=== PATIENT | female | born 1945 | race American Indian/Alaskan Native ===

== ENCOUNTER 2020-04-29 10:15 | Outpatient (REF) | payer MEDICARE, MEDICAID, SELFPAY ==
--- NOTE | 2020-04-29 10:22 | XR_ITS ---
EXAMINATION: XR FOOT, RIGHT CLINICAL INFORMATION: Pain in right toes COMPARISON: None TECHNIQUE: 3 views of the right foot of the right foot. FINDINGS: Osteopenia. No fracture or dislocation. Alignment is anatomic. Mild joint space narrowing throughout the interphalangeal joints with subchondral sclerosis. No osseous erosion. Vascular calcifications are noted. No gross soft tissue abnormality. There is moderate hypertrophic spurring of the plantar aponeurosis and Achilles insertion to the calcaneus. XR/XR foot RT min 3V IMPRESSION: No acute osseous abnormality. Mild degenerative changes throughout the interphalangeal joints. Heel spurs.
== END 2020-04-29 10:16 | disposition home or self-care (01) ==
LOC: HO.HMGCX 10:15
PROVIDERS: PCP Internal Medicine; Visit Provider Nurse Practitioner Family
DX: M79.674 Pain in right toe(s) (principal)
CPT/HCPCS: 73630

== ENCOUNTER 2020-05-08 08:21 | Outpatient (REF) | payer MEDICARE, MEDICAID, SELFPAY ==
[2020-05-08 09:16] LABS: MANUAL DIFF FLAG NO
[2020-05-08 09:30] LABS: Iron 78 mcg/dL (30-160); Percent Iron Saturation 20 % (15-50); Total Iron Binding Capacity 387 mcg/dL (228-428); Unsaturated Iron Binding 309 ug/dL
[2020-05-08 09:34] LABS: Alanine Aminotransferase 12 U/L (0-31); Albumin Level 4.4 g/dL (3.5-5.0); Alkaline Phosphatase 126 U/L (39-117); Anion Gap 14 (12-20); Aspartate Amino Transferase 18 U/L (5-31); B Type Natriuretic Peptide 551 pg/mL (<100); Basophils Absolute Auto 0.1 X10*3/uL (0.0-0.2); Basophils Percent Auto 0.8 % (0-2); Bilirubin Total 0.6 mg/dL (0.0-1.0); Blood Urea Nitrogen 29 mg/dL (9-16); Calcium 9.6 mg/dL (8.4-10.2); Carbon Dioxide 28 mmol/L (22-29); Chloride 102 mmol/L (96-108); Cholesterol 204 mg/dL; Eosinophils Absolute Auto 0.4 X10*3/uL (0.0-0.4); Eosinophils Percent Auto 4.4 % (0-4); Estimated Glomerular Filt Rate 33; Glucose Random 231 mg/dL (60-115); HDL Cholesterol 69 mg/dL; Hematocrit 41.6 % (37-47); Hemoglobin 13.7 g/dl (12.0-16.0); Imm Gran Abs Auto 0.04 X10*3/uL (0.00-0.03); Imm Gran Pct Auto 0.5 % (0.0-0.4); LDL Cholesterol Calculated 106 mg/dl; Lymphocytes Absolute Auto 1.8 X10*3/uL (1.2-4.9); Lymphocytes Percent Auto 22.4 % (20-40); Mean Corpuscular HGB Conc 32.9 g/dl (31.0-35.0); Mean Corpuscular Hemoglobin 28.5 pg (27.0-33.0); Mean Corpuscular Volume 86.7 fL (80-98); Mean Platelet Volume 10.6 fL (9.4-12.3); Monocytes Absolute Auto 0.6 X10*3/uL (0.1-1.2); Monocytes Percent Auto 7.4 % (2-11); Neutrophils Absolute Auto 5.1 X10*3/uL (2.0-8.3); Neutrophils Percent Auto 64.5 % (45-73); Platelet Count 298 X10*3/uL (160-400); Potassium 4.8 mmol/l (3.3-5.1); Red Cell Distribution Width 13.9 % (11.0-16.0); Sodium 139 mmol/L (135-145); Total Protein 7.6 g/dL (6.5-8.0); Triglycerides 149 mg/dL; White Blood Count 7.9 X10*3/uL (4.8-10.8)
[2020-05-08 09:44] LABS: Glucose Urine UA 100 MG/DL (NEG); Leukocyte Esterase Urine NEG (NEG); Nitrite Urine NEG (NEG); Specific Gravity - Urine 1.015 (1.005-1.025); Urine Blood TRACE (NEG); Urine Ketones NEG (NEG); Urine Protein 2+ MG/DL (NEG-TRACE)
[2020-05-08 09:48] LABS: Appearance Urine CLEAR; Color Urine YELLOW
[2020-05-08 09:50] LABS: Ferritin 120 ng/mL (10-250); Vitamin D 25-OH Total 20.5 ng/mL (>30)
[2020-05-08 09:55] LABS: Thyroid Stimulating Hormone 3.69 uIU/mL (0.32-4.0)
[2020-05-08 10:05] LABS: Folate 14.4 ng/mL (> or = 4.0); Vitamin B12 775 pg/mL (200-900)
[2020-05-08 10:05] LABS: Creatinine Urine 31.34 mg/dL
[2020-05-08 10:20] LABS: Microalbum/Creatinine Ratio Ur 4792.5 ug/mg cr
[2020-05-08 10:44] LABS: RBC Urine 0-2 /HPF (0); Squamous Epithelial Cell Urine 1+ /LPF; WBC Urine 0-2 /HPF (0-4)
[2020-05-10 13:41] LABS: Calcium (PTHI) 9.7 mg/dL (8.6-10.4); PTHI 46 pg/mL (14-64)
== END 2020-05-08 08:22 | disposition home or self-care (01) ==
LOC: HO.LAB 08:21
PROVIDERS: Absent Provider Internal Medicine Nephrology; PCP Internal Medicine; Visit Provider Internal Medicine
DX: E78.00 Pure hypercholesterolemia, unspecified (principal); E11.65 Type 2 diabetes mellitus with hyperglycemia; Z79.4 Long term (current) use of insulin; I50.9 Heart failure, unspecified; I10 Essential (primary) hypertension
CPT/HCPCS: 36415; 80053; 80061; 81001; 82043; 82306; 82607; 82728; 82746; 83540; 83880; 83970; 84100; 84443; 85025

== ENCOUNTER 2020-05-24 14:43 | Outpatient (REF) | payer MEDICARE, MEDICAID, SELFPAY ==
--- NOTE | 2020-05-24 14:49 | MM_ITS ---
EXAMINATION: MM SCREENING DIGITAL BREAST TOMOSYNTHESIS, BILATERAL CLINICAL INFORMATION: Screening. Asymptomatic. The lifetime risk of breast cancer based on the Tyrer-Cuzick Model is under 2%. COMPARISON: Mammography: 11/10/2018, 11/04/2017, 01/11/2017 TECHNIQUE: Digital breast tomosynthesis is performed in both the craniocaudal and mediolateral oblique views along with computer-aided detection (CAD). Synthesized 2D images are generated from the tomosynthesis. FINDINGS: There are scattered areas of fibroglandular density (ACR BI-RADS breast composition Category b). There are no significant masses, abnormal calcifications, or other abnormalities. Parenchymal pattern similar to prior studies. No significant changes. Again, there is intramammary node mid upper outer left breast and probable small lobe posterior upper outer right breast. There are bilateral predominantly vascular calcifications again seen. MM/MM tomosynthesis screening BI IMPRESSION: No significant changes from prior studies. ASSESSMENT: BI-RADS 2: Benign RECOMMENDATION: Routine annual mammography screening. This patient's information was entered into a reminder system with a target due date for their next mammogram.
== END 2020-05-24 14:44 | disposition home or self-care (01) ==
LOC: HO.MAMMO 14:43
PROVIDERS: PCP Internal Medicine; Visit Provider Internal Medicine
DX: Z12.31 Encounter for screening mammogram for malignant neoplasm of breast (principal)
CPT/HCPCS: 77063; 77067

== ENCOUNTER 2020-12-10 10:52 | Observation (INO) | payer MEDICARE, MEDICAID, SELFPAY ==
[2020-12-10] VITALS (15 sets, daily range): BP systolic 136–226; BP diastolic 40–79; PULSE 66–87; RESP 11–20; TEMP 36.4; O2SAT 83–100; BMI 41.3
--- NOTE | ~2020-12-10 | CT_ITS ---
EXAMINATION: CT HEAD WITHOUT CONTRAST CLINICAL INFORMATION: Hypertension COMPARISON: Previous head CT most recent May 2018 TECHNIQUE: Contiguous axial imaging was performed from the skull base to vertex without intravenous administration of contrast. This CT examination was performed using dose optimization techniques as appropriate, variously including the following: *Automated exposure control *Adjustment of mA and/or kV according to patient size (this includes techniques or standardized protocols for targeted exams where dose is matched to indication/reason for exam; i.e. extremities or head) *Use of iterative reconstruction technique DLP: 642 mGy-cm FINDINGS: There is no evidence of an extra-axial collection. There is no evidence of intra-axial or extra-axial hemorrhage. There is age-related prominence of the ventricles and extra-axial CSF spaces. There is nonspecific periventricular white matter disease. There are old right cerebellar and occipital infarcts that appear unchanged. No mass, mass effect or acute infarct is seen. Review at bone windows is normal. No skull fracture is seen. Visualized paranasal sinuses, mastoid air cells and middle ears are clear. CT/CT head/brain wo con IMPRESSION: No acute findings. 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
--- NOTE | ~2020-12-10 | CT_ITS ---
EXAMINATION: CT ABDOMEN AND PELVIS WITHOUT CONTRAST CLINICAL INFORMATION: Abdominal pain. Rule out kidney stone. COMPARISON: Previous CT of the abdomen and pelvis March 2018 TECHNIQUE: Multidetector volumetric imaging was performed from the superior aspect of the liver through the pubic symphysis. Sagittal and coronal reformatted images were obtained on the technologist's workstation. This CT examination was performed using dose optimization techniques as appropriate, variously including the following: *Automated exposure control *Adjustment of mA and/or kV according to patient size (this includes techniques or standardized protocols for targeted exams where dose is matched to indication/reason for exam; i.e. extremities or head) *Use of iterative reconstruction technique DLP: 524 mGy-cm FINDINGS: LUNG BASES: The visualized lung bases are clear. The heart is enlarged. There are median sternotomy wires. LIVER, GALLBLADDER, AND BILIARY TREE: The liver is normal in size, shape, and attenuation. No focal hepatic lesion or biliary ductal dilatation is present. The gallbladder has been removed. PANCREAS: Unremarkable. SPLEEN: Unremarkable. ADRENAL GLANDS: Unremarkable. KIDNEYS AND URETERS: There are several right renal stones. The largest measures 3 mm in the lower pole. There are other renal calcifications probably representing vascular calcifications. No hydronephrosis, ureteral dilatation or ureteral stone is seen. BLADDER: Unremarkable. GASTROINTESTINAL TRACT: The small and large bowel are unremarkable. The appendix is unremarkable. ABDOMINAL WALL: There is a small umbilical hernia containing fat. LYMPH NODES: There are prominent bilateral pelvic retroperitoneal lymph nodes. Largest lymph node is a right iliac bifurcation or side wall node measuring 1 x 2.5 cm axial image 60 series 13. These are stable from radius exam. VASCULAR: There is evidence of severe atherosclerotic disease. No aneurysm is seen. There is a right femoral bypass graft that is partially visualized. PELVIC VISCERA: Unremarkable. OSSEOUS STRUCTURES: There are degenerative changes of the spine. There is curvature of mid lumbar spine to the left. CT/CT abdomen pelvis wo con IMPRESSION: Small nonobstructing right renal stones. Severe atherosclerotic disease. Stable pelvic lymphadenopathy.
--- NOTE | ~2020-12-10 | US_ITS ---
EXAMINATION: US RENAL DOPPLER CLINICAL INFORMATION: Hypertension, evaluate for renal artery stenosis COMPARISON: None TECHNIQUE: Routine renal ultrasound and retroperitoneal Doppler evaluation of kidneys and abdominal aorta was performed. FINDINGS: There is normal size, cortical thickness of both kidneys. The right kidney measures 9.8 x 5.0 x 3.8 cm. The left kidney measures 9.7 x 4.5 x 3.8 cm. There are no echogenic stones or hydronephrosis. Renal Doppler: Right kidney: The renal artery velocity proximal segment measures 97.2 cm/second, mid segment measures 122 cm/second, distal segment measures 89.2 cm. Resistive index average measures 0.84. Renal aortic ratio cannot be obtained as mid aorta velocity was not obtained. Left kidney: Renal artery velocity measures mid segment measures 91.2 cm and distal segment measures 124 cm/second. The proximal segment was not visualized. Average resistive index measures 0.88. Renal aortic ratio cannot be calculated. US/US renal doppler IMPRESSION: Normal renal ultrasound. On renal Doppler exam the resistive index in the right kidney is borderline. Renal aortic ratio cannot be obtained due to patient's body habitus as mid abdominal aorta was not visualized and velocity not obtained. Slightly elevated left kidney resistive index. The renal artery velocity distal segment is elevated. The mid segment is normal and the proximal segment was not seen. The findings are less suspicious for renal artery stenosis.
[2020-12-10 11:06] LABS: Glucose, Whole Blood 326 mg/dL (60-115)
[2020-12-10 11:45] LABS: MANUAL DIFF FLAG NO
[2020-12-10 11:49] LABS: Basophils Percent Auto 0.4 % (0-2); Eosinophils Absolute Auto 0.2 X10*3/uL (0.0-0.4); Eosinophils Percent Auto 2.5 % (0-4); Hematocrit 40.2 % (37-47); Hemoglobin 13.3 g/dl (12.0-16.0); Imm Gran Abs Auto 0.04 X10*3/uL (0.00-0.03); Imm Gran Pct Auto 0.4 % (0.0-0.4); Lymphocytes Percent Auto 21.4 % (20-40); Mean Corpuscular HGB Conc 33.1 g/dl (31.0-35.0); Mean Corpuscular Hemoglobin 28.1 pg (27.0-33.0); Mean Corpuscular Volume 84.8 fL (80-98); Mean Platelet Volume 10.2 fL (9.4-12.3); Monocytes Absolute Auto 0.5 X10*3/uL (0.1-1.2); Neutrophils Absolute Auto 6.5 X10*3/uL (2.0-8.3); Neutrophils Percent Auto 70.3 % (45-73); Platelet Count 271 X10*3/uL (160-400); Red Blood Count 4.74 X10*6/uL (4.20-5.50); Red Cell Distribution Width 14.2 % (11.0-16.0); White Blood Count 9.3 X10*3/uL (4.8-10.8)
[2020-12-10 12:07] LABS: COVID-19 Test Negative (Negative)
[2020-12-10 12:20] LABS: Alanine Aminotransferase 9 U/L (0-31); Alkaline Phosphatase 120 U/L (39-117); Anion Gap 17 (12-20); Aspartate Amino Transferase 18 U/L (5-31); Bilirubin Direct 0.3 mg/dL (0.0-0.5); Bilirubin Total 0.8 mg/dL (0.0-1.0); Blood Urea Nitrogen 25 mg/dL (9-16); Calcium 9.1 mg/dL (8.4-10.2); Carbon Dioxide 25 mmol/L (22-29); Chloride 97 mmol/L (96-108); Creatinine Clr Calc Pharmacy 23.6; Estimated Glomerular Filt Rate 33; Glucose Random 375 mg/dL (60-115); Lipase 35 U/L (8-78); Potassium 4.9 mmol/L (3.3-5.1); Sodium 134 mmol/L (135-145); Total Protein 6.7 g/dL (6.5-8.0)
--- NOTE | 2020-12-10 12:40 | ECG_ITS ---
Test Reason : ABD PAIN Blood Pressure : / mmHG Vent. Rate : 082 BPM Atrial Rate : 082 BPM P-R Int : 144 ms QRS Dur : 106 ms QT Int : 402 ms P-R-T Axes : 060 010 051 degrees QTc Int : 469 ms Normal sinus rhythm Possible Inferior infarct (cited on or before 01-JUN-2016) Abnormal ECG When compared with ECG of 05-OCT-2018 12:07, Nonspecific T wave abnormality, improved in Inferior leads Referred By: Ramin Gill Electronically Signed By:TALITA ANTUNEZ MD
[2020-12-10 12:50] LABS: Acetone, serum QL Negative (Negative)
[2020-12-10] MEDS: Morphine Sulfate 4 MG/ML CARTRIDGE IVPUSH (12:55)
[2020-12-10] MEDS: ondansetron HCL 4 MG/2 ML VIAL IVPUSH (12:55)
[2020-12-10] MEDS: Famotidine/PF 20 MG/2 ML VIAL IVPUSH (12:55)
[2020-12-10] MEDS: Sodium Chloride 0.45 % 1,000 ML 125 ML IVCONT (13:06)
[2020-12-10 13:07] LABS: Glucose Urine UA >=1000 MG/DL (NEG); Leukocyte Esterase Urine NEG (NEG); Nitrite Urine NEG (NEG); Specific Gravity - Urine 1.015 (1.005-1.025); Urine Blood NEG (NEG); Urine Ketones NEG (NEG); Urine Protein 2+ MG/DL (NEG-TRACE)
[2020-12-10 13:08] LABS: Appearance Urine CLEAR; Color Urine YELLOW
--- NOTE | 2020-12-10 13:17 | ED_ITS ---
HPI - General Adult General Chief complaint: Nausea/Vomiting/Diarrhea Stated complaint: Hyperglycemia Time Seen by Provider: 12/10/20 12:13 Source: patient Mode of arrival: ambulatory Limitations: no limitations History of Present Illness HPI narrative: patient presents to ED for made to lower abdominal pain that b juliano after eating whole meal, milk, and orange juice. Patient states before eating this meal she had no symptoms. Patient's fingerstick was found to be 222. patient denies any chest pain, shortness of breath, fever, chills, coughing, dysuria, hematuria, flank pain, back pain. Related Data Home Medications Medication Instructions Recorded Confirmed aspirin 81 mg tablet,delayed 81 mg PO DAILY 04/12/20 12/10/20 release cholecalciferol (vitamin D3) 1,250 1,250 mcg PO TU 04/12/20 12/10/20 mcg (50,000 unit) capsule nifedipine 60 mg tablet,extended 60 mg PO BID 04/12/20 12/10/20 release insulin asp prt-insulin aspart 20 unit SUBCUT DAILY 12/10/20 12/10/20 [Novolog Mix 70-30FlexPen U-100] insulin asp prt-insulin aspart 25 unit SUBCUT QPM 12/10/20 12/10/20 [Novolog Mix 70-30FlexPen U-100] rosuvastatin 1 tab PO DAILY 12/10/20 12/10/20 Previous Rx's Medication Instructions Recorded docusate sodium 100 mg capsule 100 mg PO TID PRN #90 cap 04/04/20 bumetanide 1 mg tablet 1 mg PO BID #180 tab 05/29/20 gabapentin 300 mg capsule 300 mg PO TID #270 cap 07/02/20 compress.stocking,knee,reg,med #2 ea 07/25/20 clonidine HCl 0.3 mg tablet 0.3 mg PO BID 90 Days #180 tab 08/07/20 albuterol sulfate 90 mcg/actuation 2 puff INHALATION Q4-6H PRN #8.5 g 08/15/20 aerosol inhaler lisinopril 40 mg tablet 40 mg PO DAILY #90 tab 08/28/20 Diabetic shoes #1 ea 10/15/20 blood-glucose meter #1 ea 10/15/20 tramadol 50 mg tablet 50 mg PO Q8H 90 Days #270 tab 10/15/20 pen needle, diabetic 31 gauge x #2 box 10/22/20 3/16 Allergies Allergy/AdvReac Type Severity Reaction Status Date / Time latex [LATEX] Allergy Unknown UNKNOWN Verified 07/02/20 09:47 peanut [PEANUT] Allergy Unknown RASH Unverified 04/12/20 16:47 seafood Allergy Unknown Unknown Verified 07/02/20 09:47 Review of Systems Review of Systems: Yes all other systems are reviewed and are negative Constitutional: Constitutional: Reports as per HPI and Reports no additional constitutional complaints Eyes: Eyes: Reports as per HPI and Reports no additional eye complaints ENT: Reports system reviewed and no additional complaints, except as documented and Reports as per HPI Cardiovascular: Cardiovascular: Reports as per HPI and Reports no additional cardiovascular complaints Respiratory: Respiratory: Reports as per HPI and Reports no additional respiratory complaints Gastrointestinal: Gastrointestinal: Reports as per HPI, Reports no additional gastrointestinal complaints and Reports abdominal pain ( Mid to lower abdominal pain) Genitourinary: Genitourinary: Reports no additional female genitourinary complaints and Reports as per HPI Musculoskeletal: Musculoskeletal: Reports no additional musculoskeletal complaints and Reports as per HPI Neurologic: Reports system reviewed and no additional complaints, except as documented and Reports as per HPI Psychiatric: Psychiatric: Reports no additional psychiatric complaints and Reports as per HPI [facility] Past Medical History Medical History (Updated 12/10/20 @ 18:36 by NELLY Kumar) Aortic stenosis Asthma Congestive heart failure Coronary artery disease Dementia Diabetic neuropathy Diabetic retinopathy History of CVA (cerebrovascular accident) Hypercholesterolemia Hypertension Obesity (BMI 30-39.9) Peripheral vascular disease Thyroid nodule Type 2 diabetes mellitus with hyperglycemia Surgical History (Updated 04/11/20 @ 18:27 by Renetta Gonzalez MD) Amputated toe of left foot Carotid stenosis Femoral-popliteal bypass graft occlusion, left Hx of CABG Hx of cholecystectomy No pertinent past surgical history Family History Family History (Updated 07/02/20 @ 09:49 by ALBA Karimi) Father Diabetes Hypertension Mother Hypertension CVD (cardiovascular disease) Cancer Diabetes Maternal Aunt Breast cancer Seizures Sister No problems noted. Son No problems noted. Son No problems noted. Son No problems noted. Daughter No problems noted. Social History Social History (Updated 10/15/20 @ 11:23 by Kizzy Rivera CMA) Alcohol intake: current Alcohol intake frequency: does not drink Patient Tobacco Use Status: Never used Tobacco Use of substances other than those prescribed or required for medical reasons: No Advance Directives: No Advance Directives Information Provided: No Physical Exam Vital Signs: Vital Signs: Last Vital Signs Temp 97.5 F 12/10/20 11:16 Pulse 79 12/10/20 18:23 Resp 13 12/10/20 15:49 BP 213/65 H 12/10/20 18:23 Pulse Ox 100 12/10/20 15:11 Body Mass Index 41.3 Const: General: cooperative, healthy appearing, comfortable, no acute distress, well developed, alert and acute distress Orientation/consciousness: patient oriented x3 HENMT: Head: Yes normal to inspection, Yes No palpable skull fracture present, Yes normocephalic, Yes atraumatic and No abrasion Eyes: General: appearance normal, both eyes and all related structures Neck: Neck: Yes normal visual inspection, Yes full ROM, Yes no lymphadenopathy, Yes no meningeal signs, Yes trachea midline, Yes supple and No tender Chest: Chest palpation & inspection: normal inspection of the chest and normal palpation of entire chest wall Resp: Effort & Inspection: normal respiratory effort and able to speak in comp lete sentences Auscultation: clear to auscultation bilaterally Cardio: Jugular venous distension: no JVD Heart sounds: S1 normal heart sound present and S2 normal heart sound present GI: Inspection: Yes normal to inspection and No abdominal wall ecchymosis Palpation (GI): Tenderness to palpation present (GI) in the LLQ and in the RLQ, no guarding and not rigid : General: No CVA tenderness and Yes no CVA tenderness Back/Spine/Pelvis: Back: no CVA tenderness, No CVA tenderness and No back tenderness Skin: General skin exam: no rashes or lesions noted and elasticity normal Neuro: General: patient oriented x3, gait normal, no meningeal signs and CN's II-XI intact bilaterally Cranial nerves: Yes CN's II-XII intact bilaterally Extrem: General: Yes normal to inspection and Yes full ROM Psych: Appearance: grossly normal, well kempt and not disheveled Course Course Course Narrative: patient will have medical evaluation. Patient is hypertensive most likely due to pain. Will give narcotics for, fluid, Pepcid. Will send patient for abdominal CT scan. Lab sent to see if possible DKA. UA ordered. Reevaluation(s) Reevaluation #1: Patient is severely hypertensive even after given pain medication. Patient given 2 rounds of morphine. Patient given clonidine and labetalol. Was sent for head CT and abdominal CT. patient not in DKA. Time: 11:36 Reevaluation #2: patient abdominal pain improved, but patient still hypertensive. Chemistry shows chronic AVIS. Patient blood pressure went down to 190s from systolic of 200s after being given labetalol and clonidine. Patient admitted to the hospital for hypertensive urgency. Case presented to Dr. Avalos. head CT and abdominal CT normal. UA negative for UTI Time: 18:34 Medical Decision Making MDM Narrative Medical decision making narrative: hypertensive urgency Lab Data Result diagrams: 12/10/20 11:36 12/10/20 11:36 Labs: Lab Results 12/10/20 12/10/20 12/10/20 Range/Units 11:03 11:36 11:36 WBC 9.3 (4.8-10.8) X10*3/uL RBC 4.74 (4.20-5.50) X10*6/uL Hgb 13.3 (12.0-16.0) g/dl Hct 40.2 (37-47) % MCV 84.8 (80-98) fL MCH 28.1 (27.0-33.0) pg MCHC 33.1 (31.0-35.0) g/dl RDW 14.2 (11.0-16.0) % Plt Count 271 (160-400) X10*3/uL MPV 10.2 (9.4-12.3) fL Immature Gran % (Auto) 0.4 (0.0-0.4) % Neut % (Auto) 70.3 (45-73) % Lymph % (Auto) 21.4 (20-40) % [place] % (Auto) 5.0 (2-11) % Eos % (Auto) 2.5 (0-4) % Baso % (Auto) 0.4 (0-2) % Lymph # (Auto) 2.0 (1.2-4.9) X10*3/uL [place] # (Auto) 0.5 (0.1-1.2) X10*3/uL Eos # (Auto) 0.2 (0.0-0.4) X10*3/uL Baso # (Auto) 0.0 (0.0-0.2) X10*3/uL Abs Immat Gran (auto) 0.04 H (0.00-0.03) X10*3/uL Absolute Neuts (auto) 6.5 (2.0-8.3) X10*3/uL Absolute Nucleated RBC 0.000 (0.0-0.012) X10*3/uL Nucleated RBC % (auto) 0.0 (0.0-0.2) /100WBC PT (10.8-13.0) SEC INR (0.9-1.1) APTT (24.1-38.0) SEC Sodium 134 L (135-145) mmol/L Potassium 4.9 (3.3-5.1) mmol/L Chloride 97 (96-108) mmol/L Carbon Dioxide 25 (22-29) mmol/L Anion Gap 17 (12-20) BUN 25 H (9-16) mg/dL Creatinine 1.52 H (0.5-1.4) mg/dL Estim Creat Clear Calc 23.6 Estimated GFR 33 POC Glucose 326 H (60-115) mg/dL Random Glucose 375 H* (60-115) mg/dL Calcium 9.1 (8.4-10.2) mg/dL Total Bilirubin 0.8 (0.0-1.0) mg/dL Direct Bilirubin 0.3 (0.0-0.5) mg/dL AST 18 (5-31) U/L ALT 9 (0-31) U/L Alkaline Phosphatase 120 H (39-117) U/L Troponin I High Sens (<3.5-17.0) ng/L Total Protein 6.7 (6.5-8.0) g/dL Albumin 4.0 (3.5-5.0) g/dL Lipase 35 (8-78) U/L Urine Color Urine Appearance Urine pH (5.0-8.0) Ur Specific [place] (1.005-1.025) Urine Protein (NEG-TRACE) MG/DL Urine Glucose (UA) (NEG) MG/DL Urine Ketones (NEG) MG/DL Urine Blood (NEG) Urine Nitrite (NEG) Ur Leukocyte Esterase (NEG) Urine RBC (0) /HPF Urine WBC (0-4) /HPF Ur Squamous Epith Cells /LPF Urine Bacteria /LPF Acetone, Qual Negative (Negative) COVID-19 ([facility]) (Negative) COVID-19 Clin Com 12/10/20 12/10/20 12/10/20 Range/Units 11:36 11:36 12:58 WBC (4.8-10.8) X10*3/uL RBC (4.20-5.50) X10*6/uL Hgb (12.0-16.0) g/dl Hct (37-47) % MCV (80-98) fL MCH (27.0-33.0) pg MCHC (31.0-35.0) g/dl RDW (11.0-16.0) % Plt Count (160-400) X10*3/uL MPV (9.4-12.3) fL Immature Gran % (Auto) (0.0-0.4) % Neut % (Auto) (45-73) % Lymph % (Auto) (20-40) % [place] % (Auto) (2-11) % Eos % (Auto) (0-4) % Baso % (Auto) (0-2) % Lymph # (Auto) (1.2-4.9) X10*3/uL [place] # (Auto) (0.1-1.2) X10*3/uL Eos # (Auto) (0.0-0.4) X10*3/uL Baso # (Auto) (0.0-0.2) X10*3/uL Abs Immat Gran (auto) (0.00-0.03) X10*3/uL Absolute Neuts (auto) (2.0-8.3) X10*3/uL Absolute Nucleated RBC (0.0-0.012) X10*3/uL Nucleated RBC % (auto) (0.0-0.2) /100WBC PT (10.8-13.0) SEC INR (0.9-1.1) APTT (24.1-38.0) SEC Sodium (135-145) mmol/L Potassium (3.3-5.1) mmol/L Chloride (96-108) mmol/L Carbon Dioxide (22-29) mmol/L Anion Gap (12-20) BUN (9-16) mg/dL Creatinine (0.5-1.4) mg/dL Estim Creat Clear Calc Estimated GFR POC Glucose (60-115) mg/dL Random Glucose (60-115) mg/dL Calcium (8.4-10.2) mg/dL Total Bilirubin (0.0-1.0) mg/dL Direct Bilirubin (0.0-0.5) mg/dL AST (5-31) U/L ALT (0-31) U/L Alkaline Phosphatase (39-117) U/L Troponin I High Sens 15.1 (<3.5-17.0) ng/L Total Protein (6.5-8.0) g/dL Albumin (3.5-5.0) g/dL Lipase (8-78) U/L Urine Color YELLOW Urine Appearance CLEAR Urine pH 6.0 (5.0-8.0) Ur Specific [place] 1.015 (1.005-1.025) Urine Protein 2+ H (NEG-TRACE) MG/DL Urine Glucose (UA) >=1000 H (NEG) MG/DL Urine Ketones NEG (NEG) MG/DL Urine Blood NEG (NEG) Urine Nitrite NEG (NEG) Ur Leukocyte Esterase NEG (NEG) Urine RBC 0 (0) /HPF Urine WBC 0-2 (0-4) /HPF Ur Squamous Epith Cells NONE /LPF Urine Bacteria NONE /LPF Acetone, Qual (Negative) COVID-19 ([facility]) Negative (Negative) COVID-19 Clin Com See Note 12/10/20 12/10/20 12/10/20 Range/Units 13:41 13:48 14:35 WBC (4.8-10.8) X10*3/uL RBC (4.20-5.50) X10*6/uL Hgb (12.0-16.0) g/dl Hct (37-47) % MCV (80-98) fL MCH (27.0-33.0) pg MCHC (31.0-35.0) g/dl RDW (11.0-16.0) % Plt Count (160-400) X10*3/uL MPV (9.4-12.3) fL Immature Gran % (Auto) (0.0-0.4) % Neut % (Auto) (45-73) % Lymph % (Auto) (20-40) % [place] % (Auto) (2-11) % Eos % (Auto) (0-4) % Baso % (Auto) (0-2) % Lymph # (Auto) (1.2-4.9) X10*3/uL [place] # (Auto) (0.1-1.2) X10*3/uL Eos # (Auto) (0.0-0.4) X10*3/uL Baso # (Auto) (0.0-0.2) X10*3/uL Abs Immat Gran (auto) (0.00-0.03) X10*3/uL Absolute Neuts (auto) (2.0-8.3) X10*3/uL Absolute Nucleated RBC (0.0-0.012) X10*3/uL Nucleated RBC % (auto) (0.0-0.2) /100WBC PT 11.5 (10.8-13.0) SEC INR 1.0 (0.9-1.1) APTT 27.6 (24.1-38.0) SEC Sodium (135-145) mmol/L Potassium (3.3-5.1) mmol/L Chloride (96-108) mmol/L Carbon Dioxide (22-29) mmol/L Anion Gap (12-20) BUN (9-16) mg/dL Creatinine (0.5-1.4) mg/dL Estim Creat Clear Calc Estimated GFR POC Glucose 321 H 319 H (60-115) mg/dL Random Glucose (60-115) mg/dL Calcium (8.4-10.2) mg/dL Total Bilirubin (0.0-1.0) mg/dL Direct Bilirubin (0.0-0.5) mg/dL AST (5-31) U/L ALT (0-31) U/L Alkaline Phosphatase (39-117) U/L Troponin I High Sens (<3.5-17.0) ng/L Total Protein (6.5-8.0) g/dL Albumin (3.5-5.0) g/dL Lipase (8-78) U/L Urine Color Urine Appearance Urine pH (5.0-8.0) Ur Specific [place] (1.005-1.025) Urine Protein (NEG-TRACE) MG/DL Urine Glucose (UA) (NEG) MG/DL Urine Ketones (NEG) MG/DL Urine Blood (NEG) Urine Nitrite (NEG) Ur Leukocyte Esterase (NEG) Urine RBC (0) /HPF Urine WBC (0-4) /HPF Ur Squamous Epith Cells /LPF Urine Bacteria /LPF Acetone, Qual (Negative) COVID-19 ([facility]) (Negative) COVID-19 Clin Com 12/10/20 12/10/20 Range/Units 15:23 15:47 WBC (4.8-10.8) X10*3/uL RBC (4.20-5.50) X10*6/uL Hgb (12.0-16.0) g/dl Hct (37-47) % MCV (80-98) fL MCH (27.0-33.0) pg MCHC (31.0-35.0) g/dl RDW (11.0-16.0) % Plt Count (160-400) X10*3/uL MPV (9.4-12.3) fL Immature Gran % (Auto) (0.0-0.4) % Neut % (Auto) (45-73) % Lymph % (Auto) (20-40) % [place] % (Auto) (2-11) % Eos % (Auto) (0-4) % Baso % (Auto) (0-2) % Lymph # (Auto) (1.2-4.9) X10*3/uL [place] # (Auto) (0.1-1.2) X10*3/uL Eos # (Auto) (0.0-0.4) X10*3/uL Baso # (Auto) (0.0-0.2) X10*3/uL Abs Immat Gran (auto) (0.00-0.03) X10*3/uL Absolute Neuts (auto) (2.0-8.3) X10*3/uL Absolute Nucleated RBC (0.0-0.012) X10*3/uL Nucleated RBC % (auto) (0.0-0.2) /100WBC PT (10.8-13.0) SEC INR (0.9-1.1) APTT (24.1-38.0) SEC Sodium (135-145) mmol/L Potassium (3.3-5.1) mmol/L Chloride (96-108) mmol/L Carbon Dioxide (22-29) mmol/L Anion Gap (12-20) BUN (9-16) mg/dL Creatinine (0.5-1.4) mg/dL Estim Creat Clear Calc Estimated GFR POC Glucose 317 H (60-115) mg/dL Random Glucose (60-115) mg/dL Calcium (8.4-10.2) mg/dL Total Bilirubin (0.0-1.0) mg/dL Direct Bilirubin (0.0-0.5) mg/dL AST (5-31) U/L ALT (0-31) U/L Alkaline Phosphatase (39-117) U/L Troponin I High Sens 13.9 (<3.5-17.0) ng/L Total Protein (6.5-8.0) g/dL Albumin (3.5-5.0) g/dL Lipase (8-78) U/L Urine Color Urine Appearance Urine pH (5.0-8.0) Ur Specific [place] (1.005-1.025) Urine Protein (NEG-TRACE) MG/DL Urine Glucose (UA) (NEG) MG/DL Urine Ketones (NEG) MG/DL Urine Blood (NEG) Urine Nitrite (NEG) Ur Leukocyte Esterase (NEG) Urine RBC (0) /HPF Urine WBC (0-4) /HPF Ur Squamous Epith Cells /LPF Urine Bacteria /LPF Acetone, Qual (Negative) COVID-19 ([facility]) (Negative) COVID-19 Clin Com ECG Data Interpretation: normal sinus rhythm. Ventricular rate 82. Peer interval 144. QRS 106. QTC 469. Negative STEMI Discharge Plan Discharge Clinical Impression: Hypertension, Type 2 diabetes mellitus with hyperglycemia Patient Disposition: Admitted As Inpatient
[2020-12-10 13:19] LABS: RBC Urine 0 /HPF (0); WBC Urine 0-2 /HPF (0-4)
[2020-12-10 13:46] LABS: Troponin-I High Sensitivity 15.1 ng/L (<3.5-17.0)
[2020-12-10] MEDS: Insulin Regular, Human 100 UNIT/ML 3 ML VIAL 6 UNIT IVPUSH (13:51)
[2020-12-10 13:52] LABS: Glucose, Whole Blood 321 mg/dL (60-115)
[2020-12-10 13:58] LABS: Prothrombin Time 11.5 SEC (10.8-13.0)
[2020-12-10 14:01] LABS: Partial Thromboplastin Time 27.6 SEC (24.1-38.0)
[2020-12-10] MEDS: cloNIDine HCL 0.2 MG TABLET PO (14:10)
[2020-12-10] MEDS: Morphine Sulfate 2 MG/ML CARTRIDGE IVPUSH (14:11)
[2020-12-10 14:41] LABS: Glucose, Whole Blood 319 mg/dL (60-115)
[2020-12-10] MEDS: Labetalol HCL 100 MG/20 ML VIAL 10 MG IVPUSH (15:16)
[2020-12-10 15:52] LABS: Glucose, Whole Blood 317 mg/dL (60-115)
[2020-12-10 16:00] LABS: Troponin-I High Sensitivity 13.9 ng/L (<3.5-17.0)
--- NOTE | 2020-12-10 17:10 | PHA.MEDREC ---
Pharmacy Consult ? Medication Reconciliation Pharmacy has completed the medication reconciliation.
[2020-12-10 17:48] LABS: Glucose, Whole Blood 285 mg/dL (60-115)
[2020-12-10] MEDS: hydrALAZINE HCl 20 MG/ML VIAL 5 MG IVPUSH (18:23)
[2020-12-10] MEDS: Insulin Lispro 100 UNIT/ML 3 ML VIAL SUBCUT ×2 (18:31→21:00)
--- NOTE | 2020-12-10 19:15 | PC.NURSE ---
ASSUMED CARE OF PT. PT RESTING IN STRETCHER IN NAD, DENIES ANY COMPLAINTS. RESPIRATIONS EASY, N/L. SKIN W/D. PT'S DAUGHTER PHONE # [phone]. WILL CONTINUE TO MONITOR PT.
[2020-12-10] MEDS: Enoxaparin Sodium 30 MG/0.3 ML SYRINGE SUBCUT (20:00)
--- NOTE | 2020-12-10 20:43 | HP_ITS ---
DATE OF SERVICE: 12/10/2020 CHIEF COMPLAINT: Nausea, vomiting, abdominal pain, and diarrhea. HISTORY OF PRESENTING ILLNESS: This is a 75-year-old female patient with multiple medical issues including history of diabetes mellitus, uncontrolled; history of peripheral vascular disease; history of asthma; aortic stenosis; coronary artery disease; dementia; status post CVA; hypercholesterolemia; morbid obesity; who presented to [facility] due to lower abdominal pain associated with nausea, vomiting, and 1 bout of diarrhea according to the patient. She went at a [employer] and had a large breakfast including hash brown, adventist oat with milk, cornmeal, eggs, cherries, followed by a glass of orange juice; soon after that symptoms started. Therefore, she came to the emergency room, where she was noted to have significantly elevated blood pressure with a systolic BP 222/71. Further workup including a CAT scan of the abdomen and pelvis showed no acute abnormality. It showed severe arthrosclerotic disease. 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 The patient was treated in the emergency room with IV morphine, IV Pepcid, clonidine 0.2 mg, labetalol 10 mg. since blood pressure remained elevated 194/60, it was decided to admit the patient for better blood pressure control. The patient was also noted to have elevated blood sugars in the range of 300 with stable electrolytes and stable renal function. At present, the patient admits that her abdominal pain, nausea, vomiting has improved. She denies any headache, dizziness. Denies any neurological deficits and is being admitted for close blood pressure and blood sugar monitoring. PAST MEDICAL HISTORY: Significant for, 1. History of congestive heart failure, history of coronary artery disease, history of diabetes mellitus with neuropathy, retinopathy, and likely chronic kidney disease. 2. History of prior CVA with no residual deficit. 3. History of hypercholesterolemia. 4. History of hypertension. 5. History of morbid obesity. 6. History of peripheral vascular disease. 7. History of thyroid nodule. PAST SURGICAL HISTORY: 1. She is status post amputation of left fourth toe. 2. Status post femoral-popliteal bypass graft on left. 3. Status post CABG. 4. Status post cholecystectomy. FAMILY HISTORY: 1. Father is , had hypertension and diabetes. 2. Mother is , had hypertension, coronary artery disease, and diabetes. 3. One maternal aunt has breast cancer and seizure. SOCIAL HISTORY: Patient lives at home alone. Ambulates with the help of a cane. The patient's son and granddaughter are . She drinks alcohol only on special occasions. She has never smoked. ALLERGIES: SHE IS ALLERGIC TO LATEX, UNKNOWN ALLERGY. PEANUT CAUSES RASH. SEAFOOD ALSO CAUSE UNKNOWN ALLERGIES. CURRENT MEDICATIONS: 1. Cholecalciferol 50,000 units weekly. 2. Insulin 25 units at p.m. and 20 units at a.m. 3. Rosuvastatin 40 mg daily. 4. Albuterol 2 puffs inhaler every 4 to 6 hours as needed. 5. Aspirin 81 daily. 6. Bumex 1 mg b.i.d. 7. Clonidine 0.3 mg b.i.d. 8. Colace 100 mg t.i.d. as needed. 9. Gabapentin 300 mg t.i.d. 10. Lisinopril 40 mg daily. 11. Nifedipine 60 mg twice daily. 12. Tramadol 50 mg every 8 hours. REVIEW OF SYSTEMS: ORDER BOOKER: No headache, no dizziness. CVS: No chest pain, no palpitation. GI: All symptoms of nausea, vomiting, abdominal pain, and diarrhea resolved. : No urinary frequency or urgency. Rest of all other systems are reviewed and negative. PHYSICAL EXAMINATION: GENERAL: The patient is resting comfortably. Patient is awake, alert, in no distress. VITALS: BP 190/60, pulse of 69, respiratory rate of 13. She is afebrile with a finger oximetry of 100% on 1 L of nasal cannula. HEENT: Pupils equal, reactive to light and accommodation. LUNGS: Clear to auscultation bilaterally with no wheeze or rhonchi. CARDIOVASCULAR: Heart rate, regular rate rhythm. ABDOMEN: Obese, soft, nontender. Bowel sounds are audible. EXTREMITIES: She has bilateral pitting edema of both lower extremities. She has bilateral lower extremity anterior lucio discoloration that is unchanged as per the patient's daughter with no open wounds. No drainage noted. NEUROLOGIC: Nonfocal. ASSESSMENT AND PLAN: This is a 75-year-old female patient with multiple medical issues including history of hypercholesterolemia, uncontrolled diabetes mellitus, hypertension, prior cerebrovascular accident, coronary artery disease, status post coronary artery bypass graft, vascular dementia without behavioral disturbances, presented to [facility] due to an acute onset of nausea, vomiting, abdominal pain, and nonbloody diarrhea after eating a large meal. 1. Nausea, vomiting, abdominal pain, and diarrhea. patient's all symptoms have resolved. Workup showed normal CAT scan of the abdomen and pelvis, electrolytes as well as CBC is unremarkable, likely food poisoning. We will place the patient on diet. Follow clinical course closely, will use as-needed antiemetic and Maalox for dyspepsia. 2. Uncontrolled blood pressure. The patient is on 4 antihypertensive medications that will be continued. Question elevated blood pressures related to nausea, vomiting, and pain, will add as-needed hydralazine and adjust baseline medications depending on blood pressure readings over the course of next 24 hours. 3. Diabetes mellitus on insulin with uncontrolled blood sugars. It has been noted that the patient's hemoglobin A1c is 9.8, suggestive of poor blood sugar control. The patient has been recommended to follow a strict diabetic diet. She will be placed on insulin sliding scale and Lantus, at home she takes twice daily 70/30 mixed insulin. 4. History of coronary artery disease. We will continue home medications. Currently, the patient has no chest pain and EKG showed normal sinus rhythm with no acute ischemic changes. 5. Code status, the patient wishes to be a full code. 6. Deep vein thrombosis prophylaxis. The patient has been placed on Lovenox. MD WALLY Monet/DANIELLA / [id number] MTDD
[2020-12-10] MEDS: Insulin Glargine,Hum.rec.anlog 100 UNIT/ML 10 ML VIAL 18 UNIT SUBCUT (21:00)
[2020-12-10] MEDS: Gabapentin 300 MG CAPSULE PO (21:00)
[2020-12-10] MEDS: cloNIDine HCL 0.1 MG TABLET 0.3 MG PO (21:00)
[2020-12-10] MEDS: traMADoL HCL 50 MG TABLET PO (21:00)
--- NOTE | 2020-12-10 21:49 | PC.NURSE ---
bs 231, PAIN MEDS GOT D/C AND CHG TO TRAMADOL PO FOR PAIN. PT RESTING IN STRETCHER AWAITING ADMISSION. PT MEDICATED PER EMAR. FAMILY AT BEDSIDE WITH PT FOR SUPPORT.
[2020-12-10 21:52] LABS: Glucose, Whole Blood 231 mg/dL (60-115)
[2020-12-10] MEDS: NIFEdipine ER 60 MG TAB.ER.24 PO (22:15)
--- NOTE | 2020-12-10 22:39 | PC.NURSE ---
PT DAUGHTER ALECIA CHAVIRA [phone].
[2020-12-11] VITALS (13 sets, daily range): BP systolic 153–185; BP diastolic 52–81; PULSE 60–88; RESP 17–20; TEMP 36.4–37.3; O2SAT 73–97
[2020-12-11] MEDS: 0.9 % Sodium Chloride Flush 3 ML SYRINGE IVFLUSH ×4 (00:30→19:37)
--- NOTE | 2020-12-11 03:30 | PC.NURSE ---
PT SLEEPING IN NAD VSS.
--- NOTE | 2020-12-11 06:37 | PC.NURSE ---
PT AMBULATES TO RESTROOM W/O DIFFICULTY. PT AWAITING FOR ROOM ASSIGNMENT. PT DENIES ANY COMPLAINTS. VS OBTAINED.
--- NOTE | 2020-12-11 06:52 | PC.NURSE ---
[facility] UNABLE TO TAKE REPORT WITH RETURN CALL.
--- NOTE | 2020-12-11 07:04 | PC.NURSE ---
[place] [facility] [place] AWAITING FOR TRANSFER TO FLOOR.
[2020-12-11 07:24] LABS: Glucose, Whole Blood 174 mg/dL (60-115)
[2020-12-11 07:45] LABS: Glucose, Whole Blood 181 mg/dL (60-115)
[2020-12-11] MEDS: Insulin Lispro 100 UNIT/ML 3 ML VIAL SUBCUT ×3 (08:15→20:53)
[2020-12-11] MEDS: NIFEdipine ER 60 MG TAB.ER.24 PO ×2 (08:17→19:36)
[2020-12-11] MEDS: Aspirin Enteric Coated 81 MG TABLET.DR PO (08:17)
[2020-12-11] MEDS: traMADoL HCL 50 MG TABLET PO ×2 (08:18→19:34)
[2020-12-11] MEDS: Gabapentin 300 MG CAPSULE PO ×3 (08:18→19:35)
[2020-12-11] MEDS: lisinopriL 40 MG TABLET PO (08:18)
[2020-12-11] MEDS: Bumetanide 1 MG TABLET PO ×2 (08:18→16:54)
[2020-12-11] MEDS: cloNIDine HCL 0.1 MG TABLET 0.3 MG PO ×2 (08:19→19:37)
[2020-12-11 11:17] LABS: Glucose, Whole Blood 207 mg/dL (60-115)
--- NOTE | 2020-12-11 13:58 | MHC.CM.PN ---
CM ATTEMPTED TO SEE PT WITH SENIOR ACCOUNTANT CPA. PT SLEEPING ON APPROACH. BOTH CM AND JAVA ANALYST ATTEMPTED TO WAKE PT FOR INTERVIEW HOWEVER SHE REMAINED ASLEEP. CM WILL REVISIT
--- NOTE | 2020-12-11 14:52 | P.PNIM_ITS ---
Subjective Subjective Date of Service: 12/11/20 Interval History: History obtained via quantitative researcher, son who is PC is at bedside, patient resting comfortably offers no acute complaints of shortness of breath, cough,no nausea, vomiting,no abdominal pain, and diarrhea has resolved. General no headache, no dizziness, no fever chills. CVS no chest pain, no palpitation. Respiratory no cough, no sob. Gastrointestinal no nausea, no vomiting, no abdominal pain Physical Exam Vital Signs: Vital Signs: Last Vital Signs Temp 98.3 F 12/11/20 11:08 Pulse 62 12/11/20 11:08 Resp 18 12/11/20 11:08 BP 166/78 H 12/11/20 11:08 Pulse Ox 93 12/11/20 11:08 Body Mass Index 41.3 General resting comfortably in no acute distress. Neck is supple no JVD. CVS regular rate rhythm, Respiratory lungs clear to auscultation, no respiratory distress, no wheeze, no rhonchi. Gastrointestinal abdomen soft, obese, nontender, bowel sounds audible, no guarding , no rigidity. Extremities no clubbing, cyanosis or edema. Neuro nonfocal ,speech clear. Skin no rash Objective Data Current Medications Generic Name Dose Route Start Last Admin Trade Name Freq PRN Reason Stop Dose Admin Acetaminophen 650 mg 12/10/20 17:22 Acetaminophen 325 Mg Tablet PO Q6H PRN Pain, Mild (Pain Scale 1-3) Albuterol Sulfate 2 puff 12/10/20 17:22 Albuterol Sulfate 90 Mcg 8 Gm Inhaler INHALE Q4H PRN bronchospasm Aspirin 81 mg 12/11/20 09:00 12/11/20 08:17 Aspirin Enteric Coated 81 Mg Tablet.Dr PO 81 mg DAILY [facility] Administration Bumetanide 1 mg 12/11/20 08:00 12/11/20 08:18 Bumetanide 1 Mg Tablet PO 1 mg BIDWM MAU Administration Protocol Carvedilol 6.25 mg 12/11/20 21:00 Carvedilol 6.25 Mg Tablet PO BID MAU Protocol Clonidine HCl 0.3 mg 12/10/20 21:00 12/11/20 08:19 Clonidine Hcl 0.1 Mg Tablet PO 0.3 mg BID [facility]U Administration Protocol Docusate Sodium 100 mg 12/10/20 17:22 Docusate Sodium 100 Mg Capsule PO TID PRN constipation Enoxaparin Sodium 30 mg 12/10/20 20:00 12/10/20 20:00 Enoxaparin Sodium 30 Mg/0.3 Ml Syringe SUBCUT 30 mg Q24H MAU Administration Gabapentin 300 mg 12/10/20 21:00 12/11/20 08:18 Gabapentin 300 Mg Capsule PO 300 mg TID [facility]U Administration Hydralazine HCl 5 mg 12/10/20 17:46 12/10/20 18:23 Hydralazine Hcl 20 Mg/Ml Vial IVPUSH 5 mg Q6H PRN Administration systolic blood pressure >160 Protocol Insulin Glargine 18 unit 12/10/20 21:00 12/10/20 21:00 Insulin Glargine,Hum.Rec.Anlog 100 Unit/Ml 10 Ml Vial SUBCUT 18 unit BEDTIME [facility]U Administration Insulin Human Lispro 0 unit 12/10/20 21:00 12/11/20 11:31 Insulin Lispro 100 Unit/Ml 3 Ml Vial SUBCUT 6 unit QIDACHS [facility] Administration Protocol Lisinopril 40 mg 12/11/20 09:00 12/11/20 08:18 Lisinopril 40 Mg Tablet PO 40 mg DAILY [facility] Administration Protocol Nifedipine 60 mg 12/10/20 21:00 12/11/20 08:17 Nifedipine Er 60 Mg Tab.Er.24 PO 60 mg BID [facility]U Administration Ondansetron HCl 4 mg 12/10/20 17:22 Ondansetron Hcl 4 Mg/2 Ml Vial IVPUSH Q8H PRN Nausea and Vomiting Pharmacy Consult 1 each 12/10/20 16:30 Consult Rx Perform Med Rec MISCELLANE ONCE PRN Consult order Sodium Chloride 3 ml 12/11/20 00:00 12/11/20 08:16 0.9 % Sodium Chloride Flush 3 Ml Syringe IVFLUSH 3 ml QSHIFT [facility] Administration Tramadol HCl 50 mg 12/10/20 21:00 12/11/20 08:18 Tramadol Hcl 50 Mg Tablet PO 50 mg TID MAU Administration Labs CBC & Chem 7: 12/10/20 11:36 12/10/20 11:36 Labs: Laboratory Results - last 24 hr 12/10/20 12/10/20 12/10/20 11:03 11:36 13:48 POC Glucose 326 H 321 H Troponin I High Sens Acetone, Qual Negative 12/10/20 12/10/20 12/10/20 14:35 15:23 15:47 POC Glucose 319 H 317 H Troponin I High Sens 13.9 Acetone, Qual 12/10/20 12/10/20 12/11/20 17:44 21:47 07:12 POC Glucose 285 H 231 H 174 H Troponin I High Sens Acetone, Qual 12/11/20 12/11/20 07:42 11:14 POC Glucose 181 H 207 H Troponin I High Sens Acetone, Qual Quality Stroke Does the patient have a stroke diagnosis?: No VTE Prior VTE?: No VTE Risk Level:: Medical - moderate - high VTE Device Contraindication: Treatment Not Indicated VTE Drug Contraindication: N/A - Med Ordered Assessment and Plan (1) Hypertension, uncontrolled: Status: Acute (2) Nausea vomiting and diarrhea: Status: Acute (3) Hypercholesterolemia: Status: Acute (4) Diabetic neuropathy: Status: Acute (5) Dementia: Status: Acute (6) Asthma: Status: Acute (7) Peripheral vascular disease: Status: Acute (8) Obesity (BMI 30-39.9): Status: Acute (9) Coronary artery disease: Status: Acute (10) Type 2 diabetes mellitus with hyperglycemia: Status: Acute (11) Chronic kidney disease, stage 3: Status: Acute Assessment and Plan: 75-year-old female patient with multiple medical issues including history of hypercholesterolemia, uncontrolled diabetes mellitus, hypertension,prior cerebrovascular accident, coronary artery disease, status post coronary artery bypass graft, vascular dementia without behavioral disturbances,presented to [place] [facility] due to an acute onset of nausea, vomiting, abdominal pain, and nonbloody diarrhea after eating a large meal. 1. Nausea, vomiting, abdominal pain, and diarrhea. no recurrent symptoms since admission, likely sxs due to food poisoning after eating outside food, continue current diet, CT abdomen and pelvis showed no acute abnormality . follow clinical course and supportive care. 2. Uncontrolled blood pressure. blood pressure remains elevated despite four blood pressure medications, including clonidine 0.3 mg b.i.d., Bumex 1 mg b.i.d., lisinopril 40 mg daily, and Procardia XL 60 mg b.i.d. will add Coreg 6.25 mg b.i.d. and will consult nephrology to rule out underlying causes of secondary hypertension. CT head unremarkable, patient follows with Nephrology as outpt. 3. Diabetes mellitus on insulin with uncontrolled blood sugars. blood sugar better controlled this morning hemoglobin A1c is 9.8, suggestive of poor blood sugar control, recommended to follow a strict diabetic diet. patient follows with endocrinology as outpatient recommend to have follow-up with Endo in 1 week 4. acute hypoxic respiratory failure patient not on home oxygen but as per son she has required oxygen during her prior hospitalization but always pass home O2 eval. likely hypoxia due to underlying coronary artery disease, morbid obesity question sleep apnea/ obesity hypoventilation syndrome, will obtain home O2 eval prior to discharge and recommend outpatient follow-up with pulmonology for sleep study. 4. History of coronary artery disease/ chronic kidney disease stage 3. contin ue home medications, no chest pain and no ischemia on EKG . 5. Code status, full code. 6. Deep vein thrombosis prophylaxis. continue Lovenox.
[2020-12-11 16:11] LABS: Glucose, Whole Blood 106 mg/dL (60-115)
[2020-12-11] MEDS: Enoxaparin Sodium 30 MG/0.3 ML SYRINGE SUBCUT (19:35)
[2020-12-11] MEDS: carvediloL 6.25 MG TABLET PO (19:37)
[2020-12-11 20:37] LABS: Glucose, Whole Blood 255 mg/dL (60-115)
[2020-12-11] MEDS: Insulin Glargine,Hum.rec.anlog 100 UNIT/ML 10 ML VIAL 18 UNIT SUBCUT (20:52)
[2020-12-12 03:10] VITALS: BP 140/60; PULSE 58; RESP 18; TEMP 36.4; O2SAT 94
[2020-12-12 07:13] VITALS: BP 149/58; PULSE 59; RESP 18; TEMP 36.7; O2SAT 95
[2020-12-12 07:15] LABS: Glucose, Whole Blood 75 mg/dL (60-115)
--- NOTE | 2020-12-12 07:20 | P.CONNP_ITS ---
History of Present Illness Reason for Consult Consult date: 12/12/20 Chief Complaint Chief complaint: Uncontrolled blood pressure Review of Systems Review of Systems Yes all other systems are reviewed and are negative Constitutional: Reports as per HPI and Reports no additional constitutional complaints Eyes: Reports as per HPI and Reports no additional eye complaints Reports system reviewed and no additional complaints, except as documented and Reports as per HPI Cardiovascular: Reports as per HPI and Reports no additional cardiovascular complaints Respiratory: Reports as per HPI and Reports no additional respiratory complaints Gastrointestinal: Reports as per HPI, Reports no additional gastrointestinal complaints and Reports abdominal pain ( Mid to lower abdominal pain) Musculoskeletal: Reports no additional musculoskeletal complaints and Reports as per HPI Reports system reviewed and no additional complaints, except as documented and Reports as per HPI Psychiatric: Reports no additional psychiatric complaints and Reports as per HPI [facility] Past Medical History Medical History (Updated 12/11/20 @ 14:56 by Farrah Avalos MD) Aortic stenosis Asthma Congestive heart failure Coronary artery disease Dementia Diabetic neuropathy Diabetic retinopathy History of CVA (cerebrovascular accident) Hypercholesterolemia Hypertension Obesity (BMI 30-39.9) Peripheral vascular disease Thyroid nodule Type 2 diabetes mellitus with hyperglycemia Family History Family History (Updated 07/02/20 @ 09:49 by ALBA Karimi) Father Diabetes Hypertension Mother Hypertension CVD (cardiovascular disease) Cancer Diabetes Maternal Aunt Breast cancer Seizures Sister No problems noted. Son No problems noted. Son No problems noted. Son No problems noted. Daughter No problems noted. Surgical History Surgical History Amputated toe of left foot Carotid stenosis Femoral-popliteal bypass graft occlusion, left Hx of CABG Hx of cholecystectomy No pertinent past surgical history Social History Social History (Updated 10/15/20 @ 11:23 by Kizzy Rivera CMA) Household Members: None Housing: Apartment Do you presently have visiting nurse or other home services: Yes (son is MINERALOGY PROFESSOR) Alcohol intake: current Alcohol intake frequency: does not drink Patient Tobacco Use Status: Never used Tobacco Use of substances other than those prescribed or required for medical reasons: No Currently Displaying Signs/Symptoms of Drug Intoxication Withdrawal: No Have you been hit, kicked, punched, or otherwise hurt by someone within the past year? If so, by whom?: No Do you feel safe in your current relationship?: No Current Relationship Is there a partner from a previous relationship who is making you feel unsafe now?: No Are you made to feel afraid or neglected: No Advance Directives: No Advance Directives Information Provided: No Do you have thoughts of harming others: None Do you have a plan to hurt others: No Plan Recently lost weight without trying: No Nutrition Risks: No Nutritional Risk Patient : No : No Poor oral hygiene: No Meds Allergies Allergy/AdvReac Type Severity Reaction Status Date / Time latex [LATEX] Allergy Unknown UNKNOWN Verified 07/02/20 09:47 peanut [PEANUT] Allergy Unknown RASH Unverified 04/12/20 16:47 seafood Allergy Unknown Unknown Verified 07/02/20 09:47 Active Medications: Current Medications Generic Name Dose Route Start Last Admin Trade Name Freq PRN Reason Stop Dose Admin Acetaminophen 650 mg 12/10/20 17:22 Acetaminophen 325 Mg Tablet PO Q6H PRN Pain, Mild (Pain Scale 1-3) Albuterol Sulfate 2 puff 12/10/20 17:22 Albuterol Sulfate 90 Mcg 8 Gm Inhaler INHALE Q4H PRN bronchospasm Aspirin 81 mg 12/11/20 09:00 12/11/20 08:17 Aspirin Enteric Coated 81 Mg Tablet.Dr PO 81 mg DAILY [facility]U Administration Bumetanide 1 mg 12/11/20 08:00 12/11/20 16:54 Bumetanide 1 Mg Tablet PO 1 mg BIDWM MAU Administration Protocol Carvedilol 6.25 mg 12/11/20 21:00 12/11/20 19:37 Carvedilol 6.25 Mg Tablet PO 6.25 mg BID MAU Administration Protocol Clonidine HCl 0.3 mg 12/10/20 21:00 12/11/20 19:37 Clonidine Hcl 0.1 Mg Tablet PO 0.3 mg BID MAU Administration Protocol Docusate Sodium 100 mg 12/10/20 17:22 Docusate Sodium 100 Mg Capsule PO TID PRN constipation Enoxaparin Sodium 30 mg 12/10/20 20:00 12/11/20 19:35 Enoxaparin Sodium 30 Mg/0.3 Ml Syringe SUBCUT 30 mg Q24H MAU Administration Gabapentin 300 mg 12/10/20 21:00 12/11/20 19:35 Gabapentin 300 Mg Capsule PO 300 mg TID MAU Administration Hydralazine HCl 5 mg 12/10/20 17:46 12/10/20 18:23 Hydralazine Hcl 20 Mg/Ml Vial IVPUSH 5 mg Q6H PRN Administration systolic blood pressure >160 Protocol Insulin Glargine 18 unit 12/10/20 21:00 12/11/20 20:52 Insulin Glargine,Hum.Rec.Anlog 100 Unit/Ml 10 Ml Vial SUBCUT 18 unit BEDTIME [facility]U Administration Insulin Human Lispro 0 unit 12/10/20 21:00 12/11/20 20:53 Insulin Lispro 100 Unit/Ml 3 Ml Vial SUBCUT 8 unit QIDACHS [facility] Administration Protocol Lisinopril 40 mg 12/11/20 09:00 12/11/20 08:18 Lisinopril 40 Mg Tablet PO 40 mg DAILY [facility] Administration Protocol Nifedipine 60 mg 12/10/20 21:00 12/11/20 19:36 Nifedipine Er 60 Mg Tab.Er.24 PO 60 mg BID [facility]U Administration Ondansetron HCl 4 mg 12/10/20 17:22 Ondansetron Hcl 4 Mg/2 Ml Vial IVPUSH Q8H PRN Nausea and Vomiting Pharmacy Consult 1 each 12/10/20 16:30 Consult Rx Perform Med Rec MISCELLANE ONCE PRN Consult order Sodium Chloride 3 ml 12/11/20 00:00 12/11/20 19:37 0.9 % Sodium Chloride Flush 3 Ml Syringe IVFLUSH 3 ml QSHIFT [facility] Administration Tramadol HCl 50 mg 12/10/20 21:00 12/11/20 19:34 Tramadol Hcl 50 Mg Tablet PO 50 mg TID [facility] Administration Home Medications Medication Instructions Recorded Confirmed Last Taken Type aspirin 81 mg tablet,delayed 81 mg PO DAILY 04/12/20 12/10/20 Unknown History release cholecalciferol (vitamin D3) 1,250 1,250 mcg PO TU 04/12/20 12/10/20 Unknown History mcg (50,000 unit) capsule nifedipine 60 mg tablet,extended 60 mg PO BID 04/12/20 12/10/20 Unknown History release insulin asp prt-insulin aspart 20 unit SUBCUT DAILY 12/10/20 12/10/20 Unknown History [Novolog Mix 70-30FlexPen U-100] insulin asp prt-insulin aspart 25 unit SUBCUT QPM 12/10/20 12/10/20 Unknown History [Novolog Mix 70-30FlexPen U-100] rosuvastatin 1 tab PO DAILY 12/10/20 12/10/20 Unknown History Physical Exam Vital Signs: Last Vital Signs Temp 98.0 F 12/12/20 07:13 Pulse 59 12/12/20 07:13 Resp 18 12/12/20 07:13 BP 149/58 H 12/12/20 07:13 Pulse Ox 95 12/12/20 07:13 Body Mass Index 41.3 Const General: cooperative, healthy appearing, comfortable, no acute distress, well developed, alert and acute distress Orientation/consciousness: patient oriented x3 [facility] Head: Yes normal to inspection, Yes No palpable skull fracture present, Yes no rmocephalic, Yes atraumatic and No abrasion Eyes General: appearance normal, both eyes and all related structures Neck Neck: Yes normal visual inspection, Yes full ROM, Yes no lymphadenopathy, Yes no meningeal signs, Yes trachea midline, Yes supple and No tender Chest Chest palpation & inspection: normal inspection of the chest and normal palpation of entire chest wall Resp Effort & Inspection: normal respiratory effort and able to speak in complete sentences Auscultation: clear to auscultation bilaterally Cardio Jugular venous distension: no JVD Heart sounds: S1 normal heart sound present and S2 normal heart sound present GI Inspection: Yes normal to inspection and No abdominal wall ecchymosis Palpation (GI): Tenderness to palpation present (GI) in the LLQ and in the RLQ, no guarding and not rigid General: No CVA tenderness and Yes no CVA tenderness Back/Spine/Pelvis Back: no CVA tenderness, No CVA tenderness and No back tenderness Skin General skin exam: no rashes or lesions noted and elasticity normal Neuro General: patient oriented x3, gait normal, no meningeal signs and CN's II-XI intact bilaterally Cranial nerves: Yes CN's II-XII intact bilaterally Extrem General: Yes normal to inspection and Yes full ROM Psych Appearance: grossly normal, well kempt and not disheveled Results Lab Results Result Diagrams: 12/10/20 11:36 12/10/20 11:36 Lab results: Chemistry 12/10/20 11:36 Sodium 134 L Potassium 4.9 Carbon Dioxide 25 BUN 25 H Creatinine 1.52 H Calcium 9.1 Hematology 12/10/20 11:36 WBC 9.3 Hgb 13.3 Plt Count 271 Urinalysis 12/10/20 12:58 Urine Color YELLOW Urine Appearance CLEAR Urine pH 6.0 Ur Specific [place] 1.015 Urine Protein 2+ H Urine Glucose (UA) >=1000 H Urine Ketones NEG Urine Blood NEG Urine Nitrite NEG Ur Leukocyte Esterase NEG Urine RBC 0 Urine WBC 0-2 Ur Squamous Epith Cells NONE Assessment and Plan (1) Hypertension, uncontrolled: Status: Acute (2) Nausea vomiting and diarrhea: Status: Acute (3) Hypercholesterolemia: Status: Acute (4) Diabetic neuropathy: Status: Acute (5) Dementia: Qualifiers: Dementia type: vascular dementia Dementia behavioral disturbance: without behavioral disturbance Qualified Code(s): F01.50 - Vascular dementia without behavioral disturbance Status: Acute (6) Asthma: Status: Acute (7) Peripheral vascular disease: Status: Acute (8) Obesity (BMI 30-39.9): Status: Acute (9) Coronary artery disease: Qualifiers: Coronary Disease-Associated Artery/Lesion type: teller artery [place] vs. transplanted heart: teller heart Associated angina: without angina Qualified Code(s): I25.10 - Atherosclerotic heart disease of teller coronary artery without angina pectoris Status: Acute (10) Type 2 diabetes mellitus with hyperglycemia: Status: Acute (11) Chronic kidney disease, stage 3: Status: Acute 75-year-old female patient with multiple medical issues including history of hypercholesterolemia, uncontrolled diabetes mellitus, hypertension,prior cerebrovascular accident, coronary artery disease, status post coronary artery bypass graft, vascular dementia without behavioral disturbances,presented to [place] [facility] due to an acute onset of nausea, vomiting, abdominal pain, and nonbloody diarrhea after eating a large meal. 1. Nausea, vomiting, abdominal pain, and diarrhea. no recurrent symptoms since admission, likely sxs due to food poisoning after eating outside food, continue current diet, CT abdomen and pelvis showed no acute abnormality . follow clinical course and supportive care. 2. Uncontrolled blood pressure. blood pressure remains elevated despite four blood pressure medications, including clonidine 0.3 mg b.i.d., Bumex 1 mg b.i.d., lisinopril 40 mg daily, and Procardia XL 60 mg b.i.d. Coreg 6.25 mg b.i.d. 3. 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
[2020-12-12 08:31] VITALS: PULSE 62
[2020-12-12 08:32] VITALS: PULSE 62
[2020-12-12] MEDS: cloNIDine HCL 0.1 MG TABLET 0.3 MG PO (08:32)
[2020-12-12] MEDS: NIFEdipine ER 60 MG TAB.ER.24 PO (08:32)
[2020-12-12] MEDS: traMADoL HCL 50 MG TABLET PO ×2 (08:32→15:47)
[2020-12-12] MEDS: Gabapentin 300 MG CAPSULE PO ×2 (08:33→15:47)
[2020-12-12] MEDS: Bumetanide 1 MG TABLET PO ×2 (08:33→16:26)
[2020-12-12] MEDS: lisinopriL 40 MG TABLET PO (08:33)
[2020-12-12] MEDS: Aspirin Enteric Coated 81 MG TABLET.DR PO (08:33)
[2020-12-12] MEDS: 0.9 % Sodium Chloride Flush 3 ML SYRINGE IVFLUSH ×2 (08:33→16:26)
[2020-12-12] MEDS: carvediloL 6.25 MG TABLET PO (08:33)
[2020-12-12 11:01] VITALS: BP 176/69; PULSE 64; RESP 20; TEMP 36.5; O2SAT 92
[2020-12-12 11:18] LABS: Glucose, Whole Blood 141 mg/dL (60-115)
--- NOTE | 2020-12-12 14:51 | MHC.CM.PN ---
CM MET WITH PT AND HER SON/HCP JILLIAN WHO WAS AT BEDSIDE. SOCIAL MEDIA DEVELOPER SERVICES WERE OFFERED AND DECLINED. JILLIAN REPORTS THE PT LIVES ALONE BUT HE GOES TO HER HOME EVERY MORNING TO ASSIST IN HER CARE AND HIS DAUGHTER GOES EVERY EVENING. PT ALSO ATTENDS [employer] 1-3 DAYS A WEEK DEPENDING ON HOW SHE IS FEELING. PT REPORTEDLY USES A CANE PRIMARILY BUT ALSO HAS A WALKER AND A ROLLATOR, SHE ALSO HAS A SEAT RISER ON HER TOILET. PT CONFIRMS HER PCP IS FRANCISCO JAVIER STACY AND SHE HAS A HCP ON FILE NAMING JILLIAN HER AGENT. CURRENT DISCHARGE PLAN IS HOME TOMORROW WITH RESUMPTION OF RIB BUILDER SERVICES. JILLIAN WILL TRANSPORT
[2020-12-12 15:04] VITALS: BP 145/67; PULSE 61; RESP 18; TEMP 36.4; O2SAT 94
[2020-12-12 15:56] LABS: Glucose, Whole Blood 196 mg/dL (60-115)
--- NOTE | 2020-12-12 16:25 | P.DS_ITS ---
DS: Providers Provider Date of Service: 12/12/20 Date of admission: 12/10/20 17:22 Primary care physician: Renetta Gonzalez MD Consults: 12/11/20 11:12 Consult to Nephrology Routine Consulting Provider: Jamarcus Bucio Reason for consultation: hypertension Has provider been notified: No DS: Diagnosis Discharge Diagnosis (1) Hypertension, uncontrolled: Status: Acute (2) Nausea vomiting and diarrhea: Status: Acute (3) Hypercholesterolemia: Status: Acute (4) Diabetic neuropathy: Status: Acute (5) Dementia: Status: Acute (6) Asthma: Status: Acute (7) Peripheral vascular disease: Status: Acute (8) Obesity (BMI 30-39.9): Status: Acute (9) Coronary artery disease: Status: Acute (10) Type 2 diabetes mellitus with hyperglycemia: Status: Acute (11) Chronic kidney disease, stage 3: Status: Acute DS: Medications Discharge Medications Home Medications: Home Medications Medication Instructions Recorded Confirmed aspirin 81 mg tablet,delayed 81 mg PO DAILY 04/12/20 12/10/20 release cholecalciferol (vitamin D3) 1,250 1,250 mcg PO TU 04/12/20 12/10/20 mcg (50,000 unit) capsule nifedipine 60 mg tablet,extended 60 mg PO BID 04/12/20 12/10/20 release insulin asp prt-insulin aspart 20 unit SUBCUT DAILY 12/10/20 12/10/20 [Novolog Mix 70-30FlexPen U-100] insulin asp prt-insulin aspart 25 unit SUBCUT QPM 12/10/20 12/10/20 [Novolog Mix 70-30FlexPen U-100] rosuvastatin 1 tab PO DAILY 12/10/20 12/10/20 Previous Rx's Medication Instructions Recorded docusate sodium 100 mg capsule 100 mg PO TID PRN #90 cap 04/04/20 bumetanide 1 mg tablet 1 mg PO BID #180 tab 05/29/20 gabapentin 300 mg capsule 300 mg PO TID #270 cap 07/02/20 compress.stocking,knee,reg,med #2 ea 07/25/20 clonidine HCl 0.3 mg tablet 0.3 mg PO BID 90 Days #180 tab 08/07/20 albuterol sulfate 90 mcg/actuation 2 puff INHALATION Q4-6H PRN #8.5 g 08/15/20 aerosol inhaler lisinopril 40 mg tablet 40 mg PO DAILY #90 tab 08/28/20 Diabetic shoes #1 ea 10/15/20 blood-glucose meter #1 ea 10/15/20 tramadol 50 mg tablet 50 mg PO Q8H 90 Days #270 tab 10/15/20 pen needle, diabetic 31 gauge x #2 box 10/22/2008/27 carvedilol 6.25 mg PO BID #60 tab 12/12/20 DS: Summary Hospital Course Hospital Course: History of presenting illness CHIEF COMPLAINT: Nausea, vomiting, abdominal pain, and diarrhea. HISTORY OF PRESENTING ILLNESS: This is a 75-year-old female patient with multiple medical issues including history of diabetes mellitus, uncontrolled; history of peripheral vascular disease; history of asthma; aortic stenosis; coronary artery disease; dementia; status post CVA; hypercholesterolemia; morbid obesity; who presented to [facility] due to lower abdominal pain associated with nausea, vomiting, and 1 bout of diarrhea according to the patient. She went at a [employer] and had a large breakfast including hash brown, restorationist oat with milk, cornmeal, eggs, cherries, followed by a glass of orange juice; soon after that symptoms started. Therefore, she came to the emergency room, where she was noted to have significantly elevated blood pressure with a systolic BP 222/71. Further workup including a CAT scan of the abdomen and pelvis showed no acute abnormality. It showed severe arthrosclerotic disease. 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 The patient was treated in the emergency room with IV morphine, IV Pepcid, clonidine 0.2 mg, labetalol 10 mg. since blood pressure remained elevated 194/60, it was decided to admit the patient for better blood pressure control. The patient was also noted to have elevated blood sugars in the range of 300 with stable electrolytes and stable renal function. At present, the patient admits that her abdominal pain, nausea, vomiting has improved. She denies any headache, dizziness. Denies any neurological deficits and is being admitted for close blood pressure and blood sugar monitoring. hospital course Nausea vomiting abdominal pain and diarrhea. 75-year-old female patient with multiple medical issues including history of hypercholesterolemia, uncontrolled diabetes mellitus, hypertension,prior cerebrovascular accident, coronary artery disease, status post coronary artery bypass graft, vascular dementia without behavioral disturbances,presented to [facility] due to acute onset of nausea, vomiting,abdominal pain, and nonbloody diarrhea after eating a large meal, all symptoms resolved with supportive care, likely related to food poisoning, CT abdomen and pelvis showed no acute abnormality, patient is currently tolerating regular diet. Uncontrolled blood pressure. Patient noted to have elevated blood pressure despite four blood pressure medications, including clonidine 0.3 mg b.i.d., Bumex 1 mg b.i.d., lisinopril 40 mg daily, and Procardia XL 60 mg b.i.d. therefore Renal consult was obtained renal Doppler study obtained that showed no stenosis,Coreg 6.25 mg b.i.d. added blood pressure is better controlled, recommend to have outpatient follow-up with Nephrology for blood pressure monitoring and medication adjustment spoke with patient's son at bedside and informed him about medication changes Diabetes mellitus on insulin with uncontrolled blood sugars. blood sugars noted to be elevated hemoglobin A1c is 9.8, suggestive of poor blood sugar control, recommended to follow a strict diabetic diet, continue home medication. Acute hypoxic respiratory failure patient not on home oxygen but as per son she has required oxygen during her prior hospitalization but always pass home O2 eval. likely hypoxia due to underlying coronary artery disease, morbid obesity question sleep apnea/ obesity hypoventilation syndrome, oxygenation improved recommend outpatient follow-up with PCP and pulmonology for sleep study History of coronary artery disease/ chronic kidney disease stage 3. continue home medications, no chest pain and no ischemia on EKG . Time Spent with Patient Time attestation: Total time spent providing and/or coordinating discharge services: Discharge coordination time: Greater than 30 minutes Quality: Stroke Does the patient have a stroke diagnosis?: No Physical Exam Vital Signs: Vital Signs: Last Vital Signs Temp 97.6 F 12/12/20 15:04 Pulse 61 12/12/20 15:04 Resp 18 12/12/20 15:04 BP 145/67 H 12/12/20 15:04 Pulse Ox 94 12/12/20 15:04 Body Mass Index 41.3 General resting comfortably in no acute distress. Neck supple no JVD. CVS regular rate rhythm, Respiratory lungs clear to auscultation, no respiratory distress, no wheeze, no rhonchi. Gastrointestinal abdomen soft, obese, nontender, bowel sounds audible, no guarding , no rigidity. Extremities bilateral anterior lucio discoloration due to venous stasis and prior infections, left leg bigger than right,, chronic due to venous stripping Neuro nonfocal ,speech clear. Skin no rash DS: Data Data Completed and Pending Labs on day of discharge: Laboratory Results - last 24 hr 12/11/20 12/12/20 12/12/20 20:34 07:09 11:05 POC Glucose 255 H 75 141 H 12/12/20 15:47 POC Glucose 196 H Discharge Plan Discharge Patient Disposition: Home, Self-Care Discharge Diagnosis: hypertension uncontrolled nausea vomiting abdominal pain resolved diabetes mellitus morbid obesity Referrals: Po,Renetta Dupree MD [Primary Care Provider] - 1 Week Discharge Medications: New carvedilol 6.25 mg Tablet 6.25 mg PO BID Qty: 60 RF: 0 Continued docusate sodium [DOK] 100 mg capsule 100 mg PO TID PRN (Reason: constipation) Qty: 90 RF: 12 bumetanide 1 mg tablet 1 mg PO BID Qty: 180 RF: 2 gabapentin 300 mg capsule 300 mg PO TID Qty: 270 RF: 2 (DME) compress.stocking,knee,reg,med Misc See Rx Instructions .ROUTE .MEDSUPPLY Qty: 2 RF: 2 clonidine HCl 0.3 mg tablet 0.3 mg PO BID 90 Days Qty: 180 RF: 2 albuterol sulfate [Ventolin HFA] 90 mcg/actuation HFA aerosol inhaler 2 puff inhalation Q4-6H PRN (Reason: bronchospasm) Qty: 8.5 RF: 0 lisinopril 40 mg tablet 40 mg PO DAILY Qty: 90 RF: 3 (DME) pen needle, diabetic [BD Ultra-Fine Mini Pen Needle] 31 gauge x 3/16 needle See Rx Instructions .ROUTE .MEDSUPPLY Qty: 2 RF: 3 rosuvastatin 40 mg tablet 1 tab PO DAILY RF: 0 insulin asp prt-insulin aspart [Novolog Mix 70-30FlexPen U-100] 100 unit/mL (70-30) insulin pen 25 unit subcut QPM RF: 0 insulin asp prt-insulin aspart [Novolog Mix 70-30FlexPen U-100] 100 unit/mL (70-30) insulin pen 20 unit subcut DAILY RF: 0 cholecalciferol (vitamin D3) 1,250 mcg (50,000 unit) capsule 1,250 mcg PO TU RF: 0 aspirin [Adult Aspirin Regimen] 81 mg tablet,delayed release (DR/EC) 81 mg PO DAILY RF: 0 nifedipine 60 mg tablet extended release 60 mg PO BID RF: 0 (DME) blood-glucose meter [OneTouch Ultra2 Meter] Kit See Rx Instructions .ROUTE .MEDSUPPLY Qty: 1 RF: 0 tramadol 50 mg tablet 50 mg PO Q8H 90 Days Qty: 270 RF: 1 (DME) Diabetic shoes See Rx Instructions .Route .MEDSUPPLY Qty: 1 RF: 0 Discharge Orders: Discharge Order (Routine); Ordered 12/12/20 Ordered By: Farrah Avalos Diet: advance to usual diet and diabetic diet Activity on Discharge: As tolerated Stand Alone Forms: Patient Portal Discharge page Care Plan Goals: uncontrolled hypertension follow-up with primary care physician and Nephrology for better blood pressure control your been started on Coreg 6.25 mg b.i.d. monitor heart rate and blood pressure continue all other blood pressure medication, about nausea vomiting abdominal pain resolved was likely food poisoning Health Concerns: diabetes mellitus, hypertension, coronary artery disease, morbid obesity recommend weight reduction strict low-cholesterol and diabetic diet Plan of Treatment: outpatient follow-up with primary care physician in 1 week outpatient follow-up with Nephrology in 2-3 weeks. Assessment: as above
[2020-12-12] MEDS: Insulin Lispro 100 UNIT/ML 3 ML VIAL SUBCUT (16:26)
== END 2020-12-12 18:28 | disposition home or self-care (01) ==
LOC: HO.ED 11:05 → HO.EDOVER 17:34 → HO.IMC 12-11 06:15
PROVIDERS: Physician Assistant; Admitting Provider Hospitalist; Emergency Provider Emergency Medicine; PCP Internal Medicine; Visit Provider Hospitalist
DX: I11.0 Hypertensive heart disease with heart failure (principal); R11.2 Nausea with vomiting, unspecified; R19.7 Diarrhea, unspecified; E78.00 Pure hypercholesterolemia, unspecified; E11.40 Type 2 diabetes mellitus with diabetic neuropathy, unspecified; E11.319 Type 2 diabetes mellitus with unspecified diabetic retinopathy without macular edema; F03.90 Unspecified dementia, unspecified severity, without behavioral disturbance, psychotic disturbance, mood disturbance, and anxiety; J45.909 Unspecified asthma, uncomplicated; I73.9 Peripheral vascular disease, unspecified; E66.9 Obesity, unspecified; I50.9 Heart failure, unspecified; E11.65 Type 2 diabetes mellitus with hyperglycemia; N18.30 Chronic kidney disease, stage 3 unspecified; I35.0 Nonrheumatic aortic (valve) stenosis; I25.10 Atherosclerotic heart disease of native coronary artery without angina pectoris; R10.9 Unspecified abdominal pain; Z68.41 Body mass index [BMI] 40.0-44.9, adult; Z20.822 Contact with and (suspected) exposure to COVID-19; Z86.73 Personal history of transient ischemic attack (TIA), and cerebral infarction without residual deficits; Z89.422 Acquired absence of other left toe(s); Z95.1 Presence of aortocoronary bypass graft; Z91.040 Latex allergy status; Z91.010 Allergy to peanuts; Z91.013 Allergy to seafood; Z79.4 Long term (current) use of insulin; Z79.899 Other long term (current) drug therapy
CPT/HCPCS: 36415; 51701; 51798; 70450; 74176; 80048; 80076; 81001; 82009; 82947; 83690; 84484; 85025; 85610; 85730; 87635; 93005; 93975; 96360; 96361; 96372; 96374; 96375; 96376; 99219; 99285; J1650; J2270; J2405

== ENCOUNTER 2021-01-15 07:45 | Outpatient (REF) | payer MEDICARE, MEDICAID, SELFPAY ==
[2021-01-15 08:54] LABS: MANUAL DIFF FLAG NO
[2021-01-15 09:05] LABS: Basophils Percent Auto 0.4 % (0-2); Eosinophils Absolute Auto 0.3 X10*3/uL (0.0-0.4); Eosinophils Percent Auto 3.6 % (0-4); Hematocrit 42.2 % (37-47); Hemoglobin 13.6 g/dl (12.0-16.0); Imm Gran Abs Auto 0.04 X10*3/uL (0.00-0.03); Imm Gran Pct Auto 0.4 % (0.0-0.4); Lymphocytes Absolute Auto 1.7 X10*3/uL (1.2-4.9); Lymphocytes Percent Auto 19.1 % (20-40); Mean Corpuscular HGB Conc 32.2 g/dl (31.0-35.0); Mean Corpuscular Hemoglobin 27.6 pg (27.0-33.0); Mean Corpuscular Volume 85.6 fL (80-98); Mean Platelet Volume 10.8 fL (9.4-12.3); Monocytes Absolute Auto 0.6 X10*3/uL (0.1-1.2); Neutrophils Absolute Auto 6.3 X10*3/uL (2.0-8.3); Neutrophils Percent Auto 69.5 % (45-73); Platelet Count 306 X10*3/uL (160-400); Red Blood Count 4.93 X10*6/uL (4.20-5.50); Red Cell Distribution Width 14.8 % (11.0-16.0); White Blood Count 9.1 X10*3/uL (4.8-10.8)
[2021-01-15 09:11] LABS: Estimated Average Glucose 214 mg/dL; Hemoglobin A1c % 9.1 %
[2021-01-15 09:31] LABS: Alanine Aminotransferase 10 U/L (0-31); Albumin Level 4.4 g/dL (3.5-5.0); Alkaline Phosphatase 131 U/L (39-117); Anion Gap 16 (12-20); Aspartate Amino Transferase 18 U/L (5-31); Bilirubin Total 0.6 mg/dL (0.0-1.0); Blood Urea Nitrogen 24 mg/dL (9-16); Calcium 9.8 mg/dL (8.4-10.2); Carbon Dioxide 29 mmol/L (22-29); Chloride 102 mmol/L (96-108); Cholesterol 179 mg/dL; Estimated Glomerular Filt Rate 39; Glucose Random 241 mg/dL (60-115); HDL Cholesterol 55 mg/dL; LDL Cholesterol Calculated 93 mg/dl; Potassium 4.6 mmol/L (3.3-5.1); Sodium 142 mmol/L (135-145); Total Protein 7.5 g/dL (6.5-8.0); Triglycerides 155 mg/dL
[2021-01-15 09:35] LABS: B Type Natriuretic Peptide 594 pg/mL (<100)
== END 2021-01-15 07:46 | disposition home or self-care (01) ==
LOC: HO.LAB 07:45
PROVIDERS: Nurse Practitioner Family; PCP Internal Medicine; Visit Provider Internal Medicine
DX: Z01.818 Encounter for other preprocedural examination (principal); I50.9 Heart failure, unspecified; E11.65 Type 2 diabetes mellitus with hyperglycemia; E78.00 Pure hypercholesterolemia, unspecified; Z79.4 Long term (current) use of insulin
CPT/HCPCS: 36415; 80053; 80061; 83036; 83880; 85025

== ENCOUNTER 2021-04-29 07:49 | Outpatient (REF) | payer MEDICARE, MEDICAID, SELFPAY ==
[2021-04-29 08:10] LABS: MANUAL DIFF FLAG NO
[2021-04-29 08:41] LABS: Basophils Percent Auto 0.4 % (0-2); Eosinophils Absolute Auto 0.3 X10*3/uL (0.0-0.4); Eosinophils Percent Auto 3.2 % (0-4); Hematocrit 40.7 % (37.0-47.0); Hemoglobin 13.8 g/dl (12.0-16.0); Imm Gran Abs Auto 0.05 X10*3/uL (0.00-0.03); Imm Gran Pct Auto 0.5 % (0.0-0.4); Immature Retic Fraction 12.1 % (3.0-15.9); Lymphocytes Absolute Auto 1.8 X10*3/uL (1.2-4.9); Lymphocytes Percent Auto 17.4 % (20-40); Mean Corpuscular HGB Conc 33.9 g/dl (31.0-35.0); Mean Corpuscular Hemoglobin 28.5 pg (27.0-33.0); Mean Corpuscular Volume 83.9 fL (80.0-98.0); Mean Platelet Volume 10.5 fL (9.4-12.3); Monocytes Absolute Auto 0.6 X10*3/uL (0.1-1.2); Monocytes Percent Auto 5.7 % (2-11); Neutrophils Absolute Auto 7.4 x10*3/uL (2.0-8.3); Neutrophils Percent Auto 72.8 % (45-73); Platelet Count 274 X10*3/uL (160-400); Red Blood Count 4.85 X10*6/uL (4.20-5.50); Red Cell Distribution Width 14.1 % (11.0-16.0); Retic HGB Equivalent 31.4 pg (30.0-35.0); Reticulocyte Percent 2.2 % (0.5-1.8); Reticulocytes Absolute 0.107 X10*6/uL (0.026-0.095); White Blood Count 10.2 X10*3/uL (4.8-10.8)
[2021-04-29 09:03] LABS: Alanine Aminotransferase 12 U/L (0-31); Albumin Level 4.3 g/dL (3.5-5.0); Alkaline Phosphatase 129 U/L (39-117); Anion Gap 15 (12-20); Aspartate Amino Transferase 18 U/L (5-31); B Type Natriuretic Peptide 661 pg/mL (<100); Bilirubin Total 0.8 mg/dL (0.0-1.0); Blood Urea Nitrogen 21 mg/dL (9-16); Calcium 9.9 mg/dL (8.4-10.2); Carbon Dioxide 28 mmol/L (22-29); Chloride 100 mmol/L (96-108); Cholesterol 189 mg/dL; Estimated Glomerular Filt Rate 39; Glucose Random 285 mg/dL (60-115); HDL Cholesterol 58 mg/dL; Iron 83 mcg/dL (30-160); LDL Cholesterol Calculated 100 mg/dl; Percent Iron Saturation 22 % (15-50); Potassium 4.2 mmol/L (3.3-5.1); Sodium 139 mmol/L (135-145); Total Iron Binding Capacity 382 mcg/dL (228-428); Total Protein 7.3 g/dL (6.5-8.0); Triglycerides 158 mg/dL; Unsaturated Iron Binding 299 ug/dL
[2021-04-29 09:04] LABS: Appearance Urine CLEAR; Color Urine YELLOW; Glucose Urine UA 250 MG/DL (NEG); Leukocyte Esterase Urine 1+ (NEG); Nitrite Urine NEG (NEG); PH 6.5 (5.0-8.0); Urine Blood TRACE (NEG); Urine Ketones NEG (NEG); Urine Protein 2+ MG/DL (NEG-TRACE)
[2021-04-29 09:14] LABS: Uric Acid 6.8 mg/dL (2.4-5.7)
[2021-04-29 09:23] LABS: Ferritin 134 ng/mL (10-250); Free T4 (Free Thyroxine) 1.02 ng/dL (0.71-1.85); Thyroid Stimulating Hormone 2.94 uIU/mL (0.32-4.0)
[2021-04-29 09:26] LABS: Bacteria Urine 1+ /LPF; RBC Urine 0 /HPF (0); Renal Epithelial Cells Urine TRACE /LPF; Squamous Epithelial Cell Urine 1+ /LPF
[2021-04-29 09:30] LABS: Creatinine Urine 23.07 mg/dL
[2021-04-29 09:41] LABS: Folate 18.9 ng/mL (> or = 4.0); Vitamin B12 715 pg/mL (200-900)
== END 2021-04-29 07:50 | disposition home or self-care (01) ==
LOC: HO.LAB 07:49
PROVIDERS: PCP Internal Medicine; Visit Provider Internal Medicine
DX: I25.10 Atherosclerotic heart disease of native coronary artery without angina pectoris (principal); E11.65 Type 2 diabetes mellitus with hyperglycemia; E78.00 Pure hypercholesterolemia, unspecified
CPT/HCPCS: 36415; 80053; 80061; 81001; 82043; 82306; 82607; 82728; 82746; 83540; 83880; 84439; 84443; 84550; 85025; 85045

== ENCOUNTER 2021-08-06 08:50 | Outpatient (REF) | payer MEDICARE, MEDICAID, SELFPAY ==
--- NOTE | ~2021-08-06 | MM_ITS ---
EXAMINATION: BONE DENSITOMETRY CLINICAL INDICATION: Asymptomatic menopausal state. COMPARISON: Previous BD dated 07/21/2013 and baseline BD dated 02/11/2007. TECHNIQUE: Using a [employer] DXA System (software version: 13.1) manufactured by [employer], dual-energy x-ray absorptiometry was performed of the lumbar spine and left hip. The images are of good technical quality. Summary results are attached. FINDINGS: AP SPINE L1-L4: Current: BMD 1.313 g/cm2, Z-score 2.7, T-score 1.1, normal, 7.2% increase from previous, 15.7% increase from baseline (<5% change is not significant). Prior: BMD 1.225 g/cm2. Baseline: BMD 1.135 g/cm2. LEFT FEMUR, NECK: Current: BMD 0.810 g/cm2, Z-score 0.2, T-score -1.6, osteopenia. Prior: BMD 0.858 g/cm2. Baseline: BMD 0.857 g/cm2. LEFT FEMUR, TOTAL: Current: BMD 0.902 g/cm2, Z-score 0.9, T-score -0.8, normal, 8.6% decrease from previous, 12.1% decrease from baseline (<5% change is not significant). Prior: BMD 0.987 g/cm2. Baseline: BMD 1.026 g/cm2. IDENTIFIED RISK FACTORS: Dementia, recurrent falls, height loss, renal. Early menopause, secondary osteoporosis, anticonvulsant. HISTORY OF FRACTURE: None listed. MEDICATIONS: Calcium supplements or multivitamin, vitamin D. MM/XR DEXA axial skeleton IMPRESSION: 1. DIAGNOSIS: Osteopenia based on the lowest T-score value of -1.6 in the femoral neck applying World Health Organization criteria. 2. 10-YEAR FRACTURE RISK PREDICTION, FRAX: Major osteoporotic fracture (clinical spine, forearm, hip or shoulder) 7.1%. Hip fracture 1.6%. 3. Treatment Recommendations: NOF guidelines recommend consideration for treatment in postmenopausal women and men age 50 and older presenting with the following: -A hip or vertebral (clinical or morphometric) fracture. -T-score less than or equal to -2.5 at the femoral neck or spine after appropriate evaluation to exclude secondary causes. -Low bone mass at the hip or spine and a 10-year fracture probability by FRAX of greater than or equal to 3% for hip fracture or greater than or equal to 20% for major osteoporotic fracture based on the [place] adapted WHO algorithm. 4. Other Recommendations: All treatment decisions require clinical judgment and consideration of individual patient factors, including patient preferences, comorbidities, previous drug use, risk factors not captured in the FRAX model (e.g. frailty, falls, vitamin D deficiency, increased bone turnover, interval significant decline in bone density) and possible under or overestimation of fracture risk by FRAX. Additional medical evaluation for secondary cause of low bone mineral density may be appropriate. FUTURE SCAN RECOMMENDATION: People with diagnosed cases of osteoporosis or at high risk for fracture should have regular bone mineral density tests. For patients eligible for Medicare, routine testing is allowed once every 2 years. The testing frequency can be increased to one year for patients who have rapidly progressing disease, those who are receiving or discontinuing medical therapy to restore bone mass, or have additional risk factors.
--- NOTE | ~2021-08-06 | MM_ITS ---
EXAMINATION: MM SCREENING DIGITAL BREAST TOMOSYNTHESIS, BILATERAL CLINICAL INFORMATION: Screening. Asymptomatic. The lifetime risk of breast cancer based on the Tyrer-Cuzick Model is 1%. COMPARISON: Mammography: 05/24/2020, 11/10/2018, 11/04/2017 TECHNIQUE: Digital breast tomosynthesis is performed in both the craniocaudal and mediolateral oblique views along with computer-aided detection (CAD). Synthesized 2D images are generated from the tomosynthesis. Additional right MLO view is provided. FINDINGS: There are scattered areas of fibroglandular density (ACR BI-RADS breast composition Category b). There are no significant masses, abnormal calcifications, or other abnormalities. Parenchymal pattern is similar to prior studies. Again, there is fine fibronodular parenchymal pattern with scattered bilateral vascular and round and a few ductal secretory calcifications. There is a stable circumscribed nodule mid upper outer left breast. The axilla and skin contours are unremarkable. There are no significant changes. MM/MM tomosynthesis screening BI IMPRESSION: No mammographic evidence of malignancy. ASSESSMENT: BI-RADS 2: Benign RECOMMENDATION: Routine annual mammography screening. This patient's information was entered into a reminder system with a target due date for their next mammogram.
== END 2021-08-06 08:51 | disposition home or self-care (01) ==
LOC: HO.MAMMO 08:50
PROVIDERS: Visit Provider Nurse Practitioner Family
DX: Z12.31 Encounter for screening mammogram for malignant neoplasm of breast (principal); Z13.820 Encounter for screening for osteoporosis; Z78.0 Asymptomatic menopausal state; M85.80 Other specified disorders of bone density and structure, unspecified site; Z79.899 Other long term (current) drug therapy
CPT/HCPCS: 77063; 77067; 77080

== ENCOUNTER 2021-09-16 08:49 | Outpatient (REF) | payer MEDICARE, MEDICAID, SELFPAY ==
[2021-09-16 10:39] LABS: Blood Urea Nitrogen 17 mg/dL (9-16); Estimated Glomerular Filt Rate 35
== END 2021-09-16 08:50 | disposition home or self-care (01) ==
LOC: HO.LAB 08:49
PROVIDERS: PCP Internal Medicine; Visit Provider Nurse Practitioner Adult Health
DX: I65.23 Occlusion and stenosis of bilateral carotid arteries (principal)
CPT/HCPCS: 36415; 82565; 84520

== ENCOUNTER 2022-02-03 08:01 | Outpatient (REF) | payer MEDICARE, MEDICAID, SELFPAY ==
--- NOTE | ~2022-02-03 | XR_ITS ---
EXAMINATION: XR CHEST CLINICAL INFORMATION: Hypoxia. Short of breath. COMPARISON: 05/26/2019 TECHNIQUE: 2 views of the chest were obtained. FINDINGS: Median sternotomy wires appear intact. The lungs are well expanded. Bronchial wall thickening. There is no focal consolidation, edema, or effusion. No pneumothorax. The cardiomediastinal silhouette is within normal limits. No acute osseous abnormality. XR/XR chest 2V IMPRESSION: No dense consolidation. Bronchial wall thickening can be seen with a small airways process such as asthma or atypical/viral infection. Alternatively this could be associated with fluid overload.
[2022-02-03 08:46] LABS: MANUAL DIFF FLAG NO
[2022-02-03 09:11] LABS: Basophils Absolute Auto 0.1 X10*3/uL (0.0-0.2); Basophils Percent Auto 0.8 % (0-2); Eosinophils Absolute Auto 0.4 X10*3/uL (0.0-0.4); Eosinophils Percent Auto 3.4 % (0-4); Hematocrit 33.6 % (37.0-47.0); Hemoglobin 11.1 g/dl (12.0-16.0); Imm Gran Abs Auto 0.04 X10*3/uL (0.00-0.03); Imm Gran Pct Auto 0.3 % (0.0-0.4); Lymphocytes Absolute Auto 1.1 X10*3/uL (1.2-4.9); Mean Corpuscular Volume 84.6 fL (80.0-98.0); Monocytes Absolute Auto 0.8 X10*3/uL (0.1-1.2); Monocytes Percent Auto 6.6 % (2-11); Neutrophils Absolute Auto 9.4 x10*3/uL (2.0-8.3); Neutrophils Percent Auto 79.9 % (45-73); Platelet Count 330 X10*3/uL (160-400); Red Blood Count 3.97 X10*6/uL (4.20-5.50); Red Cell Distribution Width 14.1 % (11.0-16.0); White Blood Count 11.7 X10*3/uL (4.8-10.8)
[2022-02-03 09:16] LABS: Estimated Average Glucose 186 mg/dL; Hemoglobin A1c % 8.1 %
[2022-02-03 09:50] LABS: Alanine Aminotransferase 21 U/L (0-31); Albumin Level 3.7 g/dL (3.5-5.0); Alkaline Phosphatase 138 U/L (39-117); Anion Gap 16 (12-20); Aspartate Amino Transferase 23 U/L (5-31); Bilirubin Total 0.9 mg/dL (0.0-1.0); Blood Urea Nitrogen 18 mg/dL (9-16); Calcium 9.1 mg/dL (8.4-10.2); Carbon Dioxide 31 mmol/L (22-29); Chloride 98 mmol/L (96-108); Cholesterol 152 mg/dL; Estimated Glomerular Filt Rate 52; Glucose Random 181 mg/dL (60-115); HDL Cholesterol 48 mg/dL; LDL Cholesterol Calculated 88 mg/dl; Sodium 141 mmol/L (135-145); Total Protein 6.7 g/dL (6.5-8.0); Triglycerides 84 mg/dL
[2022-02-03 10:02] LABS: Free T4 (Free Thyroxine) 1.11 ng/dL (0.71-1.85); Thyroid Stimulating Hormone 3.99 uIU/mL (0.32-4.0); Vitamin D 25-OH Total 21.7 ng/mL (>30)
[2022-02-03 10:18] LABS: Folate 14.7 ng/mL (> or = 4.0); Vitamin B12 870 pg/mL (200-900)
[2022-02-03 11:48] LABS: Creatinine Urine 36.45 mg/dL
== END 2022-02-03 08:02 | disposition home or self-care (01) ==
LOC: HO.LAB 08:01
PROVIDERS: PCP Internal Medicine; Visit Provider Internal Medicine
DX: E11.65 Type 2 diabetes mellitus with hyperglycemia (principal); E78.00 Pure hypercholesterolemia, unspecified
CPT/HCPCS: 36415; 71046; 80053; 80061; 82043; 82306; 82607; 82746; 83036; 84439; 84443; 85025

== ENCOUNTER 2022-12-22 14:45 | Outpatient (AMB) | payer MEDICARE, MEDICAID, SELFPAY ==
--- NOTE | 2022-12-22 14:46 | MHC.PC.OV ---
Vital Signs 12/22/22 14:47 Height 4 ft 11 in Weight 137 lb 2 oz BMI 27.7 BP 110/80 Blood Pressure Location Lt brachial Position Sitting Pulse Source Pulse Oximeter Pulse Oximetry (%) 96 Oxygen Delivery Method Nasal Cannula Oxygen Flow Rate 2 Intake Visit Reasons: 3mth f/u Tumbling And Rolling Supervisor Required: No Accompanied by: Son Allergies latex [LATEX] Allergy (Unknown, Verified 12/22/22 14:47) UNKNOWN peanut [PEANUT] Allergy (Unknown, Verified 12/22/22 14:47) RASH seafood Allergy (Unknown, Verified 12/22/22 14:47) Unknown Medication List - Last Reconciled 12/22/22 by Renetta Gonzalez MD albuterol sulfate 90 mcg/actuation (Ventolin HFA) 2 puffs inhalation Q4-6H PRN albuterol sulfate 2.5 mg (3 mL) inhalation QID PRN 90 days aspirin (Adult Aspirin Regimen) 81 mg PO DAILY blood sugar diagnostic (FreeStyle Lite Strips) As directed check the BS QID blood-glucose meter (Sandata Ultra2 Meter kit) As directed bumetanide 1 mg PO BID carvedilol 6.25 mg See Protocol PO BID cholecalciferol (vitamin D3) 1,250 mcg PO TU clonidine HCl 0.3 mg PO BID 90 days compress.stocking,knee,reg,med As directed 20-30 mm HG [DEPENDS LARGE As directed] [Diabetic shoes As directed] docusate sodium 100 mg PO TID PRN 90 days gabapentin 300 mg PO TID insulin asp prt-insulin aspart 100 unit/mL (70-30) (Novolog Mix 70-30FlexPen U-100) 35 units (0.35 mL) subcut BID 90 days lancets (FreeStyle Lancets) As directed check BS TID lisinopril 40 mg PO DAILY nifedipine ER 60 mg PO BID 90 days [oxygen 2L NC As directed] pen needle, diabetic (BD Ultra-Fine Mini Pen Needle) USE TO INJECT TWICE DAILY [Portable Oxygen Concentrator As directed] rosuvastatin 40 mg PO DAILY 90 days tramadol 50 mg PO Q8H 90 days Tobacco use date assessed: 12/22/22 Fall risk assessment: 2 + Falls in past year Last assessed Fall Risk: 12/22/22 Dental Screening Dental Screen Date: 12/22/22 HPI 3mth f/u HPI Details 77-year-old overweight female with uncontrolled diabetes mellitus chronic kidney disease hypertension congestive heart failure coronary artery disease and urge incontinence last seen July 2022 having had a patellar fracture. Patient is here for follow-up. 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 Lang for Endocrinology. With the right knee nondisplaced patellar pole fracture treatment of nonsurgical 4 weeks of knee immobilizer. problematic about endo moving to [place]. [facility] Medical History Aortic stenosis Asthma Chronic kidney disease, stage 3 Congestive heart failure Coronary artery disease Dementia Diabetic neuropathy Diabetic retinopathy History of CVA (cerebrovascular accident) Hypercholesterolemia Hypertension Obesity (BMI 30-39.9) Peripheral vascular disease Post-menopausal Thyroid nodule Type 2 diabetes mellitus with hyperglycemia Surgical History Amputated toe of left foot Carotid stenosis Femoral-popliteal bypass graft occlusion, left History of cataract surgery History of colonoscopy History of endarterectomy Hx of CABG Hx of cholecystectomy Family History Father Diabetes Hypertension Mother Hypertension CVD (cardiovascular disease) Cancer Diabetes Maternal Aunt Breast cancer Seizures Sister No problems noted. Son No problems noted. Son No problems noted. Son No problems noted. Daughter No problems noted. Social History Household Members: None Housing: Apartment Do you presently have visiting nurse or other home services: Yes (son is [facility]) Alcohol intake: current Alcohol intake frequency: does not drink Patient Tobacco Use Status: Never used Tobacco e-Cigarette/Vaping Use: Never Used Second Hand Smoke Exposure: No Current occupational status: unemployed and retired Cognitive needs: No Hearing needs: No Vision needs: Yes Questionnaire PHQ-9 Over the last 2 weeks, how often have you been bothered by any of the following problems? 1. Little interest or pleasure in doing things: not at all 2. Feeling down, depressed, or hopeless: not at all 3. Trouble falling or staying asleep, or sleeping too much: not at all 4. Feeling tired or having little energy: not at all 5. Poor appetite or overeating: not at all 6. Feeling bad about yourself - or that you are a failure or have let yourself or your family down: not at all 7. Trouble concentrating on things, such as reading the newspaper or watching television: not at all 8. Moving or speaking so slowly that other people could have noticed. Or the opposite - being so fidgety or restless that you have been moving around a lot more than usual: not at all 9. Thoughts that you would be better off or of hurting yourself in some way: not at all Total score: 0 Depression Screening Interpretation: Negative Source: Developed by Drs. Ramos Dove, Vesta Yeh, Maksim Frenandez and colleagues, with an educational breann from [facility] [employer] [facility]. Thrive Questionnaire Date Thrive assessed: 12/22/22 I am a: Parent/Caregiver What is your living situation today?: I have a steady place to live Within the past 12 months, did the food you bought not last and you didn't have the money to get more?: Never true Within the past 12 months, did you worry whether your food would run out before you got money to buy more?: Never true Do you have trouble paying for medicines?: No Do you have trouble getting transportation to medical appointments?: No Do you have trouble paying your heating and electricity bill?: No Do you have trouble taking care of your child, family member or friend?: No Do you have trouble with day-to-day activities such as bathing, preparing meals, shopping, managing finances, etc.?: No Are you currently unemployed and looking for a job?: No Are you interested in more education?: No Please select the resources that you would like help with: None Currently or been in a relationship where the following occur: no concerns reported AUDIT C Alcohol Use Questionnaire (AUDIT-C) 1. How often do you have a drink containing alcohol?: Monthly or less 2. How many drinks containing alcohol do you have on a typical day when you are drinking?: 1 or 2 3. How often do you have six or more drinks on one occasion?: Never Total Score: 1 Score Reviewed/Action Taken: No SUZAN-7 AMB Questionnaire SUZAN-7 Date SUZAN - 7 assessed: 12/22/22 Feeling nervous, anxious, or on edge: 1 = Several days Not being able to stop or control worryin = Several days Worrying too much about different things: 1 = Several days Trouble relaxin = Several days Being so restless that it is hard to sit still: 1 = Several days Becoming easily annoyed or irritable: 1 = Several days Feeling afraid as if something awful might happen: 1 = Several days Total SUZAN-7 score (0-4 normal; 5-9 mild; 10-14 moderate; 15-21 severe): 7 Source: Developed by Drs. Ramos Dove, Vesta Yeh, Maksim Fernandez and colleagues, with an educational breann from [facility]. Physical exam (Primary Care) Vital Signs: Last Vital Signs BP 110/80 12/22/22 14:47 Pulse Ox 96 12/22/22 14:47 Oxygen Delivery Method Nasal Cannula 12/22/22 14:47 Oxygen Flow Rate 2 12/22/22 14:47 BMI result Body Mass Index 27.7 Tobacco/Smoking Status: Tobacco use Status Tobacco use date assessed 12/22/22 12/22/22 14:53 Patient Tobacco Use Status Never used Tobacco 12/22/22 14:53 e-Cigarette/Vaping Use Never Used 12/22/22 14:53 PHQ-9: PHQ-9 Score PHQ-9: Total score 0 12/22/22 14:53 Depression Screening Interpretation: Negative Thrive Assessment: Date of Thrive Assessment Date Thrive assessed 12/22/22 12/22/22 14:53 Currently or been in a relationship where the following occur: no concerns reported Const General: alert; No acute distress Eyes Conjunctivae: conjunctivae normal Resp Auscultation: clear to auscultation bilaterally Cardio Rate: regular rate Rhythm: regular rhythm GI Inspection: Yes normal to inspection Extrem General: Yes normal to inspection and No edema Assessment and Plan Assessment & Plan (1) Type 2 diabetes mellitus with hyperglycemia: Code(s): E11.65 - Type 2 diabetes mellitus with hyperglycemia Plan: Decrease the amount of carbohydrate intake, pasta, bread, rice and potatoes are all sugar and that is aside from all the sweet stuff, remember that fruits are good but they are Sweet also. Hemoglobin A1c goal of less than 7.0 . patient follows up with endocrinology (2) Chronic kidney disease, stage 3: Code(s): N18.30 - Chronic kidney disease, stage 3 unspecified Plan: Patient has seen Nephrology continue present management controlling the blood pressure and diabetes (3) History of CVA (cerebrovascular accident): Comment: Right-sided weakness Code(s): Z86.73 - Personal history of transient ischemic attack (TIA), and cerebral infarction without residual deficits Plan: Control the cholesterol, weight, blood pressure, diabetes (4) Coronary artery disease: Code(s): I25.10 - Atherosclerotic heart disease of douglas coronary artery without angina pectoris Plan: Control the cholesterol, weight, blood pressure, diabetes (5) Hypercholesterolemia: Code(s): E78.00 - Pure hypercholesterolemia, unspecified Plan: Avoid fried foods, chicken skin, eggs, butter margarine, pastries and meat. Be it pork or beef they have a lot of cholesterol last blood work was done in 2021 will need a repeat LDL goal of less than 70 and triglyceride of less than 150 (6) Asthma: Code(s): J45.909 - Unspecified asthma, uncomplicated Plan: Continue with inhaler as needed. ? hypoxia - will refer for pulmonary - Dx of the oxygen (7) Patellar fracture: Comment: Right June 2022 fall Code(s): S82.009A - Unspecified fracture of unspecified patella, initial encounter for closed fracture Plan: Patient has seen Ortho, nonsurgical physical Thera therapy Orders: Orders Vitamin B12 and Folate Today E11.65 - Type 2 diabetes mellitus with hyperglycemia Comprehensive Met. Panel Today E11.65 - Type 2 diabetes mellitus with hyperglycemia Hemoglobin A1c Today E11.65 - Type 2 diabetes mellitus with hyperglycemia Lipid Panel Today E11.65 - Type 2 diabetes mellitus with hyperglycemia, E78.00 - Pure hypercholesterolemia, unspecified Free T4 (Free Thyroxine) Today E11.65 - Type 2 diabetes mellitus with hyperglycemia Thyroid Stimulating Hormone Today E11.65 - Type 2 diabetes mellitus with hyperglycemia Vitamin D 25-OH Total Today E11.65 - Type 2 diabetes mellitus with hyperglycemia Creatinine Urine Today E11.65 - Type 2 diabetes mellitus with hyperglycemia Microalbumin, Random (w Creat) Today E11.65 - Type 2 diabetes mellitus with hyperglycemia Complete Blood Count Auto Diff Today E11.65 - Type 2 diabetes mellitus with hyperglycemia Referrals Pulmonology Referral J45.909 - Unspecified asthma, uncomplicated Medications: Refilled albuterol sulfate 90 mcg/actuation (Ventolin HFA) 2 puffs inhalation Q4-6H PRN 8.5 grams 0RF bronchospasm J45.909 - Unspecified asthma, uncomplicated blood sugar diagnostic (FreeStyle Lite Strips) As directed check the BS QID 400 ea 3RF E11.65 - Type 2 diabetes mellitus with hyperglycemia Coding Level of Care Code Est Pt Level 4 (14052) Diagnoses Type 2 diabetes mellitus with hyperglycemia E11.65 Chronic kidney disease, stage 3 N18.30 History of CVA (cerebrovascular accident) Z86.73 Coronary artery disease I25.10 Hypercholesterolemia E78.00 Asthma J45.909 Patellar fracture S82.009A Additional Codes PHQ-9 - 94665 - PHQ-9 Billing: Y ([id number])
[2022-12-22 14:47] VITALS: BP 110/80; O2SAT 96; BMI 27.7
== END 2022-12-22 15:31 | disposition home or self-care (01) ==
PROVIDERS: Visit Provider Internal Medicine
DX: E11.65 Type 2 diabetes mellitus with hyperglycemia (principal); N18.30 Chronic kidney disease, stage 3 unspecified; Z86.73 Personal history of transient ischemic attack (TIA), and cerebral infarction without residual deficits; J45.909 Unspecified asthma, uncomplicated; I25.10 Atherosclerotic heart disease of native coronary artery without angina pectoris; E78.00 Pure hypercholesterolemia, unspecified; S82.009A Unspecified fracture of unspecified patella, initial encounter for closed fracture
CPT/HCPCS: 99214

== ENCOUNTER 2023-01-12 09:14 | Outpatient (AMB) | payer MEDICARE, MEDICAID, SELFPAY ==
--- NOTE | 2023-01-12 09:17 | MHC.OFFVIS ---
Intake Vital Signs 01/12/23 09:18 Height 4 ft 11 in Weight 144 lb 6.444 oz BMI 29.2 BP 114/60 Blood Pressure Location Lt brachial Position Sitting Pulse 88 Pulse Source Pulse Oximeter Pulse Oximetry (%) 91 L Oxygen Delivery Method Nasal Cannula Oxygen Flow Rate 2 Intake Visit Reasons: Asthma/Hypoxia Chemical Laboratory Technician Required: No Chemical Process Equipment Operator: Chemical Process Equipment Operator offered & declined Accompanied by: Son Allergies latex [LATEX] Allergy (Unknown, Verified 01/12/23 09:26) UNKNOWN peanut [PEANUT] Allergy (Unknown, Verified 01/12/23 09:26) RASH seafood Allergy (Unknown, Verified 01/12/23 09:26) Unknown Medication List - Last Reconciled 01/12/23 by Silva Mcginnis LPN albuterol sulfate 2.5 mg (3 mL) inhalation QID PRN 90 days albuterol sulfate 90 mcg/actuation (Ventolin HFA) 2 puffs inhalation Q4-6H PRN aspirin (Adult Aspirin Regimen) 81 mg PO DAILY blood sugar diagnostic (FreeStyle Lite Strips) As directed check the BS QID blood-glucose meter (Vubiquity Ultra2 Meter kit) As directed bumetanide 1 mg PO BID carvedilol 6.25 mg See Protocol PO BID cholecalciferol (vitamin D3) 1,250 mcg PO TU clonidine HCl 0.3 mg PO BID 90 days compress.stocking,knee,reg,med As directed 20-30 mm HG [DEPENDS LARGE As directed] [Diabetic shoes As directed] docusate sodium 100 mg PO TID PRN 90 days gabapentin 300 mg PO TID insulin asp prt-insulin aspart 100 unit/mL (70-30) (Novolog Mix 70-30FlexPen U-100) 35 units (0.35 mL) subcut BID 90 days lancets (FreeStyle Lancets) As directed check BS TID lisinopril 40 mg PO DAILY nifedipine ER 60 mg PO BID 90 days [oxygen 2L NC As directed] pen needle, diabetic (BD Ultra-Fine Mini Pen Needle) USE TO INJECT TWICE DAILY [Portable Oxygen Concentrator As directed] rosuvastatin 40 mg PO DAILY 90 days tramadol 50 mg PO Q8H 90 days HPI Asthma/Hypoxia HPI Details Felicity is a pleasant 77 year old female, never smoker, with underlying history of asthma, congestive heart failure, CAD s/p CABG x 3. She was referred by her PCP for pulmonary evaluation. She is accompanied by her son, her ATTENDING ANESTHESIOLOGIST and requesting him to translate. She reports having supplemental oxygen prescribed upon discharge from [facility] after CABG. She has been using 2L continuously at home and when she leaves she uses the [employer] at 5L. [employer] is her [employer] company. Her son reports monitoring her oxygen saturation and maintains 95% on 2L but without decreases to the mid 80s. She is currently using albuterol MDI/neb PRN. She denies any occupational exposures. She denies any family history of lung conditions. She denies any environmental allergies. She reports an intermittent productive cough with whitish sputum and dyspnea on exertion. Denies any wheezing or chest tightness. She also reports orthopnea and persistent bilateral lower extremity edema. HPI Comments History of Present Illness Details [facility] Medical History Aortic stenosis Asthma Chronic kidney disease, stage 3 Congestive heart failure Coronary artery disease Dementia Diabetic neuropathy Diabetic retinopathy History of CVA (cerebrovascular accident) Hypercholesterolemia Hypertension Obesity (BMI 30-39.9) Peripheral vascular disease Post-menopausal Thyroid nodule Type 2 diabetes mellitus with hyperglycemia Surgical History Amputated toe of left foot Carotid stenosis Femoral-popliteal bypass graft occlusion, left History of cataract surgery History of colonoscopy History of endarterectomy Hx of CABG Hx of cholecystectomy Family History Father Diabetes Hypertension Mother Hypertension CVD (cardiovascular disease) Cancer Diabetes Maternal Aunt Breast cancer Seizures Sister No problems noted. Son No problems noted. Son No problems noted. Son No problems noted. Daughter No problems noted. Social History Household Members: None Housing: Apartment Do you presently have visiting nurse or other home services: Yes (son is ATTENDING ANESTHESIOLOGIST) Alcohol intake: current Alcohol intake frequency: does not drink Patient Tobacco Use Status: Never used Tobacco e-Cigarette/Vaping Use: Never Used Second Hand Smoke Exposure: No Current occupational status: unemployed and retired Cognitive needs: No Hearing needs: No Vision needs: Yes Review of Systems Const Denies chills, Denies excessive sweating, Denies fever(s), Denies headache(s) and Denies night sweats Eyes Denies dry eyes, Denies irritation and Denies itchy eyes ENT Reports Normal hearing present, Denies headache(s), Denies nasal congestion, Denies nasal discharge, Denies post nasal drip and Denies sore throat Card Denies chest pain, Denies chest pain at rest, Denies chest pain with activity, Denies claudication, Reports leg edema, Reports dyspnea on exertion, Reports orthopnea and Denies paroxysmal nocturnal dyspnea Resp Denies chest congestion, Reports cough, Denies hemoptysis, Denies excessive phlegm production, Denies pain on inspiration, Denies pain with cough, Reports dyspnea on exertion, Denies stridor and Denies wheezing Musc Denies myalgias Neuro Reports Normal hearing present and Denies headache(s) Endo Denies excessive sweating Carlos/Lymph Denies lymphadenopathy Aller/Immun Denies itchy eyes, Denies seasonal rhinorrhea and Denies wheezing Physical Exam Vital Signs: Last Vital Signs Pulse 88 01/12/23 09:18 BP 114/60 01/12/23 09:18 Pulse Ox 91 L 01/12/23 09:18 Oxygen Delivery Method Nasal Cannula 01/12/23 09:18 Oxygen Flow Rate 2 01/12/23 09:18 BMI result Body Mass Index 29.2 Const General: cooperative, healthy appearing, comfortable, no acute distress, well developed and alert Nutritional Appearance: obese Orientation/consciousness: patient oriented x3 Limitations: no limitations HEENT Head: Yes normal to inspection, Yes normocephalic and Yes atraumatic Ears: hearing grossly normal bilaterally and external ears normal Eyes General: appearance normal, both eyes and all related structures Eyelids: Yes eyelids normal Sclerae: sclerae normal EOM: EOMs intact bilaterally Neck Neck: Yes normal visual inspection and Yes no lymphadenopathy Lymphatic: no lymphadenopathy noted Chest Chest palpation & inspection: normal inspection of the chest Resp Effort & Inspection: normal respiratory effort, able to speak in complete sentences, no audible wheezes, no cough, no stridor, not tachypneic, no tripod positioning and no use of accessory muscles Auscultation: crackles bilateral (fine crackles) at the base, no wheezes and diminished lung sounds Cardio Jugular venous distension: no JVD Rate: regular rate Rhythm: regular rhythm Skin Other: warm, dry General skin exam: no rashes or lesions noted Neuro General: patient oriented x3 Cranial nerves: Yes Normal hearing present Cognition (Neuro): normal cognition Gait exam (Neuro): Normal gait present Extrem Other: 3+ pitting edema BLE Psych Appearance: grossly normal and well kempt Speech and movement: Normal speech and movement present and Clear speech present Affect: normal affect Attitude: cooperative Thought process: Normal thought process present Thought content: Normal thought content present Insight: Good insight present (Psych) Judgement: Good judgement present (Psych) Office Procedures 6 Minute Walk Time:: 09:45 SPO2 % at rest: 96 Pulse at rest: 65 SPO2 % during excercise: 86 Pulse during excercise: 87 SPO2 % after excercise: 93 Pulse after excercise: 87 Distance in yards walked: 100 Nabil Score: 8 Performance Observations:: Patient walked on level ground without O2 with the use of a cane. O2 sat started at 96%. After walking approx 25 yards O2 sat dropped to 86%. O2 applied at 2L via nasal cannula and we stopped to rest for approx 1 minute with O2 sat recovered to 92%. Patient completed the walk slowly maintaining O2 sat of 92%. She reports her legs tire with walking. [address]004 - 6 Minute Walk Assessment & Plan Assessment & Plan (1) Asthma: Code(s): J45.909 - Unspecified asthma, uncomplicated (2) Cough: Code(s): R05.9 - Cough, unspecified (3) Congestive heart failure: Code(s): I50.9 - Heart failure, unspecified Qualifiers: Heart failure type: unspecified Heart failure chronicity: chronic Qualified Code(s): I50.9 - Heart failure, unspecified (4) On supplemental oxygen therapy: Code(s): Z99.81 - Dependence on supplemental oxygen Plan Felicity presents for pulmonary evaluation and her symptoms are likely multifactorial with contributions of pulmonary, cardiac and deconditioning etiologies. Discussed sending for spirometry/PFT but patient has poor inspiratory effort and would unlikely to technically perform. Encouraged deep breathing exercises and instructed how to use incentive spirometer. Nebulized therapy would be best at this time, will trial duoneb. 6MWT was performed, requiring 2L of oxygen, as her oxygen saturation decreased to 86% on room air, max heart rate 87. She did have faint inspiratory crackles at bilateral bases with 3+ pitting edema bilateral lower extremities. Will send for CXR. Advised patient to call patch finisher as she may require more diuretic, she is currently on Bumex 1 mg BID. Encouraged to weigh self daily. Will send for overnight oximetry on 2L. All questions were answered and patient is in agreement of plan. Will follow up in 4 weeks or sooner if needed. Orders: Orders XR chest 2V 01/12/23 R05.9 - Cough, unspecified AMB 6 minute walk 01/12/23 R09.02 - Hypoxemia, J45.909 - Unspecified asthma, uncomplicated Coding Level of Care Code New Pt Level 4 (51039) Diagnoses Asthma J45.909 Cough R05.9 Congestive heart failure I50.9 Heart failure type: unspecified Heart failure chronicity: chronic On supplemental oxygen therapy Z99.81 CPT Codes Coding ([id number])
[2023-01-12 09:18] VITALS: BP 114/60; PULSE 88; O2SAT 91; BMI 29.2
[2023-01-12 11:48] VITALS: PULSE 65; O2SAT 96
== END 2023-01-12 10:15 | disposition home or self-care (01) ==
PROVIDERS: PCP Internal Medicine; Referring Provider Internal Medicine; Visit Provider Nurse Practitioner Family
DX: J45.909 Unspecified asthma, uncomplicated (principal); R05.9 Cough, unspecified; I50.9 Heart failure, unspecified; Z99.81 Dependence on supplemental oxygen
CPT/HCPCS: 94618; 99204

== ENCOUNTER → 2023-01-12 09:14 | Outpatient (BNVA) | payer MEDICARE, MEDICAID, SELFPAY | PROVIDERS: PCP Internal Medicine; Visit Provider Nurse Practitioner Family | DX: J45.909 Unspecified asthma, uncomplicated (principal); R05.9 Cough, unspecified; I50.9 Heart failure, unspecified; Z99.81 Dependence on supplemental oxygen | CPT/HCPCS: 94618; 99202 ==

== ENCOUNTER 2023-01-28 10:34 | Outpatient (AMB) | payer MEDICARE, MEDICAID, SELFPAY ==
[2023-01-28 10:35] VITALS: BP 140/58; PULSE 69; O2SAT 96; BMI 27.7
--- NOTE | 2023-01-28 10:35 | A.OFFVIS_ITS ---
Intake Vital Signs 01/28/23 10:35 Height 4 ft 11 in Weight 137 lb BMI 27.7 BP 140/58 H Blood Pressure Location Lt brachial Position Sitting Pulse 69 Pulse Source Pulse Oximeter Temp Source Skin Pulse Oximetry (%) 96 Oxygen Delivery Method Nasal Cannula Intake Visit Reasons: ITZ G0439 Intake Note: Patient is here for an Annual Wellness Visit. Bilingual Research Interviewer Required: Yes Bilingual Research Interviewer Language: [place] Citizen Allergies latex [LATEX] Allergy (Unknown, Verified 01/28/23 11:09) UNKNOWN peanut [PEANUT] Allergy (Unknown, Verified 01/28/23 11:09) RASH seafood Allergy (Unknown, Verified 01/28/23 11:09) Unknown Medication List - Last Reconciled 01/28/23 by JENNIFER White albuterol sulfate 2.5 mg (3 mL) inhalation QID PRN 90 days albuterol sulfate 90 mcg/actuation (Ventolin HFA) 2 puffs inhalation Q4-6H PRN aspirin (Adult Aspirin Regimen) 81 mg PO DAILY blood sugar diagnostic (FreeStyle Lite Strips) As directed check the BS QID blood-glucose meter ([employer] Ultra2 Meter kit) As directed bumetanide 1 mg PO BID carvedilol 6.25 mg See Protocol PO BID cholecalciferol (vitamin D3) 1,250 mcg PO TU clonidine HCl 0.3 mg PO BID 90 days compress.stocking,knee,reg,med As directed 20-30 mm HG [DEPENDS LARGE As directed] [Diabetic shoes As directed] docusate sodium 100 mg PO TID PRN 90 days gabapentin 300 mg PO TID insulin asp prt-insulin aspart 100 unit/mL (70-30) (Novolog Mix 70-30FlexPen U- 100) 35 units (0.35 mL) subcut BID 90 days ipratropium-albuterol 0.5 mg-3 mg(2.5 mg base)/3 mL 3 mL inhalation BID PRN lancets (FreeStyle Lancets) As directed check BS TID lisinopril 40 mg PO DAILY nifedipine ER 60 mg PO BID 90 days [oxygen 2L NC As directed] pen needle, diabetic (BD Ultra-Fine Mini Pen Needle) USE TO INJECT TWICE DAILY [Portable Oxygen Concentrator As directed] rosuvastatin 40 mg PO DAILY 90 days tramadol 50 mg PO Q8H 90 days Fall Risk Assessment Fall risk assessment: 2 + Falls in past year Date Fall Risk Assessed: 12/22/22 HPI SWV G0439 HPI Details Patient is a 77-year-old female presents today for subsequent wellness visit. Patient of Dr. Gonzalez. Today we discussed patient's need for colon cancer screening and mammogram. Bone density screen 07/2021 which showed osteopenia. Up-to-date with immunizations. [place] of care was reviewed with the patient and she was provided with a scr eening schedule. Healthcare proxy and MOLST forms on file. Patient is a [place] Citizen-speaking and Jayda was helping with interpretation. [facility] Medical History Aortic stenosis Asthma Chronic kidney disease, stage 3 Congestive heart failure Coronary artery disease Dementia Diabetic neuropathy Diabetic retinopathy History of CVA (cerebrovascular accident) Hypercholesterolemia Hypertension Obesity (BMI 30-39.9) Peripheral vascular disease Post-menopausal Thyroid nodule Type 2 diabetes mellitus with hyperglycemia Surgical History Amputated toe of left foot Carotid stenosis Femoral-popliteal bypass graft occlusion, left History of cataract surgery History of colonoscopy History of endarterectomy Hx of CABG Hx of cholecystectomy Family History Father Diabetes Hypertension Mother Hypertension CVD (cardiovascular disease) Cancer Diabetes Maternal Aunt Breast cancer Seizures Sister No problems noted. Son No problems noted. Son No problems noted. Son No problems noted. Daughter No problems noted. Social History Household Members: None Housing: Apartment Do you presently have visiting nurse or other home services: Yes (son is CLIENT EXPERIENCE SPECIALIST) Alcohol intake: current Alcohol intake frequency: does not drink Patient Tobacco Use Status: Never used Tobacco e-Cigarette/Vaping Use: Never Used Second Hand Smoke Exposure: No Current occupational status: unemployed and retired Cognitive needs: No Hearing needs: No Vision needs: Yes Questionnaire Medicare Wellness Checkup [age] What gender do you identify with?: female During the past 4 weeks, how much have you been bothered by emotional problems such as feeling anxious, depressed, irritable, sad or downhearted, and blue?: not at all During the past 4 weeks, has your physical & emotional health limited your social activities with family, friends, neighbors, or groups?: not at all During the past 4 weeks, how much bodily pain have you generally had?: moderate pain During the past 4 weeks, was someone available to help you if you needed & wanted help?: yes, quite a bit During the past 4 weeks, what was the hardest physical activity you could do for at least 2 minutes?: heavy Can you get to places out of walking distance without help? (For eg., can you travel alone on buses, taxis or drive your car?): No Can you go shopping for groceries or clothes without someone's help?: No Can you prepare your own meals?: No Can you do your housework without help?: No Because of any health problems, do you need the help of another person with your personal care needs such as eating, bathing, dressing or getting around the house?: Yes Can you handle your own money without help?: Yes During the past 4 weeks, how would you rate your health in general?: fair During the past 4 weeks how have things been going for you?: pretty well Are you having difficulties driving your car?: not applicable, I don't use a car Do you always fasten your seat belt when you are in a car?: yes, usually During past 4 weeks, have you been bothered by the following: never: Sexual problems? and Problems using the telephone?, seldom: Falling or dizzy when standing up (low blood sugar ), Trouble eating well? and Teeth or denture problems? and sometimes: Tiredness or fatigue? Have you fallen 2 or more times in the past year?: Yes Are you afraid of falling?: Yes Are you a smoker?: no During the past 4 weeks, how many drinks of wine, beer, or other alcoholic beverages did you have?: no alcohol at all Do you exercise for about 20 minutes 3 or more times a week?: yes, some of the time Have you been given information to help with the following?: yes: Hazards in your house that might hurt you? and yes: Keeping track of your medications? How often do you have trouble taking medicines the way you have been told to take them?: I always take medicine as prescribed How confident are you that you can control & manage most of your health problems?: somewhat confident What is your race?: or origin or descent Mini Mental State Exam (MMSE) Orientation What is the (year) (season) (date) (day) (month)?: year, season, date, day and month Score Score: 5 Activity of Daily Living Bathing - sponge bath, tub bath or shower: receives help in bathing more than one body part (or not bathed) Dressing - getting clothes from closets & drawers, including inner/outer garments & fasteners.: receives help getting clothes or getting dressed, or stays undressed Toileting - going to the 'toilet room' for urine/bowel elimination & cleaning self/arranging clothes: receives help going to toilet room, cleaning self or arranging clothes Transfer: moves in & out of bed or chair with help Continence: controls urination/bowel movements completely by self Feeding: feeds self without help Total Score: 2 Information obtained from: patient Using telephone: independent Traveling: dependent Shopping: dependent Preparing meals: dependent Housework: dependent Taking medicine: needs assistance Managing money: dependent PHQ-9 Over the last 2 weeks, how often have you been bothered by any of the following problems? 1. Little interest or pleasure in doing things: not at all 2. Feeling down, depressed, or hopeless: not at all 3. Trouble falling or staying asleep, or sleeping too much: not at all 4. Feeling tired or having little energy: not at all 5. Poor appetite or overeating: not at all 6. Feeling bad about yourself - or that you are a failure or have let yourself or your family down: not at all 7. Trouble concentrating on things, such as reading the newspaper or watching television: not at all 8. Moving or speaking so slowly that other people could have noticed. Or the opposite - being so fidgety or restless that you have been moving around a lot more than usual: not at all 9. Thoughts that you would be better off or of hurting yourself in some way: not at all Total score: 0 Depression Screening Interpretation: Negative [id number] - PHQ-9 Billing: Yes Source: Developed by Drs. Ramos Dove, Vesta Yeh, Maksim Fernandez and colleagues, with an educational breann from [employer]. SUZAN-7 AMB Questionnaire SUZAN-7 Date SUZAN - 7 assessed: 12/22/22 Feeling nervous, anxious, or on edge: 0 = Not at all Not being able to stop or control worryin = Not at all Worrying too much about different things: 0 = Not at all Trouble relaxin = Not at all Being so restless that it is hard to sit still: 0 = Not at all Becoming easily annoyed or irritable: 0 = Not at all Feeling afraid as if something awful might happen: 0 = Not at all Total SUZAN-7 score (0-4 normal; 5-9 mild; 10-14 moderate; 15-21 severe): 0 Source: Developed by Drs. Ramos Dove, Vesta Yeh, Maksim Fernandez and colleagues, with an educational breann from [employer]. SUZAN-7 Assessment Billing SUZAN-7 Assessment Tool: SUZAN-7 Assessment 40007 Thrive Questionnaire Date Thrive assessed: 12/22/22 Physical Exam Vital Signs: Last Vital Signs Pulse 69 01/28/23 10:35 BP 140/58 H 01/28/23 10:35 Pulse Ox 96 01/28/23 10:35 Oxygen Delivery Method Nasal Cannula 01/28/23 10:35 BMI result Body Mass Index 27.7 Const General: cooperative and no acute distress Orientation/consciousness: patient oriented x3 HEENT Other: Whisper test: fail Neuro Other: Balance: Normal - patient ambulates with a cane Get up and walk: unable to Romberg: negative Tandem gait: unable to General: patient oriented x3 Results AMB Hemoglobin A1c AMB Hemoglobin A1c 7.1 % Last Edit by ALBA Triplett on 01/28/23 11:01 Results Reviewed Results Reviewed: Laboratory Last Values Hgb A1c (Clinic) 7.1 % (4.0-6.0) H 01/28/23 10:38 Assessment & Plan Assessment & Plan (1) Left carotid stenosis: Comment: August 2021 70-99% January 2022 left carotid endarterectomy Code(s): I65.22 - Occlusion and stenosis of left carotid artery Plan: Patient underwent left carotid endarterectomy 01/2022 Continue to follow-up with vascular provider Dr. York (2) Asthma: Code(s): J45.909 - Unspecified asthma, uncomplicated Plan: Stable Continue current treatment Continue to follow-up with [place] [facility] (3) Osteopenia: Comment: 2021 Code(s): M85.80 - Other specified disorders of bone density and structure, unspecified site Plan: Continue to monitor (4) Hypercholesterolemia: Code(s): E78.00 - Pure hypercholesterolemia, unspecified Plan: Continue current treatment Low-cholesterol diet (5) Coronary artery disease: Code(s): I25.10 - Atherosclerotic heart disease of [place] coronary artery without angina pectoris Plan: Continue current treatment Continue to follow-up with cardiology Dr. Mckoy (6) Chronic kidney disease, stage 3: Code(s): N18.30 - Chronic kidney disease, stage 3 unspecified Plan: Continue to follow-up with nephrology Dr. Thompson (7) Type 2 diabetes mellitus with hyperglycemia: Code(s): E11.65 - Type 2 diabetes mellitus with hyperglycemia Plan: A1c 7.1 today Continue to follow-up with endocrinology Dr. Guzmán Low-carbohydrate diet Continue current treatment (8) Hypertension, uncontrolled: Code(s): I10 - Essential (primary) hypertension Plan: Continue current treatment Low-sodium diet (9) Congestive heart failure: Code(s): I50.9 - Heart failure, unspecified Qualifiers: Heart failure type: unspecified Heart failure chronicity: chronic Qualified Code(s): I50.9 - Heart failure, unspecified Plan: Continue current treatment Low-sodium diet Continue to follow-up with cardiology Dr. Mckoy (10) Screening for colon cancer: Code(s): Z12.11 - Encounter for screening for malignant neoplasm of colon Plan: Colonoscopy 09/2016 (follow-up colonoscopy in 3 years due to history of multiple, large and advanced histology polyps) by Dr. Londono at [facility], referral placed for repeat colonoscopy. (11) Screening for breast cancer: Code(s): Z12.39 - Encounter for other screening for malignant neoplasm of breast (12) On supplemental oxygen therapy: Code(s): Z99.81 - Dependence on supplemental oxygen Plan: Continue to follow-up with pulmonology (13) Adult general medical exam: Code(s): Z00.00 - Encounter for general adult medical examination without abnormal findings Orders: Orders MM tomosynthesis screening BI Today Z12.31 - Encounter for screening mammogram for malignant neoplasm of breast, Z12.39 - Encounter for other screening for malignant neoplasm of breast AMB Hemoglobin A1c Today E11.65 - Type 2 diabetes mellitus with hyperglycemia Referrals Gastroenterology Referral Z12.11 - Encounter for screening for malignant neoplasm of colon Quality Reporting (2019) Fall Risk Screening ([facility]) Last assessed Fall Risk: 12/22/22 Fall risk assessment: 2 + Falls in past year Depression/Bipolar (159/160/161/177) PHQ-9: Total score: 0 Coding Level of Care Code Medicare Subsequent (G0439) Diagnoses Left carotid stenosis I65.22 Asthma J45.909 Osteopenia M85.80 Hypercholesterolemia E78.00 Coronary artery disease I25.10 Chronic kidney disease, stage 3 N18.30 Type 2 diabetes mellitus with hyperglycemia E11.65 Hypertension, uncontrolled I10 Congestive heart failure I50.9 Heart failure type: unspecified Heart failure chronicity: chronic Screening for colon cancer Z12.11 Screening for breast cancer Z12.39 On supplemental oxygen therapy Z99.81 Adult general medical exam Z00.00 CPT Codes Advance Care Planning - Advance Care Planning discussion: On file, no changes ([id number]) Advance Care Planning - Time spent: 1-15 minutes, on File ([id number]) Additional Codes SUZAN-7 Assessment Billing - SUZAN-7 Assessment Tool: SUZAN-7 Assessment 26284 ([id number]) Advance Care Planning Advance Care Planning discussion: On file, no changes Date of discussion: 01/28/23 Who was present: pt and forestry support specialist Forms completed: None Time spent: 1-15 minutes, on File Actual minutes spent: 1 Did not discuss due to Cultural/Spiritual beliefs: No
== END 2023-01-28 11:36 | disposition home or self-care (01) ==
PROVIDERS: Visit Provider Nurse Practitioner Family
DX: Z00.00 Encounter for general adult medical examination without abnormal findings (principal); J45.909 Unspecified asthma, uncomplicated; N18.30 Chronic kidney disease, stage 3 unspecified; I13.0 Hypertensive heart and chronic kidney disease with heart failure and stage 1 through stage 4 chronic kidney disease, or unspecified chronic kidney disease; I50.9 Heart failure, unspecified; I65.22 Occlusion and stenosis of left carotid artery; M85.80 Other specified disorders of bone density and structure, unspecified site; E78.00 Pure hypercholesterolemia, unspecified; I25.10 Atherosclerotic heart disease of native coronary artery without angina pectoris; E11.65 Type 2 diabetes mellitus with hyperglycemia; Z99.81 Dependence on supplemental oxygen
CPT/HCPCS: 1123F; 83036; G0439

== ENCOUNTER 2023-02-16 07:50 | Outpatient (REF) | payer MEDICARE, MEDICAID, SELFPAY ==
--- NOTE | ~2023-02-16 | MM_ITS ---
EXAMINATION: MM SCREENING DIGITAL BREAST TOMOSYNTHESIS, BILATERAL CLINICAL INFORMATION: Screening. Asymptomatic. COMPARISON: Mammography: 08/06/2021, 05/24/2020, 11/10/2018, 11/04/2017 TECHNIQUE: Digital breast tomosynthesis is performed in both the craniocaudal and mediolateral oblique views along with computer-aided detection (CAD). Synthesized 2D images are generated from the tomosynthesis. FINDINGS: There are scattered areas of fibroglandular density (ACR BI-RADS breast composition Category b). There are benign vascular and punctate parenchymal calcifications bilaterally.There is a stable circumscribed nodule mid upper outer left breast. There are no suspicious masses, suspicious grouped calcifications, or areas of architectural distortion. The parenchymal pattern is stable from prior exams. MM/MM tomosynthesis screening BI IMPRESSION: No mammographic evidence of malignancy. ASSESSMENT: BI-RADS BI-RADS 2 - Benign Findings RECOMMENDATION: Routine annual mammography screening. 1 year F/U This examination should not preclude the clinical evaluation of a suspicious palpable abnormality. This patient's information was entered into a reminder system with a target due date for their next mammogram.
[2023-02-16 08:14] LABS: MANUAL DIFF FLAG NO
[2023-02-16 08:43] LABS: Basophils Absolute Auto 0.1 X10*3/uL (0.0-0.2); Basophils Percent Auto 0.6 % (0-2); Eosinophils Absolute Auto 0.3 X10*3/uL (0.0-0.4); Eosinophils Percent Auto 3.2 % (0-4); Hematocrit 36.6 % (37.0-47.0); Imm Gran Abs Auto 0.04 X10*3/uL (0.00-0.03); Imm Gran Pct Auto 0.4 % (0.0-0.4); Lymphocytes Absolute Auto 1.4 X10*3/uL (1.2-4.9); Lymphocytes Percent Auto 15.5 % (20-40); Mean Corpuscular HGB Conc 32.8 g/dl (31.0-35.0); Mean Corpuscular Hemoglobin 27.7 pg (27.0-33.0); Mean Corpuscular Volume 84.5 fL (80.0-98.0); Mean Platelet Volume 10.7 fL (9.4-12.3); Monocytes Absolute Auto 0.6 X10*3/uL (0.1-1.2); Monocytes Percent Auto 7.1 % (2-11); Neutrophils Absolute Auto 6.6 x10*3/uL (2.0-8.3); Neutrophils Percent Auto 73.2 % (45-73); Platelet Count 221 X10*3/uL (160-400); Red Blood Count 4.33 X10*6/uL (4.20-5.50); Red Cell Distribution Width 14.7 % (11.0-16.0)
[2023-02-16 08:52] LABS: Estimated Average Glucose 157 mg/dL; Hemoglobin A1c % 7.1 % (<6.0)
[2023-02-16 09:33] LABS: Alanine Aminotransferase 12 U/L (0-31); Anion Gap 15 (12-20); Aspartate Amino Transferase 23 U/L (5-31); Blood Urea Nitrogen 20 mg/dL (9-16); Carbon Dioxide 29 mmol/L (22-29); Chloride 101 mmol/L (96-108); Estimated Glomerular Filt Rate 32; Glucose Random 222 mg/dL (60-115); Potassium 3.6 mmol/L (3.3-5.1); Sodium 141 mmol/L (135-145)
[2023-02-16 09:39] LABS: Alanine Aminotransferase 12 U/L (0-31); Albumin Level 4.2 g/dL (3.5-5.0); Alkaline Phosphatase 135 U/L (39-117); Anion Gap 15 (12-20); Aspartate Amino Transferase 23 U/L (5-31); Bilirubin Total 0.8 mg/dL (0.0-1.0); Blood Urea Nitrogen 21 mg/dL (9-16); Calcium 9.8 mg/dL (8.4-10.2); Carbon Dioxide 30 mmol/L (22-29); Chloride 101 mmol/L (96-108); Cholesterol 149 mg/dL (<200); Estimated Glomerular Filt Rate 34; Glucose Random 221 mg/dL (60-115); HDL Cholesterol 55 mg/dL (>40); LDL Cholesterol Calculated 78 mg/dL (<100); Potassium 3.6 mmol/L (3.3-5.1); Sodium 142 mmol/L (135-145); Total Protein 7.8 g/dL (6.5-8.0); Triglycerides 84 mg/dL (<150)
[2023-02-16 09:59] LABS: Free T4 (Free Thyroxine) 1.01 ng/dL (0.71-1.85); Thyroid Stimulating Hormone 3.69 uIU/mL (0.32-4.0)
[2023-02-16 10:14] LABS: Folate 11.1 ng/mL (> or = 4.0); Vitamin B12 888 pg/mL (200-900)
[2023-02-16 11:32] LABS: Creatinine Urine 43.84 mg/dL
== END 2023-02-16 07:51 | disposition home or self-care (01) ==
LOC: HO.MAMMO 07:50
PROVIDERS: Physician Assistant; Absent Provider Internal Medicine; PCP Internal Medicine; Visit Provider Nurse Practitioner Family
DX: Z12.31 Encounter for screening mammogram for malignant neoplasm of breast (principal); E11.65 Type 2 diabetes mellitus with hyperglycemia; E11.51 Type 2 diabetes mellitus with diabetic peripheral angiopathy without gangrene; E78.00 Pure hypercholesterolemia, unspecified; Z79.4 Long term (current) use of insulin
CPT/HCPCS: 36415; 77063; 77067; 80048; 80053; 80061; 82043; 82306; 82570; 82607; 82746; 83036; 84439; 84443; 84450; 84460; 85025

== ENCOUNTER → 2023-02-16 09:30 | Outpatient (BNV) | payer MEDICARE, MEDICAID, SELFPAY | PROVIDERS: Absent Provider Internal Medicine; PCP Internal Medicine; Visit Provider Radiology Diagnostic Radiology | DX: Z12.31 Encounter for screening mammogram for malignant neoplasm of breast (principal) | CPT/HCPCS: 77063; 77067 ==

== ENCOUNTER 2023-03-15 | Outpatient (REF) | payer MEDICARE, MEDICAID, SELFPAY | END 2023-03-15 00:01 | disposition home or self-care (01) | LOC: CF | PROVIDERS: Visit Provider Nurse Practitioner Family | DX: J45.909 Unspecified asthma, uncomplicated (principal); R06.00 Dyspnea, unspecified; I50.9 Heart failure, unspecified; Z99.81 Dependence on supplemental oxygen; Z79.899 Other long term (current) drug therapy | CPT/HCPCS: 99212 ==

== ENCOUNTER 2023-03-15 09:33 | Outpatient (AMB) | payer MEDICARE, MEDICAID, SELFPAY ==
[2023-03-15 09:43] VITALS: BP 136/78; PULSE 59; O2SAT 94; BMI 28.1
--- NOTE | 2023-03-15 09:43 | MHC.OFFVIS ---
Intake Vital Signs 03/15/23 09:43 Height 4 ft 11 in Weight 139 lb BMI 28.1 BP 136/78 Blood Pressure Location Rt brachial Position Sitting Pulse 59 Pulse Source Pulse Oximeter Pulse Oximetry (%) 94 Intake Visit Reasons: Asthma Manager Science Required: No Commercial Management Accountant: Commercial Management Accountant offered & declined Accompanied by: Son Allergies latex [LATEX] Allergy (Unknown, Verified 03/15/23 09:48) UNKNOWN peanut [PEANUT] Allergy (Unknown, Verified 03/15/23 09:48) RASH seafood Allergy (Unknown, Verified 03/15/23 09:48) Unknown Medication List - Last Reconciled 03/15/23 by Silva Mcginnis LPN albuterol sulfate 90 mcg/actuation (Ventolin HFA) 2 puffs inhalation Q4-6H PRN albuterol sulfate 2.5 mg (3 mL) inhalation QID PRN 90 days aspirin (Adult Aspirin Regimen) 81 mg PO DAILY blood sugar diagnostic (FreeStyle Lite Strips) As directed check the BS QID blood-glucose meter (Optyn Ultra2 Meter kit) As directed bumetanide 1 mg PO BID carvedilol 6.25 mg See Protocol PO BID cholecalciferol (vitamin D3) 1,250 mcg PO TU clonidine HCl 0.3 mg PO BID 90 days compress.stocking,knee,reg,med As directed 20-30 mm HG [DEPENDS LARGE As directed] [Diabetic shoes As directed] docusate sodium 100 mg PO TID PRN 90 days gabapentin 300 mg PO TID insulin asp prt-insulin aspart 100 unit/mL (70-30) (Novolog Mix 70-30FlexPen U-100) 35 units (0.35 mL) subcut BID 90 days ipratropium-albuterol 0.5 mg-3 mg(2.5 mg base)/3 mL 3 mL inhalation BID PRN lancets (FreeStyle Lancets) As directed check BS TID lisinopril 40 mg PO DAILY nifedipine ER 60 mg PO BID 90 days [oxygen 2L NC As directed] pen needle, diabetic (BD Ultra-Fine Mini Pen Needle) USE TO INJECT TWICE DAILY [Portable Oxygen Concentrator As directed] rosuvastatin 40 mg PO DAILY 90 days tramadol 50 mg PO Q8H 90 days HPI Asthma HPI Details Felicity is a pleasant 77 year old female, never smoker, with underlying history of asthma, congestive heart failure, CAD s/p CABG x 3. She is accompanied by her son, Lavelle, and requesting him to translate. She has been using 2L continuously at home and at [facility]. When she leaves her house, she uses the [employer] at 5L. [employer] is her [email or web address]. Her son reports from a respiratory standpoint, Felicity has had significant improvements in dyspnea. She continues to have bilateral lower extremity edema and recently was evaluated by cardiology with no changes to medications. Her son does however note that she has apneic events and often wakes up gasping for air. She reports having a sleep study many years ago. Will obtain last office visit note. Today she presents to review CXR and over respiratory status. [facility] Medical History Aortic stenosis Asthma Chronic kidney disease, stage 3 Congestive heart failure Coronary artery disease Dementia Diabetic neuropathy Diabetic retinopathy History of CVA (cerebrovascular accident) Hypercholesterolemia Hypertension Obesity (BMI 30-39.9) Peripheral vascular disease Post-menopausal Thyroid nodule Type 2 diabetes mellitus with hyperglycemia Surgical History Amputated toe of left foot Carotid stenosis Femoral-popliteal bypass graft occlusion, left History of cataract surgery History of colonoscopy History of endarterectomy Hx of CABG Hx of cholecystectomy Family History Father Diabetes Hypertension Mother Hypertension CVD (cardiovascular disease) Cancer Diabetes Maternal Aunt Breast cancer Seizures Sister No problems noted. Son No problems noted. Son No problems noted. Son No problems noted. Daughter No problems noted. Social History Household Members: None Housing: Apartment Do you presently have visiting nurse or other home services: Yes (son is RETREAD OPERATOR) Alcohol intake: current Alcohol intake frequency: does not drink Patient Tobacco Use Status: Never used Tobacco e-Cigarette/Vaping Use: Never Used Second Hand Smoke Exposure: No Current occupational status: unemployed and retired Cognitive needs: No Hearing needs: No Vision needs: Yes Review of Systems Const Denies chills, Denies excessive sweating, Denies fever(s), Denies headache(s) and Denies night sweats Eyes Denies dry eyes, Denies irritation and Denies itchy eyes ENT Reports Normal hearing present, Denies headache(s), Denies nasal congestion, Denies nasal discharge, Denies post nasal drip and Denies sore throat Card Denies chest pain, Denies chest pain at rest, Denies chest pain with activity, Denies claudication, Reports leg edema, Reports dyspnea on exertion, Reports orthopnea and Denies paroxysmal nocturnal dyspnea Resp Denies chest congestion, Denies hemoptysis, Denies excessive phlegm production, Denies pain on inspiration, Denies pain with cough, Reports dyspnea on exertion, Denies stridor and Denies wheezing Musc Denies myalgias Neuro Reports Normal hearing present and Denies headache(s) Endo Denies excessive sweating Carlos/Lymph Denies lymphadenopathy Aller/Immun Denies itchy eyes, Denies seasonal rhinorrhea and Denies wheezing Physical Exam Vital Signs: Last Vital Signs Pulse 59 03/15/23 09:43 BP 136/78 03/15/23 09:43 Pulse Ox 94 03/15/23 09:43 BMI result Body Mass Index 28.1 Const General: cooperative, healthy appearing, comfortable, no acute distress, well developed and alert Nutritional Appearance: obese Orientation/consciousness: patient oriented x3 Limitations: no limitations HEENT Head: Yes normal to inspection, Yes normocephalic and Yes atraumatic Ears: hearing grossly normal bilaterally and external ears normal Eyes General: appearance normal, both eyes and all related structures Eyelids: Yes eyelids normal Sclerae: sclerae normal EOM: EOMs intact bilaterally Neck Neck: Yes normal visual inspection and Yes no lymphadenopathy Lymphatic: no lymphadenopathy noted Chest Chest palpation & inspection: normal inspection of the chest Resp Effort & Inspection: normal respiratory effort, able to speak in complete sentences, no audible wheezes, no cough, no stridor, not tachypneic, no tripod positioning and no use of accessory muscles Auscultation: crackles bilateral (fine crackles) at the base, no wheezes and diminished lung sounds Cardio Jugular venous distension: no JVD Rate: regular rate Rhythm: regular rhythm Skin Other: warm, dry General skin exam: no rashes or lesions noted Neuro General: patient oriented x3 Cranial nerves: Yes Normal hearing present Cognition (Neuro): normal cognition Gait exam (Neuro): Normal gait present Extrem Other: 1+ pitting edema BLE Psych Appearance: grossly normal and well kempt Speech and movement: Normal speech and movement present and Clear speech present Affect: normal affect Attitude: cooperative Thought process: Normal thought process present Thought content: Normal thought content present Insight: Good insight present (Psych) Judgement: Good judgement present (Psych) Results Reviewed Results Reviewed: [address] [address] XRay Report Signed Patient: Felicity Goodrich MR#: [id number] : 1945 Acct:[id number] Age/Sex: 76 / F ADM Date: 02/03/22 Loc: HO.LAB Attending Dr: Renetta Gonzalez MD Ordering Physician: Renetta Gonzalez MD Date of Service: 02/03/22 Procedure(s): XR chest 2V Accession Number(s): [id number] cc: Renetta Gonzalez MD~ EXAMINATION: XR CHEST CLINICAL INFORMATION: Hypoxia. Short of breath. COMPARISON: 05/26/2019 TECHNIQUE: 2 views of the chest were obtained. FINDINGS: Median sternotomy wires appear intact. The lungs are well expanded. Bronchial wall thickening. There is no focal consolidation, edema, or effusion. No pneumothorax. The cardiomediastinal silhouette is within normal limits. No acute osseous abnormality. XR/XR chest 2V IMPRESSION: No dense consolidation. Bronchial wall thickening can be seen with a small airways process such as asthma or atypical/viral infection. Alternatively this could be associated with fluid overload. Dictated By: Kyle Banuelos MD Signed By: <Electronically signed by Kyle Banuelos MD in OV> 02/04/22 1431 Assessment & Plan Assessment & Plan (1) Asthma: Code(s): J45.909 - Unspecified asthma, uncomplicated (2) Cough: Code(s): R05.9 - Cough, unspecified (3) Congestive heart failure: Code(s): I50.9 - Heart failure, unspecified Qualifiers: Heart failure chronicity: chronic Heart failure type: unspecified Qualified Code(s): I50.9 - Heart failure, unspecified (4) On supplemental oxygen therapy: Code(s): Z99.81 - Dependence on supplemental oxygen (5) Paroxysmal nocturnal dyspnea: Code(s): R06.00 - Dyspnea, unspecified Plan Since the last visit, Felicity and son report decrease in dyspnea and denies cough, chest tightness or wheezing. Her bilateral lower extremity edema is improved. Advised to continue current regimen and use oxygen continuously. Reviewed CXR which revealed bronchial wall thickening suggestive of asthma, atypical/viral infection or could be associated with fluid overload. She recently saw cardiology and no adjustments were made to medications. Will have her sign release to review report. Given reported symptoms consistent with obstructive sleep apnea, paroxsymal nocturnal dyspnea with witnessed apneas, will send for home sleep study on 2L of oxygen. If negative, will send for overnight oximetry. All questions were answered and patient is in agreement of plan. Will follow up in 3 months to review results or sooner if needed. Orders: Orders RT home sleep study Today R06.00 - Dyspnea, unspecified Coding Level of Care Code Est Pt Level 4 (19794) Diagnoses Asthma J45.909 Cough R05.9 Chronic congestive heart failure, unspecified heart failure type I50.9 Heart failure chronicity: chronic Heart failure type: unspecified On supplemental oxygen therapy Z99.81 Paroxysmal nocturnal dyspnea R06.00
== END 2023-03-15 10:13 | disposition home or self-care (01) ==
LOC: HO.HPSW 09:33
PROVIDERS: PCP Internal Medicine; Visit Provider Nurse Practitioner Family
DX: J45.909 Unspecified asthma, uncomplicated (principal); R05.9 Cough, unspecified; I50.9 Heart failure, unspecified; Z99.81 Dependence on supplemental oxygen; R06.00 Dyspnea, unspecified
CPT/HCPCS: 99212; 99214

== ENCOUNTER 2023-03-26 11:18 | Outpatient (AMB) | payer MEDICARE, MEDICAID, SELFPAY ==
[2023-03-26 11:20] VITALS: BP 122/62; PULSE 65; O2SAT 94; BMI 28.1
--- NOTE | 2023-03-26 11:20 | MHC.PC.OV ---
Vital Signs 03/26/23 11:20 Height 4 ft 11 in Weight 139 lb BMI 28.1 BP 122/62 Blood Pressure Location Lt brachial Position Sitting Pulse 65 Pulse Source Pulse Oximeter Pulse Oximetry (%) 94 Oxygen Delivery Method Nasal Cannula Intake Visit Reasons: hypoxia, DM Allergies latex [LATEX] Allergy (Unknown, Verified 03/26/23 11:21) UNKNOWN peanut [PEANUT] Allergy (Unknown, Verified 03/26/23 11:21) RASH seafood Allergy (Unknown, Verified 03/26/23 11:21) Unknown Tobacco use date assessed: 12/22/22 Fall risk assessment: No Falls in past year Last assessed Fall Risk: 03/26/23 Dental Screening Dental Screen Date: 03/26/23 Did you have a dental visit in the last 12 months?: Yes Did you have a dental problem in the last 6 months where you did not have access to dental care?: No Was dental information given to patient?: Patient has dentist HPI hypoxia, DM HPI Details 78-year-old overweight female diabetes with chronic kidney disease coronary artery disease hypercholesterolemia asthma history of CVA coming in for follow-up. Last seen in December 2022.. Patient follows up with Pulmonary oxygen dependent chest x-ray revealing asthma picture patient was advised sleep study on 2 L nasal cannula patient has seen the nurse practitioner for well visit. Otherwise cardiology notes appreciated receive note from vascular surgeon January 2023 stable peripheral vascular disease stable, carotid stenosis [facility] Medical History (Updated 03/26/23 @ 12:21 by Renetta Gonzalez MD) Screening for breast cancer Post-menopausal Chronic kidney disease, stage 3 Diabetic retinopathy Aortic stenosis History of CVA (cerebrovascular accident) Thyroid nodule Congestive heart failure Hypercholesterolemia Diabetic neuropathy Hypertension Dementia Asthma Peripheral vascular disease Obesity (BMI 30-39.9) Coronary artery disease Type 2 diabetes mellitus with hyperglycemia Surgical History History of endarterectomy History of colonoscopy History of cataract surgery Hx of cholecystectomy Amputated toe of left foot Hx of CABG Femoral-popliteal bypass graft occlusion, left Carotid stenosis Family History Father Diabetes Hypertension Mother Hypertension CVD (cardiovascular disease) Cancer Diabetes Maternal Aunt Breast cancer Seizures Sister No problems noted. Son No problems noted. Son No problems noted. Son No problems noted. Daughter No problems noted. Social History Household Members: None Housing: Apartment Do you presently have visiting nurse or other home services: Yes (son is ELECTRO MECHANICAL SOLAR TECHNICIAN) Alcohol intake: current Alcohol intake frequency: does not drink Patient Tobacco Use Status: Never used Tobacco e-Cigarette/Vaping Use: Never Used Second Hand Smoke Exposure: No Current occupational status: unemployed and retired Cognitive needs: No Hearing needs: No Vision needs: Yes Questionnaire PHQ-9 Over the last 2 weeks, how often have you been bothered by any of the following problems? 1. Little interest or pleasure in doing things: not at all 2. Feeling down, depressed, or hopeless: not at all 3. Trouble falling or staying asleep, or sleeping too much: not at all 4. Feeling tired or having little energy: not at all 5. Poor appetite or overeating: not at all 6. Feeling bad about yourself - or that you are a failure or have let yourself or your family down: not at all 7. Trouble concentrating on things, such as reading the newspaper or watching television: not at all 8. Moving or speaking so slowly that other people could have noticed. Or the opposite - being so fidgety or restless that you have been moving around a lot more than usual: not at all 9. Thoughts that you would be better off or of hurting yourself in some way: not at all Total score: 0 Depression Screening Interpretation: Negative Depression Screening Done: Yes 36931 - PHQ-9 Billing: Yes Source: Developed by Drs. Ramos Dove, Vesta Yeh, Maksim Fernandez and colleagues, with an educational breann from [employer] Thrive Questionnaire Date Thrive assessed: 12/22/22 AUDIT C Alcohol Use Questionnaire (AUDIT-C) 1. How often do you have a drink containing alcohol?: Monthly or less 2. How many drinks containing alcohol do you have on a typical day when you are drinking?: 1 or 2 3. How often do you have six or more drinks on one occasion?: Never Total Score: 1 Score Reviewed/Action Taken: No SUZAN-7 AMB Questionnaire SUZAN-7 Date SUZAN - 7 assessed: 12/22/22 Source: Developed by Drs. Ramos Dove, Vesta Yeh, Maksim Fernandez and colleagues, with an educational breann from [employer] Physical exam (Primary Care) Vital Signs: Last Vital Signs Pulse 65 03/26/23 11:20 BP 122/62 03/26/23 11:20 Pulse Ox 94 03/26/23 11:20 Oxygen Delivery Method Nasal Cannula 03/26/23 11:20 BMI result Body Mass Index 28.1 Tobacco/Smoking Status: Tobacco use Status Tobacco use date assessed 12/22/22 03/26/23 11:22 Patient Tobacco Use Status Never used Tobacco 03/26/23 11:22 e-Cigarette/Vaping Use Never Used 03/26/23 11:22 PHQ-9: PHQ-9 Score PHQ-9: Total score 0 03/26/23 12:17 Depression Screening Interpretation: Negative Thrive Assessment: Date of Thrive Assessment Date Thrive assessed 12/22/22 03/26/23 11:22 Const General: alert; No acute distress Eyes Conjunctivae: conjunctivae normal Resp Auscultation: clear to auscultation bilaterally Cardio Rate: regular rate Rhythm: regular rhythm GI Inspection: Yes normal to inspection Office Procedures Flu Questionnaire Does the patient have a severe egg allergy?: No Does the patient have severe life threatening allergies?: No Does the patient have a fever or illness today?: No Has the patient ever had Guillain-Mutual Syndrome?: No Has the patient ever had any past reaction to a flu shot?: No Immunizations flu vacc [id number] 6mos up(PF) 60 mcg(15 mcgx4)/0.5 mL IM syringe Performing Provider: Renetta Gonzalez MD [facility] Administered by: Kizzy Rivera CMA on 03/26/23 12:16 Dose Route Admin Location Dispensed Lot Number Expiration Date NDC [employer] 0.5 mL IM Left Deltoid 0.5 mL [id number] 12/12/23 45870-913-12 [employer] VIS Given Date VIS Provided VIS Publication Date 03/26/23 Single Vaccine 21 Eligibility Eligibility Date Funding Source Not [facility] Eligible 03/26/23 Private Assessment and Plan Assessment & Plan (1) Screening for colon cancer: Code(s): Z12.11 - Encounter for screening for malignant neoplasm of colon Plan: Reminded patient (2) Left carotid stenosis: Comment: August 2021 70-99% January 2022 left carotid endarterectomy Code(s): I65.22 - Occlusion and stenosis of left carotid artery Plan: Patient followed up by the vascular surgeon stable (3) Asthma: Code(s): J45.909 - Unspecified asthma, uncomplicated Plan: Patient continues to follow-up with Pulmonary continue with inhaler and planned sleep study (4) Hypercholesterolemia: Code(s): E78.00 - Pure hypercholesterolemia, unspecified Plan: Avoid fried foods, chicken skin, eggs, butter margarine, pastries and meat. Be it pork or beef they have a lot of cholesterol LDL goal of less than 70 and triglyceride of less than 150 patient on rosuvastatin 40 mg once a day (5) Coronary artery disease: Code(s): I25.10 - Atherosclerotic heart disease of [place] coronary artery without angina pectoris Plan: Control the cholesterol, weight, blood pressure, diabetes (6) History of CVA (cerebrovascular accident): Comment: Right-sided weakness Code(s): Z86.73 - Personal history of transient ischemic attack (TIA), and cerebral infarction without residual deficits Plan: Control the cholesterol, weight, blood pressure, diabetes (7) Peripheral vascular disease: Code(s): I73.9 - Peripheral vascular disease, unspecified Plan: When sitting down elevate the legs, exercise, and support stockings (8) Chronic kidney disease, stage 3: Code(s): N18.30 - Chronic kidney disease, stage 3 unspecified Plan: Keep well hydrated avoid NSAIDs (9) Type 2 diabetes mellitus with hyperglycemia: Code(s): E11.65 - Type 2 diabetes mellitus with hyperglycemia Plan: Decrease the amount of carbohydrate intake, pasta, bread, rice and potatoes are all sugar and that is aside from all the sweet stuff, remember that fruits are good but they are Sweet also. Hemoglobin A1c goal of less than 7.0 (10) Hypertension, uncontrolled: Code(s): I10 - Essential (primary) hypertension Plan: Continue with blood pressure medication. Decrease salt intake and exercise continue with nifedipine 60 mg once a day, lisinopril 40 mg once a day and carvedilol 6.25 mg twice a day Orders: Orders Influenza [id number] Immunization Today Z23 - Encounter for immunization Medications: New ezetimibe (Zetia) 10 mg PO DAILY 90 tabs 3RF E78.00 - Pure hypercholesterolemia, unspecified Refilled [Diabetic shoes] As directed 1 ea 0RF E11.65 - Type 2 diabetes mellitus with hyperglycemia, Z79.4 - skilled nursing (current) use of insulin compress.stocking,knee,reg,med As directed 20-30 mm HG 2 ea 2RF I73.9 - Peripheral vascular disease, unspecified blood sugar diagnostic (FreeStyle Lite Strips) As directed check the BS QID 400 ea 3RF E11.65 - Type 2 diabetes mellitus with hyperglycemia Coding Level of Care Code Est Pt Level 4 (24321) Diagnoses Screening for colon cancer Z12.11 Left carotid stenosis I65.22 Asthma J45.909 Hypercholesterolemia E78.00 Coronary artery disease I25.10 History of CVA (cerebrovascular accident) Z86.73 Peripheral vascular disease I73.9 Chronic kidney disease, stage 3 N18.30 Type 2 diabetes mellitus with hyperglycemia, with long-term current use of insulin E11.65 Hypertension, uncontrolled I10
== END 2023-03-26 12:33 | disposition home or self-care (01) ==
PROVIDERS: PCP Internal Medicine; Visit Provider Internal Medicine
DX: I65.22 Occlusion and stenosis of left carotid artery (principal); I73.9 Peripheral vascular disease, unspecified; N18.30 Chronic kidney disease, stage 3 unspecified; E11.65 Type 2 diabetes mellitus with hyperglycemia; Z23 Encounter for immunization; J45.909 Unspecified asthma, uncomplicated; E78.00 Pure hypercholesterolemia, unspecified; I25.10 Atherosclerotic heart disease of native coronary artery without angina pectoris; Z86.73 Personal history of transient ischemic attack (TIA), and cerebral infarction without residual deficits; I10 Essential (primary) hypertension
CPT/HCPCS: 90471; 90686; 99214

== ENCOUNTER 2023-04-28 10:02 | Outpatient (AMB) | payer MEDICARE, MEDICAID, SELFPAY ==
--- NOTE | 2023-04-28 10:03 | MHC.PC.OV ---
Vital Signs 04/28/23 10:03 Height 4 ft 11 in Blood Pressure Location Lt brachial Position Sitting Pulse Source Pulse Oximeter Oxygen Delivery Method Room Air Intake Visit Reasons: cough, congestion, lots of phlegm Allergies latex [LATEX] Allergy (Unknown, Verified 04/28/23 10:04) UNKNOWN peanut [PEANUT] Allergy (Unknown, Verified 04/28/23 10:04) RASH seafood Allergy (Unknown, Verified 04/28/23 10:04) Unknown Medication List - Last Reconciled 04/28/23 by Renetta Gonzalez MD albuterol sulfate 90 mcg/actuation (Ventolin HFA) 2 puffs inhalation Q4-6H PRN albuterol sulfate 2.5 mg (3 mL) inhalation QID PRN 90 days amoxicillin 875 mg PO BID aspirin (Adult Aspirin Regimen) 81 mg PO DAILY blood sugar diagnostic (FreeStyle Lite Strips) As directed check the BS QID blood-glucose meter (Boostable Ultra2 Meter kit) As directed bumetanide 1 mg PO BID carvedilol 6.25 mg See Protocol PO BID cholecalciferol (vitamin D3) 1,250 mcg PO TU clonidine HCl 0.3 mg PO BID 90 days compress.stocking,knee,reg,med As directed 20-30 mm HG [DEPENDS LARGE As directed] [Diabetic shoes As directed] docusate sodium 100 mg PO TID PRN 90 days ezetimibe (Zetia) 10 mg PO DAILY gabapentin 300 mg PO TID insulin asp prt-insulin aspart 100 unit/mL (70-30) (Novolog Mix 70-30FlexPen U-100) 35 units (0.35 mL) subcut BID 90 days ipratropium-albuterol 0.5 mg-3 mg(2.5 mg base)/3 mL 3 mL inhalation BID PRN lancets (FreeStyle Lancets) As directed check BS TID lisinopril 40 mg PO DAILY nifedipine ER 60 mg PO BID 90 days [oxygen 2L NC As directed] pen needle, diabetic (BD Ultra-Fine Mini Pen Needle) USE TO INJECT TWICE DAILY [Portable Oxygen Concentrator As directed] rosuvastatin 40 mg PO DAILY 90 days tramadol 50 mg PO Q8H 90 days Tobacco use date assessed: 12/22/22 Fall risk assessment: No Falls in past year Last assessed Fall Risk: 04/28/23 Dental Screening Dental Screen Date: 04/28/23 Did you have a dental visit in the last 12 months?: No Did you have a dental problem in the last 6 months where you did not have access to dental care?: No Was dental information given to patient?: No HPI cough, congestion, lots of phlegm HPI Details 78-year-old with multiple medical problems asthma hypercholesterolemia coronary artery disease history of CVA peripheral vascular disease diabetes mellitus chronic kidney disease hypertension last seen in March 2023. Patient is here for through Telehealth for an acute problem. cough , no sore throat, had fever, 3 days , sob, , no diarrhea, states productive cough with yellowish sputum [facility] Medical History (Updated 04/28/23 @ 10:29 by Renetta Gonzalez MD) Screening for breast cancer Post-menopausal Chronic kidney disease, stage 3 Diabetic retinopathy Aortic stenosis History of CVA (cerebrovascular accident) Thyroid nodule Congestive heart failure Hypercholesterolemia Diabetic neuropathy Hypertension Dementia Asthma Peripheral vascular disease Obesity (BMI 30-39.9) Coronary artery disease Type 2 diabetes mellitus with hyperglycemia Surgical History History of endarterectomy History of colonoscopy History of cataract surgery Hx of cholecystectomy Amputated toe of left foot Hx of CABG Femoral-popliteal bypass graft occlusion, left Carotid stenosis Family History Father Diabetes Hypertension Mother Hypertension CVD (cardiovascular disease) Cancer Diabetes Maternal Aunt Breast cancer Seizures Sister No problems noted. Son No problems noted. Son No problems noted. Son No problems noted. Daughter No problems noted. Social History Household Members: None Housing: Apartment Do you presently have visiting nurse or other home services: Yes (son is EXPORT COORDINATOR) Alcohol intake: current Alcohol intake frequency: does not drink Patient Tobacco Use Status: Never used Tobacco e-Cigarette/Vaping Use: Never Used Second Hand Smoke Exposure: No Current occupational status: unemployed and retired Cognitive needs: No Hearing needs: No Vision needs: Yes Questionnaire PHQ-9 Over the last 2 weeks, how often have you been bothered by any of the following problems? 1. Little interest or pleasure in doing things: not at all 2. Feeling down, depressed, or hopeless: not at all 3. Trouble falling or staying asleep, or sleeping too much: not at all 4. Feeling tired or having little energy: not at all 5. Poor appetite or overeating: not at all 6. Feeling bad about yourself - or that you are a failure or have let yourself or your family down: not at all 7. Trouble concentrating on things, such as reading the newspaper or watching television: not at all 8. Moving or speaking so slowly that other people could have noticed. Or the opposite - being so fidgety or restless that you have been moving around a lot more than usual: not at all 9. Thoughts that you would be better off or of hurting yourself in some way: not at all Total score: 0 Depression Screening Interpretation: Negative Depression Screening Done: Yes 78957 - PHQ-9 Billing: Yes Source: Developed by Drs. Ramos Dove, Vesta Yeh, Maksim Fernandez and colleagues, with an educational breann from [employer]. Thrive Questionnaire Date Thrive assessed: 12/22/22 AUDIT C Alcohol Use Questionnaire (AUDIT-C) 1. How often do you have a drink containing alcohol?: Monthly or less 2. How many drinks containing alcohol do you have on a typical day when you are drinking?: 1 or 2 3. How often do you have six or more drinks on one occasion?: Never Total Score: 1 Score Reviewed/Action Taken: No SUZAN-7 AMB Questionnaire SUZAN-7 Date SUZAN - 7 assessed: 12/22/22 Source: Developed by Drs. Ramos Dove, Vesta Yeh, Maksim Fernandez and colleagues, with an educational breann from [employer]. Physical exam (Primary Care) Vital Signs: Oxygen Delivery Method Room Air 04/28/23 10:03 Tobacco/Smoking Status: Tobacco use Status Tobacco use date assessed 12/22/22 04/28/23 10:05 Patient Tobacco Use Status Never used Tobacco 04/28/23 10:05 e-Cigarette/Vaping Use Never Used 04/28/23 10:05 PHQ-9: PHQ-9 Score PHQ-9: Total score 0 04/28/23 10:05 Depression Screening Interpretation: Negative Thrive Assessment: Date of Thrive Assessment Date Thrive assessed 07/11/23 11/15/23 10:05 Telehealth Telehealth Location of provider rendering services: practice address Location of patient: address on file Patient Identification confirmed using: Name, : Yes Telehealth method: video (Android) Patient verbally consented to treatment: Yes Patient verbally consented to billing insurance company: Yes Patient informed of any privacy concerns related to visit: Yes Minutes spent on Phone/Video with Pt.: 15 Assessment and Plan Assessment & Plan (1) Acute bronchitis: Code(s): J20.9 - Acute bronchitis, unspecified Plan: Antibiotics sent in advised to increase oral fluids.r.n. Medications: New amoxicillin 875 mg PO BID 14 tabs 0RF J20.9 - Acute bronchitis, unspecified Coding Level of Care Code Tele Est Pt Level 3 (17439) Diagnoses Acute bronchitis J20.9
== END 2023-04-28 11:08 | disposition home or self-care (01) ==
LOC: HO.HMGH 10:02
PROVIDERS: PCP Internal Medicine; Visit Provider Internal Medicine
DX: J20.9 Acute bronchitis, unspecified (principal)
CPT/HCPCS: 99213

== ENCOUNTER → 2023-06-17 07:49 | Outpatient (REF) | payer MEDICARE, MEDICAID, SELFPAY | LOC: HO.SL 07:49 | PROVIDERS: PCP Internal Medicine; Visit Provider Nurse Practitioner Family | DX: G47.33 Obstructive sleep apnea (adult) (pediatric) (principal); R06.00 Dyspnea, unspecified; R06.83 Snoring; R40.0 Somnolence | CPT/HCPCS: 95806 ==

== ENCOUNTER → 2023-06-17 08:06 | Outpatient (BNV) | payer MEDICARE, MEDICAID, SELFPAY | PROVIDERS: PCP Internal Medicine; Visit Provider Internal Medicine | DX: R06.83 Snoring (principal) | CPT/HCPCS: 95806 ==

== ENCOUNTER 2023-07-07 10:10 | Outpatient (AMB) | payer MEDICARE, MEDICAID, SELFPAY ==
[2023-07-07 10:30] VITALS: BP 122/68; PULSE 70; BMI 27.9
--- NOTE | 2023-07-07 10:30 | A.OFFPC_ITS ---
Vital Signs 07/07/23 10:30 Height 4 ft 11 in Weight 138 lb BMI 27.9 BP 122/68 Blood Pressure Location Lt brachial Position Sitting Pulse 70 Pulse Source Pulse Oximeter Oxygen Delivery Method Nasal Cannula Intake Visit Reasons: DM , PVD Allergies latex [LATEX] Allergy (Unknown, Verified 07/07/23 10:30) UNKNOWN peanut [PEANUT] Allergy (Unknown, Verified 07/07/23 10:30) RASH seafood Allergy (Unknown, Verified 07/07/23 10:30) Unknown Tobacco use date assessed: 07/07/23 Fall risk assessment: No Falls in past year Last assessed Fall Risk: 07/07/23 Dental Screening Dental Screen Date: 07/07/23 Did you have a dental visit in the last 12 months?: Yes Did you have a dental problem in the last 6 months where you did not have access to dental care?: No Was dental information given to patient?: Patient has dentist HPI DM , PVD HPI Details 78-year-old overweight female with multi ple medical problems she has hypertension diabetes mellitus chronic kidney disease congestive heart failure history of CVA coronary artery disease and asthma. Patient comes in for follow- up. Last seen in April 2023 for bronchitis.. Review of the notes had sleep study in June 2023 showing negative for sleep apnea mild nocturnal hypoxemia. Patient also has seen the vascular surgeon in March with right leg revascularization history of multiple toe amputations had redness of the left foot L heel pain deny fall but patient has dementia- otherwise patient has been doing fine no nausea no vomiting no fevers no coughs no colds no bowel bladder symptoms. Patient needs refills on the tramadol. [facility] Medical History (Updated 07/07/23 @ 11:02 by Renetta Gonzalez MD) Post-menopausal Hypertension, uncontrolled Toe pain, right Cellulitis, leg Screening for breast cancer Chronic kidney disease, stage 3 Diabetic retinopathy Aortic stenosis History of CVA (cerebrovascular accident) Thyroid nodule Congestive heart failure Hypercholesterolemia Diabetic neuropathy Hypertension Dementia Asthma Peripheral vascular disease Coronary artery disease Type 2 diabetes mellitus with hyperglycemia Surgical History History of endarterectomy History of colonoscopy History of cataract surgery Hx of cholecystectomy Amputated toe of left foot Hx of CABG Femoral-popliteal bypass graft occlusion, left Carotid stenosis Family History Father Diabetes Hypertension Mother Hypertension CVD (cardiovascular disease) Cancer Diabetes Maternal Aunt Breast cancer Seizures Sister No problems noted. Son No problems noted. Son No problems noted. Son No problems noted. Daughter No problems noted. Social History Household Members: None Housing: Apartment Do you presently have visiting nurse or other home services: Yes (son is DYE ROOM HELPER) Alcohol intake: current Alcohol intake frequency: does not drink Patient Tobacco Use Status: Never used Tobacco e-Cigarette/Vaping Use: Never Used Second Hand Smoke Exposure: No Current occupational status: unemployed and retired Cognitive needs: No Hearing needs: No Vision needs: Yes Questionnaire PHQ-9 Over the last 2 weeks, how often have you been bothered by any of the following problems? 1. Little interest or pleasure in doing things: not at all 2. Feeling down, depressed, or hopeless: not at all 3. Trouble falling or staying asleep, or sleeping too much: not at all 4. Feeling tired or having little energy: not at all 5. Poor appetite or overeating: not at all 6. Feeling bad about yourself - or that you are a failure or have let yourself or your family down: not at all 7. Trouble concentrating on things, such as reading the newspaper or watching television: not at all 8. Moving or speaking so slowly that other people could have noticed. Or the opposite - being so fidgety or restless that you have been moving around a lot more than usual: not at all 9. Thoughts that you would be better off or of hurting yourself in some way: not at all Total score: 0 Depression Screening Interpretation: Negative Depression Screening Done: Yes [id number] - PHQ-9 Billing: Yes Source: Developed by Drs. Ramos Dove, Vesta Yeh, Maksim Fernandez and colleagues, with an educational breann from [employer]. Thrive Questionnaire Date Thrive assessed: 07/07/23 I am a: Patient What is your living situation today?: I have a steady place to live Within the past 12 months, did the food you bought not last and you didn't have the money to get more?: Never true Within the past 12 months, did you worry whether your food would run out before you got money to buy more?: Never true Do you have trouble paying for medicines?: No Do you have trouble getting transportation to medical appointments?: No Do you have trouble paying your heating and electricity bill?: No Do you have trouble taking care of your child, family member or friend?: No Do you have trouble with day-to-day activities such as bathing, preparing meals, shopping, managing finances, etc.?: No Are you currently unemployed and looking for a job?: No Are you interested in more education?: No Currently or been in a relationship where the following occur: no concerns reported THRIVE Score: 0 AUDIT C Alcohol Use Questionnaire (AUDIT-C) 1. How often do you have a drink containing alcohol?: Monthly or less 2. How many drinks containing alcohol do you have on a typical day when you are drinking?: 1 or 2 3. How often do you have six or more drinks on one occasion?: Never Total Score: 1 Score Reviewed/Action Taken: No SUZAN-7 AMB Questionnaire SUZAN-7 Date SUZAN - 7 assessed: 07/07/23 Feeling nervous, anxious, or on edge: 0 = Not at all Not being able to stop or control worryin = Not at all Worrying too much about different things: 0 = Not at all Trouble relaxin = Not at all Being so restless that it is hard to sit still: 0 = Not at all Becoming easily annoyed or irritable: 0 = Not at all Feeling afraid as if something awful might happen: 0 = Not at all Total SUZAN-7 score (0-4 normal; 5-9 mild; 10-14 moderate; 15-21 severe): 0 Source: Developed by Drs. Ramos Dove, Vesta Yeh, Maksim Fernandez and colleagues, with an educational breann from [employer]. Physical exam (Primary Care) Vital Signs: Last Vital Signs Pulse 70 07/07/23 10:30 BP 122/68 07/07/23 10:30 Oxygen Delivery Method Nasal Cannula 07/07/23 10:30 BMI result Body Mass Index 27.9 Tobacco/Smoking Status: Tobacco use Status Tobacco use date assessed 07/07/23 07/07/23 10:38 Patient Tobacco Use Status Never used Tobacco 07/07/23 10:38 e-Cigarette/Vaping Use Never Used 07/07/23 10:38 PHQ-9: PHQ-9 Score PHQ-9: Total score 0 07/07/23 10:38 Depression Screening Interpretation: Negative Thrive Assessment: Date of Thrive Assessment Date Thrive assessed 07/07/23 07/07/23 10:38 Currently or been in a relationship where the following occur: no concerns reported Const General: alert; No acute distress Eyes Conjunctivae: conjunctivae normal Resp Auscultation: clear to auscultation bilaterally Cardio Rate: regular rate Rhythm: regular rhythm GI Inspection: Yes normal to inspection Extrem Other: l heel pain, no big toe and 5th toe tender but no redness or swelling. General: Yes normal to inspection and No edema Results AMB Hemoglobin A1c AMB Hemoglobin A1c 7.3 % Last Edit by Kizzy Rivera CMA on 07/07/23 10 :50 Results Reviewed Results Reviewed: Laboratory Last Values Hgb A1c (Clinic) 7.3 % (4.0-6.0) H 07/07/23 10:50 Assessment and Plan Assessment & Plan (1) Nocturnal hypoxemia: Code(s): G47.34 - Idiopathic sleep related nonobstructive alveolar hypoventilation Plan: Patient on oxygen supplementation (2) On supplemental oxygen therapy: Code(s): Z99.81 - Dependence on supplemental oxygen (3) Asthma: Code(s): J45.909 - Unspecified asthma, uncomplicated Plan: Continue with the inhaler as needed (4) Hypercholesterolemia: Code(s): E78.00 - Pure hypercholesterolemia, unspecified Plan: Avoid fried foods, chicken skin, eggs, butter margarine, pastries and meat. Be it pork or beef they have a lot of cholesterol LDL goal of less than 70 and triglyceride of less than 150 patient is taking Zetia and rosuvastatin. (5) Coronary artery disease: Code(s): I25.10 - Atherosclerotic heart disease of [place] coronary artery without angina pectoris Plan: Control the cholesterol, weight, blood pressure, diabetes continue with aspirin (6) History of CVA (cerebrovascular accident): Comment: Right-sided weakness Code(s): Z86.73 - Personal history of transient ischemic attack (TIA), and cerebral infarction without residual deficits Plan: Aspirin treatment (7) Chronic kidney disease, stage 3: Code(s): N18.30 - Chronic kidney disease, stage 3 unspecified Plan: Keep well hydrated avoid NSAIDs (8) Type 2 diabetes mellitus with hyperglycemia: Code(s): E11.65 - Type 2 diabetes mellitus with hyperglycemia Plan: Decrease the amount of carbohydrate intake, pasta, bread, rice and potatoes are all sugar and that is aside from all the sweet stuff, remember that fruits are good but they are Sweet also. Hemoglobin A1c goal of less than 7.0 patient on NovoLog mix (9) Pain of left heel: Code(s): M79.672 - Pain in left foot Plan: xray requested and advised use the voltaren gel for pain Orders: Orders AMB Hemoglobin A1c Today Z13.9 - Encounter for screening, unspecified B Type Natriuretic Peptide Today E11.65 - Type 2 diabetes mellitus with hyperglycemia Comprehensive Met. Panel Today E11.65 - Type 2 diabetes mellitus with hyperglycemia Complete Blood Count Auto Diff Today E11.65 - Type 2 diabetes mellitus with hyperglycemia XR DEXA axial skeleton 1 Month M85.80 - Other specified disorders of bone density and structure, unspecified site XR foot LT 2V Today M79.672 - Pain in left foot Coding Level of Care Code Est Pt Level 4 (57831) Diagnoses Nocturnal hypoxemia G47.34 On supplemental oxygen therapy Z99.81 Asthma J45.909 Hypercholesterolemia E78.00 Coronary artery disease I25.10 History of CVA (cerebrovascular accident) Z86.73 Chronic kidney disease, stage 3 N18.30 Type 2 diabetes mellitus with hyperglycemia, with long-term current use of insulin E11.65 Pain of left heel M79.672
== END 2023-07-07 11:12 | disposition home or self-care (01) ==
PROVIDERS: PCP Internal Medicine; Visit Provider Internal Medicine
DX: G47.34 Idiopathic sleep related nonobstructive alveolar hypoventilation (principal); Z99.81 Dependence on supplemental oxygen; J45.909 Unspecified asthma, uncomplicated; E11.65 Type 2 diabetes mellitus with hyperglycemia; I25.10 Atherosclerotic heart disease of native coronary artery without angina pectoris; Z86.73 Personal history of transient ischemic attack (TIA), and cerebral infarction without residual deficits; M79.672 Pain in left foot
CPT/HCPCS: 83036; 99214

== ENCOUNTER 2023-08-03 08:49 | Outpatient (REF) | payer MEDICARE, MEDICAID, SELFPAY ==
--- NOTE | ~2023-08-03 | XR_ITS ---
EXAMINATION: XR FOOT, LEFT CLINICAL INFORMATION: Pain in left foot COMPARISON: Left foot 04/23/2019 TECHNIQUE: AP, lateral, and oblique views of the left foot. FINDINGS: Diffuse nonspecific soft tissue swelling of the visualized lower leg, ankle and foot. Atherosclerotic calcification of the dorsalis pedis artery. No soft tissue emphysema or radiopaque foreign body. There are enthesophytes at the posterior and plantar surfaces of the calcaneus. Prior resection of the first and fifth toes through the distal metatarsals is again noted. The residual first and fifth metatarsals without evidence of erosions or aggressive periostitis. The bones of the second, third and fourth toes are intact. XR/XR foot LT 2V IMPRESSION: 1. No acute osseous injury of the left foot. 2. No radiographic evidence of osteomyelitis. 3. Nonspecific soft tissue swelling of the visualized lower leg, ankle and foot.
[2023-08-03 09:20] LABS: MANUAL DIFF FLAG NO
[2023-08-03 09:33] LABS: Basophils Absolute Auto 0.1 X10*3/uL (0.0-0.2); Basophils Percent Auto 0.6 % (0-2); Eosinophils Absolute Auto 0.3 X10*3/uL (0.0-0.4); Eosinophils Percent Auto 2.5 % (0-4); Hematocrit 41.4 % (37.0-47.0); Hemoglobin 13.7 g/dl (12.0-16.0); Imm Gran Abs Auto 0.03 X10*3/uL (0.00-0.03); Imm Gran Pct Auto 0.3 % (0.0-0.4); Lymphocytes Absolute Auto 1.4 X10*3/uL (1.2-4.9); Lymphocytes Percent Auto 13.6 % (20-40); Mean Corpuscular HGB Conc 33.1 g/dl (31.0-35.0); Mean Corpuscular Hemoglobin 28.2 pg (27.0-33.0); Mean Corpuscular Volume 85.2 fL (80.0-98.0); Mean Platelet Volume 10.6 fL (9.4-12.3); Monocytes Absolute Auto 0.7 X10*3/uL (0.1-1.2); Monocytes Percent Auto 7.4 % (2-11); Neutrophils Absolute Auto 7.5 x10*3/uL (2.0-8.3); Neutrophils Percent Auto 75.6 % (45-73); Platelet Count 216 X10*3/uL (160-400); Red Blood Count 4.86 X10*6/uL (4.20-5.50); Red Cell Distribution Width 13.4 % (11.0-16.0); White Blood Count 9.9 X10*3/uL (4.8-10.8)
[2023-08-03 09:39] LABS: Estimated Average Glucose 169 mg/dL; Hemoglobin A1c % 7.5 % (<6.0)
[2023-08-03 09:57] LABS: B Type Natriuretic Peptide 1141 pg/mL (<100)
[2023-08-03 10:00] LABS: Alanine Aminotransferase 16 U/L (0-31); Albumin Level 4.2 g/dL (3.5-5.0); Alkaline Phosphatase 132 U/L (39-117); Anion Gap 13 (12-20); Aspartate Amino Transferase 24 U/L (5-31); Bilirubin Total 0.6 mg/dL (0.0-1.0); Blood Urea Nitrogen 17 mg/dL (9-16); Carbon Dioxide 31 mmol/L (22-29); Chloride 101 mmol/L (96-108); Estimated Glomerular Filt Rate 31; Glucose Random 238 mg/dL (60-115); Sodium 141 mmol/L (135-145); Total Protein 7.9 g/dL (6.5-8.0)
== END 2023-08-03 08:50 | disposition home or self-care (01) ==
LOC: HO.LAB 08:49
PROVIDERS: Visit Provider Internal Medicine
DX: E11.65 Type 2 diabetes mellitus with hyperglycemia (principal); M79.672 Pain in left foot
CPT/HCPCS: 36415; 73620; 80053; 83036; 83880; 85025

== ENCOUNTER 2023-08-12 09:35 | Outpatient (REF) | payer MEDICARE, MEDICAID, SELFPAY ==
--- NOTE | ~2023-08-12 | MM_ITS ---
EXAMINATION: BONE DENSITOMETRY CLINICAL INDICATION: Other specified disorders of bone density and structure, unspecified site. COMPARISON: Previous BD dated 08/06/2021 and baseline BD dated 02/11/2007. TECHNIQUE: Using a [employer] DXA System (software version: 13.1) manufactured by [employer], dual-energy x-ray absorptiometry was performed of the lumbar spine and left hip. The images are of good technical quality. Summary results are attached. FINDINGS: LEFT FEMUR, NECK: Current: BMD 0.746 g/cm2, Z-score 0.0, T-score -2.1, osteopenia. Prior: BMD 0.810 g/cm2. Baseline: BMD 0.857 g/cm2. LEFT FEMUR, TOTAL: Current: BMD 0.763 g/cm2, Z-score 0.0, T-score -1.9, osteopenia, 15.4% decrease from previous, 25.6% decrease from baseline (<5% change is not significant). Prior: BMD 0.902 g/cm2. Baseline: BMD 1.026 g/cm2. AP SPINE L1-L4: Current: BMD 1.206 g/cm2, Z-score 1.9, T-score 0.2, normal, 8.1% decrease from previous, 6.3% increase from baseline (<5% change is not significant). Prior: BMD 1.313 g/cm2. Baseline: BMD 1.135 g/cm2. IDENTIFIED RISK FACTORS: Early menopause, secondary osteoporosis, anticonvulsant, dementia, height loss, osteoporosis, kidney disease. HISTORY OF FRACTURE: None listed. MEDICATIONS: Vitamin D. MM/XR DEXA axial skeleton IMPRESSION: 1. DIAGNOSIS: Osteopenia based on the lowest T-score value of -2.1 in the femoral neck applying World Health Organization criteria. 2. 10-YEAR FRACTURE RISK PREDICTION, FRAX: Major osteoporotic fracture (clinical spine, forearm, hip or shoulder) 9.4%. Hip fracture 2.7%. 3. Treatment Recommendations: NOF guidelines recommend consideration for treatment in postmenopausal women and men age 50 and older presenting with the following: -A hip or vertebral (clinical or morphometric) fracture. -T-score less than or equal to -2.5 at the femoral neck or spine after appropriate evaluation to exclude secondary causes. -Low bone mass at the hip or spine and a 10-year fracture probability by FRAX of greater than or equal to 3% for hip fracture or greater than or equal to 20% for major osteoporotic fracture based on the [place] adapted WHO algorithm. 4. Other Recommendations: All treatment decisions require clinical judgment and consideration of individual patient factors, including patient preferences, comorbidities, previous drug use, risk factors not captured in the FRAX model (e.g. frailty, falls, vitamin D deficiency, increased bone turnover, interval significant decline in bone density) and possible under or overestimation of fracture risk by FRAX. Additional medical evaluation for secondary cause of low bone mineral density may be appropriate. FUTURE SCAN RECOMMENDATION: People with diagnosed cases of osteoporosis or at high risk for fracture should have regular bone mineral density tests. For patients eligible for Medicare, routine testing is allowed once every 2 years. The testing frequency can be increased to one year for patients who have rapidly progressing disease, those who are receiving or discontinuing medical therapy to restore bone mass, or have additional risk factors.
== END 2023-08-12 09:36 | disposition home or self-care (01) ==
LOC: HO.MAMMO 09:35
PROVIDERS: PCP Internal Medicine; Visit Provider Internal Medicine
DX: Z13.820 Encounter for screening for osteoporosis (principal); M85.80 Other specified disorders of bone density and structure, unspecified site; Z78.0 Asymptomatic menopausal state
CPT/HCPCS: 77080

== ENCOUNTER 2023-09-24 14:49 | Inpatient (IN) | payer MEDICARE, MEDICAID, SELFPAY ==
[2023-09-24] VITALS (11 sets, daily range): BP systolic 144–211; BP diastolic 67–111; PULSE 67–89; RESP 12–18; TEMP 36.6–37; O2SAT 94–98; BMI 23.5
--- NOTE | ~2023-09-24 | XR_ITS ---
EXAMINATION: XR CHEST CLINICAL INFORMATION: Elevated troponins, syncope. COMPARISON: Chest radiograph 02/03/2022. TECHNIQUE: Frontal view of the chest was obtained. FINDINGS: Unchanged significant enlargement of the cardiomediastinal silhouette. Midline sternotomy wires are redemonstrated. Central vascular engorgement and mild interstitial thickening. No consolidation, pleural effusion or pneumothorax. No acute osseous findings. Visualized upper abdomen is within normal limits. XR/XR chest 1V IMPRESSION: 1. Findings suggesting pulmonary edema versus small airways disease. 2. Unchanged significant cardiomediastinal enlargement.
--- NOTE | 2023-09-24 15:27 | ECG_ITS ---
Test Reason : SYNCOPE Blood Pressure : / mmHG Vent. Rate : 065 BPM Atrial Rate : 065 BPM P-R Int : 158 ms QRS Dur : 088 ms QT Int : 440 ms P-R-T Axes : 061 000 -38 degrees QTc Int : 457 ms Normal sinus rhythm Inferior infarct (cited on or before 01-JUN-2016) Abnormal ECG When compared with ECG of 10-DEC-2020 13:04, ST now depressed in Anterior leads T wave inversion now evident in Inferior leads T wave inversion now evident in Anterior leads Referred By: David Dietrich Electronically Signed By:Zaki Hummel
--- NOTE | 2023-09-24 15:28 | ED_ITS ---
HPI - Dizziness General Chief Complaint: Syncope Stated Complaint: HEADACHE Time Seen by Provider: 09/24/23 15:13 Source: patient and family (daughter) Mode of arrival: EMS Limitations: no limitations History of Present Illness HPI Narrative: History seeking Lithuanian with the help of patient's daughter at bedside patient is comfortable with me speak in Lithuanian with her, reports that she understands what I am saying to her. 78 years old with history of CAD, CHF, prior CVA, obesity, stage 3 kidney disease, diabetes, left carotid stenosis, obesity, asthma, chronic hypoxia on 2 L nasal cannula, presents to the emergency room for a presyncopal episode. Patient has reported that she was taking a shower when all of a sudden felt lightheaded, nauseous, vomited once and felt she was about to pass out. Patient did not completely lost consciousness. She reports no chest pain, reports some abdominal discomfort which has since then resolved. Patient reports that she feels now back to her baseline. Daughter added that this is the 2nd episode occurring over the past 72 hours, the 1st 1 was when the patient had a bowel movement. At the time they did not seek medical help. Per EMS when they arrived patient was poorly responsive but improved quickly after being placed on non-rebreather, on arrival patient is saturating well on 2 L nasal cannula, they also report heart rate in the 40s. Related Data Home Medications ?Medication ?Instructions ?Recorded ?Confirmed aspirin 81 mg tablet,delayed 81 mg PO DAILY 04/12/20 04/28/23 release (Adult Aspirin Regimen) cholecalciferol (vitamin D3) 1,250 1,250 mcg PO TU 04/12/20 04/28/23 mcg (50,000 unit) capsule Previous Rx's ?Medication ?Instructions ?Recorded blood-glucose meter (BrainlyTouch #1 ea 10/15/20 Ultra2 Meter kit) carvedilol 6.25 mg tablet 6.25 mg PO BID #60 tabs 12/12/20 insulin aspar prot-insulin aspart 35 unit (0.35 mL) subcut BID 90 04/28/21 100 unit/mL (70-30) subcutaneous days #21 syringe pen (Novolog Mix 70-30FlexPen U-100) lancets 28 gauge (FreeStyle #300 ea 05/22/21 Lancets) Portable Oxygen Concentrator #1 ea 04/02/22 gabapentin 300 mg capsule 300 mg PO TID #270 caps 06/30/22 oxygen 2L NC #1 ea 07/06/22 DEPENDS LARGE #90 ea 07/15/22 albuterol sulfate 2.5 mg/3 mL 2.5 mg (3 mL) inhalation QID PRN 07/29/22 (0.083 %) solution for nebulization shortness of breath or wheezing 90 days #180 mL pen needle, diabetic 31 gauge x #200 ea 10/13/2208/27 (BD Ultra-Fine Mini Pen Needle) docusate sodium 100 mg capsule 100 mg PO TID PRN for constipation 01/05/23 90 days #270 caps ipratropium 0.5 mg-albuterol 3 mg 3 ml inhalation BID PRN wheezing 01/21/23 (2.5 mg base)/3 mL nebulization #180 mL soln albuterol sulfate 90 mcg/actuation 2 puff inhalation Q4-6H PRN 01/28/23 aerosol inhaler (Ventolin HFA) bronchospasm #8.5 grams blood sugar diagnostic (FreeStyle #400 ea 03/26/23 Lite Strips) compress.stocking,knee,reg,med #2 ea 03/26/23 ezetimibe 10 mg tablet (Zetia) 10 mg PO DAILY #90 tabs 03/26/23 tramadol 50 mg tablet 50 mg PO Q8H 90 days #270 tabs 07/09/23 bumetanide 1 mg tablet 1 mg PO BID #180 tabs 08/19/23 clonidine HCl 0.3 mg tablet 0.3 mg PO BID 90 days #180 tabs 08/19/23 lisinopril 40 mg tablet 40 mg PO DAILY #90 tabs 08/19/23 rosuvastatin 40 mg tablet 40 mg PO DAILY 90 days #90 tabs 08/19/23 Diabetic shoes #1 ea 09/02/23 nifedipine 60 mg tablet,extended 60 mg PO BID 90 days #180 tabs 09/24/23 release Allergies Allergy/AdvReac Type Severity Reaction Status Date / Time latex [LATEX] Allergy Unknown UNKNOWN Verified 09/24/23 15:25 peanut [PEANUT] Allergy Unknown RASH Verified 09/24/23 15:25 seafood Allergy Unknown Unknown Verified 09/24/23 15:25 Review of Systems 2 Review of Systems: Yes all other systems are reviewed and are negative PMF Past Medical History Medical History (Updated 09/24/23 @ 19:21 by David Dietrich MD) Post-menopausal Hypertension, uncontrolled Toe pain, right Cellulitis, leg Screening for breast cancer Chronic kidney disease, stage 3 Diabetic retinopathy Aortic stenosis History of CVA (cerebrovascular accident) Thyroid nodule Congestive heart failure Hypercholesterolemia Diabetic neuropathy Hypertension Dementia Asthma Peripheral vascular disease Coronary artery disease Type 2 diabetes mellitus with hyperglycemia Surgical History History of endarterectomy History of colonoscopy History of cataract surgery Hx of cholecystectomy Amputated toe of left foot Hx of CABG Femoral-popliteal bypass graft occlusion, left Carotid stenosis Family History Family History Father Diabetes Hypertension Mother Hypertension CVD (cardiovascular disease) Cancer Diabetes Maternal Aunt Breast cancer Seizures Sister No problems noted. Son No problems noted. Son No problems noted. Son No problems noted. Daughter No problems noted. Social History Social History Household Members: None Housing: Apartment Do you presently have visiting nurse or other home services: Yes (son is [employer]) Alcohol intake: current Alcohol intake frequency: does not drink Patient Tobacco Use Status: Never used Tobacco Smoked in Last 30 Days: No e-Cigarette/Vaping Use: Never Used Second Hand Smoke Exposure: No Use of substances other than those prescribed or required for medical reasons: No Advance Directives: No Advance Directives Information Provided: Yes Current occupational status: unemployed and retired Cognitive needs: No Hearing needs: No Vision needs: Yes Physical Exam 2 Vital Signs: Vital Signs: Last Vital Signs Temp 98.0 F 09/24/23 17:33 Pulse 70 09/24/23 18:49 Resp 14 09/24/23 17:33 BP 187/73 H 09/24/23 18:49 Pulse Ox 97 09/24/23 17:33 O2 Del Method Nasal Cannula 09/24/23 17:33 O2 Flow Rate 2 09/24/23 17:33 Oxygen Flow Rate 2 09/24/23 17:05 BMI result Body Mass Index 23.5 General: Alert, Not in Distress Skin: No rash, warm HEENT: Atraumatic, No Exudate or Pharyngeal Erythema Resp: Normal Breath sounds bilaterally Cardio: Regular rate and Rhythm, Normal S1, S2 ABD: Abd soft, non tender, no guarding or rebound. Normal Bowel sounds. : No cva tenderness Neuro: Alert, oriented x4, PERRL Strenght 5/5 on all extremities Sensation is preserved in both lower and upper extremities Index to nose: normal Cranial Nerves II-XII grossly intact No dysarthria, or aphasia No neglet. Visual fowler are normal bilaterally Psych: Cooperative, NO SI Course Reevaluation(s) Reevaluation #1: Patient continues to be asymptomatic however her troponin is elevated at 54.6. No chest pain EKG was repeated I personally interpreted and is unchanged from 1st one. For this reason will give patient 324 mg of aspirin at this time I feel patient will need admission for serial troponin and EKG monitoring. Will hold on heparin until 2nd troponin. Time: 17:08 Reevaluation #2: Patient's blood pressure is now severely elevated with systolic above 200 in consideration of the fact the patient has also an elevated troponin we can consider this hypertensive emergency with signs of end organ damage therefore will start the patient on nitroglycerin drip for blood pressure control. Time: 17:40 Reevaluation #3: Second troponin is above 200 which is an increment of more than 3 fold, prior to 1st measurement. Will start the patient on heparin drip, blood pressure is improving on nitroglycerin drip systolic is now Time: 19:04 Consultations Consultation #1: Discussed case with hospitalist, in consideration of the fact the patient is pain-free will stop on nitroglycerin drip and will start the patient on nitro paste. Patient will be admitted at this time is hemodynamically stable. Family was updated at bedside. Time: 19:19 Medications Administered Generic Name Dose Route Start Last Admin Trade Name Freq PRN Reason Stop Dose Admin Nitroglycerin/Dextrose 100 mg in 250 mls @ 0 mls/hr 09/24/23 17:45 09/24/23 18:49 Nitroglycerin/D5w IVCONT 50 mcg/min .Q0M MAU 7.5 mls/hr Titration Protocol Per Protocol Discontinued Medications Generic Name Dose Route Start Last Admin Trade Name Freq PRN Reason Stop Dose Admin Aspirin 324 mg 09/24/23 17:01 09/24/23 17:37 Aspirin 81 Mg Tab.Chew PO 09/24/23 17:02 324 mg ONCE ONE Administration Medical Decision Making Medical Decision Making MDM Narrative: Patient presented with what it looks like a presyncopal episode, symptoms started while the patient was showering and this may have been a trigger for vasodilation, therefore I think it is possible this was a situational presyncope. Considering patient's age cardiogenic source of symptoms can not be completely ruled out however there are less likely at this time. Per EMS report initially there was some consideration about the CVA however patient in neurological exam is completely normal and the way she described to me the episode appears to be more a presyncopal episode rather than a TIA, patient denied weakness, and slurred speech. She seems to be reliable historian. Plan EKG, CBC, BMP, continuing laboratory monitor in the emergency room orthostatic Hypotension Will hold on IV fluids given the history of CHF and the fact that blood pressure now is actually elevated and patient does not seems extremely dehydrated on physical exam Lab Data 09/24/23 16:16 09/24/23 16:16 Labs: Lab Results 09/24/23 09/24/23 09/24/23 Range/Units 16:16 16:25 18:36 WBC 7.6 (4.8-10.8) X10*3/uL RBC 4.29 (4.20-5.50) X10*6/uL Hgb 12.3 (12.0-16.0) g/dl Hct 35.9 L (37.0-47.0) % MCV 83.7 (80.0-98.0) fL MCH 28.7 (27.0-33.0) pg MCHC 34.3 (31.0-35.0) g/dl RDW 13.9 (11.0-16.0) % Plt Count 181 (160-400) X10*3/uL MPV 11.7 (9.4-12.3) fL Immature Gran % (Auto) 0.3 (0.0-0.4) % Neut % (Auto) 71.4 (45-73) % Lymph % (Auto) 18.0 L (20-40) % [place] % (Auto) 7.0 (2-11) % Eos % (Auto) 2.6 (0-4) % Baso % (Auto) 0.7 (0-2) % Lymph # (Auto) 1.4 (1.2-4.9) X10*3/uL [place] # (Auto) 0.5 (0.1-1.2) X10*3/uL Eos # (Auto) 0.2 (0.0-0.4) X10*3/uL Baso # (Auto) 0.1 (0.0-0.2) X10*3/uL Abs Immat Gran (auto) 0.02 (0.00-0.03) X10*3/uL Absolute Neuts (auto) 5.4 (2.0-8.3) x10*3/uL Absolute Nucleated RBC 0.000 (0.0-0.012) X10*3/uL Nucleated RBC % (auto) 0.0 (0.0-0.2) /100WBC Sodium 136 (135-145) mmol/L Potassium 4.7 (3.3-5.1) mmol/L Chloride 101 (96-108) mmol/L Carbon Dioxide 26 (22-29) mmol/L Anion Gap 14 (12-20) BUN 21 H (9-16) mg/dL Creatinine 1.79 H (0.5-1.4) mg/dL Estim Creat Clear Calc 21.1 Estimated GFR 27 Random Glucose 270 H (60-115) mg/dL Calcium 9.1 D (8.4-10.2) mg/dL Troponin I High Sens 54.6 H* 237.1 H* D (<3.5-17.0) ng/L Independent Interpretation I performed an independent interpretation of an: EKG (EKG shows sinus rhythm with some minimal ST depression and T inversion in the anterior leads new from prior) Critical Care Time Critical Care Time Critical Care Time: Yes Total Critical Care Time: 35 Attestation: The patient was critical ill with high probability of imminent of life- threatening deterioration, due to hypertensive emergency and ACS I spent 35 minutes of discontinuous time evaluating the patient, delivering critical care at bedside, discussing and evaluating parents and does not with applications consultant, critical care time does not include time spent performing separately billable procedure or teaching. Discharge Plan Discharge Clinical Impression: Acute non-ST elevation myocardial infarction (NSTEMI), Hypertensive emergency, Pre-syncope Patient Disposition: Admitted As Inpatient Prescriptions: No Action (DME) lancets [FreeStyle Lancets] 28 gauge misc See Rx Instructions .ROUTE .MEDSUPPLY Qty: 300 3RF Rx Instructions: As directed check BS TID gabapentin 300 mg capsule 300 mg PO TID Qty: 270 3RF (DME) oxygen 2L NC See Rx Instructions .Route .MEDSUPPLY Qty: 1 0RF Rx Instructions: As directed albuterol sulfate 2.5 mg /3 mL (0.083 %) solution for nebulization 2.5 mg inhalation QID PRN (Reason: shortness of breath or wheezing) 90 Days Qty: 180 0RF (DME) pen needle, diabetic [BD Ultra-Fine Mini Pen Needle] 31 gauge x 3/16 needle See Rx Instructions .ROUTE .COMPLEX Qty: 200 0RF Dose Instruction: USE TO INJECT TWICE DAILY Rx Instructions: USE TO INJECT TWICE DAILY docusate sodium 100 mg capsule 100 mg PO TID PRN (Reason: for constipation) 90 Days Qty: 270 3RF albuterol sulfate [Ventolin HFA] 90 mcg/actuation HFA aerosol inhaler 2 puff inhalation Q4-6H PRN (Reason: bronchospasm) Qty: 8.5 3RF tramadol 50 mg tablet 50 mg PO Q8H 90 Days Qty: 270 1RF lisinopril 40 mg tablet 40 mg PO DAILY Qty: 90 3RF rosuvastatin 40 mg tablet 40 mg PO DAILY 90 Days Qty: 90 3RF clonidine HCl 0.3 mg tablet 0.3 mg PO BID 90 Days Qty: 180 3RF bumetanide 1 mg tablet 1 mg PO BID Qty: 180 3RF (DME) Diabetic shoes See Rx Instructions .Route .MEDSUPPLY Qty: 1 0RF Rx Instructions: As directed nifedipine 60 mg tablet extended release 60 mg PO BID 90 Days Qty: 180 3RF carvedilol 6.25 mg Tablet 6.25 mg PO BID Qty: 60 0RF Protocol: Hold for SBP/HR < HOLD for SBP < : 90 HOLD for HR < : 60 cholecalciferol (vitamin D3) 1,250 mcg (50,000 unit) capsule 1,250 mcg PO TU aspirin [Adult Aspirin Regimen] 81 mg tablet,delayed release (DR/EC) 81 mg PO DAILY (DME) blood-glucose meter [jobandtalent Ultra2 Meter] Kit See Rx Instructions .ROUTE .MEDSUPPLY Qty: 1 0RF Rx Instructions: As directed insulin asp prt-insulin aspart [Novolog Mix 70-30FlexPen U-100] 100 unit/mL (70-30) insulin pen 35 unit subcut BID 90 Days Qty: 21 3RF Rx Instructions: os as directed by Crisis Clinician (CLAUDIA) Portable Oxygen Concentrator See Rx Instructions .Route .MEDSUPPLY Qty: 1 0RF Rx Instructions: As directed (DME) DEPENDS LARGE See Rx Instructions .Route .MEDSUPPLY Qty: 90 11RF Rx Instructions: As directed ezetimibe [Zetia] 10 mg tablet 10 mg PO DAILY Qty: 90 3RF (DME) compress.stocking,knee,reg,med Misc See Rx Instructions .ROUTE .MEDSUPPLY Qty: 2 2RF Rx Instructions: As directed 20-30 mm HG (DME) FreeStyle Lite Strips Strip See Rx Instructions .ROUTE .MEDSUPPLY Qty: 400 3RF Rx Instructions: As directed check the BS QID ipratropium-albuterol 0.5 mg-3 mg(2.5 mg base)/3 mL solution for nebulization 3 ml inhalation BID PRN (Reason: wheezing) Qty: 180 2RF Print Language: Lithuanian
[2023-09-24 16:21] LABS: MANUAL DIFF FLAG NO
[2023-09-24 16:23] LABS: Basophils Absolute Auto 0.1 X10*3/uL (0.0-0.2); Basophils Percent Auto 0.7 % (0-2); Eosinophils Absolute Auto 0.2 X10*3/uL (0.0-0.4); Eosinophils Percent Auto 2.6 % (0-4); Hematocrit 35.9 % (37.0-47.0); Hemoglobin 12.3 g/dl (12.0-16.0); Imm Gran Abs Auto 0.02 X10*3/uL (0.00-0.03); Imm Gran Pct Auto 0.3 % (0.0-0.4); Lymphocytes Absolute Auto 1.4 X10*3/uL (1.2-4.9); Mean Corpuscular HGB Conc 34.3 g/dl (31.0-35.0); Mean Corpuscular Hemoglobin 28.7 pg (27.0-33.0); Mean Corpuscular Volume 83.7 fL (80.0-98.0); Mean Platelet Volume 11.7 fL (9.4-12.3); Monocytes Absolute Auto 0.5 X10*3/uL (0.1-1.2); Neutrophils Absolute Auto 5.4 x10*3/uL (2.0-8.3); Neutrophils Percent Auto 71.4 % (45-73); Platelet Count 181 X10*3/uL (160-400); Red Blood Count 4.29 X10*6/uL (4.20-5.50); Red Cell Distribution Width 13.9 % (11.0-16.0); White Blood Count 7.6 X10*3/uL (4.8-10.8)
--- NOTE | 2023-09-24 16:34 | ECG_ITS ---
Test Reason : SYNCOPE/DYNAMIC CHANGES Blood Pressure : / mmHG Vent. Rate : 068 BPM Atrial Rate : 068 BPM P-R Int : 160 ms QRS Dur : 106 ms QT Int : 434 ms P-R-T Axes : 080 -04 -75 degrees QTc Int : 461 ms Normal sinus rhythm Minimal voltage criteria for LVH, may be normal variant ( [place] product ) Inferior infarct (cited on or before 01-JUN-2016) Abnormal ECG When compared with ECG of 24-SEP-2023 16:05, No significant change was found Referred By: David Dietrich Electronically Signed By:Zaki Hummel
[2023-09-24 16:39] LABS: Anion Gap 14 (12-20); Blood Urea Nitrogen 21 mg/dL (9-16); Calcium 9.1 mg/dL (8.4-10.2); Carbon Dioxide 26 mmol/L (22-29); Chloride 101 mmol/L (96-108); Creatinine Clr Calc Pharmacy 21.1; Estimated Glomerular Filt Rate 27; Glucose Random 270 mg/dL (60-115); Potassium 4.7 mmol/L (3.3-5.1); Sodium 136 mmol/L (135-145)
[2023-09-24 16:53] LABS: Troponin-I High Sensitivity 54.6 ng/L (<3.5-17.0)
[2023-09-24] MEDS: Aspirin 81 MG TAB.CHEW 324 MG PO (17:37)
[2023-09-24] MEDS: Nitroglycerin/D5W 100 MG/250 ML INFUS..BTL IVCONT (17:57)
--- NOTE | 2023-09-24 17:57 | PC.NURSE ---
BP 203/84. Both arms checked. notified and nitro drip ordered at 20 mcg/min. pt has no complaints. Repeat trop also ordered for 1829.
--- NOTE | 2023-09-24 18:29 | PC.NURSE ---
protocol for nitro is to increase by 20mc/min. Per MD David, titrate to 50mcg/min from 20.
--- NOTE | 2023-09-24 18:51 | PC.NURSE ---
per MD, keep drip at 50mcg/min. BP 187/73
[2023-09-24 19:01] LABS: Troponin-I High Sensitivity 237.1 ng/L (<3.5-17.0)
--- NOTE | 2023-09-24 19:34 | P.HPHOSP_ITS ---
History of Present Illness Date of Service: 09/24/23 <NELLY Hernandez - Last Filed: 09/24/23 22:44> Attending physician on admission: Sonu Cabrera <NELLY Hernandez - Last Filed: 09/24/23 22:44> Chief Complaint: Syncope <NELLY Hernandez - Last Filed: 09/24/23 22:44> Pt is a 78-year-old female with a PMH significant for?HTN, HLD, CAD s/p triple CABG, hx of carotid stenosis s/p left carotid endarterectomy on 01/16/2022, PAD s/p revascularization on the right, insulin-dependent type 2 diabetes with neuropathy, hx of CVA, CKD 3, CHF, unspecified asthma chronically on 2 L home O2, and hx of diabetic foot ulcers s/p left toe amputations who presents to the ED for evaluation of presyncopal episode earlier today. Pt's family is a bedside who help supplement HPI. Granddaughter was with patient earlier today helping her shower when patient began complaining of lightheadedness and a sharp pain in the back of her head as she got out of the shower. Patient felt like she was about to pass out and went to sit down and granddaughter noted she seemed confused, her tongue turned ?purple, spit up some clear liquid, and began making ?crazy faces?. Patient seemingly then became unresponsive for a short period of time. Granddaughter called EMS who report patient was poorly responsive when they arrived with heart rate in the 40s, but quickly improved when placed on a non-rebreather. Patient was then brought to the ED for further evaluation. Family also notes similar incident 2 days prior when patient's was helping her shower and she likewise complained of lightheadness and pain in the back of her head. During that episode patient had taken off her oxygen while showering, and she improved back to baseline when sat her down and put her nasal cannula back on. Patient denies any chest pain/pressure or palpitations. No shortness of breath. Denies fever, chills, nausea, vomiting. Reports felt some abdominal pain/discomfort when sat down after taking shower. In the ED pt was hypertensive up to 211/87 and satting at 97% on chronic 2 L home O2, vitals otherwise WNL. Labs were significant for creatinine 1.78 (up from 1.59 on 08/03/2023), random glucose 270, and initial troponin 54.6 with repeat 237.1. CXR showed findings suggestive of pulmonary edema versus small airway disease. EKG demonstrated normal sinus rhythm with T-wave inversions in leads III, AVF, V1, and V3. Pt was treated with aspirin, initially placed on a nitro drip, and also placed on a heparin drip. Pt will be admitted to the hospital for treatment and further evaluation of NSTEMI. <NELLY Hernandez - Last Filed: 09/24/23 22:44> Review of Systems 2 Review of Systems: Headache, dizziness N/V x1 Abdominal discomfort No chest pain/pressure or palpitations Denies fever, chills No SOB <NELLY Hernandez - Last Filed: 09/24/23 22:44> [facility] Medical History: Medical History Post-menopausal Hypertension, uncontrolled Toe pain, right Cellulitis, leg Screening for breast cancer Chronic kidney disease, stage 3 Diabetic retinopathy Aortic stenosis History of CVA (cerebrovascular accident) Thyroid nodule Congestive heart failure Hypercholesterolemia Diabetic neuropathy Hypertension Dementia Asthma Peripheral vascular disease Coronary artery disease Type 2 diabetes mellitus with hyperglycemia <NELLY Hernandez - Last Filed: 09/24/23 22:44> Family History: Family History Father Diabetes Hypertension Mother Hypertension CVD (cardiovascular disease) Cancer Diabetes Maternal Aunt Breast cancer Seizures Sister No problems noted. Son No problems noted. Son No problems noted. Son No problems noted. Daughter No problems noted. <NELLY Hernandez - Last Filed: 09/24/23 22:44> Surgical History: Surgical History History of endarterectomy History of colonoscopy History of cataract surgery Hx of cholecystectomy Amputated toe of left foot Hx of CABG Femoral-popliteal bypass graft occlusion, left Carotid stenosis <NELLY Hernandez - Last Filed: 09/24/23 22:44> Social History: Social History Household Members: None Housing: Apartment Do you presently have visiting nurse or other home services: Yes (son is [employer]CH[employer]) Alcohol intake: current Alcohol intake frequency: does not drink Patient Tobacco Use Status: Never used Tobacco Smoked in Last 30 Days: No e-Cigarette/Vaping Use: Never Used Second Hand Smoke Exposure: No Use of substances other than those prescribed or required for medical reasons: No Advance Directives: No Advance Directives Information Provided: Yes Current occupational status: unemployed and retired Cognitive needs: No Hearing needs: No Vision needs: Yes <NELLY Hernandez - Last Filed: 09/24/23 22:44> Meds Allergies/Adverse reactions: Allergies Allergy/AdvReac Type Severity Reaction Status Date / Time peanut [PEANUT] Allergy Unknown RASH Verified 09/24/23 22:42 seafood Allergy Unknown Unknown Verified 09/24/23 22:42 <NELLY Hernandez - Last Filed: 09/24/23 22:44> Active Medications: Current Medications Acetaminophen (Acetaminophen 325 Mg Tablet) 650 mg PO Q6H PRN PRN Reason: Pain, Mild (Pain Scale 1-3) Heparin Sodium (Porcine) (Heparin Sodium,Porcine 5,000 Unit/Ml Vial) 2,500 unit 40 unit/kg (2500 unit) IVPUSH PROTOCOL BOLUS PRN; Protocol PRN Reason: 40 unit/kg - Heparin Protocol Heparin Sodium (Porcine) (Heparin Sodium,Porcine 5,000 Unit/Ml Vial) 5,000 unit 80 unit/kg (5000 unit) IVPUSH PROTOCOL BOLUS PRN; Protocol PRN Reason: 80 unit/kg - Heparin Protocol Heparin Sodium/Sodium Chloride (Heparin Sodium,Porcine/1/2ns) 25,000 unit in 250 mls @ 0 mls/hr IVCONT .Q0M MAU; Protocol Melatonin (Melatonin 3 Mg Tablet) 6 mg PO BEDTIME PRN PRN Reason: Insomnia Ondansetron HCl (Ondansetron Hcl 4 Mg/2 Ml Vial) 4 mg IVPUSH Q8H PRN PRN Reason: Nausea and Vomiting Sodium Chloride (0.9 % Sodium Chloride Flush 3 Ml Syringe) 3 ml IVFLUSH QSHIFT [facility] <NELLY Hernandez - Last Filed: 09/24/23 22:44> Home medications: Home Medications ?Medication ?Instructions ?Recorded ?Confirmed ?Last Taken ?Type cholecalciferol (vitamin D3) 1,250 1,250 mcg PO TU 04/12/20 09/24/23 09/21/23 History mcg (50,000 unit) capsule docusate sodium 100 mg capsule 100 mg PO BID for constipation 09/24/23 09/24/23 09/24/23 History gabapentin 300 mg capsule 300 mg PO BID 09/24/23 09/24/23 09/24/23 History insulin aspar prot-insulin aspart 5 unit subcut DAILY@0730 09/24/23 09/24/23 09/24/23 History 100 unit/mL (70-30) subcutaneous pen (Novolog Mix 70-30FlexPen U-100) insulin aspar prot-insulin aspart 10 unit subcut DAILY@1630 09/24/23 09/24/23 09/23/23 History 100 unit/mL (70-30) subcutaneous pen (Novolog Mix 70-30FlexPen U-100) tramadol 50 mg tablet 50 mg PO Q8H PRN Pain 09/24/23 09/24/23 09/24/23 History <NELLY Hernandez - Last Filed: 09/24/23 22:44> Physical Exam 2 Vital Signs and Narrative: Vital Signs: Last Vital Signs Temp 98.0 F 09/24/23 17:33 Pulse 71 09/24/23 19:07 Resp 14 09/24/23 17:33 BP 195/78 H 09/24/23 19:07 Pulse Ox 97 09/24/23 17:33 O2 Del Method Nasal Cannula 09/24/23 17:33 O2 Flow Rate 2 09/24/23 17:33 Oxygen Flow Rate 2 09/24/23 17:05 BMI result Body Mass Index 23.5 <NELLY Hernandez - Last Filed: 09/24/23 22:44> Constitutional: Alert, in no acute distress. Mental Status: Oriented to person, place and time. Eyes: Pupils are equal, round, and reactive to light. Ear, Nose, and Throat: Oropharynx clear, mucous membranes moist. Ears and nose without deformities. Trachea midline. Respiratory: Clear to auscultation bilaterally. No wheezing, rales, or rhonchi. Cardiovascular: S1, S2 regular. No murmurs, rubs, or gallops. Gastrointestinal: Abdomen soft, non-tender, non-distended. Normal bowel sounds. Neurologic: Cranial nerves II-XII are grossly intact bilaterally. No focal neurological deficits. Moves all extremities spontaneously. Skin: Warm, dry. Extremities: No edema. Psychiatric: Normal mood and affect. <NELLY Hernandez - Last Filed: 09/24/23 22:44> Results Labs CBC and Chem 7: 09/24/23 19:35 09/24/23 16:16 <NELLY Hernandez - Last Filed: 09/24/23 22:44> Labs: Laboratory Results - last 24 hr 09/24/23 09/24/23 09/24/23 16:16 16:25 18:36 MCV 83.7 MCH 28.7 MCHC 34.3 RDW 13.9 Plt Count 181 MPV 11.7 Immature Gran % (Auto) 0.3 Neut % (Auto) 71.4 Lymph % (Auto) 18.0 L Cedar % (Auto) 7.0 Eos % (Auto) 2.6 Baso % (Auto) 0.7 Lymph # (Auto) 1.4 Cedar # (Auto) 0.5 Eos # (Auto) 0.2 Baso # (Auto) 0.1 Abs Immat Gran (auto) 0.02 Absolute Neuts (auto) 5.4 Absolute Nucleated RBC 0.000 Nucleated RBC % (auto) 0.0 Anion Gap 14 Estim Creat Clear Calc 21.1 Estimated GFR 27 Random Glucose 270 H Calcium 9.1 D Troponin I High Sens 54.6 H* 237.1 H* D <NELLY Hernandez - Last Filed: 09/24/23 22:44> Imaging Radiologist's Impressions: Impressions Chest X-Ray 09/24/23 17:36 IMPRESSION: 1. Findings suggesting pulmonary edema versus small airways disease. 2. Unchanged significant cardiomediastinal enlargement. <NELLY Hernandez - Last Filed: 09/24/23 22:44> Assessment and Plan (1) Pre-syncope: Status: Acute <NELLY Hernandez - Last Filed: 09/24/23 22:44> (2) Acute non-ST elevation myocardial infarction (NSTEMI): Status: Acute <NELLY Hernandez - Last Filed: 09/24/23 22:44> Pt is a 78-year-old female with a PMH significant for?HTN, HLD, CAD s/p triple CABG, hx of carotid stenosis s/p left carotid endarterectomy on 01/16/2022, PAD s/p revascularization on the right, insulin-dependent type 2 diabetes with neuropathy, hx of CVA, CKD 3, CHF, unspecified asthma chronically on 2 L home O2, and hx of diabetic foot ulcers s/p left toe amputations who presents to the ED for evaluation of presyncopal episode earlier today. NSTEMI Initial troponin 54.6 with repeat 237.1 EKGs showing T-wave inversions in inferior and anterior leads, but no significant ST elevations or depressions Patient placed on heparin drip, continue Cardiology consult Echocardiogram Monitor on telemetry Presyncopal episodes Likely in the setting of above Will check orthostatics in the morning Treat as above Hypertensive urgency BP has been as high as 211/87 in the ED Was initially placed on a nitroglycerin drip and then given transdermal patch Will continue carvedilol, clonidine, and lisinopril Hold nifedipine; has not resumed taking since lisinopril increased to 40 mg daily Monitor BP, resume nifedipine if warranted Insulin-dependent type SSI, diabetic diet CAD/HLD/PAD Continue statin, ezetimibe Will start on aspirin CHF unspecified Not in acute exacerbation Continue bumetanide Severe persistent asthma Not in acute exacerbation Continue home inhalers Continue home 2 L NC Full Code Attending:?Dr. Carbera DVT Prophylaxis: On heparin drip Pt will require a hospitalization of at least two nights for treatment of?NSTEMI and hypertensive urgency. Patient require hospitalization for administration of IV heparin drip, close monitoring of labs, BP, and cardiac function, and specialist consultation with Cardiology. <NELLY Hernandez - Last Filed: 09/24/23 22:44> Pt is a 78-year-old female with a PMH significant for?HTN, HLD, CAD s/p triple CABG, hx of carotid stenosis s/p left carotid endarterectomy on 01/16/2022, PAD s/p revascularization on the right, insulin-dependent type 2 diabetes with neuropathy, hx of CVA, CKD 3, CHF, unspecified asthma chronically on 2 L home O2, and hx of diabetic foot ulcers s/p left toe amputations who presents to the ED for evaluation of presyncopal episode earlier today. NSTEMI Initial troponin 54.6 with repeat 237.1 EKGs showing T-wave inversions in inferior and anterior leads, but no significant ST elevations or depressions Patient placed on heparin drip, continue Cardiology consult Echocardiogram Monitor on telemetry Presyncopal episodes Likely in the setting of above Will check orthostatics in the morning Treat as above Hypertensive emergency BP has been as high as 211/87 in the ED Was initially placed on a nitroglycerin drip and then given transdermal patch Will continue carvedilol, clonidine, and lisinopril Hold nifedipine; has not resumed taking since lisinopril increased to 40 mg daily Monitor BP, resume nifedipine if warranted Insulin-dependent type SSI, diabetic diet CAD/HLD/PAD Continue statin, ezetimibe Will start on aspirin CHF unspecified Not in acute exacerbation Continue bumetanide Severe persistent asthma Not in acute exacerbation Continue home inhalers Continue home 2 L NC Full Code Attending:?Dr. Cabrera DVT Prophylaxis: On heparin drip Pt will require a hospitalization of at least two nights for treatment of?NSTEMI and hypertensive urgency. Patient require hospitalization for administration of IV heparin drip, close monitoring of labs, BP, and cardiac function, and specialist consultation with Cardiology. <Sonu Cabrera MD - Last Filed: 09/24/23 22:45> Quality Stroke Does the patient have a stroke diagnosis?: No <NELLY Hernandez - Last Filed: 09/24/23 22:44> VTE Prior VTE?: No <NELLY Hernandez - Last Filed: 09/24/23 22:44> VTE Risk Level:: Medical - moderate - high <NELLY Hernandez - Last Filed: 09/24/23 22:44> VTE Device Contraindication: Treatment Not Indicated <NELLY Hernandez - Last Filed: 09/24/23 22:44> VTE Drug Contraindication: N/A - Med Ordered <NELLY Hernandez - Last Filed: 09/24/23 22:44>
[2023-09-24 19:40] LABS: Hematocrit 37.3 % (37.0-47.0); Hemoglobin 12.8 g/dl (12.0-16.0); Mean Corpuscular HGB Conc 34.3 g/dl (31.0-35.0); Mean Corpuscular Hemoglobin 28.5 pg (27.0-33.0); Mean Corpuscular Volume 83.1 fL (80.0-98.0); Mean Platelet Volume 10.6 fL (9.4-12.3); Platelet Count 187 X10*3/uL (160-400); Red Blood Count 4.49 X10*6/uL (4.20-5.50); Red Cell Distribution Width 13.7 % (11.0-16.0); White Blood Count 9.4 X10*3/uL (4.8-10.8)
[2023-09-24] MEDS: Nitroglycerin 2 % Oint 1 GM Packet 1 INCH TRANSDERMA (19:48)
[2023-09-24] MEDS: Heparin Sodium,Porcine 5,000 UNIT/ML VIAL 3700 UNIT IVPUSH (19:50)
[2023-09-24 19:54] LABS: Prothrombin Time 12.3 SEC (11.1-13.3)
[2023-09-24] MEDS: Heparin Sodium,Porcine/1/2NS 25,000 UNIT/250 ML IV.SOLN 7.46 UNIT IVCONT (19:54)
[2023-09-24 19:56] LABS: PTT Heparin Drip 33.5 SEC (53-77.9)
[2023-09-24] MEDS: carvediloL 6.25 MG TABLET PO (20:00)
--- NOTE | 2023-09-24 20:22 | PC.NURSE ---
Assumed care of the pt at 1900. Per , pt was given nitro paste and taken off of the nitro drip. Pt placed on a heparin drip per AUG. Next lab draw due at 0154 on 09/24. Pt is resting comfortably in bed at this time, no complaints.
--- NOTE | 2023-09-24 21:15 | PHA.MEDREC ---
Pharmacy Consult ? Medication Reconciliation Pharmacy has completed the medication reconciliation. Patient's family reported medications. Family report gabapentin even though no recent fill for the medication. Patient has not had nifedipine since her lisinopril dose was increase to 40 mg which has been about weeks. Insurance was denying it. The family said they were told to look out for hypotension when she takes both lisinopril and nifedipine and if her BP become too low to stop the nifedipin. NELLY Plaza aware. Susanna Layne, EloisaD
[2023-09-24] MEDS: Bumetanide 1 MG TABLET PO (22:45)
[2023-09-24] MEDS: Docusate Sodium 100 MG CAPSULE PO (22:45)
[2023-09-24] MEDS: Gabapentin 300 MG CAPSULE PO (22:45)
[2023-09-24] MEDS: cloNIDine HCL 0.1 MG TABLET 0.3 MG PO (22:45)
[2023-09-25] VITALS (9 sets, daily range): BP systolic 134–198; BP diastolic 48–65; PULSE 53–61; RESP 13–16; TEMP 36.4–36.8; O2SAT 100; BMI 23.5
[2023-09-25 02:27] LABS: PTT Heparin Drip 169.8 SEC (53-77.9)
--- NOTE | 2023-09-25 02:32 | PC.NURSE ---
Pt PTT came back elevated. Per protocol, heparin drip paused and PTT ordered for 03:30. Labs will be drawn hourly until PTT <93. MD saavedra
--- NOTE | 2023-09-25 03:58 | PC.NURSE ---
PTT came back at 93. Per protocol, drip restarted at 8u/kg/hr. No bleeding or bruising present. Pt has no complaints at this time.
[2023-09-25 05:04] LABS: Hematocrit 35.9 % (37.0-47.0); Hemoglobin 12.2 g/dl (12.0-16.0); Mean Corpuscular Hemoglobin 28.7 pg (27.0-33.0); Mean Corpuscular Volume 84.5 fL (80.0-98.0); Mean Platelet Volume 11.2 fL (9.4-12.3); Platelet Count 161 X10*3/uL (160-400); Red Blood Count 4.25 X10*6/uL (4.20-5.50); Red Cell Distribution Width 13.7 % (11.0-16.0); White Blood Count 7.4 X10*3/uL (4.8-10.8)
[2023-09-25 05:07] LABS: INTERNATIONAL NORM RATIO 1.1 (0.9-1.1); Prothrombin Time 13.4 SEC (11.1-13.3)
[2023-09-25 05:16] LABS: Anion Gap 14 (12-20); Blood Urea Nitrogen 22 mg/dL (9-16); Calcium 9.7 mg/dL (8.4-10.2); Carbon Dioxide 25 mmol/L (22-29); Chloride 104 mmol/L (96-108); Creatinine Clr Calc Pharmacy 26.5; Estimated Glomerular Filt Rate 36; Glucose Random 239 mg/dL (60-115); Potassium 3.9 mmol/L (3.3-5.1); Sodium 139 mmol/L (135-145)
[2023-09-25 07:46] LABS: Cholesterol 117 mg/dL (<200); HDL Cholesterol 44 mg/dL (>40); LDL Cholesterol Calculated 55 mg/dL (<100); Triglycerides 94 mg/dL (<150)
[2023-09-25 07:51] LABS: Glucose, Whole Blood 278 mg/dL (60-115)
[2023-09-25] MEDS: Aspirin 81 MG TAB.CHEW PO (08:13)
[2023-09-25] MEDS: Atorvastatin Calcium 80 MG TABLET PO (08:13)
[2023-09-25] MEDS: Docusate Sodium 100 MG CAPSULE PO ×2 (08:13→21:20)
[2023-09-25] MEDS: Gabapentin 300 MG CAPSULE PO ×2 (08:13→21:19)
[2023-09-25] MEDS: cloNIDine HCL 0.1 MG TABLET 0.3 MG PO ×2 (08:13→21:20)
[2023-09-25] MEDS: lisinopriL 40 MG TABLET PO (08:13)
[2023-09-25] MEDS: Ezetimibe 10 MG TABLET PO (08:13)
[2023-09-25] MEDS: carvediloL 6.25 MG TABLET PO ×2 (08:13→21:20)
[2023-09-25] MEDS: Bumetanide 1 MG TABLET PO ×2 (08:13→21:20)
[2023-09-25] MEDS: Insulin Lispro 100 UNIT/ML 3 ML VIAL SUBCUT ×4 (08:14→21:21)
[2023-09-25 10:13] LABS: PTT Heparin Drip 65.4 SEC (53-77.9)
--- NOTE | 2023-09-25 11:24 | PC.NURSE ---
cardiology at bedside for consult
--- NOTE | 2023-09-25 12:16 | P.PNIM_ITS ---
Subjective Subjective Date of Service: 09/25/23 Interval History: History obtain by patient's daughter at bedside Patient denies chest pain, no shortness of breath, no headache, no lightheadedness, no dizziness, no acute events overnight. Review of Systems All other system reviewed and negative. Physical Exam 2 Vital Signs: Vital Signs: Last Vital Signs Temp 97.8 F 09/25/23 08:04 Pulse 57 09/25/23 09:50 Resp 14 09/25/23 09:50 BP 172/57 H 09/25/23 09:50 Pulse Ox 100 09/25/23 09:50 O2 Del Method Nasal Cannula 09/25/23 09:50 O2 Flow Rate 2 09/25/23 09:50 Oxygen Flow Rate 2 09/24/23 17:05 BMI result Body Mass Index 23.5 Const: Other: General awake alert, resting comfortably in no acute distress. Neck supple, no JVD. CVS regular rate rhythm, Respiratory lungs clear to auscultation, no respiratory distress, no wheeze, no rhonchi. Gastrointestinal abdomen soft, obese, non tender, bowel sounds audible, no guarding , no rigidity. Extremities bilateral anterior lucio discoloration , no edema Neuro non focal ,speech clear. Objective Data Active Medications Acetaminophen (Acetaminophen 325 Mg Tablet) 650 mg PO Q6H PRN PRN Reason: Pain, Mild (Pain Scale 1-3) Albuterol Sulfate (Albuterol Sulfate 90 Mcg 8 Gm Inhaler) 2 puff INHALE Q4H PRN PRN Reason: bronchospasm Albuterol/Ipratropium (Albuterol/Iprat 2.5/0.5mg 3 Ml Ampul.Neb) 3 ml INHALE BID PRN PRN Reason: wheezing Aspirin (Aspirin 81 Mg Tab.Chew) 81 mg PO DAILY [facility] Last Admin: 09/25/23 08:13 Dose: 81 mg Documented By: GINA Atorvastatin Calcium (Atorvastatin Calcium 80 Mg Tablet) 80 mg PO DAILY [facility] Last Admin: 09/25/23 08:13 Dose: 80 mg Documented By: GINA Bumetanide (Bumetanide 1 Mg Tablet) 1 mg PO BID [facility]; Protocol Last Admin: 09/25/23 08:13 Dose: 1 mg Documented By: GINA Carvedilol (Carvedilol 6.25 Mg Tablet) 6.25 mg PO BID [facility]; Protocol Last Admin: 09/25/23 08:13 Dose: 6.25 mg Documented By: GINA Clonidine HCl (Clonidine Hcl 0.1 Mg Tablet) 0.3 mg PO BID [facility]; Protocol Last Admin: 09/25/23 08:13 Dose: 0.3 mg Documented By: GINA Docusate Sodium (Docusate Sodium 100 Mg Capsule) 100 mg PO BID [facility] Last Admin: 09/25/23 08:13 Dose: 100 mg Documented By: GINA Ezetimibe (Ezetimibe 10 Mg Tablet) 10 mg PO DAILY [facility] Last Admin: 09/25/23 08:13 Dose: 10 mg Documented By: GINA Gabapentin (Gabapentin 300 Mg Capsule) 300 mg PO BID [facility] Last Admin: 09/25/23 08:13 Dose: 300 mg Documented By: GINA Glucose (Glucose Gel 15 Gm Gel..Gram.) 15 gm PO Q15M PRN; Protocol PRN Reason: per Hypoglycemia Standing Ord. Heparin Sodium (Porcine) (Heparin Sodium,Porcine 5,000 Unit/Ml Vial) 2,500 unit 40 unit/kg (2500 unit) IVPUSH PROTOCOL BOLUS PRN; Protocol PRN Reason: 40 unit/kg - Heparin Protocol Heparin Sodium (Porcine) (Heparin Sodium,Porcine 5,000 Unit/Ml Vial) 5,000 unit 80 unit/kg (5000 unit) IVPUSH PROTOCOL BOLUS PRN; Protocol PRN Reason: 80 unit/kg - Heparin Protocol Heparin Sodium/Sodium Chloride (Heparin Sodium,Porcine/1/2ns) 25,000 unit in 250 mls @ 0 mls/hr IVCONT .Q0M [facility]; Protocol Last Titration: 09/25/23 10:17 Dose: 8 units/kg/hr, 4.98 mls/hr Documented By: GINA Co-signed By: CLAUDIA Dextrose (D10) 250 mls @ 750 mls/hr IV Q15M PRN; Protocol PRN Reason: per Hypoglycemia Standing Ord. Insulin Human Lispro (Insulin Lispro 100 Unit/Ml 3 Ml Vial) 0 unit SUBCUT QIDACHS [facility]; Protocol Last Admin: 09/25/23 08:14 Dose: 6 unit Documented By: GINA Lisinopril (Lisinopril 40 Mg Tablet) 40 mg PO DAILY [facility]; Protocol Last Admin: 09/25/23 08:13 Dose: 40 mg Documented By: GINA Melatonin (Melatonin 3 Mg Tablet) 6 mg PO BEDTIME PRN PRN Reason: Insomnia Non-Formulary Medication (Cholecalciferol (Vitamin D3)) 1,250 mcg PO [facility] [place] Ondansetron HCl (Ondansetron Hcl 4 Mg/2 Ml Vial) 4 mg IVPUSH Q8H PRN PRN Reason: Nausea and Vomiting Sodium Chloride (0.9 % Sodium Chloride Flush 3 Ml Syringe) 3 ml IVFLUSH QSHIFT [facility] Last Admin: 09/25/23 08:14 Dose: Not Given Documented By: GINA Non-Admin Reason: IV Running Tramadol HCl (Tramadol Hcl 50 Mg Tablet) 50 mg PO Q8H PRN PRN Reason: Pain, Moderate(Pain Scale 4-6) Labs 09/25/23 04:58 09/25/23 04:58 Labs: Laboratory Results - last 24 hr 09/24/23 09/24/23 09/24/23 16:16 16:25 18:36 MCV 83.7 MCH 28.7 MCHC 34.3 RDW 13.9 Plt Count 181 MPV 11.7 Immature Gran % (Auto) 0.3 Neut % (Auto) 71.4 Lymph % (Auto) 18.0 L [place] % (Auto) 7.0 Eos % (Auto) 2.6 Baso % (Auto) 0.7 Lymph # (Auto) 1.4 [place] # (Auto) 0.5 Eos # (Auto) 0.2 Baso # (Auto) 0.1 Abs Immat Gran (auto) 0.02 Absolute Neuts (auto) 5.4 Absolute Nucleated RBC 0.000 Nucleated RBC % (auto) 0.0 PT INR aPTT Heparin Protocol Anion Gap 14 Estim Creat Clear Calc 21.1 Estimated GFR 27 POC Glucose Random Glucose 270 H Calcium 9.1 D Troponin I High Sens 54.6 H* 237.1 H* D Triglycerides Cholesterol LDL Cholesterol, Calc HDL Cholesterol 09/24/23 09/25/23 09/25/23 19:35 01:51 03:28 MCV 83.1 MCH 28.5 MCHC 34.3 RDW 13.7 Plt Count 187 MPV 10.6 Immature Gran % (Auto) Neut % (Auto) Lymph % (Auto) [place] % (Auto) Eos % (Auto) Baso % (Auto) Lymph # (Auto) [place] # (Auto) Eos # (Auto) Baso # (Auto) Abs Immat Gran (auto) Absolute Neuts (auto) Absolute Nucleated RBC 0.000 Nucleated RBC % (auto) 0.0 PT 12.3 13.4 H INR 1.0 1.1 aPTT Heparin Protocol 33.5 L 169.8 H* D 93.0 H D Anion Gap Estim Creat Clear Calc Estimated GFR POC Glucose Random Glucose Calcium Troponin I High Sens Triglycerides Cholesterol LDL Cholesterol, Calc HDL Cholesterol 09/25/23 09/25/23 09/25/23 04:58 07:47 10:00 MCV 84.5 MCH 28.7 MCHC 34.0 RDW 13.7 Plt Count 161 MPV 11.2 Immature Gran % (Auto) Neut % (Auto) Lymph % (Auto) [place] % (Auto) Eos % (Auto) Baso % (Auto) Lymph # (Auto) [place] # (Auto) Eos # (Auto) Baso # (Auto) Abs Immat Gran (auto) Absolute Neuts (auto) Absolute Nucleated RBC 0.000 Nucleated RBC % (auto) 0.0 PT INR aPTT Heparin Protocol 65.4 D Anion Gap 14 Estim Creat Clear Calc 26.5 Estimated GFR 36 POC Glucose 278 H Random Glucose 239 H Calcium 9.7 D Troponin I High Sens 220.0 H* Triglycerides 94 Cholesterol 117 LDL Cholesterol, Calc 55 HDL Cholesterol 44 Assessment and Plan (1) Hypertensive emergency: Status: Acute (2) Acute non-ST elevation myocardial infarction (NSTEMI): Status: Acute (3) Pre-syncope: Status: Acute Plan 78-year-old female with a PMH significant for?HTN, HLD, CAD s/p triple CABG, hx of carotid stenosis s/p left carotid endarterectomy on 01/16/2022, PAD s/p revascularization on the right, insulin-dependent type 2 diabetes with neuropathy, hx of CVA, CKD 3, CHF, unspecified asthma chronically on 2 L home O2, and hx of diabetic foot ulcers s/p left toe amputations who presents to the ED for evaluation of presyncopal episode earlier today. NSTEMI Likely secondary to uncontrolled blood pressure Initial troponin 54.6 with repeat 237.1 and trended down to 220 EKGs showing T-wave inversions in inferior and anterior leads, but no significant ST elevations or depressions Continue IV heparin, beta-blockers, Lipitor 80 and started on aspirin. Follow Echocardiogram and Cardiology consult Monitor on telemetry Presyncopal episodes Likely in the setting of uncontrolled blood pressure with headache and dizziness. Hypertensive emergency BP has been as high as 211/87 in the ED Was initially placed on a nitroglycerin drip and then given transdermal patch x 1 History of chronically elevated blood pressures, continue carvedilol, clonidine, and lisinopril, patient was on nifedipine but not taking at home, will resume nifedipine and will discuss further treatment plan with Cardiology. Insulin-dependent type Elevated blood sugars greater than 200, continue diabetic diet, home insulin mix [address] on Lantus 10 units at bedtime, continue insulin sliding scale CAD/HLD/PAD Continue statin, ezetimibe, beta-blockers CHF unspecified Not in acute exacerbation, Continue bumetanide and follow echo Severe persistent asthma Not in acute exacerbation,Continue home inhalers, Continue home 2 L NC Full Code DVT Prophylaxis: On heparin drip Pt will require continued inpatient hospitalization for treatment of?NSTEMI and hypertensive urgency. Patient require hospitalization for administration of IV heparin drip, close monitoring of labs, BP, and cardiac function, and specialist consultation with Cardiology. Quality Stroke Does the patient have a stroke diagnosis?: No VTE Prior VTE?: No VTE Risk Level:: Medical - moderate - high VTE Device Contraindication: Treatment Not Indicated VTE Drug Contraindication: N/A - Med Ordered
--- NOTE | 2023-09-25 12:45 | PM.CNCAR ---
History of Present Illness History of Present Illness Date of Service: 09/25/23 Requesting physician: Farrah Avalos Chief complaint: Elevated BP, ?NSTEMI Narrative: 78-year-old female who has background history of hypertension, COPD on home oxygen, hyperlipidemia, coronary artery bypass surgery, previous stroke, and carotid disease. She also has diabetes and chronic kidney disease. She is presenting with left-sided headache and elevated blood pressures. She also had chest pain at home which she described as a severe tightness in the chest. Family was in the room and there are some questions about oxygen compliance because patient gets hypoxic without oxygen and has not used it on occasions. In the ER her blood pressure was significantly elevated and she had inferior T-wave inversions which were new compared to 2020. Her high sensitivity troponin I levels were 54.6, to 237.1 and 220. She was started on heparin drip. She is denying any symptoms currently. Appears quite frail. He has been following Dr. Mckoy at [facility]. [facility] Past Medical History Medical History Post-menopausal Hypertension, uncontrolled Toe pain, right Cellulitis, leg Screening for breast cancer Chronic kidney disease, stage 3 Diabetic retinopathy Aortic stenosis History of CVA (cerebrovascular accident) Thyroid nodule Congestive heart failure Hypercholesterolemia Diabetic neuropathy Hypertension Dementia Asthma Peripheral vascular disease Coronary artery disease Type 2 diabetes mellitus with hyperglycemia Family History Family History Father Diabetes Hypertension Mother Hypertension CVD (cardiovascular disease) Cancer Diabetes Maternal Aunt Breast cancer Seizures Sister No problems noted. Son No problems noted. Son No problems noted. Son No problems noted. Daughter No problems noted. Surgical History Surgical History History of endarterectomy History of colonoscopy History of cataract surgery Hx of cholecystectomy Amputated toe of left foot Hx of CABG Femoral-popliteal bypass graft occlusion, left Carotid stenosis Social History Social History Household Members: None Housing: Apartment Do you presently have visiting nurse or other home services: Yes (son is [employer]) Alcohol intake: current Alcohol intake frequency: does not drink Patient Tobacco Use Status: Never used Tobacco Smoked in Last 30 Days: No e-Cigarette/Vaping Use: Never Used Second Hand Smoke Exposure: No Use of substances other than those prescribed or required for medical reasons: No Advance Directives: No Advance Directives Information Provided: Yes Current occupational status: unemployed and retired Cognitive needs: No Hearing needs: No Vision needs: Yes Meds Allergies Allergy/AdvReac Type Severity Reaction Status Date / Time peanut [PEANUT] Allergy Unknown RASH Verified 09/24/23 22:42 seafood Allergy Unknown Unknown Verified 09/24/23 22:42 Active Medications: Current Medications Acetaminophen (Acetaminophen 325 Mg Tablet) 650 mg PO Q6H PRN PRN Reason: Pain, Mild (Pain Scale 1-3) Albuterol Sulfate (Albuterol Sulfate 90 Mcg 8 Gm Inhaler) 2 puff INHALE Q4H PRN PRN Reason: bronchospasm Albuterol/Ipratropium (Albuterol/Iprat 2.5/0.5mg 3 Ml Ampul.Neb) 3 ml INHALE BID PRN PRN Reason: wheezing Aspirin (Aspirin 81 Mg Tab.Chew) 81 mg PO DAILY [facility] Last Admin: 09/25/23 08:13 Dose: 81 mg Atorvastatin Calcium (Atorvastatin Calcium 80 Mg Tablet) 80 mg PO DAILY [facility] Last Admin: 09/25/23 08:13 Dose: 80 mg Bumetanide (Bumetanide 1 Mg Tablet) 1 mg PO BID [facility]; Protocol Last Admin: 09/25/23 08:13 Dose: 1 mg Carvedilol (Carvedilol 6.25 Mg Tablet) 6.25 mg PO BID [facility]; Protocol Last Admin: 09/25/23 08:13 Dose: 6.25 mg Clonidine HCl (Clonidine Hcl 0.1 Mg Tablet) 0.3 mg PO BID [facility]; Protocol Last Admin: 09/25/23 08:13 Dose: 0.3 mg Docusate Sodium (Docusate Sodium 100 Mg Capsule) 100 mg PO BID [facility] Last Admin: 09/25/23 08:13 Dose: 100 mg Ezetimibe (Ezetimibe 10 Mg Tablet) 10 mg PO DAILY [facility] Last Admin: 09/25/23 08:13 Dose: 10 mg Gabapentin (Gabapentin 300 Mg Capsule) 300 mg PO BID [facility] Last Admin: 09/25/23 08:13 Dose: 300 mg Glucose (Glucose Gel 15 Gm Gel..Gram.) 15 gm PO Q15M PRN; Protocol PRN Reason: per Hypoglycemia Standing Ord. Heparin Sodium (Porcine) (Heparin Sodium,Porcine 5,000 Unit/Ml Vial) 2,500 unit 40 unit/kg (2500 unit) IVPUSH PROTOCOL BOLUS PRN; Protocol PRN Reason: 40 unit/kg - Heparin Protocol Heparin Sodium (Porcine) (Heparin Sodium,Porcine 5,000 Unit/Ml Vial) 5,000 unit 80 unit/kg (5000 unit) IVPUSH PROTOCOL BOLUS PRN; Protocol PRN Reason: 80 unit/kg - Heparin Protocol Heparin Sodium/Sodium Chloride (Heparin Sodium,Porcine/1/2ns) 25,000 unit in 250 mls @ 0 mls/hr IVCONT .Q0M [facility]; Protocol Last Titration: 09/25/23 10:17 Dose: 8 units/kg/hr, 4.98 mls/hr Dextrose (D10) 250 mls @ 750 mls/hr IV Q15M PRN; Protocol PRN Reason: per Hypoglycemia Standing Ord. Insulin Glargine (Insulin Glargine,Hum.Rec.Anlog 100 Unit/Ml 10 Ml Vial) 10 unit SUBCUT BEDTIME [facility] Insulin Human Lispro (Insulin Lispro 100 Unit/Ml 3 Ml Vial) 0 unit SUBCUT QIDACHS [facility]; Protocol Last Admin: 09/25/23 08:14 Dose: 6 unit Lisinopril (Lisinopril 40 Mg Tablet) 40 mg PO DAILY [facility]; Protocol Last Admin: 09/25/23 08:13 Dose: 40 mg Melatonin (Melatonin 3 Mg Tablet) 6 mg PO BEDTIME PRN PRN Reason: Insomnia Nifedipine (Nifedipine Er 30 Mg Tab.Er.24) 60 mg PO DAILY [facility]; Protocol Non-Formulary Medication (Cholecalciferol (Vitamin D3)) 1,250 mcg PO [facility] [place] Ondansetron HCl (Ondansetron Hcl 4 Mg/2 Ml Vial) 4 mg IVPUSH Q8H PRN PRN Reason: Nausea and Vomiting Sodium Chloride (0.9 % Sodium Chloride Flush 3 Ml Syringe) [facility] Last Admin: 09/25/23 08:14 Dose: Not Given Tramadol HCl (Tramadol Hcl 50 Mg Tablet) 50 mg PO Q8H PRN PRN Reason: Pain, Moderate(Pain Scale 4-6) Home Medications ?Medication ?Instructions ?Recorded ?Confirmed ?Last Taken ?Type cholecalciferol (vitamin D3) 1,250 1,250 mcg PO TU 04/12/20 09/24/23 09/21/23 History mcg (50,000 unit) capsule docusate sodium 100 mg capsule 100 mg PO BID for constipation 09/24/23 09/24/23 09/24/23 History gabapentin 300 mg capsule 300 mg PO BID 09/24/23 09/24/23 09/24/23 History insulin aspar prot-insulin aspart 5 unit subcut DAILY@0730 09/24/23 09/24/23 09/24/23 History 100 unit/mL (70-30) subcutaneous pen (Novolog Mix 70-30FlexPen U-100) insulin aspar prot-insulin aspart 10 unit subcut DAILY@1630 09/24/23 09/24/23 09/23/23 History 100 unit/mL (70-30) subcutaneous pen (Novolog Mix 70-30FlexPen U-100) tramadol 50 mg tablet 50 mg PO Q8H PRN Pain 09/24/23 09/24/23 09/24/23 History Physical Exam Vital Signs: Vital Signs: Last Vital Signs Temp 97.8 F 09/25/23 08:04 Pulse 57 09/25/23 09:50 Resp 14 09/25/23 09:50 BP 172/57 H 09/25/23 09:50 Pulse Ox 100 09/25/23 09:50 O2 Del Method Nasal Cannula 09/25/23 09:50 O2 Flow Rate 2 09/25/23 09:50 Oxygen Flow Rate 2 09/24/23 17:05 BMI result Body Mass Index 23.5 GENERAL APPEARANCE: Thin/frail lady. In no acute distress. On supplemental oxygen. NECK: no carotid bruit, no jugular venous distention. SKIN: no suspicious lesions, warm and dry. HEART: no murmurs, regular rate and rhythm. LUNGS: Crackles left base. ABDOMEN: soft, nontender. EXTREMITIES: no edema. PERIPHERAL PULSES: equal. NEUROLOGIC: No gross deficits, AAO X 3 Objective Labs and Meds 09/25/23 04:58 09/25/23 04:58 Lab results: Laboratory Results - last 24 hr 09/24/23 09/24/23 09/24/23 16:16 16:25 18:36 WBC 7.6 RBC 4.29 Hgb 12.3 Hct 35.9 L MCV 83.7 MCH 28.7 MCHC 34.3 RDW 13.9 Plt Count 181 MPV 11.7 Immature Gran % (Auto) 0.3 Neut % (Auto) 71.4 Lymph % (Auto) 18.0 L [place] % (Auto) 7.0 Eos % (Auto) 2.6 Baso % (Auto) 0.7 Lymph # (Auto) 1.4 [place] # (Auto) 0.5 Eos # (Auto) 0.2 Baso # (Auto) 0.1 Abs Immat Gran (auto) 0.02 Absolute Neuts (auto) 5.4 Absolute Nucleated RBC 0.000 Nucleated RBC % (auto) 0.0 PT INR aPTT Heparin Protocol Sodium 136 Potassium 4.7 Chloride 101 Carbon Dioxide 26 Anion Gap 14 BUN 21 H Creatinine 1.79 H Estim Creat Clear Calc 21.1 Estimated GFR 27 POC Glucose Random Glucose 270 H Calcium 9.1 D Troponin I High Sens 54.6 H* 237.1 H* D Triglycerides Cholesterol LDL Cholesterol, Calc HDL Cholesterol 09/24/23 09/25/23 09/25/23 19:35 01:51 03:28 WBC 9.4 RBC 4.49 Hgb 12.8 Hct 37.3 MCV 83.1 MCH 28.5 MCHC 34.3 RDW 13.7 Plt Count 187 MPV 10.6 Immature Gran % (Auto) Neut % (Auto) Lymph % (Auto) [place] % (Auto) Eos % (Auto) Baso % (Auto) Lymph # (Auto) [place] # (Auto) Eos # (Auto) Baso # (Auto) Abs Immat Gran (auto) Absolute Neuts (auto) Absolute Nucleated RBC 0.000 Nucleated RBC % (auto) 0.0 PT 12.3 13.4 H INR 1.0 1.1 aPTT Heparin Protocol 33.5 L 169.8 H* D 93.0 H D Sodium Potassium Chloride Carbon Dioxide Anion Gap BUN Creatinine Estim Creat Clear Calc Estimated GFR POC Glucose Random Glucose Calcium Troponin I High Sens Triglycerides Cholesterol LDL Cholesterol, Calc HDL Cholesterol 09/25/23 09/25/23 09/25/23 04:58 07:47 10:00 WBC 7.4 RBC 4.25 Hgb 12.2 Hct 35.9 L MCV 84.5 MCH 28.7 MCHC 34.0 RDW 13.7 Plt Count 161 MPV 11.2 Immature Gran % (Auto) Neut % (Auto) Lymph % (Auto) [place] % (Auto) Eos % (Auto) Baso % (Auto) Lymph # (Auto) [place] # (Auto) Eos # (Auto) Baso # (Auto) Abs Immat Gran (auto) Absolute Neuts (auto) Absolute Nucleated RBC 0.000 Nucleated RBC % (auto) 0.0 PT INR aPTT Heparin Protocol 65.4 D Sodium 139 Potassium 3.9 Chloride 104 Carbon Dioxide 25 Anion Gap 14 BUN 22 H Creatinine 1.42 H Estim Creat Clear Calc 26.5 Estimated GFR 36 POC Glucose 278 H Random Glucose 239 H Calcium 9.7 D Troponin I High Sens 220.0 H* Triglycerides 94 Cholesterol 117 LDL Cholesterol, Calc 55 HDL Cholesterol 44 Imaging Radiologist's impression: Impressions Chest X-Ray 09/24/23 17:36 IMPRESSION: 1. Findings suggesting pulmonary edema versus small airways disease. 2. Unchanged significant cardiomediastinal enlargement. Assessment and Plan (1) Hypertensive emergency: Status: Acute (2) Acute non-ST elevation myocardial infarction (NSTEMI): Status: Acute Plan 78-year-old female who has background history of coronary artery bypass surgery, peripheral vascular disease and hypertension who is presenting with significantly elevated blood pressures and chest discomfort. She also had T-wave inversions inferiorly which are new compared to her last EKG in our system from 2020. High sensitive troponin levels are mildly elevated. She is pain-free. I had a detailed discussion with the patient and her family about management options. It is likely that this presentation is due to elevated blood pressures but given the fact that she has known coronary artery bypass surgery and ECG changes a 2 ACS can not be ruled out 2. Continue heparin drip for 48 hours. Resume her home dose of nifedipine which she was missing for few days. She is on clonidine high dose and withdrawal can be an issue and this should not be interrupted. Ideally should be changed to a clonidine patch. After discussion with the patient we have decided to medically treat her for now. Obviously if she has recurrent chest discomfort despite blood pressure control then she may need invasive assessment and transferred to [facility]. Continue aspirin and rosuvastatin. She should comply with oxygen because hypoxia can also trigger dizziness and confusion like she had at home and can also lead to chest pains. Thank you for allowing me to participate in the care of your patient. Please feel free to contact me if you have any questions. Procedures Date of Service Date of Service: 09/25/23
[2023-09-25 13:05] LABS: Glucose, Whole Blood 208 mg/dL (60-115)
--- NOTE | 2023-09-25 13:37 | PC.NURSE ---
called pharmacy for medication not available in pyxis
[2023-09-25] MEDS: NIFEdipine ER 60 MG TAB.ER.24 PO (14:17)
--- NOTE | 2023-09-25 15:07 | MHC.CM.PN ---
IMM 09/24. Met with pt with assistance from outside sales executive. Pt lives at home alone and has family support/[employer] services 40hrs/week. Pt has a cane, walker, wheelchair, and uses home O2 from [employer]. Family will transport her home at D/C. Pt and family would be agreeable to having VNA at D/C if indicated (used [facility] in the past). HCP on file and verified. PCP: Dr. Jackson Po
[2023-09-25 16:21] LABS: Glucose, Whole Blood 200 mg/dL (60-115)
[2023-09-25 16:34] LABS: PTT Heparin Drip 61.8 SEC (53-77.9)
[2023-09-25] MEDS: 0.9 % Sodium Chloride Flush 3 ML SYRINGE IVFLUSH ×2 (16:50→21:20)
[2023-09-25] MEDS: Heparin Sodium,Porcine/1/2NS 25,000 UNIT/250 ML IV.SOLN 4.98 UNIT IVCONT (18:03)
[2023-09-25 20:18] LABS: Glucose, Whole Blood 211 mg/dL (60-115)
[2023-09-25] MEDS: Insulin Glargine,Hum.rec.anlog 100 UNIT/ML 10 ML VIAL 10 UNIT SUBCUT (21:22)
[2023-09-26] VITALS (11 sets, daily range): BP systolic 100–227; BP diastolic 42–93; PULSE 54–99; RESP 14–20; TEMP 36.1–36.9; O2SAT 98–100
[2023-09-26 07:20] LABS: PTT Heparin Drip 64.2 SEC (53-77.9)
[2023-09-26 07:34] LABS: Glucose, Whole Blood 214 mg/dL (60-115)
[2023-09-26] MEDS: 0.9 % Sodium Chloride Flush 3 ML SYRINGE IVFLUSH ×2 (08:42→21:55)
[2023-09-26] MEDS: Insulin Lispro 100 UNIT/ML 3 ML VIAL SUBCUT ×4 (08:43→21:55)
[2023-09-26] MEDS: carvediloL 6.25 MG TABLET PO ×2 (08:44→21:52)
[2023-09-26] MEDS: Ezetimibe 10 MG TABLET PO (08:44)
[2023-09-26] MEDS: cloNIDine HCL 0.1 MG TABLET 0.3 MG PO (08:44)
[2023-09-26] MEDS: Bumetanide 1 MG TABLET PO (08:44)
[2023-09-26] MEDS: NIFEdipine ER 60 MG TAB.ER.24 PO ×2 (08:44→16:51)
[2023-09-26] MEDS: Docusate Sodium 100 MG CAPSULE PO ×2 (08:45→21:51)
[2023-09-26] MEDS: Aspirin 81 MG TAB.CHEW PO (08:45)
[2023-09-26] MEDS: lisinopriL 40 MG TABLET PO (08:45)
[2023-09-26] MEDS: Atorvastatin Calcium 80 MG TABLET PO (08:45)
[2023-09-26] MEDS: Gabapentin 300 MG CAPSULE PO ×2 (08:45→21:51)
--- NOTE | 2023-09-26 10:31 | PM.PNCARD ---
Subjective Subjective Date of Service: 09/26/23 Interval history: Seen and examined at bedside. BP was quite high in AM and then dropped to 100s. asymptomatic. Physical Exam Vital Signs: Last Vital Signs Temp 97.0 F 09/26/23 07:16 Pulse 99 09/26/23 09:00 Resp 20 09/26/23 07:16 BP 100/42 L 09/26/23 10:27 Pulse Ox 100 09/26/23 07:16 O2 Del Method Nasal Cannula 09/26/23 07:16 O2 Flow Rate 3 09/26/23 07:16 Oxygen Flow Rate 2 09/24/23 17:05 BMI result Body Mass Index 23.5 GENERAL APPEARANCE: Thin/frail lady. In no acute distress. On supplemental oxygen. NECK: no carotid bruit, no jugular venous distention. SKIN: no suspicious lesions, warm and dry. HEART: no murmurs, regular rate and rhythm. LUNGS: Clear to ausculatation anteriorly. ABDOMEN: soft, nontender. EXTREMITIES: no edema. PERIPHERAL PULSES: equal. NEUROLOGIC: No gross deficits, AAO X 3 Objective Labs and Meds 09/25/23 04:58 09/25/23 04:58 Lab results: Laboratory Results - last 24 hr 09/25/23 09/25/23 09/25/23 13:01 16:00 16:15 Hold Purple Top aPTT Heparin Protocol 61.8 POC Glucose 208 H 200 H 09/25/23 09/26/23 09/26/23 20:13 06:34 07:28 Hold Purple Top SEE NOTE aPTT Heparin Protocol 64.2 POC Glucose 211 H 214 H Progress Note: A&P Assessment and plan (1) Acute non-ST elevation myocardial infarction (NSTEMI): Status: Acute (2) Pain of left heel: Status: Acute Plan 78 female with previous CABG and HTN presenting with CP, elevated BP and T wave changes. On hep gtt. Continue 48 hours. BP has been tough to control and dropped quite low today. Such swings in BP are dangerous. I am cutting back on clonidine to 0.2 mg. I was planning to add hydralazine given BP of 190s in morning but I have discontinued that. Cut Bumex to once a day. Echo tomorrow. We will follow along. Time Spent With Patient Time: Total time managing care of this patient today ____ minutes. Progress Note: Quality Stroke Does the patient have a stroke diagnosis?: No Procedures Date of Service Date of Service: 09/26/23
[2023-09-26 11:37] LABS: Glucose, Whole Blood 395 mg/dL (60-115)
--- NOTE | 2023-09-26 11:45 | HO.PM.IMPN ---
Subjective Subjective Date of Service: 09/26/23 Interval History: history obtained via tax director, daughter at bedside. Patient offers no complaints of chest pain, no shortness of breath, had uneventful night, tolerating diet denies lightheadedness, no dizziness, no recurrent episodes of near-syncope. Review of Systems All other system reviewed and negative. Physical Exam Vital Signs: Vital Signs: Last Vital Signs Temp 97.7 F 09/26/23 11:15 Pulse 62 09/26/23 11:15 Resp 20 09/26/23 11:15 BP 131/59 L 09/26/23 11:15 Pulse Ox 100 09/26/23 11:15 O2 Del Method Nasal Cannula 09/26/23 11:15 O2 Flow Rate 3 09/26/23 11:15 Oxygen Flow Rate 2 09/24/23 17:05 BMI result Body Mass Index 23.5 Const: Other: General awake alert, resting comfortably in no acute distress. Neck supple, no JVD. CVS regular rate rhythm, Respiratory lungs clear to auscultation, no respiratory distress, no wheeze, no rhonchi. Gastrointestinal abdomen soft, obese, non tender, bowel sounds audible, no guarding , no rigidity. Extremities no edema Neuro non focal ,speech clear. Psych appropriate affect Objective Data Active Medications Acetaminophen (Acetaminophen 325 Mg Tablet) 650 mg PO Q6H PRN PRN Reason: Pain, Mild (Pain Scale 1-3) Albuterol Sulfate (Albuterol Sulfate 90 Mcg 8 Gm Inhaler) 2 puff INHALE Q4H PRN PRN Reason: bronchospasm Albuterol/Ipratropium (Albuterol/Iprat 2.5/0.5mg 3 Ml Ampul.Neb) 3 ml INHALE BID PRN PRN Reason: wheezing Aspirin (Aspirin 81 Mg Tab.Chew) 81 mg PO DAILY [facility] Last Admin: 09/26/23 08:45 Dose: 81 mg Documented By: SYMONE Atorvastatin Calcium (Atorvastatin Calcium 80 Mg Tablet) 80 mg PO DAILY [facility] Last Admin: 09/26/23 08:45 Dose: 80 mg Documented By: SYMONE Bumetanide (Bumetanide 1 Mg Tablet) 1 mg PO DAILY [facility]; Protocol Carvedilol (Carvedilol 6.25 Mg Tablet) 6.25 mg PO BID [facility]; Protocol Last Admin: 09/26/23 08:44 Dose: 6.25 mg Documented By: SYMONE Clonidine HCl (Clonidine Hcl 0.2 Mg Tablet) 0.2 mg PO BID [facility]; Protocol Docusate Sodium (Docusate Sodium 100 Mg Capsule) 100 mg PO BID [facility] Last Admin: 09/26/23 08:45 Dose: 100 mg Documented By: SYMONE Ezetimibe (Ezetimibe 10 Mg Tablet) 10 mg PO DAILY [facility] Last Admin: 09/26/23 08:44 Dose: 10 mg Documented By: SYMONE Gabapentin (Gabapentin 300 Mg Capsule) 300 mg PO BID [facility] Last Admin: 09/26/23 08:45 Dose: 300 mg Documented By: SYMONE Glucose (Glucose Gel 15 Gm Gel..Gram.) 15 gm PO Q15M PRN; Protocol PRN Reason: per Hypoglycemia Standing Ord. Heparin Sodium (Porcine) (Heparin Sodium,Porcine 5,000 Unit/Ml Vial) 2,500 unit 40 unit/kg (2500 unit) IVPUSH PROTOCOL BOLUS PRN; Protocol PRN Reason: 40 unit/kg - Heparin Protocol Heparin Sodium (Porcine) (Heparin Sodium,Porcine 5,000 Unit/Ml Vial) 5,000 unit 80 unit/kg (5000 unit) IVPUSH PROTOCOL BOLUS PRN; Protocol PRN Reason: 80 unit/kg - Heparin Protocol Heparin Sodium/Sodium Chloride (Heparin Sodium,Porcine/1/2ns) 25,000 unit in 250 mls @ 0 mls/hr IVCONT .Q0M [facility]; Protocol Last Titration: 09/26/23 08:45 Dose: 8 units/kg/hr, 4.98 mls/hr Documented By: SYMONE Co-signed By: FAUZIA Dextrose (D10) 250 mls @ 750 mls/hr IV Q15M PRN; Protocol PRN Reason: per Hypoglycemia Standing Ord. Insulin Glargine (Insulin Glargine,Hum.Rec.Anlog 100 Unit/Ml 10 Ml Vial) 10 unit SUBCUT BEDTIME [facility] Last Admin: 09/25/23 21:22 Dose: 10 unit Documented By: CAMERON Insulin Human Lispro (Insulin Lispro 100 Unit/Ml 3 Ml Vial) 0 unit SUBCUT QIDACHS [facility]; Protocol Last Admin: 09/26/23 08:43 Dose: 6 unit Documented By: SYMONE Lisinopril (Lisinopril 40 Mg Tablet) 40 mg PO DAILY [facility]; Protocol Last Admin: 09/26/23 08:45 Dose: 40 mg Documented By: SYMONE Melatonin (Melatonin 3 Mg Tablet) 6 mg PO BEDTIME PRN PRN Reason: Insomnia Nifedipine (Nifedipine Er 60 Mg Tab.Er.24) 60 mg PO BIDWM [facility]; Protocol Last Admin: 09/26/23 08:44 Dose: 60 mg Documented By: SYMONE Non-Formulary Medication (Cholecalciferol (Vitamin D3)) 1,250 mcg PO [facility] [place] Ondansetron HCl (Ondansetron Hcl 4 Mg/2 Ml Vial) 4 mg IVPUSH Q8H PRN PRN Reason: Nausea and Vomiting Sodium Chloride (0.9 % Sodium Chloride Flush 3 Ml Syringe) 3 ml IVFLUSH QSHIFT [facility] Last Admin: 09/26/23 08:42 Dose: 3 ml Documented By: SYMONE Tramadol HCl (Tramadol Hcl 50 Mg Tablet) 50 mg PO Q8H PRN PRN Reason: Pain, Moderate(Pain Scale 4-6) Labs 09/25/23 04:58 09/25/23 04:58 Labs: Laboratory Results - last 24 hr 09/25/23 09/25/23 09/25/23 13:01 16:00 16:15 Hold Purple Top aPTT Heparin Protocol 61.8 POC Glucose 208 H 200 H 09/25/23 09/26/23 09/26/23 20:13 06:34 07:28 Hold Purple Top SEE NOTE aPTT Heparin Protocol 64.2 POC Glucose 211 H 214 H 09/26/23 11:23 Hold Purple Top aPTT Heparin Protocol POC Glucose 395 H* Assessment and Plan (1) Hypertensive emergency: Status: Acute (2) Acute non-ST elevation myocardial infarction (NSTEMI): Status: Acute (3) Pre-syncope: Status: Acute Plan 78-year-old female with a PMH significant for?HTN, HLD, CAD s/p triple CABG, hx of carotid stenosis s/p left carotid endarterectomy on 01/16/2022, PAD s/p revascularization on the right, insulin-dependent type 2 diabetes with neuropathy, hx of CVA, CKD 3, CHF, unspecified asthma chronically on 2 L home O2, and hx of diabetic foot ulcers s/p left toe amputations who presents to the ED for evaluation of presyncopal episode earlier today. NSTEMI No recurrent chest pain, no shortness of breath. Likely secondary to uncontrolled blood pressure Initial troponin 54.6 with repeat 237.1 and trended down to 220 EKGs showing T-wave inversions in inferior and anterior leads, but no significant ST elevations or depressions Continue IV heparin x 48hrs , continue beta-blockers, Lipitor 80 and started on aspirin. Follow Echocardiogram , case discussed with Cardiology they agree with above treatment Monitor on telemetry Presyncopal episodes Likely in the setting of uncontrolled blood pressure with headache and dizziness. Hypertensive emergency Systolic BP dropped to 100 this morning History of chronically elevated blood pressures, continue carvedilol, lisinopril,nifedipine 60 mg b.i.d. and dose of clonidine reduced to 0.2 mg b.i.d. from a dose of 0.3 mg b.i.d., Bumex dose reduced to 1 mg daily from 1 mg b.i.d. As per cardiology recommendation follow BP closely Insulin-dependent type Elevated blood sugars greater than 200, continue diabetic diet, home insulin mix 70 30, 10 units daily on hold since non formulary, placed on Lantus 10 units at bedtime, continue insulin sliding scale dosages adjusted CAD/HLD/PAD Continue statin, ezetimibe, beta-blockers CHF unspecified Not in acute exacerbation, Continue bumetanide low-dose and follow echo Severe persistent asthma Not in acute exacerbation,Continue home inhalers, Continue home 2 L NC Full Code DVT Prophylaxis: On heparin drip Pt will require continued inpatient hospitalization for treatment of?NSTEMI and hypertensive urgency. Patient require hospitalization for administration of IV heparin drip, close monitoring of labs, BP, and cardiac function, and specialist consultation with Cardiology. Quality Stroke Does the patient have a stroke diagnosis?: No VTE Prior VTE?: No VTE Risk Level:: Medical - moderate - high VTE Device Contraindication: Treatment Not Indicated VTE Drug Contraindication: N/A - Med Ordered
[2023-09-26 16:25] LABS: Glucose, Whole Blood 186 mg/dL (60-115)
[2023-09-26] MEDS: Heparin Sodium,Porcine/1/2NS 25,000 UNIT/250 ML IV.SOLN 4.98 UNIT IVCONT (18:05)
[2023-09-26 20:41] LABS: Glucose, Whole Blood 238 mg/dL (60-115)
[2023-09-26] MEDS: cloNIDine HCL 0.2 MG TABLET PO (21:51)
[2023-09-26] MEDS: Insulin Glargine,Hum.rec.anlog 100 UNIT/ML 10 ML VIAL 10 UNIT SUBCUT (21:54)
[2023-09-26] MEDS: Melatonin 3 MG TABLET 6 MG PO (22:17)
[2023-09-27 03:39] VITALS: BP 152/66; PULSE 59; RESP 16; TEMP 36.1; O2SAT 99
--- NOTE | 2023-09-27 04:15 | PC.NURSE ---
0414 5 beat VT noted, pt alert, denies c/o CP. aware
--- NOTE | 2023-09-27 06:40 | PC.NURSE ---
heparin gtt discontinued 09/25 at 1920 as ordered
--- NOTE | 2023-09-27 07:00 | CA_ITS ---
Transthoracic Echocardiogram Patient (Last, First, Middle): Felicity Goodrich, Gender: Female Date of : 1945 Age: 78 Procedure Date: 09/27/2023 Procedure Type: Transthoracic [place] [facility] [place]: 160.02 cm Weight: 59.88 kg BSA: 1.62 m2 Heart Rate: 62 bpm BP: 173 / 76 mmHg Director Of Nurses Registry: SREEKANTH Referring MD: Sonu Cabrera MD Symptoms: NSTEMI Study Quality: Fair w/Contrast ECG Rhythm: Sinus Conclusions: - The left ventricular systolic function is normal. The calculated ejection fraction is 62% by biplane method. - There is moderately increased left ventricular wall thickness. - There is severe septal asymmetric hypertrophy. - The basal inferior and basal inferolateral segments are akinetic. - There is mild to moderate tricuspid valve regurgitation. - Severe pulmonary hypertension is present. Findings Procedure Information Contrast agent, definity, is being given per protocol without apparent complications. Left Ventricle Normal left ventricular cavity size. There is moderately increased left ventricular wall thickness. The left ventricular systolic function is normal. The calculated ejection fraction is 62% by biplane method. There is evidence of regional wall motion abnormalities. Evidence suggests grade II (moderate) diastolic dysfunction. There is severe septal asymmetric hypertrophy. Wall Motion Rest Echo Findings The basal inferior and basal inferolateral segments are akinetic. Right Ventricle Normal right ventricular cavity size. There is moderately decreased right ventricular systolic function. Atria The left atrium is mildly dilated. The right atrium is normal in size. Aortic Valve There is a normal trileaflet aortic valve. There is no aortic valve stenosis. There is no aortic valve regurgitation. Mitral Valve There is mild anterior mitral leaflet thickening. There is mild mitral annular calcification. There is trace mitral valve regurgitation. There is no mitral valve stenosis. Pulmonic Valve The pulmonic valve is likely normal. Tricuspid Valve Normal tricuspid valve structure. There is mild to moderate tricuspid valve regurgitation. Severe pulmonary hypertension is present. Great Vessels The asc aorta is normal in size. Venous The inferior vena cava is normal in size and collapses greater than 50% with inspiration. Pericardium/Pleural There is no evidence of pericardial effusion. Prior Study Comparison Changes noted compared to prior study dated: 11/25/2017. RVSP higher; wall motion similar. Measurements 2D Linear Measurements IVSd: 1.57 0.6-0.9/0.6-1.0 cm LVIDd: 3.76 3.9-5.3/4.2-5.9 cm LVIDd Index: 2.32 2.4-3.2/2.2-3.1 cm/m2 LVIDs: 2.81 2.0-3.6 cm LVPWd: 1.19 0.7-1.1 cm LA Diam: 3.40 2.7-3.8/3.0-4.0 cm LAIDs Index: 2.10 1.5-2.3 cm/m2 LV Mass: 232.97 67-162/88-224 g LV Mass Index: 143.81 43-95/49-115 g/m2 LVOT Diam: 1.80 3.0+(-)1.3 cm 2D Systolic Function EF 4C: 66.30 >55% EF 2C: 54.30 >55% EF BiP: 61.80 >55% Mitral Valve MV Pk E: 1.02 MV PK A: 0.63 MV Decel Time: 201.00 E/A: 1.60 E'Lateral: 4.40 E'Medial: 2.75 E/E' Med: 37.10 E/E' Lat: 23.20 PHT: 59.00 MVA PHT: 3.73 Decel Shannon: 5.06 Aortic Valve AoV Pk Dinesh: 1.24 AoV Mn Dinesh: 0.86 AoV VTI: 0.29 AoV Pk Grad: 6.00 Aov Mn Grad: 3.00 SHARON Cont.VTI: 1.80 LVOT LVOT Pk Dinesh: 0.82 LVOT Mn Dinesh: 0.55 LVOT VTI: 0.21 LVOT Pk Grad: 3.00 LVOT Mn Grad: 1.00 LVOT Diam: 1.80 LVOT Area: 2.54 Diastolic Function MV Pk E: 1.02 MV Pk A: 0.63 E/A: 1.60 E'Medial: 2.75 E/E' Med: 37.10 E' Laterial: 4.40 E/E' Lat: 23.20 Right Ventricle TAPSE (mm): 13.80 TVS' Dinesh: 6.08 Tricuspid Valve TR Pk Dinesh: 4.11 TR Pk Grad: 68.00 RA Press: 3.00 RVSP: 71.00 Great Vessels Aorta Sinus of Valsalva: 2.90 2.0-3.5 cm Ao Asc: 2.80 2.1-3.4 cm Pulmonary Valve PV Pk Dinesh: 0.84 Peak PV Grad: 3.00 Updated in Other Vendor System with Status of Final Jaxson Shell MD electronically signed on 09/27/2023 12:26:43 PM with status of Final
[2023-09-27 07:24] VITALS: BP 173/76; PULSE 61; RESP 16; TEMP 37.1; O2SAT 98
[2023-09-27 07:43] LABS: Glucose, Whole Blood 182 mg/dL (60-115)
[2023-09-27] MEDS: Ezetimibe 10 MG TABLET PO (08:26)
[2023-09-27] MEDS: Insulin Lispro 100 UNIT/ML 3 ML VIAL SUBCUT ×4 (08:26→20:27)
[2023-09-27] MEDS: NIFEdipine ER 60 MG TAB.ER.24 PO ×2 (08:27→16:17)
[2023-09-27] MEDS: Bumetanide 1 MG TABLET PO (08:27)
[2023-09-27] MEDS: Docusate Sodium 100 MG CAPSULE PO ×2 (08:27→20:28)
[2023-09-27] MEDS: cloNIDine HCL 0.2 MG TABLET PO ×2 (08:27→20:28)
[2023-09-27] MEDS: carvediloL 6.25 MG TABLET PO ×2 (08:28→20:28)
[2023-09-27] MEDS: lisinopriL 40 MG TABLET PO (08:28)
[2023-09-27] MEDS: Gabapentin 300 MG CAPSULE PO ×2 (08:28→20:28)
[2023-09-27] MEDS: Aspirin 81 MG TAB.CHEW PO (08:28)
[2023-09-27] MEDS: Atorvastatin Calcium 80 MG TABLET PO (08:28)
[2023-09-27] MEDS: 0.9 % Sodium Chloride Flush 3 ML SYRINGE IVFLUSH ×3 (08:33→20:30)
--- NOTE | 2023-09-27 10:55 | PM.PNCARD ---
Subjective Subjective Date of Service: 09/27/23 Interval history: Patient seen using library technician. She states she is doing okay. No chest pain or other cardiac symptoms. Review of Systems Review of Systems Yes all other systems are reviewed and are negative Constitutional: Reports as per HPI and Reports no additional constitutional complaints Eyes: Reports as per HPI and Denies no additional eye complaints Denies system reviewed and no additional complaints, except as documented and Reports as per HPI Cardiovascular: Reports as per HPI, Reports no additional cardiovascular complaints, Denies acrocyanosis, Denies cool extremities, Denies chest pain, Denies leg edema, Denies lightheadedness, Denies palpitations and Denies dyspnea Respiratory: Reports as per HPI, Denies no additional respiratory complaints and Denies dyspnea Gastrointestinal: Reports as per HPI and Denies no additional gastrointestinal complaints Genitourinary: Reports as per HPI Musculoskeletal: Reports no additional musculoskeletal complaints and Reports as per HPI Skin/Breast: Reports system reviewed and no additional complaints, except as docu Reports system reviewed and no additional complaints, except as documented and Reports as per HPI Psychiatric: Reports no additional psychiatric complaints and Reports as per HPI Endocrine: Reports no additional endocrine complaints, Reports as per HPI and Denies palpitations Hematologic/Lymphatic: Reports no additional hematologic/lymphatic complaints and Reports as per HPI Allergic/Immunologic: Reports no additional allergic/immunologic complaints and Reports as per HPI Physical Exam Vital Signs: Last Vital Signs Temp 98.8 F 09/27/23 07:24 Pulse 61 09/27/23 07:24 Resp 16 09/27/23 07:24 BP 173/76 H 09/27/23 07:24 Pulse Ox 98 09/27/23 07:24 O2 Del Method Nasal Cannula 09/27/23 07:24 O2 Flow Rate 3 09/27/23 07:24 Oxygen Flow Rate 2 09/24/23 17:05 BMI result Body Mass Index 23.5 Const General: comfortable and no acute distress Orientation/consciousness: patient oriented x3 HEENT Other: Unremarkable Head: Yes normal to inspection Neck Neck: Yes normal visual inspection Chest Chest palpation & inspection: normal inspection of the chest Resp Auscultation: clear to auscultation bilaterally Cardio Palpation: normal PMI Heart sounds: S1 normal heart sound present, S2 normal heart sound present, no gallops, no murmurs and no rubs GI Palpation (GI): Soft to palpation Back/Spine/Pelvis Other: unremarkable Skin General skin exam: no rashes or lesions noted Neuro General: patient oriented x3 Extrem General: Yes normal to inspection Psych Mental Status: mental status grossly normal Objective Labs and Meds 09/25/23 04:58 09/25/23 04:58 Lab results: Laboratory Results - last 24 hr 09/26/23 09/26/23 09/26/23 11:23 16:09 20:28 Hold Purple Top aPTT Heparin Protocol POC Glucose 395 H* 186 H 238 H 09/27/23 09/27/23 06:06 07:15 Hold Purple Top SEE NOTE aPTT Heparin Protocol 33.0 L D POC Glucose 182 H Progress Note: A&P Assessment and plan (1) Acute non-ST elevation myocardial infarction (NSTEMI): Status: Acute Assessment and Plan: Per initial consultation, history of bypass surgery, presenting with significantly high blood pressures. Suspected to be secondary event from blood pressure. Less likely a primary event. As previously decided, continue medical management for now. IV heparin for 48 hours. In case of any recurrent chest discomfort, then consider cardiac catheterization. Continue aspirin and statins. Will review the echocardiogram once completed. (2) Hypertensive emergency: Status: Acute Assessment and Plan: Blood pressure is still on the higher side. Patient is on a combination of carvedilol, clonidine, lisinopril, nifedipine. Most recent blood pressure is 173/76 mm Hg. Add isosorbide mononitrate. Time Spent With Patient Time: Total time managing care of this patient today ____ minutes. Progress Note: Quality Stroke Does the patient have a stroke diagnosis?: No Procedures Date of Service Date of Service: 09/27/23
--- NOTE | 2023-09-27 11:08 | P.PNIM_ITS ---
Subjective Subjective Date of Service: 09/27/23 Interval History: History obtained by son, patient is Algerian-speaking only. Patient denies chest pain, no shortness a breath, denies lightheadedness, no dizziness, no fevers, no chills, no acute issues overnight. Review of Systems All other system reviewed and negative. Physical Exam 2 Vital Signs: Vital Signs: Last Vital Signs Temp 98.8 F 09/27/23 07:24 Pulse 61 09/27/23 07:24 Resp 16 09/27/23 07:24 BP 173/76 H 09/27/23 07:24 Pulse Ox 98 09/27/23 07:24 O2 Del Method Nasal Cannula 09/27/23 07:24 O2 Flow Rate 3 09/27/23 07:24 Oxygen Flow Rate 2 09/24/23 17:05 BMI result Body Mass Index 23.5 Const: Other: General awake alert, resting comfortably in no acute distress. Neck supple, no JVD. CVS regular rate rhythm, Respiratory lungs clear to auscultation, no respiratory distress, no wheeze, no rhonchi. Gastrointestinal abdomen soft, obese, non tender, bowel sounds audible, no guarding , no rigidity. Extremities no edema Neuro non focal ,speech clear. Psych appropriate affect Objective Data Active Medications Acetaminophen (Acetaminophen 325 Mg Tablet) 650 mg PO Q6H PRN PRN Reason: Pain, Mild (Pain Scale 1-3) Albuterol Sulfate (Albuterol Sulfate 90 Mcg 8 Gm Inhaler) 2 puff INHALE Q4H PRN PRN Reason: bronchospasm Albuterol/Ipratropium (Albuterol/Iprat 2.5/0.5mg 3 Ml Ampul.Neb) 3 ml INHALE BID PRN PRN Reason: wheezing Aspirin (Aspirin 81 Mg Tab.Chew) 81 mg PO DAILY [facility] Last Admin: 09/27/23 08:28 Dose: 81 mg Documented By: KARAN Atorvastatin Calcium (Atorvastatin Calcium 80 Mg Tablet) 80 mg PO DAILY [facility] Last Admin: 09/27/23 08:28 Dose: 80 mg Documented By: KARAN Bumetanide (Bumetanide 1 Mg Tablet) 1 mg PO DAILY [facility]; Protocol Last Admin: 09/27/23 08:27 Dose: 1 mg Documented By: KARAN Carvedilol (Carvedilol 6.25 Mg Tablet) 6.25 mg PO BID [facility]; Protocol Last Admin: 09/27/23 08:28 Dose: 6.25 mg Documented By: KARAN Clonidine HCl (Clonidine Hcl 0.2 Mg Tablet) 0.2 mg PO BID [facility]; Protocol Last Admin: 09/27/23 08:27 Dose: 0.2 mg Documented By: KARAN Docusate Sodium (Docusate Sodium 100 Mg Capsule) 100 mg PO BID [facility] Last Admin: 09/27/23 08:27 Dose: 100 mg Documented By: KARAN Ezetimibe (Ezetimibe 10 Mg Tablet) 10 mg PO DAILY [facility] Last Admin: 09/27/23 08:26 Dose: 10 mg Documented By: KARAN Enoxaparin Sodium (Enoxaparin Sodium 30 Mg/0.3 Ml Syringe) 30 mg SUBCUT Q24H [facility] Gabapentin (Gabapentin 300 Mg Capsule) 300 mg PO BID [facility] Last Admin: 09/27/23 08:28 Dose: 300 mg Documented By: KARAN Glucose (Glucose Gel 15 Gm Gel..Gram.) 15 gm PO Q15M PRN; Protocol PRN Reason: per Hypoglycemia Standing Ord. Dextrose (D10) 250 mls @ 750 mls/hr IV Q15M PRN; Protocol PRN Reason: per Hypoglycemia Standing Ord. Insulin Glargine (Insulin Glargine,Hum.Rec.Anlog 100 Unit/Ml 10 Ml Vial) 10 unit SUBCUT BEDTIME [facility] Last Admin: 09/26/23 21:54 Dose: 10 unit Documented By: JUNE Insulin Human Lispro (Insulin Lispro 100 Unit/Ml 3 Ml Vial) 0 unit SUBCUT QIDACHS [facility]; Protocol Last Admin: 09/27/23 08:26 Dose: 2 unit Documented By: KARAN Lisinopril (Lisinopril 40 Mg Tablet) 40 mg PO DAILY [facility]; Protocol Last Admin: 09/27/23 08:28 Dose: 40 mg Documented By: KARAN Melatonin (Melatonin 3 Mg Tablet) 6 mg PO BEDTIME PRN PRN Reason: Insomnia Last Admin: 09/26/23 22:17 Dose: 6 mg Documented By: JUNE Nifedipine (Nifedipine Er 60 Mg Tab.Er.24) 60 mg PO BIDWM [facility]; Protocol Last Admin: 09/27/23 08:27 Dose: 60 mg Documented By: KARAN Non-Formulary Medication (Cholecalciferol (Vitamin D3)) 1,250 mcg PO [facility] [place] Ondansetron HCl (Ondansetron Hcl 4 Mg/2 Ml Vial) 4 mg IVPUSH Q8H PRN PRN Reason: Nausea and Vomiting Sodium Chloride (0.9 % Sodium Chloride Flush 3 Ml Syringe) [facility] Last Admin: 09/27/23 08:33 Dose: 3 ml Documented By: KARAN Tramadol HCl (Tramadol Hcl 50 Mg Tablet) 50 mg PO Q8H PRN PRN Reason: Pain, Moderate(Pain Scale 4-6) Labs 09/25/23 04:58 09/25/23 04:58 Labs: Laboratory Results - last 24 hr 09/26/23 09/26/23 09/26/23 11:23 16:09 20:28 Hold Purple Top aPTT Heparin Protocol POC Glucose 395 H* 186 H 238 H 09/27/23 09/27/23 06:06 07:15 Hold Purple Top SEE NOTE aPTT Heparin Protocol 33.0 L D POC Glucose 182 H Assessment and Plan (1) Hypertensive emergency: Status: Acute (2) Acute non-ST elevation myocardial infarction (NSTEMI): Status: Acute (3) Pre-syncope: Status: Acute Plan 78-year-old female with a PMH significant for?HTN, HLD, CAD s/p triple CABG, hx of carotid stenosis s/p left carotid endarterectomy on 01/16/2022, PAD s/p revascularization on the right, insulin-dependent type 2 diabetes with neuropathy, hx of CVA, CKD 3, CHF, unspecified asthma chronically on 2 L home O2, and hx of diabetic foot ulcers s/p left toe amputations who presents to the ED for evaluation of presyncopal episode earlier today. NSTEMI No recurrent chest pain, no shortness of breath. Likely Type 2, secondary to uncontrolled blood pressure Initial troponin 54.6 with repeat 237.1 and trended down to 220 EKGs showing T-wave inversions in inferior and anterior leads, but no significant ST elevations or depressions s/p IV heparin x 48hrs , continue beta-blockers, Lipitor 80 and started on aspirin. Follow Echocardiogram , case discussed with Cardiology they agree with above treatment Monitor on telemetry Presyncopal episodes Likely in the setting of uncontrolled blood pressure with headache and dizziness. Hypertensive emergency Persistent elevated blood pressure continue carvedilol, lisinopril,nifedipine 60 mg b.i.d. and clonidine 0.2 mg b.i.d. dose reduced from 0.3 mg b.i.d., continue Bumex dose reduced to 1 mg daily from 1 mg b.i.d. Cardiology recommend to add Imdur 60 mg daily follow BP closely Insulin-dependent type Elevated blood sugars greater than 200, continue diabetic diet, home insulin mix 70 30, 10 units daily on hold since non formulary, placed on Lantus 10 units at bedtime, continue insulin sliding scale dosages adjusted CAD/HLD/PAD Continue statin, ezetimibe, beta-blockers CHF unspecified Not in acute exacerbation, Continue bumetanide low-dose and follow echo Severe persistent asthma Not in acute exacerbation,Continue home inhalers, Continue home 2 L NC Full Code DVT Prophylaxis: On heparin drip Pt will require continued inpatient hospitalization for treatment of?NSTEMI and hypertensive urgency. Patient require hospitalization for administration of IV heparin drip, close monitoring of labs, BP, and cardiac function, and specialist consultation with Cardiology. Quality Stroke Does the patient have a stroke diagnosis?: No VTE Prior VTE?: No VTE Risk Level:: Medical - moderate - high VTE Device Contraindication: Treatment Not Indicated VTE Drug Contraindication: N/A - Med Ordered
[2023-09-27 11:09] VITALS: BP 171/74; PULSE 64; RESP 16; TEMP 36.8; O2SAT 96
[2023-09-27 11:36] LABS: Glucose, Whole Blood 299 mg/dL (60-115)
[2023-09-27] MEDS: Enoxaparin Sodium 30 MG/0.3 ML SYRINGE SUBCUT (12:02)
[2023-09-27] MEDS: Isosorbide Mononitrate 60 MG TAB.ER.24H PO (12:02)
[2023-09-27 15:45] VITALS: BP 122/62; PULSE 60; RESP 20; TEMP 36.3; O2SAT 100
[2023-09-27 15:57] LABS: Glucose, Whole Blood 253 mg/dL (60-115)
[2023-09-27 19:42] VITALS: BP 126/58; PULSE 66; RESP 18; TEMP 36.5; O2SAT 100
[2023-09-27 20:17] LABS: Glucose, Whole Blood 197 mg/dL (60-115)
[2023-09-27] MEDS: Insulin Glargine,Hum.rec.anlog 100 UNIT/ML 10 ML VIAL 10 UNIT SUBCUT (20:27)
[2023-09-27 23:06] VITALS: BP 132/60; PULSE 59; RESP 18; TEMP 36.2; O2SAT 99
[2023-09-28 03:18] VITALS: BP 138/65; PULSE 56; RESP 18; TEMP 36.2; O2SAT 98
[2023-09-28 07:29] VITALS: BP 160/68; PULSE 63; RESP 20; TEMP 36.2; O2SAT 100
[2023-09-28 08:06] LABS: Glucose, Whole Blood 212 mg/dL (60-115)
[2023-09-28] MEDS: Insulin Lispro 100 UNIT/ML 3 ML VIAL SUBCUT ×2 (08:20→12:03)
[2023-09-28] MEDS: Enoxaparin Sodium 30 MG/0.3 ML SYRINGE SUBCUT (08:20)
[2023-09-28] MEDS: carvediloL 6.25 MG TABLET PO (08:22)
[2023-09-28] MEDS: Isosorbide Mononitrate 60 MG TAB.ER.24H PO (08:22)
[2023-09-28] MEDS: Bumetanide 1 MG TABLET PO (08:22)
[2023-09-28] MEDS: Atorvastatin Calcium 80 MG TABLET PO (08:22)
[2023-09-28] MEDS: NIFEdipine ER 60 MG TAB.ER.24 PO (08:22)
[2023-09-28] MEDS: cloNIDine HCL 0.2 MG TABLET PO (08:22)
[2023-09-28] MEDS: Docusate Sodium 100 MG CAPSULE PO (08:22)
[2023-09-28] MEDS: lisinopriL 40 MG TABLET PO (08:22)
[2023-09-28] MEDS: Gabapentin 300 MG CAPSULE PO (08:22)
[2023-09-28] MEDS: Ezetimibe 10 MG TABLET PO (08:23)
[2023-09-28] MEDS: Aspirin 81 MG TAB.CHEW PO (08:23)
[2023-09-28] MEDS: 0.9 % Sodium Chloride Flush 3 ML SYRINGE IVFLUSH (08:27)
[2023-09-28 08:29] LABS: Anion Gap 13 (12-20); Blood Urea Nitrogen 30 mg/dL (9-16); Calcium 9.1 mg/dL (8.4-10.2); Carbon Dioxide 29 mmol/L (22-29); Chloride 99 mmol/L (96-108); Estimated Glomerular Filt Rate 30; Glucose Random 224 mg/dL (60-115); Potassium 4.1 mmol/L (3.3-5.1); Sodium 137 mmol/L (135-145)
[2023-09-28 08:42] LABS: B Type Natriuretic Peptide 404 pg/mL (<100)
--- NOTE | 2023-09-28 10:43 | P.PNCA_ITS ---
Subjective Subjective Date of Service: 09/28/23 Interval history: She states she is feeling fine. No specific complaints. Daughter is also the bedside. Review of Systems Review of Systems Yes all other systems are reviewed and are negative Constitutional: Reports as per HPI and Reports no additional constitutional complaints Eyes: Reports as per HPI and Denies no additional eye complaints Denies system reviewed and no additional complaints, except as documented and Reports as per HPI Cardiovascular: Reports as per HPI, Reports no additional cardiovascular complaints, Denies acrocyanosis, Denies cool extremities, Denies chest pain, Denies leg edema, Denies lightheadedness, Denies palpitations and Denies dyspnea Respiratory: Reports as per HPI, Denies no additional respiratory complaints and Denies dyspnea Gastrointestinal: Reports as per HPI and Denies no additional gastrointestinal complaints Genitourinary: Reports as per HPI Musculoskeletal: Reports no additional musculoskeletal complaints and Reports as per HPI Skin/Breast: Reports system reviewed and no additional complaints, except as docu Reports system reviewed and no additional complaints, except as documented and Reports as per HPI Psychiatric: Reports no additional psychiatric complaints and Reports as per HPI Endocrine: Reports no additional endocrine complaints, Reports as per HPI and Denies palpitations Hematologic/Lymphatic: Reports no additional hematologic/lymphatic complaints and Reports as per HPI Allergic/Immunologic: Reports no additional allergic/immunologic complaints and Reports as per HPI Physical Exam Vital Signs: Last Vital Signs Temp 97.1 F 09/28/23 07:29 Pulse 63 09/28/23 07:29 Resp 20 09/28/23 07:29 BP 160/68 H 09/28/23 07:29 Pulse Ox 100 09/28/23 07:29 O2 Del Method Nasal Cannula 09/28/23 07:29 O2 Flow Rate 2 09/28/23 07:29 Oxygen Flow Rate 2 09/24/23 17:05 BMI result Body Mass Index 23.5 Const General: comfortable and no acute distress Orientation/consciousness: patient oriented x3 HEENT Other: Unremarkable Head: Yes normal to inspection Neck Neck: Yes normal visual inspection Chest Chest palpation & inspection: normal inspection of the chest Resp Auscultation: clear to auscultation bilaterally Cardio Palpation: normal PMI Heart sounds: S1 normal heart sound present, S2 normal heart sound present, no gallops, no murmurs and no rubs GI Palpation (GI): Soft to palpation Back/Spine/Pelvis Other: unremarkable Skin General skin exam: no rashes or lesions noted Neuro General: patient oriented x3 Extrem General: Yes normal to inspection Psych Mental Status: mental status grossly normal Objective Labs and Meds 09/25/23 04:58 09/28/23 07:51 Lab results: Laboratory Results - last 24 hr 09/27/23 09/27/23 09/27/23 11:14 15:30 20:12 Sodium Potassium Chloride Carbon Dioxide Anion Gap BUN Creatinine Estim Creat Clear Calc Estimated GFR POC Glucose 299 H 253 H 197 H Random Glucose Calcium B-Natriuretic Peptide 09/28/23 09/28/23 07:39 07:51 Sodium 137 Potassium 4.1 Chloride 99 Carbon Dioxide 29 Anion Gap 13 BUN 30 H Creatinine 1.64 H Estim Creat Clear Calc 23.0 Estimated GFR 30 POC Glucose 212 H Random Glucose 224 H Calcium 9.1 D B-Natriuretic Peptide 404 H Progress Note: A&P Assessment and plan (1) Acute non-ST elevation myocardial infarction (NSTEMI): Status: Acute Assessment and Plan: Per initial consultation, history of bypass surgery, presenting with significantly high blood pressures. Suspected to be secondary event from blood pressure. Less likely a primary event. Per initial consultation, planned medical management and that seems very reasonable. Received IV heparin for 48 hours. Aspirin/statins. Patient does not have any angina at this time. In the echocardiogram, LVEF 60%. Moderate LVH with severe septal hypertrophy. Basal inferior/inferolateral wall seems akinetic but prior study was also similar. Severe pulmonary hypertension. (2) Hypertensive emergency: Status: Acute Assessment and Plan: Blood pressure overall seems improved but not ideal as yet. Meds include a combination of carvedilol, clonidine, lisinopril, nifedipine and most recently we added isosorbide mononitrate as today. Further up titration as an outpatient. Plan Discussed with daughter at the bedside. To follow up with [facility]. Time Spent With Patient Time: Total time managing care of this patient today 45 minutes. This includes time spent in review of chart, laboratory data, imaging studies, review of telemetry, counseling patient, family, discussion with hospitalist, RN, documentation, coordination of care. Progress Note: Quality Stroke Does the patient have a stroke diagnosis?: No Procedures Date of Service Date of Service: 09/28/23
[2023-09-28 11:22] VITALS: BP 127/60; PULSE 57; RESP 20; TEMP 36.1; O2SAT 100
--- NOTE | 2023-09-28 11:31 | P.DS_ITS ---
DS: Providers Provider Date of Service: 09/28/23 Date of admission: 09/24/23 19:17 Primary care physician: Renetta Gonzalez MD Consults: 09/24/23 19:17 Consult to Cardiology Routine Consulting Provider: [facility] [place] Cardiovascular Services Reason for consultation: NSTEMI, presyncope 09/26/23 09:16 Consult to Wound Care Routine Reason for consultation: redness to heels and bilateral buttocks DS: Diagnosis Discharge Diagnosis (1) Acute non-ST elevation myocardial infarction (NSTEMI): Status: Acute (2) Hypertensive emergency: Status: Acute DS: Summary Hospital Course Hospital Course: Date of Service: 09/24/23 Attending physician on admission: Sonu Cabrera Chief Complaint: Syncope Pt is a 78-year-old female with a PMH significant for?HTN, HLD, CAD s/p triple CABG, hx of carotid stenosis s/p left carotid endarterectomy on 01/16/2022, PAD s/p revascularization on the right, insulin-dependent type 2 diabetes with neuropathy, hx of CVA, CKD 3, CHF, unspecified asthma chronically on 2 L home O2, and hx of diabetic foot ulcers s/p left toe amputations who presents to the ED for evaluation of presyncopal episode earlier today. Pt's family is a bedside who help supplement HPI. Granddaughter was with patient earlier today helping her shower when patient began complaining of lightheadedness and a sharp pain in the back of her head as she got out of the shower. Patient felt like she was about to pass out and went to sit down and granddaughter noted she seemed confused, her tongue turned ?purple, spit up some clear liquid, and began making ?crazy faces?. Patient seemingly then became unresponsive for a short period of time. Granddaughter called EMS who report patient was poorly responsive when they arrived with heart rate in the 40s, but quickly improved when placed on a non-rebreather. Patient was then brought to the ED for further evaluation. Family also notes similar incident 2 days prior when patient's was helping her shower and she likewise complained of lightheadness and pain in the back of her head. During that episode patient had taken off her oxygen while showering, and she improved back to baseline when sat her down and put her nasal cannula back on. Patient denies any chest pain/pressure or palpitations. No shortness of breath. Denies fever, chills, nausea, vomiting. Reports felt some abdominal pain/discomfort when sat down after taking shower. In the ED pt was hypertensive up to 211/87 and satting at 97% on chronic 2 L home O2, vitals otherwise WNL. Labs were significant for creatinine 1.78 (up from 1.59 on 08/03/2023), random glucose 270, and initial troponin 54.6 with repeat 237.1. CXR showed findings suggestive of pulmonary edema versus small airway disease. EKG demonstrated normal sinus rhythm with T-wave inversions in leads III, AVF, V1, and V3. Pt was treated with aspirin, initially placed on a nitro drip, and also placed on a heparin drip. Pt will be admitted to the hospital for treatment and further evaluation of NSTEMI. Hospital course: 78-year-old female with a PMH significant for?HTN, HLD, CAD s/p triple CABG, hx of carotid stenosis s/p left carotid endarterectomy on 01/16/2022, PAD s/p revascularization on the right, insulin-dependent type 2 diabetes with neuropathy, hx of CVA, CKD 3, CHF, unspecified asthma chronically on 2 L home O2, and hx of diabetic foot ulcers s/p left toe amputations who presents to the ED for evaluation of presyncopal episode earlier today. Admitted to telemetry with a diagnosis of hypertensive emergency and NSTEMI likely type 2 secondary to uncontrolled hypertension,Initial troponin 54.6 with repeat 237.1 and trended down to 220, treated with EKG showed T-wave inversions in inferior and anterior leads, but no significant ST elevations or depressions, treated with IV heparin x 48hrs , beta-blockers, Lipitor 80 and aspirin, patient had no episodes of chest pain or shortness of bed during hospitalization and echocardiogram showed EF 62%, akinetic inferolateral wall, severe pulmonary hypertension and grade 2 diastolic dysfunction patient was followed closely by Cardiology blood pressure medications adjusted, patient placed on Imdur 60 mg daily, dose of clonidine reduced from 0.3 mg twice daily to 0.2 mg twice daily and dose of Bumex decreased to 1 mg daily, acute hypertension on admission likely due to patient not taking nifedipine twice daily due to lack of insurance authorization. Presyncopal episodes Likely in the setting of uncontrolled blood pressure , no recurrent syncopal episode noted Insulin-dependent type recommend to continue home medications and follow diabetic diet Chronic diastolic CHF no acute exacerbation noted recommend to continue Bumex 1 mg daily and follow renal function as outpatient Severe persistent asthma Not in acute exacerbation,Continue home inhalers, Continue home 2 L NC. Time Attestation Discharge Coordination Time (in mins): 40 Quality: Safe Use of Opioids Does Pt have an Active Cancer Diagnosis on the Problem List?: No Quality: Stroke Does the patient have a stroke diagnosis?: No Physical Exam Vital Signs: Vital Signs: Last Vital Signs Temp 96.9 F 09/28/23 11:22 Pulse 57 09/28/23 11:22 Resp 20 09/28/23 11:22 BP 127/60 09/28/23 11:22 Pulse Ox 100 09/28/23 11:22 O2 Del Method Nasal Cannula 09/28/23 11:22 O2 Flow Rate 2 09/28/23 11:22 Oxygen Flow Rate 2 09/24/23 17:05 BMI result Body Mass Index 23.5 Const: Other: General awake alert, resting comfortably in no acute distress. Neck supple, no JVD. CVS regular rate rhythm, Respiratory lungs clear to auscultation, no respiratory distress, no wheeze, no rhonchi. Gastrointestinal abdomen soft, obese, non tender, bowel sounds audible, no guarding , no rigidity. Extremities no edema Neuro non focal ,speech clear. Psych appropriate affect DS: Data Data Completed and Pending Labs on day of discharge: Laboratory Results - last 24 hr 09/27/23 09/27/23 09/27/23 11:14 15:30 20:12 Sodium Potassium Chloride Carbon Dioxide Anion Gap BUN Creatinine Estim Creat Clear Calc Estimated GFR POC Glucose 299 H 253 H 197 H Random Glucose Calcium B-Natriuretic Peptide 09/28/23 09/28/23 07:39 07:51 Sodium 137 Potassium 4.1 Chloride 99 Carbon Dioxide 29 Anion Gap 13 BUN 30 H Creatinine 1.64 H Estim Creat Clear Calc 23.0 Estimated GFR 30 POC Glucose 212 H Random Glucose 224 H Calcium 9.1 D B-Natriuretic Peptide 404 H Discharge Plan Discharge Anticipated Discharge Date/Time: 09/28/23 11:16 Patient Disposition: Home Health Service Discharge Diagnosis: acute NSTEMI Hypertensive emergency Referrals: Sarika SALAZAR [Outside] - 1 Week Po,Renetta Dupree MD [Primary Care Provider] - 1 Week Discharge Medications: New clonidine HCl 0.2 mg Tablet 0.2 mg PO BID Qty: 180 0RF Protocol: Hold for SBP< HOLD for SBP < : 90 isosorbide mononitrate 60 mg Tablet Extended Release 24 Hr 60 mg PO DAILY Qty: 90 0RF Protocol: Hold for SBP< HOLD for SBP < : 90 aspirin 81 mg Tablet,Chewable 81 mg PO DAILY Qty: 9 0RF Continued (DME) lancets [FreeStyle Lancets] 28 gauge misc See Rx Instructions .ROUTE .MEDSUPPLY Qty: 300 3RF Rx Instructions: As directed check BS TID (DME) oxygen 2L NC See Rx Instructions .Route .MEDSUPPLY Qty: 1 0RF Rx Instructions: As directed (DME) pen needle, diabetic [BD Ultra-Fine Mini Pen Needle] 31 gauge x 3/16 needle See Rx Instructions .ROUTE .COMPLEX Qty: 200 0RF Dose Instruction: USE TO INJECT TWICE DAILY Rx Instructions: USE TO INJECT TWICE DAILY albuterol sulfate [Ventolin HFA] 90 mcg/actuation HFA aerosol inhaler 2 puff inhalation Q4-6H PRN (Reason: bronchospasm) Qty: 8.5 3RF lisinopril 40 mg tablet 40 mg PO DAILY Qty: 90 3RF rosuvastatin 40 mg tablet 40 mg PO DAILY 90 Days Qty: 90 3RF (DME) Diabetic shoes See Rx Instructions .Route .MEDSUPPLY Qty: 1 0RF Rx Instructions: As directed nifedipine 60 mg tablet extended release 60 mg PO BID 90 Days Qty: 180 3RF carvedilol 6.25 mg Tablet 6.25 mg PO BID Qty: 60 0RF Protocol: Hold for SBP/HR < HOLD for SBP < : 90 HOLD for HR < : 60 insulin asp prt-insulin aspart [Novolog Mix 70-30FlexPen U-100] 100 unit/mL (70-30) insulin pen 5 unit subcut DAILY@0730 tramadol 50 mg tablet 50 mg PO Q8H PRN (Reason: Pain) docusate sodium 100 mg capsule 100 mg PO BID gabapentin 300 mg capsule 300 mg PO BID insulin asp prt-insulin aspart [Novolog Mix 70-30FlexPen U-100] 100 unit/mL (70-30) insulin pen 10 unit subcut DAILY@1630 Rx Instructions: os as directed by [facility] cholecalciferol (vitamin D3) 1,250 mcg (50,000 unit) capsule 1,250 mcg PO TU (DME) blood-glucose meter [OneTouch Ultra2 Meter] Kit See Rx Instructions .ROUTE .MEDSUPPLY Qty: 1 0RF Rx Instructions: As directed (DME) Portable Oxygen Concentrator See Rx Instructions .Route .MEDSUPPLY Qty: 1 0RF Rx Instructions: As directed (DME) DEPENDS LARGE See Rx Instructions .Route .MEDSUPPLY Qty: 90 11RF Rx Instructions: As directed ezetimibe [Zetia] 10 mg tablet 10 mg PO DAILY Qty: 90 3RF (DME) compress.stocking,knee,reg,med Misc See Rx Instructions .ROUTE .MEDSUPPLY Qty: 2 2RF Rx Instructions: As directed 20-30 mm HG (DME) FreeStyle Lite Strips Strip See Rx Instructions .ROUTE .MEDSUPPLY Qty: 400 3RF Rx Instructions: As directed check the BS QID ipratropium-albuterol 0.5 mg-3 mg(2.5 mg base)/3 mL solution for nebulization 3 ml inhalation BID PRN (Reason: wheezing) Qty: 180 2RF Changed bumetanide 1 mg tablet 1 mg PO DAILY Qty: 180 3RF Discontinued clonidine HCl 0.3 mg tablet 0.3 mg PO BID 90 Days Qty: 180 3RF Discharge Orders: Discharge Order (Routine); Ordered 09/28/23 Ordered By: Farrah Avalos Diet: Diabetic diet Activity on Discharge: As tolerated Stand Alone Forms: Patient Portal Discharge page Print Language: Citizen [place] Care Plan Goals: Hypertensive emergency dose of clonidine reduced to 0.2 mg twice daily Dose of Bumex decreased to 1mg daily Take Imdur 60 mg daily continue all other home medications as before Take aspirin 81 mg daily Health Concerns: Uncontrolled hypertension Diabetes follow diabetic diet monitor blood sugar Plan of Treatment: Outpatient follow-up with primary care physician call for appointment Outpatient follow-up with [facility] Cardiology need close monitoring and further adjustment of blood pressure medication. Assessment: As above
[2023-09-28 11:35] LABS: Glucose, Whole Blood 321 mg/dL (60-115)
--- NOTE | 2023-09-28 12:39 | HO.WOUND ---
Wound Consult: Initial 78yr old?female admitted to [facility] on 09/24/23 - See progress notes and H&P for detailed history.? Wound consult placed for Bilateral Heels and Buttock wound POA.? Patient agreeable to assessment and photo documentation.? Patient daughter at bedside. Buttock and sacrum assessed - see photo below. The intergluteal area is noted for intact pink blanchable tissue with mirrored hyperpigmentation noted indicative of chronic MASD. Patient denies incontinence currently but reports has had in the past - May consider barrier cream for prevention. Right heel assessed for redness - intact tissue and blanchable throughout - no pressure injury noted at this time. Left heel assessed for redness blanchable throughout and small dried resurfacing area consistent with Diabetic wound. No drainage noted, remains dry. Recommend keep open to air and to not cover with foam dressing as this will donate moisture. Currently wound bed is resurfacing dry and stable will benefit from staying this way and not having a moist wound bed due to history of diabetes. Buttock / Sacrum and Intergluteal Right Heel Left Heel Etiology: ?Diabetic Wound Wound Bed: dry stable appears to be resurfacing Drainage / Odor: None Edges: ? Attached Clau wound: Red intact blanchable tissue - ? No Induration, Fluctuance or Warmth noted Pain: reports tenderness to touch Goals of Treatment: ? Off Load heels off of bed and recliner surface with pillows - do not use foam dressings as they will donate moisture to the dry stable wound. Recommendations: 1. Turn and Reposition every 2 hours and as needed for patient comfort.? Use pillows or wedges to support off loading positions. 2. Off Load all bony prominences with use of pillows and heel boots if needed.? Apply Preventative foams where needed. ? 3. Monitor for incontinence and moisture control, use barrier creams when needed for prevention and treatment. 4. Provide adequate and supplemental nutrition.? 5. Order or Continue low air loss mattress. 6. When applicable maintain blood glucose levels per Providers order. 7. Bilateral Heels - Off Load heels off of bed and recliner surface with pillows - do not use foam dressings as they will donate moisture to the dry stable wound. May apply skin prep and allow to dry to reduce friction. Re-consult wound care Nurse for wound deterioration or wound changes.
--- NOTE | 2023-09-28 12:39 | MHC.CM.PN ---
Second IMM given 09/27. Pt is medically cleared for D/C home with new [facility]. Pts family to transport her home.
--- NOTE | 2023-09-28 13:07 | P.F2F_ITS ---
Service Date Service Date: 09/28/23 Encounter Date of encounter: 09/28/23 Reasons for Services Signs and symptoms assessed: Elevated blood pressures, elevated blood sugars, near-syncope, hypoxia Reason for senior care: CV/CP assess and/or care, diabetic teaching and medication management Homebound: Leaving the home is medically contraindicated at this time without the asist of a device and/or another person due th the listed conditions above and below. Reason homebound: weakness related to hospital stay Certification: Based on the above findings, I certify that this patient is confined to the home and needs intermittent senior care care, physical therapy and/or speech therapy, or continues to need occupational therapy. The patient is under my care, and I have initiated the establishment of the plan of care. The patient will be followed by a physician who will periodically review the plan of care. Time Spent With Patient Time: Total time managing care of this patient today ____ minutes.
== END 2023-09-28 13:01 | disposition home health service (06) | DRG 281 ==
LOC: HO.ED 19:21 → HO.EDOVER 19:40 → HO.IMC 09-25 13:45
PROVIDERS: Admitting Provider Student in an Organized Health Care Education/Training Program; Emergency Provider Student in an Organized Health Care Education/Training Program; PCP Internal Medicine; Visit Provider Hospitalist
DX: I16.1 Hypertensive emergency (principal); I50.32 Chronic diastolic (congestive) heart failure; I21.A1 Myocardial infarction type 2; I13.0 Hypertensive heart and chronic kidney disease with heart failure and stage 1 through stage 4 chronic kidney disease, or unspecified chronic kidney disease; E78.5 Hyperlipidemia, unspecified; E11.22 Type 2 diabetes mellitus with diabetic chronic kidney disease; E11.40 Type 2 diabetes mellitus with diabetic neuropathy, unspecified; J45.50 Severe persistent asthma, uncomplicated; N18.30 Chronic kidney disease, stage 3 unspecified; I25.10 Atherosclerotic heart disease of native coronary artery without angina pectoris; Z99.81 Dependence on supplemental oxygen; Z86.73 Personal history of transient ischemic attack (TIA), and cerebral infarction without residual deficits; Z91.199 Patient's noncompliance with other medical treatment and regimen due to unspecified reason; Z95.5 Presence of coronary angioplasty implant and graft; Z79.4 Long term (current) use of insulin; Z79.899 Other long term (current) drug therapy
CPT/HCPCS: 36415; 71045; 80048; 80061; 82947; 83880; 84484; 85025; 85027; 85610; 85730; 93005; 93306; 99285; J1644; J1650; J2305; Q9957

== ENCOUNTER 2023-09-24 19:17 | Outpatient (BNV) | payer MEDICARE, MEDICAID, SELFPAY | END 2023-09-27 07:00 | PROVIDERS: Admitting Provider Student in an Organized Health Care Education/Training Program; Emergency Provider Student in an Organized Health Care Education/Training Program; PCP Internal Medicine; Visit Provider Internal Medicine | DX: I21.4 Non-ST elevation (NSTEMI) myocardial infarction (principal); I42.2 Other hypertrophic cardiomyopathy; I36.1 Nonrheumatic tricuspid (valve) insufficiency | CPT/HCPCS: 93306 ==

== ENCOUNTER → 2023-09-24 19:17 | Outpatient (BNV) | payer MEDICARE, MEDICAID, SELFPAY | PROVIDERS: Admitting Provider Student in an Organized Health Care Education/Training Program; Emergency Provider Student in an Organized Health Care Education/Training Program; PCP Internal Medicine; Visit Provider Internal Medicine Cardiovascular Disease | DX: I16.1 Hypertensive emergency (principal); I21.4 Non-ST elevation (NSTEMI) myocardial infarction; R94.31 Abnormal electrocardiogram [ECG] [EKG]; Z95.1 Presence of aortocoronary bypass graft | CPT/HCPCS: 93010; 99223; 99233 ==

== ENCOUNTER → 2023-09-24 19:17 | Outpatient (BNV) | payer MEDICARE, MEDICAID, SELFPAY | PROVIDERS: Admitting Provider Student in an Organized Health Care Education/Training Program; Emergency Provider Student in an Organized Health Care Education/Training Program; PCP Internal Medicine; Visit Provider Student in an Organized Health Care Education/Training Program | DX: I21.4 Non-ST elevation (NSTEMI) myocardial infarction (principal); I16.1 Hypertensive emergency | CPT/HCPCS: 99223; 99233; 99239; G0180 ==

== ENCOUNTER 2023-10-12 11:10 | Outpatient (AMB) | payer MEDICARE, MEDICAID, SELFPAY ==
--- NOTE | 2023-10-12 11:17 | MHC.PC.OV ---
Vital Signs 10/12/23 11:18 Height 5 ft 3 in Weight 131 lb BMI 23.2 BP 144/72 H Blood Pressure Location Lt brachial Position Sitting Pulse 70 Pulse Source Pulse Oximeter Pulse Oximetry (%) 94 Oxygen Delivery Method Nasal Cannula Intake [place] [facility] [place] low blood sugar Allergies peanut [PEANUT] Allergy (Unknown, Verified 10/12/23 11:19) RASH seafood Allergy (Unknown, Verified 10/12/23 11:19) Unknown Tobacco use date assessed: 07/07/23 Fall risk assessment: No Falls in past year Last assessed Fall Risk: 10/12/23 Dental Screening Dental Screen Date: 07/07/23 [place] [facility] [place] low blood sugar HPI Details 78-year-old female with multiple medical problems diabetes mellitus chronic kidney disease history of CVA coronary artery disease hypercholesterolemia asthma coming in for follow-up. June last seen patient was recently in the hospital 09/28/2023 presyncopal episode having sharp pain in the back of her head patient's heart rate was in the 40s. In the ED patient was found to be hypertensive O2 2 L nasal cannula chest x-ray findings suggestive of pulmonary edema diagnosis andN STEMI likely secondary to uncontrolled hypertension. Echocardiogram shows 62% ejection fraction akinetic inferior lateral wall grade 2 diastolic dysfunction Imdur 60 mg once a day clonidine reduced to 0.2 mg twice a day patient on Bumex 1 mg once a day. Patient has been follow-up with Nephrology also in last seen in September for stage IIIB chronic kidney disease [facility] Medical History Post-menopausal Hypertension, uncontrolled Toe pain, right Cellulitis, leg Screening for breast cancer Chronic kidney disease, stage 3 Diabetic retinopathy Aortic stenosis History of CVA (cerebrovascular accident) Thyroid nodule Congestive heart failure Hypercholesterolemia Diabetic neuropathy Hypertension Dementia Asthma Peripheral vascular disease Coronary artery disease Type 2 diabetes mellitus with hyperglycemia Surgical History History of endarterectomy History of colonoscopy History of cataract surgery Hx of cholecystectomy Amputated toe of left foot Hx of CABG Femoral-popliteal bypass graft occlusion, left Carotid stenosis Family History Father Diabetes Hypertension Mother Hypertension CVD (cardiovascular disease) Cancer Diabetes Maternal Aunt Breast cancer Seizures Sister No problems noted. Son No problems noted. Son No problems noted. Son No problems noted. Daughter No problems noted. Social History Household Members: None Housing: House Do you presently have visiting nurse or other home services: No Alcohol intake: current Alcohol intake frequency: does not drink Patient Tobacco Use Status: Never used Tobacco e-Cigarette/Vaping Use: Never Used Second Hand Smoke Exposure: No service: No Current occupational status: unemployed and retired Cognitive needs: No Hearing needs: No Vision needs: Yes Questionnaire PHQ-9 Over the last 2 weeks, how often have you been bothered by any of the following problems? 1. Little interest or pleasure in doing things: not at all 2. Feeling down, depressed, or hopeless: not at all 3. Trouble falling or staying asleep, or sleeping too much: not at all 4. Feeling tired or having little energy: not at all 5. Poor appetite or overeating: not at all 6. Feeling bad about yourself - or that you are a failure or have let yourself or your family down: not at all 7. Trouble concentrating on things, such as reading the newspaper or watching television: not at all 8. Moving or speaking so slowly that other people could have noticed. Or the opposite - being so fidgety or restless that you have been moving around a lot more than usual: not at all 9. Thoughts that you would be better off or of hurting yourself in some way: not at all Total score: 0 Depression Screening Interpretation: Negative Depression Screening Done: Yes 41839 - PHQ-9 Billing: Yes Source: Developed by Drs. Ramos Dove, Vesta Yeh, Maksim Fernandez and colleagues, with an educational breann from [employer]. Thrive Questionnaire Date Thrive assessed: 09/25/23 AUDIT C Alcohol Use Questionnaire (AUDIT-C) 1. How often do you have a drink containing alcohol?: Monthly or less 2. How many drinks containing alcohol do you have on a typical day when you are drinking?: 1 or 2 3. How often do you have six or more drinks on one occasion?: Never Total Score: 1 Score Reviewed/Action Taken: No SUZAN-7 AMB Questionnaire SUZAN-7 Date SUZAN - 7 assessed: 07/07/23 Source: Developed by Drs. Ramos Dove, Vesta Yeh, Maksim Fernandez and colleagues, with an educational breann from [employer]. Physical exam (Primary Care) Vital Signs: Last Vital Signs Pulse 70 10/12/23 11:18 BP 144/72 H 10/12/23 11:18 Pulse Ox 94 10/12/23 11:18 Oxygen Delivery Method Nasal Cannula 10/12/23 11:18 BMI result Body Mass Index 23.2 Tobacco/Smoking Status: Tobacco use Status Tobacco use date assessed 07/07/23 10/12/23 11:26 Patient Tobacco Use Status Never used Tobacco 10/12/23 11:26 e-Cigarette/Vaping Use Never Used 10/12/23 11:26 PHQ-9: PHQ-9 Score PHQ-9: Total score 0 10/12/23 11:26 Depression Screening Interpretation: Negative Thrive Assessment: Date of Thrive Assessment Date Thrive assessed 09/25/23 10/12/23 11:26 Const General: alert; No acute distress Eyes Conjunctivae: conjunctivae normal Resp Auscultation: clear to auscultation bilaterally Cardio Rate: regular rate Rhythm: regular rhythm GI Inspection: Yes normal to inspection Extrem General: Yes normal to inspection and No edema Assessment and Plan Assessment & Plan (1) Hypertension: Code(s): I10 - Essential (primary) hypertension Plan: Continue with blood pressure medication. Decrease salt intake and exercise carvedilol 6.25 mg twice a day clonidine 0.2 mg twice a day isosorbide mononitrate 60 mg once a day lisinopril 40 mg once a day nifedipine 60 mg twice a day. BP better at home, (2) Hypercholesterolemia: Code(s): E78.00 - Pure hypercholesterolemia, unspecified Plan: Avoid fried foods, chicken skin, eggs, butter margarine, pastries and meat. Be it pork or beef they have a lot of cholesterol September 2023 LDL up to goal rosuvastatin 40 mg once a day LDL goal of less than 70 preferably less than 55. (3) Coronary artery disease: Code(s): I25.10 - Atherosclerotic heart disease of [place] coronary artery without angina pectoris Plan: Control the cholesterol, weight, blood pressure, diabetes continue with aspirin 81 mg once a day (4) Chronic kidney disease, stage 3: Code(s): N18.30 - Chronic kidney disease, stage 3 unspecified Plan: Keep well hydrated avoid NSAIDs on Bumex 1 mg once a day (5) Type 2 diabetes mellitus with hyperglycemia: Code(s): E11.65 - Type 2 diabetes mellitus with hyperglycemia Plan: Decrease the amount of carbohydrate intake, pasta, bread, rice and potatoes are all sugar and that is aside from all the sweet stuff, remember that fruits are good but they are Sweet also. Hemoglobin A1c goal of less than 7.0 presently on insulin. PAtient needs the Diabetic shoe to prevent infections and wounds (6) Congestive heart failure: Code(s): I50.9 - Heart failure, unspecified Qualifiers: Heart failure type: unspecified Heart failure chronicity: chronic Qualified Code(s): I50.9 - Heart failure, unspecified Plan: Weight daily, on Bumex (7) On supplemental oxygen therapy: Code(s): Z99.81 - Dependence on supplemental oxygen Plan: Continue to use the oxygen. Medications: New [DIABETIC CUSTOM SHOE] As directed 1 ea 0RF E11.65 - Type 2 diabetes mellitus with hyperglycemia Coding Level of Care Code Est Pt Level 4 (73710) Diagnoses Essential hypertension I10 Hypercholesterolemia E78.00 Coronary artery disease I25.10 Chronic kidney disease, stage 3 N18.30 Type 2 diabetes mellitus with hyperglycemia, with long-term current use of insulin E11.65 Chronic congestive heart failure, unspecified heart failure type I50.9 Heart failure type: unspecified Heart failure chronicity: chronic On supplemental oxygen therapy Z99.81
[2023-10-12 11:18] VITALS: BP 144/72; PULSE 70; O2SAT 94; BMI 23.2
== END 2023-10-12 11:53 | disposition home or self-care (01) ==
PROVIDERS: PCP Internal Medicine; Visit Provider Internal Medicine
DX: I13.0 Hypertensive heart and chronic kidney disease with heart failure and stage 1 through stage 4 chronic kidney disease, or unspecified chronic kidney disease (principal); N18.30 Chronic kidney disease, stage 3 unspecified; I50.9 Heart failure, unspecified; E11.65 Type 2 diabetes mellitus with hyperglycemia; E78.00 Pure hypercholesterolemia, unspecified; I25.10 Atherosclerotic heart disease of native coronary artery without angina pectoris; Z99.81 Dependence on supplemental oxygen
CPT/HCPCS: 99214

== ENCOUNTER 2024-02-02 08:54 | Outpatient (AMB) | payer MEDICARE, MEDICAID, SELFPAY ==
[2024-02-02 08:55] VITALS: BP 144/76; PULSE 80; O2SAT 88; BMI 23.0
--- NOTE | 2024-02-02 08:55 | A.OFFPC_ITS ---
Vital Signs 02/02/24 08:55 Height 5 ft 3 in Blood Pressure Location Lt brachial Position Sitting Pulse Source Pulse Oximeter Oxygen Delivery Method Room Air Intake Visit Reasons: [facility] G0439 Mathematics Department Chair Required: No Accompanied by: Self / Same As Patient Allergies peanut [PEANUT] Allergy (Unknown, Verified 02/02/24 08:56) RASH seafood Allergy (Unknown, Verified 02/02/24 08:56) Unknown Tobacco use date assessed: 02/02/24 Fall risk assessment: No Falls in past year Last assessed Fall Risk: 02/02/24 Dental Screening Dental Screen Date: 02/02/24 [facility] Medical History Post-menopausal Hypertension, uncontrolled Toe pain, right Cellulitis, leg Screening for breast cancer Chronic kidney disease, stage 3 Diabetic retinopathy Aortic stenosis History of CVA (cerebrovascular accident) Thyroid nodule Congestive heart failure Hypercholesterolemia Diabetic neuropathy Hypertension Dementia Asthma Peripheral vascular disease Coronary artery disease Type 2 diabetes mellitus with hyperglycemia Surgical History History of endarterectomy History of colonoscopy History of cataract surgery Hx of cholecystectomy Amputated toe of left foot Hx of CABG Femoral-popliteal bypass graft occlusion, left Carotid stenosis Family History Father Diabetes Hypertension Mother Hypertension CVD (cardiovascular disease) Cancer Diabetes Maternal Aunt Breast cancer Seizures Sister No problems noted. Son No problems noted. Son No problems noted. Son No problems noted. Daughter No problems noted. Social History Household Members: None Housing: House Do you presently have visiting nurse or other home services: No Alcohol intake: current Alcohol intake frequency: does not drink Patient Tobacco Use Status: Never used Tobacco e-Cigarette/Vaping Use: Never Used Second Hand Smoke Exposure: No service: No Current occupational status: unemployed and retired Cognitive needs: No Hearing needs: No Vision needs: Yes Questionnaire PHQ-9 Over the last 2 weeks, how often have you been bothered by any of the following problems? 1. Little interest or pleasure in doing things: not at all 2. Feeling down, depressed, or hopeless: not at all 3. Trouble falling or staying asleep, or sleeping too much: not at all 4. Feeling tired or having little energy: not at all 5. Poor appetite or overeating: not at all 6. Feeling bad about yourself - or that you are a failure or have let yourself or your family down: not at all 7. Trouble concentrating on things, such as reading the newspaper or watching television: not at all 8. Moving or speaking so slowly that other people could have noticed. Or the opposite - being so fidgety or restless that you have been moving around a lot more than usual: not at all 9. Thoughts that you would be better off or of hurting yourself in some way: not at all Total score: 0 Depression Screening Interpretation: Negative Depression Screening Done: Yes 37701 - PHQ-9 Billing: Yes Source: Developed by Drs. Ramos Dove, Vesta Yeh, Maksim Fernandez and colleagues, with an educational breann from [employer]. Thrive Questionnaire Date Thrive assessed: 02/02/24 I am a: Patient What is your living situation today?: I have a steady place to live Within the past 12 months, did the food you bought not last and you didn't have the money to get more?: Never true Within the past 12 months, did you worry whether your food would run out before you got money to buy more?: Never true Do you have trouble paying for medicines?: No Do you have trouble getting transportation to medical appointments?: No Do you have trouble paying your heating and electricity bill?: No Do you have trouble taking care of your child, family member or friend?: No Do you have trouble with day-to-day activities such as bathing, preparing meals, shopping, managing finances, etc.?: No Are you currently unemployed and looking for a job?: No Are you interested in more education?: No Please select the resources that you would like help with: None Currently or been in a relationship where the following occur: No concerns reported THRIVE Score: 0 AUDIT C Alcohol Use Questionnaire (AUDIT-C) 1. How often do you have a drink containing alcohol?: Monthly or less 2. How many drinks containing alcohol do you have on a typical day when you are drinking?: 1 or 2 3. How often do you have six or more drinks on one occasion?: Never Total Score: 1 Score Reviewed/Action Taken: No SUZAN-7 AMB Questionnaire SUZAN-7 Date SUZAN - 7 assessed: 02/02/24 Feeling nervous, anxious, or on edge: 0 = Not at all Not being able to stop or control worryin = Not at all Worrying too much about different things: 0 = Not at all Trouble relaxin = Not at all Being so restless that it is hard to sit still: 0 = Not at all Becoming easily annoyed or irritable: 0 = Not at all Feeling afraid as if something awful might happen: 0 = Not at all Total SUZAN-7 score (0-4 normal; 5-9 mild; 10-14 moderate; 15-21 severe): 0 Source: Developed by Drs. Ramos Dove, Vesta Yeh, Maksim Fernandez and colleagues, with an educational breann from [employer]. Physical exam (Primary Care) Tobacco/Smoking Status: Tobacco use Status Tobacco use date assessed 07/07/23 10/12/23 11:26 Patient Tobacco Use Status Never used Tobacco 10/12/23 11:26 e-Cigarette/Vaping Use Never Used 10/12/23 11:26 Depression Screening Interpretation: Negative Thrive Assessment: Date of Thrive Assessment Date Thrive assessed 09/25/23 10/12/23 11:26 Currently or been in a relationship where the following occur: No concerns reported Coding
--- NOTE | 2024-02-02 09:22 | A.OFFVIS_ITS ---
Intake Vital Signs 02/02/24 08:55 Height 5 ft 3 in Weight 130 lb BMI 23.0 BP 144/76 H Blood Pressure Location Lt brachial Position Sitting Pulse 80 Pulse Source Pulse Oximeter Pulse Oximetry (%) 88 L Oxygen Delivery Method Nasal Cannula Intake Visit Reasons: [facility] G0439 Allergies peanut [PEANUT] Allergy (Unknown, Verified 02/02/24 08:56) RASH seafood Allergy (Unknown, Verified 02/02/24 08:56) Unknown Medication List - Last Reconciled 02/02/24 by Renetta Gonzalez MD albuterol sulfate 90 mcg/actuation (Ventolin HFA) 2 puffs inhalation Q4-6H PRN aspirin 81 mg PO DAILY blood sugar diagnostic (FreeStyle Lite Strips) As directed check the BS QID blood-glucose meter (Convio Ultra2 Meter kit) As directed bumetanide 1 mg PO DAILY carvedilol 6.25 mg See Protocol PO BID cholecalciferol (vitamin D3) 1,250 mcg PO TU clonidine HCl 0.2 mg See Protocol PO BID compress.stocking,knee,reg,med As directed 20-30 mm HG [DEPENDS LARGE As directed] [DIABETIC CUSTOM SHOE As directed] [Diabetic shoes As directed] docusate sodium 100 mg PO BID gabapentin 300 mg PO BID 90 days insulin asp prt-insulin aspart 100 unit/mL (70-30) (Novolog Mix 70-30FlexPen U- 100) 5 units subcut DAILY@0730 insulin asp prt-insulin aspart 100 unit/mL (70-30) (Novolog Mix 70-30FlexPen U- 100) 10 units subcut DAILY@1630 isosorbide mononitrate ER 60 mg See Protocol PO DAILY lancets (FreeStyle Lancets) As directed check BS TID lisinopril 40 mg PO DAILY nifedipine ER 60 mg PO BID 90 days [oxygen 2L NC As directed] Oxygen Home Use As directed pen needle, diabetic (BD Ultra-Fine Mini Pen Needle) USE TO INJECT TWICE DAILY [Portable Oxygen Concentrator As directed] rosuvastatin 40 mg PO DAILY 90 days tramadol 50 mg PO Q8H PRN HPI [facility] G0439 HPI Details 78-year-old female with diabetes mellitu s coronary artery disease hypertension hypercholesterolemia chronic kidney disease congestive heart failure history of CVA coming in for an annual well visit. Last seen in 10/02/2023. Patient's colonoscopy is due mammogram is up-to-date bone density is up-to-date. Review of the notes follows up with Nephrology January 26 diagnosis of chronic kidney disease stage IIIB advised renal artery stenosis workup. [facility] Medical History (Updated 02/02/24 @ 09:24 by Renetta Gonzalez MD) Screening for colon cancer Obesity (BMI 30-39.9) Pain of left heel Post-menopausal Hypertension, uncontrolled Toe pain, right Cellulitis, leg Screening for breast cancer Chronic kidney disease, stage 3 Diabetic retinopathy Aortic stenosis History of CVA (cerebrovascular accident) Thyroid nodule Congestive heart failure Hypercholesterolemia Diabetic neuropathy Hypertension Dementia Asthma Peripheral vascular disease Coronary artery disease Type 2 diabetes mellitus with hyperglycemia Surgical History History of endarterectomy History of colonoscopy History of cataract surgery Hx of cholecystectomy Amputated toe of left foot Hx of CABG Femoral-popliteal bypass graft occlusion, left Carotid stenosis Family History Father Diabetes Hypertension Mother Hypertension CVD (cardiovascular disease) Cancer Diabetes Maternal Aunt Breast cancer Seizures Sister No problems noted. Son No problems noted. Son No problems noted. Son No problems noted. Daughter No problems noted. Social History Household Members: None Housing: House Do you presently have visiting nurse or other home services: No Alcohol intake: current Alcohol intake frequency: does not drink Patient Tobacco Use Status: Never used Tobacco e-Cigarette/Vaping Use: Never Used Second Hand Smoke Exposure: No service: No Current occupational status: unemployed and retired Cognitive needs: No Hearing needs: No Vision needs: Yes Questionnaire Medicare Wellness Checkup [age] What gender do you identify with?: female During the past 4 weeks, how much have you been bothered by emotional problems such as feeling anxious, depressed, irritable, sad or downhearted, and blue?: not at all During the past 4 weeks, has your physical & emotional health limited your soc ial activities with family, friends, neighbors, or groups?: not at all During the past 4 weeks, how much bodily pain have you generally had?: no pain During the past 4 weeks, was someone available to help you if you needed & wanted help?: yes, as much as I wanted During the past 4 weeks, what was the hardest physical activity you could do for at least 2 minutes?: moderate Can you get to places out of walking distance without help? (For eg., can you travel alone on buses, taxis or drive your car?): No Can you go shopping for groceries or clothes without someone's help?: No Can you prepare your own meals?: No Can you do your housework without help?: No Because of any health problems, do you need the help of another person with your personal care needs such as eating, bathing, dressing or getting around the house?: Yes Can you handle your own money without help?: No During the past 4 weeks, how would you rate your health in general?: poor During the past 4 weeks how have things been going for you?: pretty well Are you having difficulties driving your car?: not applicable, I don't use a car Do you always fasten your seat belt when you are in a car?: yes, usually During past 4 weeks, have you been bothered by the following: never: Falling or dizzy when standing up, Sexual problems?, Trouble eating well? and Teeth or denture problems? and sometimes: Problems using the telephone? and Tiredness or fatigue? Have you fallen 2 or more times in the past year?: Yes Are you afraid of falling?: Yes Are you a smoker?: no During the past 4 weeks, how many drinks of wine, beer, or other alcoholic beverages did you have?: no alcohol at all Do you exercise for about 20 minutes 3 or more times a week?: yes, some of the time Have you been given information to help with the following?: yes: Keeping track of your medications? and no: Hazards in your house that might hurt you? How often do you have trouble taking medicines the way you have been told to take them?: I always take medicine as prescribed How confident are you that you can control & manage most of your health problems?: not very confident What is your race?: or origin or descent PHQ-9 Over the last 2 weeks, how often have you been bothered by any of the following problems? 1. Little interest or pleasure in doing things: several days 2. Feeling down, depressed, or hopeless: not at all 3. Trouble falling or staying asleep, or sleeping too much: several days 4. Feeling tired or having little energy: more than half the days 5. Poor appetite or overeating: not at all 6. Feeling bad about yourself - or that you are a failure or have let yourself or your family down: not at all 7. Trouble concentrating on things, such as reading the newspaper or watching television: not at all 8. Moving or speaking so slowly that other people could have noticed. Or the opposite - being so fidgety or restless that you have been moving around a lot more than usual: not at all 9. Thoughts that you would be better off or of hurting yourself in some way: not at all Total score: 4 Depression Screening Interpretation: Positive Depression Screening Done: Yes Source: Developed by Drs. Ramos Dove, Vesta Yeh, Maksim Fernandez and colleagues, with an educational breann from [employer]. Thrive Questionnaire Date Thrive assessed: 09/25/23 SUZAN-7 AMB Questionnaire SUZAN-7 Date SUZAN - 7 assessed: 07/07/23 Source: Developed by Drs. Ramos Dove, Vesta Yeh, Maksim Fernandez and colleagues, with an educational breann from [employer]. Review of Systems Const Denies poor appetite and Denies weakness Eyes Denies no additional complaints ENT Reports Normal hearing present, Denies dizziness, Denies nasal congestion, Denies tinnitus and Denies sore throat Card Denies chest pain, Denies syncope, Denies rapid heart rate and Denies dyspnea Resp Denies cough and Denies dyspnea GI Denies change in stool character, Reports constipation, Denies diarrhea, Denies nausea and Denies vomiting Denies urinary frequency, Denies difficulty voiding and Denies dysuria Neuro Reports Normal hearing present, Denies confusion, Denies dizziness, Denies syncope and Denies weakness Psych Denies confusion Physical Exam Vital Signs: Last Vital Signs Pulse 80 02/02/24 08:55 BP 144/76 H 02/02/24 08:55 Pulse Ox 88 L 02/02/24 08:55 Oxygen Delivery Method Nasal Cannula 02/02/24 08:55 BMI result Body Mass Index 23.0 Const General: No confusion Orientation/consciousness: No confusion HEENT Head: Yes normocephalic Ears: external ears normal and TM's normal bilaterally Face and sinus: Yes normal facial exam Mouth: moist mucous membranes Throat: Yes tonsils normal Eyes Conjunctivae: conjunctivae normal Pupils: Equal, round and reactive pupils present and Pupil accommodation reflex normal Direct Ophthalmoscopy: normal light reflex Neck Neck: No lymphadenopathy Thyroid: Thyroid normal Chest Chest palpation & inspection: normal inspection of the chest Resp Effort & Inspection: normal respiratory effort and no audible wheezes Auscultation: clear to auscultation bilaterally, no crackles, no wheezes and lung sounds not diminished Cardio Rate: regular rate Rhythm: regular rhythm Peripheral pulses: radial pulses present and dorsalis pedis present GI Other: guaiac neg Palpation (GI): no masses Auscultation: normal bowel sounds and normoactive bowel sounds Rectal Exam - Female: deferred Skin General skin exam: no rashes or lesions noted Rashes: no rashes Neuro Other: pedal pulse good , pin prick cannot feel L foot with amputated big toe and pinky toe, callous ulcer on the fifth metatarsal General: No confusion Cranial nerves: Yes Equal, round and reactive pupils present and Yes Normal hearing present Cognition (Neuro): normal cognition Gait exam (Neuro): Normal gait present Motor exam (neuro): 5/5 motor strength present throughout Deep tendon reflexes (DTR's): Right brachioradialis reflex intensity grade: 2+, Left brachioradialis reflex intensity grade: 2+, Right patellar reflex intensity grade: 2+ and Left patellar reflex intensity grade: 2+ Results AMB Hemoglobin A1c AMB Hemoglobin A1c 6.9 % Last Edit by Kizzy Rivera CMA on 02/02/24 09 :39 Assessment & Plan Assessment & Plan (1) Medicare annual wellness visit, subsequent: Code(s): Z00.00 - Encounter for general adult medical examination without abnormal findings Plan: Patient is advised to eat healthy, keep well hydrated, keep active and have adequate sleep. (2) Type 2 diabetes mellitus with hyperglycemia: Code(s): E11.65 - Type 2 diabetes mellitus with hyperglycemia Qualifiers: Diabetes mellitus fci insulin use: with hearing dog trainer use Qualified Code(s): E11.65 - Type 2 diabetes mellitus with hyperglycemia; Z79.4 - correction (current) use of insulin Plan: Decrease the amount of carbohydrate intake, pasta, bread, rice and potatoes are all sugar and that is aside from all the sweet stuff, remember that fruits are good but they are Sweet also. Hemoglobin A1c goal of less than 7.0. Patient is on NovoLog mix 70 30 and being followed up by Endocrinology (3) Chronic kidney disease, stage 3: Code(s): N18.30 - Chronic kidney disease, stage 3 unspecified Plan: Patient has seen Nephrology continuing with blood pressure control keeping well hydrated avoid NSAIDs concern about the blood pressure and renal workup advised. (4) Coronary artery disease: Code(s): I25.10 - Atherosclerotic heart disease of [place] coronary artery without angina pectoris Plan: Control the cholesterol, weight, blood pressure, diabetes continue with aspirin 81 mg once a day (5) Hypercholesterolemia: Code(s): E78.00 - Pure hypercholesterolemia, unspecified Plan: Avoid fried foods, chicken skin, eggs, butter margarine, pastries and meat. Be it pork or beef they have a lot of cholesterol LDL goal of less than 70 and triglyceride of less than 150 patient takes Zetia and rosuvastatin 40 mg once a day September last blood work (6) Hypertension: Code(s): I10 - Essential (primary) hypertension Plan: Continue with blood pressure medication. Decrease salt intake and exercise patient is on lisinopril 40 mg once a day nifedipine 60 mg twice a day clonidine 0.2 mg twice a day carvedilol 6.25 mg twice a day (7) Asthma: Code(s): J45.909 - Unspecified asthma, uncomplicated Plan: Continue with the inhaler (8) Congestive heart failure: Code(s): I50.9 - Heart failure, unspecified Qualifiers: Heart failure chronicity: chronic Heart failure type: unspecified Qualified Code(s): I50.9 - Heart failure, unspecified Plan: Weigh daily and continue with bumetanide 1 mg once a day (9) Peripheral vascular disease: Code(s): I73.9 - Peripheral vascular disease, unspecified Plan: When sitting down elevate the legs, exercise, and support stockings Orders: Orders AMB Hemoglobin A1c Today Z13.9 - Encounter for screening, unspecified Comprehensive Met. Panel Today E11.65 - Type 2 diabetes mellitus with hyperglycemia, Z79.4 - correction (current) use of insulin Free T4 (Free Thyroxine) Today E11.65 - Type 2 diabetes mellitus with hyperglycemia, Z79.4 - automotive fuel systems converter (current) use of insulin B Type Natriuretic Peptide Today E11.65 - Type 2 diabetes mellitus with hyperglycemia, Z79.4 - automotive fuel systems converter (current) use of insulin Complete Blood Count Auto Diff Today E11.65 - Type 2 diabetes mellitus with hyperglycemia, Z79.4 - automotive fuel systems converter (current) use of insulin Magnesium Today E11.65 - Type 2 diabetes mellitus with hyperglycemia, Z79.4 - automotive fuel systems converter (current) use of insulin UA w Microscopic Today E11.65 - Type 2 diabetes mellitus with hyperglycemia, Z79.4 - correction (current) use of insulin Thyroid Stimulating Hormone Today E11.65 - Type 2 diabetes mellitus with hyperglycemia, Z79.4 - correction (current) use of insulin Referrals Ophthalmology Referral E11.65 - Type 2 diabetes mellitus with hyperglycemia, Z79.4 - correction (current) use of insulin Quality Reporting (2020) Depression/Bipolar (159/160/161/177) PHQ-9: Total score: 4 Coding Level of Care Code Medicare Subsequent (G0439) Diagnoses Medicare annual wellness visit, subsequent Z00.00 Type 2 diabetes mellitus with hyperglycemia, with long-term current use of insulin E11.65; Z79.4 Diabetes mellitus fci insulin use: with hearing dog trainer use Chronic kidney disease, stage 3 N18.30 Coronary artery disease I25.10 Hypercholesterolemia E78.00 Essential hypertension I10 Asthma J45.909 Chronic congestive heart failure, unspecified heart failure type I50.9 Heart failure chronicity: chronic Heart failure type: unspecified Peripheral vascular disease I73.9
== END 2024-02-02 12:45 | disposition home or self-care (01) ==
PROVIDERS: PCP Internal Medicine; Visit Provider Internal Medicine
DX: Z00.00 Encounter for general adult medical examination without abnormal findings (principal); I13.0 Hypertensive heart and chronic kidney disease with heart failure and stage 1 through stage 4 chronic kidney disease, or unspecified chronic kidney disease; I50.9 Heart failure, unspecified; N18.30 Chronic kidney disease, stage 3 unspecified; E11.65 Type 2 diabetes mellitus with hyperglycemia; Z79.4 Long term (current) use of insulin; I25.10 Atherosclerotic heart disease of native coronary artery without angina pectoris; E78.00 Pure hypercholesterolemia, unspecified; J45.909 Unspecified asthma, uncomplicated
CPT/HCPCS: 83036; G0439

== ENCOUNTER 2024-02-18 08:10 | Outpatient (REF) | payer MEDICARE, MEDICAID, SELFPAY ==
[2024-02-18 08:21] LABS: MANUAL DIFF FLAG NO
[2024-02-18 08:55] LABS: Basophils Absolute Auto 0.1 X10*3/uL (0.0-0.2); Basophils Percent Auto 0.7 % (0-2); Eosinophils Absolute Auto 0.3 X10*3/uL (0.0-0.4); Eosinophils Percent Auto 3.4 % (0-4); Hematocrit 36.8 % (37.0-47.0); Imm Gran Abs Auto 0.03 X10*3/uL (0.00-0.03); Imm Gran Pct Auto 0.3 % (0.0-0.4); Lymphocytes Absolute Auto 1.8 X10*3/uL (1.2-4.9); Lymphocytes Percent Auto 19.9 % (20-40); Mean Corpuscular HGB Conc 32.6 g/dl (31.0-35.0); Monocytes Absolute Auto 0.6 X10*3/uL (0.1-1.2); Monocytes Percent Auto 7.2 % (2-11); Neutrophils Absolute Auto 6.1 x10*3/uL (2.0-8.3); Neutrophils Percent Auto 68.5 % (45-73); Platelet Count 208 X10*3/uL (160-400); Red Blood Count 4.28 X10*6/uL (4.20-5.50); Red Cell Distribution Width 14.8 % (11.0-16.0); White Blood Count 8.9 X10*3/uL (4.8-10.8)
[2024-02-18 09:02] LABS: Appearance Urine Clear; Color Urine Yellow; Glucose Urine UA Negative (Negative); Leukocyte Esterase Urine Small (1+) (Negative); Nitrite Urine Negative (Negative); PH 5.5 (5.0-9.0); Specific Gravity - Urine 1.015 (1.005-1.025); UMIC TRIGGER UA YES; Urine Blood Negative (Negative); Urine Ketones Negative (Negative); Urine Protein 300 (3+) mg/dL (Neg-Trace)
[2024-02-18 09:04] LABS: Bacteria Urine 1+ (None Seen); Hyaline Casts Urine 0-2 /LPF (0-2); RBC Urine 0-2 /HPF (0-2)
[2024-02-18 09:14] LABS: B Type Natriuretic Peptide 847 pg/mL (<100)
[2024-02-18 09:33] LABS: Alanine Aminotransferase 10 U/L (0-31); Albumin Level 3.9 g/dL (3.5-5.0); Alkaline Phosphatase 112 U/L (39-117); Anion Gap 14 (12-20); Aspartate Amino Transferase 21 U/L (5-31); Bilirubin Total 0.6 mg/dL (0.0-1.0); Blood Urea Nitrogen 15 mg/dL (9-16); Calcium 9.8 mg/dL (8.4-10.2); Carbon Dioxide 28 mmol/L (22-29); Chloride 105 mmol/L (96-108); Estimated Glomerular Filt Rate 38; Glucose Random 169 mg/dL (60-115); Magnesium 2.4 mg/dL (1.6-2.6); Potassium 4.1 mmol/L (3.3-5.1); Sodium 143 mmol/L (135-145); Total Protein 7.1 g/dL (6.5-8.0)
[2024-02-18 09:49] LABS: Free T4 (Free Thyroxine) 1.03 ng/dL (0.71-1.85); Thyroid Stimulating Hormone 3.17 uIU/mL (0.32-4.0)
== END 2024-02-18 08:11 | disposition home or self-care (01) ==
LOC: HO.LAB 08:10
PROVIDERS: PCP Internal Medicine; Visit Provider Internal Medicine
DX: E11.65 Type 2 diabetes mellitus with hyperglycemia (principal); Z79.4 Long term (current) use of insulin
CPT/HCPCS: 36415; 80053; 81001; 83735; 83880; 84439; 84443; 85025

== ENCOUNTER 2024-02-23 08:41 | Outpatient (REF) | payer MEDICARE, MEDICAID, SELFPAY ==
--- NOTE | ~2024-02-23 | MM_ITS ---
EXAMINATION: MM SCREENING DIGITAL BREAST TOMOSYNTHESIS, BILATERAL CLINICAL INFORMATION: Screening. Asymptomatic. COMPARISON: Mammography: Comparison is made with available priors TECHNIQUE: Digital breast mammography with tomosynthesis is performed in both the craniocaudal and mediolateral oblique views along with computer-aided detection (CAD). FINDINGS: There are scattered areas of fibroglandular density (ACR BI-RADS breast composition Category b). There are no significant masses, abnormal calcifications, or other abnormalities. MM/MM tomosynthesis screening BI IMPRESSION: No mammographic evidence of malignancy. ASSESSMENT: BI-RADS BI-RADS 1 - Negative RECOMMENDATION: Routine annual mammography screening. 1 year F/U This examination should not preclude the clinical evaluation of a suspicious palpable abnormality. This patient's information was entered into a reminder system with a target due date for their next mammogram. Electronically signed by: Tressa Zaidi DO 03/08/2024 08:56 AM EDT
== END 2024-02-23 08:42 | disposition home or self-care (01) ==
LOC: HO.MAMMO 08:41
PROVIDERS: PCP Internal Medicine; Visit Provider Internal Medicine
DX: Z12.31 Encounter for screening mammogram for malignant neoplasm of breast (principal)
CPT/HCPCS: 77063; 77067

== ENCOUNTER → 2024-02-23 09:00 | Outpatient (BNV) | payer MEDICARE, MEDICAID, SELFPAY | PROVIDERS: PCP Internal Medicine; Visit Provider Internal Medicine | DX: Z12.31 Encounter for screening mammogram for malignant neoplasm of breast (principal) | CPT/HCPCS: 77063; 77067 ==

== ENCOUNTER 2024-02-24 10:39 | Outpatient (AMB) | payer MEDICARE, MEDICAID, SELFPAY ==
[2024-02-24 11:09] VITALS: BP 122/52; PULSE 67; O2SAT 97; BMI 23.2
--- NOTE | 2024-02-24 11:09 | MHC.PC.OV ---
Vital Signs 02/24/24 11:09 Height 5 ft 3 in Weight 131 lb BMI 23.2 BP 122/52 L Blood Pressure Location Lt brachial Position Sitting Pulse 67 Pulse Source Pulse Oximeter Pulse Oximetry (%) 97 Oxygen Delivery Method Room Air Intake Visit Reasons: DM Allergies peanut [PEANUT] Allergy (Unknown, Verified 02/24/24 11:09) RASH seafood Allergy (Unknown, Verified 02/24/24 11:09) Unknown Tobacco use date assessed: 07/07/23 Fall risk assessment: No Falls in past year Last assessed Fall Risk: 02/24/24 Dental Screening Dental Screen Date: 07/07/23 HPI DM HPI Details 78-year-old female with diabetes mellitus coronary artery disease chronic kidney disease peripheral vascular disease hypertension hypercholesterolemia asthma congestive heart failure last seen in 02/02/2024. Up-to-date with mammogram due for this month up-to-date with bone density. [facility] Medical History (Updated 02/02/24 @ 09:24 by Renetta Gonzalez MD) Screening for colon cancer Obesity (BMI 30-39.9) Pain of left heel Post-menopausal Hypertension, uncontrolled Toe pain, right Cellulitis, leg Screening for breast cancer Chronic kidney disease, stage 3 Diabetic retinopathy Aortic stenosis History of CVA (cerebrovascular accident) Thyroid nodule Congestive heart failure Hypercholesterolemia Diabetic neuropathy Hypertension Dementia Asthma Peripheral vascular disease Coronary artery disease Type 2 diabetes mellitus with hyperglycemia Surgical History History of endarterectomy History of colonoscopy History of cataract surgery Hx of cholecystectomy Amputated toe of left foot Hx of CABG Femoral-popliteal bypass graft occlusion, left Carotid stenosis Family History Father Diabetes Hypertension Mother Hypertension CVD (cardiovascular disease) Cancer Diabetes Maternal Aunt Breast cancer Seizures Sister No problems noted. Son No problems noted. Son No problems noted. Son No problems noted. Daughter No problems noted. Social History Household Members: None Housing: House Do you presently have visiting nurse or other home services: No Alcohol intake: current Alcohol intake frequency: does not drink Patient Tobacco Use Status: Never used Tobacco Tobacco use type: Cigarette e-Cigarette/Vaping Use: Never Used Second Hand Smoke Exposure: No service: No Current occupational status: unemployed and retired Cognitive needs: No Hearing needs: No Vision needs: Yes Questionnaire PHQ-9 Over the last 2 weeks, how often have you been bothered by any of the following problems? 1. Little interest or pleasure in doing things: several days 2. Feeling down, depressed, or hopeless: not at all 3. Trouble falling or staying asleep, or sleeping too much: several days 4. Feeling tired or having little energy: more than half the days 5. Poor appetite or overeating: not at all 6. Feeling bad about yourself - or that you are a failure or have let yourself or your family down: not at all 7. Trouble concentrating on things, such as reading the newspaper or watching television: not at all 8. Moving or speaking so slowly that other people could have noticed. Or the opposite - being so fidgety or restless that you have been moving around a lot more than usual: not at all 9. Thoughts that you would be better off or of hurting yourself in some way: not at all Total score: 4 Depression Screening Interpretation: Positive Depression Screening Done: Yes Source: Developed by Drs. Ramos Dove, Vesta Yeh, Maksim Fernandez and colleagues, with an educational breann from [employer]. Thrive Questionnaire Date Thrive assessed: 09/25/23 AUDIT C Alcohol Use Questionnaire (AUDIT-C) 1. How often do you have a drink containing alcohol?: Monthly or less 2. How many drinks containing alcohol do you have on a typical day when you are drinking?: 1 or 2 3. How often do you have six or more drinks on one occasion?: Never Total Score: 1 Score Reviewed/Action Taken: No SUZAN-7 AMB Questionnaire SUZAN-7 Date SUZAN - 7 assessed: 07/07/23 Source: Developed by Drs. Ramos Dove, Maksim Bueno and colleagues, with an educational breann from [employer]. Physical exam (Primary Care) Vital Signs: Last Vital Signs Pulse 67 02/24/24 11:09 BP 122/52 L 02/24/24 11:09 Pulse Ox 97 02/24/24 11:09 Oxygen Delivery Method Room Air 02/24/24 11:09 BMI result Body Mass Index 23.2 Tobacco/Smoking Status: Tobacco use Status Tobacco use date assessed 07/07/23 02/24/24 11:13 Patient Tobacco Use Status Never used Tobacco 02/24/24 11:13 Tobacco use type Cigarette 02/24/24 11:13 e-Cigarette/Vaping Use Never Used 02/24/24 11:13 PHQ-9: PHQ-9 Score PHQ-9: Total score 4 02/24/24 11:13 Depression Screening Interpretation: Positive Thrive Assessment: Date of Thrive Assessment Date Thrive assessed 09/25/23 02/24/24 11:13 Const General: alert; No acute distress Eyes Conjunctivae: conjunctivae normal Resp Auscultation: clear to auscultation bilaterally Cardio Rate: regular rate Rhythm: regular rhythm GI Inspection: Yes normal to inspection Extrem General: Yes normal to inspection and No edema Assessment and Plan Assessment & Plan (1) Type 2 diabetes mellitus with hyperglycemia: Code(s): E11.65 - Type 2 diabetes mellitus with hyperglycemia Qualifiers: Diabetes mellitus meterman insulin use: with meterman use Qualified Code(s): E11.65 - Type 2 diabetes mellitus with hyperglycemia; Z79.4 - 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 Decrease the amount of carbohydrate intake, pasta, bread, rice and potatoes are all sugar and that is aside from all the sweet stuff, remember that fruits are good but they are Sweet also. Hemoglobin A1c goal of less than 7.0 patient is on NovoLog mix. (2) Chronic kidney disease, stage 3: Code(s): N18.30 - Chronic kidney disease, stage 3 unspecified Plan: Keep well hydrated, avoid NSAIDs control the blood pressure control cholesterol. (3) Congestive heart failure: Code(s): I50.9 - Heart failure, unspecified Qualifiers: Heart failure type: unspecified Heart failure chronicity: chronic Qualified Code(s): I50.9 - Heart failure, unspecified Plan: Stable noted BNP to be elevated continue to monitor on Bumex and carvedilol (4) Coronary artery disease: Code(s): I25.10 - Atherosclerotic heart disease of [place] coronary artery without angina pectoris Plan: Control the cholesterol, weight, blood pressure, diabetes continue with aspirin (5) Hypercholesterolemia: Code(s): E78.00 - Pure hypercholesterolemia, unspecified Plan: Avoid fried foods, chicken skin, eggs, butter margarine, pastries and meat. Be it pork or beef they have a lot of cholesterol LDL goal of less than 70 and triglyceride of less than 150 on rosuvastatin 40 mg once (6) Hypertension: Code(s): I10 - Essential (primary) hypertension Plan: Continue with blood pressure medication. Decrease salt intake and exercise continue with carvedilol 6.25 mg twice a day clonidine 0.2 mg twice a day lisinopril 40 mg once a day nifedipine 60 mg once a day Coding Level of Care Code Est Pt Level 4 (69302) Complex EM visit Add On G2211 Diagnoses Type 2 diabetes mellitus with hyperglycemia, with long-term current use of insulin E11.65; Z79.4 Diabetes mellitus meterman insulin use: with meterman use Chronic kidney disease, stage 3 N18.30 Chronic congestive heart failure, unspecified heart failure type I50.9 Heart failure type: unspecified Heart failure chronicity: chronic Coronary artery disease I25.10 Hypercholesterolemia E78.00 Essential hypertension I10
== END 2024-02-24 11:39 | disposition home or self-care (01) ==
PROVIDERS: PCP Internal Medicine; Visit Provider Internal Medicine
DX: E11.65 Type 2 diabetes mellitus with hyperglycemia (principal); Z79.4 Long term (current) use of insulin; N18.30 Chronic kidney disease, stage 3 unspecified; I50.9 Heart failure, unspecified; I25.10 Atherosclerotic heart disease of native coronary artery without angina pectoris; E78.00 Pure hypercholesterolemia, unspecified; I10 Essential (primary) hypertension
CPT/HCPCS: 99214; G2211

== ENCOUNTER 2024-03-14 10:13 | Outpatient (AMB) | payer MEDICARE, MEDICAID, SELFPAY ==
--- NOTE | 2024-03-14 10:36 | AM.OFFVISNUR ---
Intake Visit Reasons: B-12 shot/ flu shot Allergies peanut [PEANUT] Allergy (Unknown, Verified 02/24/24 11:09) RASH seafood Allergy (Unknown, Verified 02/24/24 11:09) Unknown Office Procedures Flu Questionnaire Does the patient have a severe egg allergy?: No Does the patient have severe life threatening allergies?: No Does the patient have a fever or illness today?: No Has the patient ever had Guillain-Jarrell Syndrome?: No Has the patient ever had any past reaction to a flu shot?: No Assessment & Plan Assessment & Plan Orders: Orders Influenza [id number] Immunization Today Z23 - Encounter for immunization Medications: New Fluarix Triv [id number] (PF) (flu vacc [id number] 6mos up(PF)) 0.5 mL IM ONCE 0.5 mL 0RF NS Z23 - Encounter for immunization
== END 2024-03-14 10:38 | disposition home or self-care (01) ==
PROVIDERS: PCP Internal Medicine; Visit Provider Internal Medicine
DX: Z23 Encounter for immunization (principal)

== ENCOUNTER → 2024-03-14 10:13 | Outpatient (BNVA) | payer MEDICARE, MEDICAID, SELFPAY | PROVIDERS: PCP Internal Medicine; Visit Provider Internal Medicine | DX: Z23 Encounter for immunization (principal) | CPT/HCPCS: 90471; 90656 ==

== ENCOUNTER 2024-05-31 10:35 | Outpatient (AMB) | payer MEDICARE, MEDICAID, SELFPAY ==
[2024-05-31 10:57] VITALS: BP 162/58; PULSE 78; O2SAT 90; BMI 26.4
--- NOTE | 2024-05-31 10:57 | A.OFFPC_ITS ---
Vital Signs 05/31/24 10:57 Height 4 ft 9.48 in Weight 124 lb BMI 26.4 BP 162/58 H Blood Pressure Location Lt brachial Position Sitting Pulse 78 Pulse Source Pulse Oximeter Pulse Oximetry (%) 90 L Oxygen Delivery Method Nasal Cannula Intake Visit Reasons: DM - see comment Rail Signal Mechanic Required: No Accompanied by: Lavelle-Son Allergies peanut [PEANUT] Allergy (Unknown, Verified 05/31/24 11:02) RASH seafood Allergy (Unknown, Verified 05/31/24 11:02) Unknown Medication List - Last Reconciled 05/31/24 by Renetta Gonzalez MD albuterol sulfate 90 mcg/actuation (Ventolin HFA) 2 puffs inhalation Q4-6H PRN aspirin 81 mg PO DAILY blood sugar diagnostic (FreeStyle Lite Strips) As directed check the BS QID blood-glucose meter ([employer] Ultra2 Meter kit) As directed bumetanide 1 mg PO DAILY carvedilol 12.5 mg PO BID cholecalciferol (vitamin D3) 1,250 mcg PO TU clonidine HCl 0.2 mg See Protocol PO BID compress.stocking,knee,reg,med As directed 20-30 mm HG [DEPENDS LARGE As directed] [DIABETIC CUSTOM SHOE As directed] [Diabetic shoes As directed] docusate sodium 100 mg PO BID gabapentin 300 mg PO BID 90 days insulin asp prt-insulin aspart 100 unit/mL (70-30) (Novolog Mix 70-30FlexPen U- 100) 5 units subcut DAILY@0730 insulin asp prt-insulin aspart 100 unit/mL (70-30) (Novolog Mix 70-30FlexPen U- 100) 10 units subcut DAILY@1630 isosorbide mononitrate ER 60 mg See Protocol PO DAILY lancets (FreeStyle Lancets) As directed check BS TID lisinopril 40 mg PO DAILY nifedipine ER 60 mg PO BID 90 days [oxygen 2L NC As directed] Oxygen Home Use As directed pen needle, diabetic (BD Ultra-Fine Mini Pen Needle) USE TO INJECT TWICE DAILY [Portable Oxygen Concentrator As directed] rosuvastatin 40 mg PO DAILY 90 days tramadol 50 mg PO Q8H PRN Tobacco use date assessed: 07/07/23 Dental Screening Dental Screen Date: 07/07/23 HPI DM - see comment HPI Details The patient is an 79-year-old female presenting for evaluation and management of chronic medical conditions. Her Type 2 Diabetes Mellitus is currently managed with insulin, specifically Lispro Mix 75/25, with dosages of 4 to 5 units in the morning and 5 units in the evening. Her hemoglobin A1c was recently measured at 7.0, indicating reasonable control. The patient has a known history of hyperlipidemia, for which she is on rosuvastatin; her latest test results show an LDL cholesterol level of 67 mg/dL. In addition, she has a history of proteinuria linked to underlying kidney disease, with recent tests reflecting stable kidney function. She takes carvedilol, which was recently increased to 12.5 mg twice a day by a gut dropper, indicating management adjustments for her hypertension. The patient has also been on clonidine 0.2 mg twice a day, presumably for hypertension or another indication. In terms of vaccination status, she has recently received her influenza vaccine and is current with her pneumonia and tetanus vaccinations. [facility] Medical History (Updated 05/31/24 @ 11:23 by Renetta Gonzalez MD) Screening for colon cancer Obesity (BMI 30-39.9) Pain of left heel Post-menopausal Hypertension, uncontrolled Toe pain, right Cellulitis, leg Screening for breast cancer Chronic kidney disease, stage 3 Diabetic retinopathy Aortic stenosis History of CVA (cerebrovascular accident) Thyroid nodule Congestive heart failure Hypercholesterolemia Diabetic neuropathy Hypertension Dementia Asthma Peripheral vascular disease Coronary artery disease Type 2 diabetes mellitus with hyperglycemia Surgical History History of endarterectomy History of colonoscopy History of cataract surgery Hx of cholecystectomy Amputated toe of left foot Hx of CABG Femoral-popliteal bypass graft occlusion, left Carotid stenosis Family History Father Diabetes Hypertension Mother Hypertension CVD (cardiovascular disease) Cancer Diabetes Maternal Aunt Breast cancer Seizures Sister No problems noted. Son No problems noted. Son No problems noted. Son No problems noted. Daughter No problems noted. Social History Household Members: None Housing: House Do you presently have visiting nurse or other home services: No Alcohol intake: current Alcohol intake frequency: does not drink Patient Tobacco Use Status: Never used Tobacco Tobacco use type: Cigarette e-Cigarette/Vaping Use: Never Used Second Hand Smoke Exposure: No service: No Current occupational status: unemployed and retired Cognitive needs: No Hearing needs: No Vision needs: Yes Questionnaire Thrive Questionnaire Date Thrive assessed: 09/25/23 AUDIT C Alcohol Use Questionnaire (AUDIT-C) 3. How often do you have six or more drinks on one occasion?: Never Total Score: 0 SUZAN-7 AMB Questionnaire SUZAN-7 Date SUZAN - 7 assessed: 07/07/23 Source: Developed by Drs. Ramos Dove, Vesta Yeh, Maksim Fernandez and colleagues, with an educational breann from [employer]. Physical exam (Primary Care) Vital Signs: Last Vital Signs Pulse 78 05/31/24 10:57 BP 162/58 H 05/31/24 10:57 Pulse Ox 90 L 05/31/24 10:57 Oxygen Delivery Method Nasal Cannula 05/31/24 10:57 BMI result Body Mass Index 26.4 Tobacco/Smoking Status: Tobacco use Status Tobacco use date assessed 07/07/23 05/31/24 11:02 Patient Tobacco Use Status Never used Tobacco 05/31/24 11:02 Tobacco use type Cigarette 05/31/24 11:02 e-Cigarette/Vaping Use Never Used 05/31/24 11:02 Thrive Assessment: Date of Thrive Assessment Date Thrive assessed 09/25/23 05/31/24 11:02 Const General: alert; No acute distress Eyes Conjunctivae: conjunctivae normal Resp Auscultation: clear to auscultation bilaterally Cardio Rate: regular rate Rhythm: regular rhythm GI Inspection: Yes normal to inspection Extrem Other: leg swelling 2 + General: Yes edema Results AMB Hemoglobin A1c AMB Hemoglobin A1c 7.0 % Last Edit by RAKEL Brice on 05/31/24 11:07 Results Reviewed Results Reviewed: Laboratory Last Values Hgb A1c (Clinic) 7.0 % (4.0-6.0) H 05/31/24 10:55 Coding Level of Care Code Est Pt Level 4 (18718) Complex EM visit Add On G2211 Diagnoses Type 2 diabetes mellitus with hyperglycemia, with long-term current use of insulin E11.65; Z79.4 Diabetes mellitus remote computer terminal operator insulin use: with remote computer terminal operator use Stage 3a chronic kidney disease N18.31 Chronic kidney disease stage 3 subtype: stage 3a (GFR 45-59) Coronary artery disease involving [place] coronary artery of [place] heart without angina pectoris I25.10 Associated angina: without angina Coronary Disease-Associated Artery/Lesion type: [place] artery [place] vs. transplanted heart: [place] heart Hypercholesterolemia E78.00 Mild intermittent asthma without complication J45.20 Asthma complication type: uncomplicated Asthma persistence: intermittent Asthma severity: mild Left carotid stenosis I65.22 Primary hypertension I10 Hypertension type: primary hypertension Assessment & Plan Assessment & Plan (1) Type 2 diabetes mellitus with hyperglycemia: Code(s): E11.65 - Type 2 diabetes mellitus with hyperglycemia Category: Medical Qualifiers: Diabetes mellitus senior living insulin use: with remote computer terminal operator use Qualified Code(s): E11.65 - Type 2 diabetes mellitus with hyperglycemia; Z79.4 - terminal press operator (current) use of insulin Plan: Decrease the amount of carbohydrate intake, pasta, bread, rice and potatoes are all sugar and that is aside from all the sweet stuff, remember that fruits are good but they are Sweet also. Hemoglobin A1c goal of less than 7.0. Patient is on NovoLog mix (2) Chronic kidney disease, stage 3: Code(s): N18.30 - Chronic kidney disease, stage 3 unspecified Category: Medical Qualifiers: Chronic kidney disease stage 3 subtype: stage 3a (GFR 45-59) Qualified Code(s): N18.31 - Chronic kidney disease, stage 3a Plan: Continue to follow-up with Nephrology control the blood pressure control the diabetes. (3) Coronary artery disease: Code(s): I25.10 - Atherosclerotic heart disease of [place] coronary artery without angina pectoris Category: Medical Qualifiers: Associated angina: without angina Coronary Disease-Associated Artery/Lesion type: [place] artery [place] vs. transplanted heart: [place] heart Qualified Code(s): I25.10 - Atherosclerotic heart disease of [place] coronary artery without angina pectoris Plan: Control the cholesterol, weight, blood pressure, diabetes on isosorbide mononitrate (4) Hypercholesterolemia: Code(s): E78.00 - Pure hypercholesterolemia, unspecified Category: Medical Plan: Avoid fried foods, chicken skin, eggs, butter margarine, pastries and meat. Be it pork or beef they have a lot of cholesterol LDL goal of less than 70 and triglyceride of less than 150. Patient takes rosuvastatin 40 mg once a day (5) Asthma: Code(s): J45.909 - Unspecified asthma, uncomplicated Category: Medical Qualifiers: Asthma complication type: uncomplicated Asthma persistence: intermittent Asthma severity: mild Qualified Code(s): J45.20 - Mild intermittent asthma, uncomplicated Plan: Continue with albuterol inhaler (6) Left carotid stenosis: Comment: August 2021 70-99% January 2022 left carotid endarterectomy Code(s): I65.22 - Occlusion and stenosis of left carotid artery Category: Medical Plan: Control the cholesterol, weight, blood pressure, diabetes continue with aspirin 81 mg once a (7) Hypertension: Code(s): I10 - Essential (primary) hypertension Category: Medical Qualifiers: Hypertension type: primary hypertension Qualified Code(s): I10 - Essential (primary) hypertension Plan: Continue with carvedilol 6.25 mg twice a day clonidine 0.2 mg twice a day lisinopril 40 mg once a day and nifedipine 60 mg twice a day. Plan - Continue current insulin regimen for Type 2 Diabetes Mellitus, monitor blood glucose levels, and reassess hemoglobin A1c periodically to ensure glycemic control. - Maintain rosuvastatin therapy for hyperlipidemia, with a target LDL level of under 70 mg/dL to manage cardiovascular risk, as current levels are satisfactory. - Monitor renal function and proteinuria in the context of existing kidney disease; if any changes occur, consider further nephrology evaluation. - Continue clonidine and carvedilol as prescribed for the management of hypertension; ensure blood pressure remains under optimal control. - Reinforce adherence to support stockings to manage potential edema and recommend leg elevation when seated to assist with swelling. - Ensure all vaccinations are up to date, particularly given the patient's age and seasonal risks. Orders: Orders AMB Hemoglobin A1c Today E11.65 - Type 2 diabetes mellitus with hyperglycemia, Z79.4 - senior care (current) use of insulin Medications: New insulin lispro protamin-lispro 100 unit/mL (75-25) 5 units (0.05 mL) subcut BID 10 mL 0RF E11.65 - Type 2 diabetes mellitus with hyperglycemia, Z79.4 - senior care (current) use of insulin
== END 2024-05-31 11:39 | disposition home or self-care (01) ==
PROVIDERS: PCP Internal Medicine; Visit Provider Internal Medicine
DX: E11.65 Type 2 diabetes mellitus with hyperglycemia (principal); Z79.4 Long term (current) use of insulin; N18.31 Chronic kidney disease, stage 3a; I25.10 Atherosclerotic heart disease of native coronary artery without angina pectoris; E78.00 Pure hypercholesterolemia, unspecified; J45.20 Mild intermittent asthma, uncomplicated; I65.22 Occlusion and stenosis of left carotid artery; I10 Essential (primary) hypertension

== ENCOUNTER → 2024-05-31 10:35 | Outpatient (BNVA) | payer MEDICARE, MEDICAID, SELFPAY | PROVIDERS: PCP Internal Medicine; Visit Provider Internal Medicine | DX: I12.9 Hypertensive chronic kidney disease with stage 1 through stage 4 chronic kidney disease, or unspecified chronic kidney disease (principal); E11.22 Type 2 diabetes mellitus with diabetic chronic kidney disease; N18.31 Chronic kidney disease, stage 3a; E11.65 Type 2 diabetes mellitus with hyperglycemia; E78.00 Pure hypercholesterolemia, unspecified; J45.20 Mild intermittent asthma, uncomplicated; I65.22 Occlusion and stenosis of left carotid artery | CPT/HCPCS: 83036; 99212 ==

== ENCOUNTER 2024-09-06 09:37 | Outpatient (AMB) | payer MEDICARE, MEDICAID, SELFPAY ==
--- NOTE | 2024-09-06 09:43 | A.OFFPC_ITS ---
Vital Signs 09/06/24 09:50 Height 4 ft 9.48 in Weight 121 lb 8 oz BMI 25.9 BP 128/60 Blood Pressure Location Lt brachial Position Sitting Pulse 67 Pulse Source Pulse Oximeter Temp 97.6 F Temp Source Temporal Artery Scan Pulse Oximetry (%) 98 Oxygen Delivery Method Room Air Oxygen Flow Rate 2 Intake Visit Reasons: DM Allergies peanut [PEANUT] Allergy (Unknown, Verified 09/06/24 09:43) RASH seafood Allergy (Unknown, Verified 09/06/24 09:43) Unknown Medication List - Last Reconciled 09/06/24 by Renetta Gonzalez MD albuterol sulfate 90 mcg/actuation (Ventolin HFA) 2 puffs inhalation Q4-6H PRN aspirin 81 mg PO DAILY blood sugar diagnostic (FreeStyle Lite Strips) As directed check the BS QID blood-glucose meter (OneBarreuch Ultra2 Meter kit) As directed blood-glucose sensor (FreeStyle Nestor 3 Plus Sensor device) As directed bumetanide 1 mg PO DAILY carvedilol 12.5 mg PO BID cholecalciferol (vitamin D3) 1,250 mcg PO TU clonidine HCl 0.2 mg See Protocol PO BID compress.stocking,knee,reg,med As directed 20-30 mm HG [DEPENDS LARGE As directed] [DIABETIC CUSTOM SHOE As directed] [Diabetic shoes As directed] docusate sodium 100 mg PO BID gabapentin 300 mg PO BID 90 days insulin lispro protamin-lispro 100 unit/mL (75-25) 5 units (0.05 mL) subcut BID isosorbide mononitrate ER 60 mg See Protocol PO DAILY lancets (FreeStyle Lancets) As directed check BS TID lisinopril 40 mg PO DAILY nifedipine ER 60 mg PO BID 90 days [oxygen 2L NC As directed] Oxygen Home Use As directed pen needle, diabetic (BD Ultra-Fine Mini Pen Needle) USE TO INJECT TWICE DAILY [Portable Oxygen Concentrator As directed] rosuvastatin 40 mg PO DAILY 90 days tramadol 50 mg PO Q8H PRN Tobacco use date assessed: 09/06/24 Fall risk assessment: No Falls in past year Last assessed Fall Risk: 09/06/24 Dental Screening Dental Screen Date: 09/06/24 Did you have a dental visit in the last 12 months?: Yes Did you have a dental problem in the last 6 months where you did not have access to dental care?: No Was dental information given to patient?: Patient has dentist [facility] Medical History Screening for colon cancer Obesity (BMI 30-39.9) Pain of left heel Post-menopausal Hypertension, uncontrolled Toe pain, right Cellulitis, leg Screening for breast cancer Chronic kidney disease, stage 3 Diabetic retinopathy Aortic stenosis History of CVA (cerebrovascular accident) Thyroid nodule Congestive heart failure Hypercholesterolemia Diabetic neuropathy Hypertension Dementia Asthma Peripheral vascular disease Coronary artery disease Type 2 diabetes mellitus with hyperglycemia Surgical History History of endarterectomy History of colonoscopy History of cataract surgery Hx of cholecystectomy Amputated toe of left foot Hx of CABG Femoral-popliteal bypass graft occlusion, left Carotid stenosis Family History Father Diabetes Hypertension Mother Hypertension CVD (cardiovascular disease) Cancer Diabetes Maternal Aunt Breast cancer Seizures Sister No problems noted. Son No problems noted. Son No problems noted. Son No problems noted. Daughter No problems noted. Social History Household Members: None Housing: House Do you presently have visiting nurse or other home services: No Alcohol intake: current Alcohol intake frequency: does not drink Patient Tobacco Use Status: Never used Tobacco Tobacco use type: Cigarette e-Cigarette/Vaping Use: Never Used Second Hand Smoke Exposure: No service: No Current occupational status: unemployed and retired Cognitive needs: No Hearing needs: No Vision needs: Yes Questionnaire PHQ-9 Over the last 2 weeks, how often have you been bothered by any of the following problems? 1. Little interest or pleasure in doing things: several days 2. Feeling down, depressed, or hopeless: not at all 3. Trouble falling or staying asleep, or sleeping too much: several days 4. Feeling tired or having little energy: more than half the days 5. Poor appetite or overeating: not at all 6. Feeling bad about yourself - or that you are a failure or have let yourself or your family down: not at all 7. Trouble concentrating on things, such as reading the newspaper or watching television: not at all 8. Moving or speaking so slowly that other people could have noticed. Or the opposite - being so fidgety or restless that you have been moving around a lot more than usual: not at all 9. Thoughts that you would be better off or of hurting yourself in some way: not at all Total score: 4 Depression Screening Interpretation: Negative Depression Screening Done: Yes 57296 - PHQ-9 Billing: Yes Source: Developed by Drs. Ramos Dove, Vesta Yeh, Maksim Fernandez and colleagues, with an educational breann from [employer]. Thrive Questionnaire Date Thrive assessed: 09/06/24 I am a: Patient What is your living situation today?: I have a steady place to live Within the past 12 months, did the food you bought not last and you didn't have the money to get more?: Never true Within the past 12 months, did you worry whether your food would run out before you got money to buy more?: Never true Do you have trouble paying for medicines?: No Do you have trouble getting transportation to medical appointments?: No Do you have trouble paying your heating and electricity bill?: No Do you have trouble taking care of your child, family member or friend?: No Do you have trouble with day-to-day activities such as bathing, preparing meals, shopping, managing finances, etc.?: No Are you currently unemployed and looking for a job?: No Are you interested in more education?: No THRIVE Score: 0 AUDIT C Alcohol Use Questionnaire (AUDIT-C) 1. How often do you have a drink containing alcohol?: Never 3. How often do you have six or more drinks on one occasion?: Never Total Score: 0 SUZAN-7 AMB Questionnaire SUZAN-7 Date SUZAN - 7 assessed: 09/06/24 Feeling nervous, anxious, or on edge: 0 = Not at all Not being able to stop or control worryin = Not at all Worrying too much about different things: 0 = Not at all Trouble relaxin = Not at all Being so restless that it is hard to sit still: 0 = Not at all Becoming easily annoyed or irritable: 0 = Not at all Feeling afraid as if something awful might happen: 0 = Not at all Total SUZAN-7 score (0-4 normal; 5-9 mild; 10-14 moderate; 15-21 severe): 0 Source: Developed by Drs. Ramos Dove, Vesta Yeh, Maksim Fernandez and colleagues, with an educational breann from [employer]. SUZAN-7 Assessment Billing SUZAN-7 Assessment Tool: SUZAN-7 Assessment 77775 Physical exam (Primary Care) Vital Signs: Last Vital Signs Temp 97.6 F 09/06/24 09:50 Pulse 67 09/06/24 09:50 BP 128/60 09/06/24 09:50 Pulse Ox 98 09/06/24 09:50 Oxygen Delivery Method Room Air 09/06/24 09:50 Oxygen Flow Rate 2 09/06/24 09:50 BMI result Body Mass Index 25.9 Tobacco/Smoking Status: Tobacco use Status Tobacco use date assessed 09/06/24 09/06/24 09:44 Patient Tobacco Use Status Never used Tobacco 09/06/24 09:44 Tobacco use type Cigarette 09/06/24 09:44 e-Cigarette/Vaping Use Never Used 09/06/24 09:44 PHQ-9: PHQ-9 Score PHQ-9: Total score 4 09/06/24 10:22 Depression Screening Interpretation: Negative Thrive Assessment: Date of Thrive Assessment Date Thrive assessed 09/06/24 09/06/24 09:44 Const General: alert; No acute distress Eyes Conjunctivae: conjunctivae normal Resp Auscultation: clear to auscultation bilaterally Cardio Rate: regular rate Rhythm: regular rhythm GI Inspection: Yes normal to inspection Extrem General: Yes normal to inspection and No edema Results AMB Hemoglobin A1c AMB Hemoglobin A1c 7.2 % Last Edit by Dulce Aviles CMA on 09/06/24 09:57 Results Reviewed Results Reviewed: Laboratory Last Values Hgb A1c (Clinic) 7.2 % (4.0-6.0) H 09/06/24 09:54 Coding Level of Care Code Est Pt Level 4 (00213) Complex EM visit Add On G2211 Diagnoses Type 2 diabetes mellitus with hyperglycemia, with long-term current use of insulin E11.65; Z79.4 Diabetes mellitus termite renewal inspector insulin use: with intermediate use Chronic congestive heart failure, unspecified heart failure type I50.9 Heart failure chronicity: chronic Heart failure type: unspecified Stage 3a chronic kidney disease N18.31 Chronic kidney disease stage 3 subtype: stage 3a (GFR 45-59) History of CVA (cerebrovascular accident) Z86.73 Coronary artery disease involving [place] coronary artery of [place] heart without angina pectoris I25.10 Associated angina: without angina Coronary Disease-Associated Artery/Lesion type: [place] artery [place] vs. transplanted heart: [place] heart Hypercholesterolemia E78.00 Left carotid stenosis I65.22 Primary hypertension I10 Hypertension type: primary hypertension Additional Codes SUZAN-7 Assessment Billing - SUZAN-7 Assessment Tool: SUZAN-7 Assessment 78340 ([id number]) PHQ-9 - 17939 - PHQ-9 Billing: Yes ([id number]) Assessment & Plan Assessment & Plan (1) Type 2 diabetes mellitus with hyperglycemia: Code(s): E11.65 - Type 2 diabetes mellitus with hyperglycemia Category: Medical Qualifiers: Diabetes mellitus termite renewal inspector insulin use: with intermediate use Qualified Code(s): E11.65 - Type 2 diabetes mellitus with hyperglycemia; Z79.4 - prison (current) use of insulin Plan: Decrease the amount of carbohydrate intake, pasta, bread, rice and potatoes are all sugar and that is aside from all the sweet stuff, remember that fruits are good but they are Sweet also. Hemoglobin A1c goal of less than 7.0 patient is on insulin twice a day (2) Congestive heart failure: Code(s): I50.9 - Heart failure, unspecified Category: Medical Qualifiers: Heart failure chronicity: chronic Heart failure type: unspecified Qualified Code(s): I50.9 - Heart failure, unspecified Plan: Continue with diuretic and continue to be followed up by Cardiology weigh daily (3) Chronic kidney disease, stage 3: Code(s): N18.30 - Chronic kidney disease, stage 3 unspecified Category: Medical Qualifiers: Chronic kidney disease stage 3 subtype: stage 3a (GFR 45-59) Qualified Code(s): N18.31 - Chronic kidney disease, stage 3a Plan: Creatinine under control avoid NSAIDs on diuretic (4) History of CVA (cerebrovascular accident): Comment: Right-sided weakness Code(s): Z86.73 - Personal history of transient ischemic attack (TIA), and cerebral infarction without residual deficits Category: Medical Plan: Control the cholesterol, weight, blood pressure, diabetes continue with aspirin (5) Coronary artery disease: Code(s): I25.10 - Atherosclerotic heart disease of [place] coronary artery without angina pectoris Category: Medical Qualifiers: Associated angina: without angina Coronary Disease-Associated Artery/Lesion type: [place] artery [place] vs. transplanted heart: [place] heart Qualified Code(s): I25.10 - Atherosclerotic heart disease of [place] coronary artery without angina pectoris Plan: Control the cholesterol, weight, blood pressure, diabetes (6) Hypercholesterolemia: Code(s): E78.00 - Pure hypercholesterolemia, unspecified Category: Medical Plan: Avoid fried foods, chicken skin, eggs, butter margarine, pastries and meat. Be it pork or beef they have a lot of cholesterol LDL goal of less than 70 and the last blood work was done in September 2023 (7) Left carotid stenosis: Comment: August 2021 70-99% January 2022 left carotid endarterectomy Code(s): I65.22 - Occlusion and stenosis of left carotid artery Category: Medical Plan: Continue to monitor seeing vascular (8) Hypertension: Code(s): I10 - Essential (primary) hypertension Category: Medical Qualifiers: Hypertension type: primary hypertension Qualified Code(s): I10 - Essential (primary) hypertension Plan: Continue with blood pressure medication. Decrease salt intake and exercise carvedilol 12.5 mg twice a day clonidine 0.2 mg twice a day isosorbide mononitrate lisinopril 40 mg once a day nifedipine 60 mg twice a day Plan History of Present Illness The patient is an 79-year-old female presenting for the follow-up of multiple chronic medical conditions. She has a significant medical history, including dementia and unexplained weight loss. Her cardiovascular history is notable for left carotid artery stenosis and previous left carotid endarterectomy, as well as coronary artery disease and congestive heart failure. She has type 2 diabetes mellitus, with her most recent hemoglobin A1c documented at 7.2%, and stage 3 chronic kidney disease, with stable renal function based on recent creatinine levels. She has a history of cerebrovascular accident with persistent right- sided weakness. Past evaluations have shown no current issues on renal doppler studies. She attended cardiology consultation in August 2024 and is presently on oxygen therapy, with stable cardiac status. The patient also reportably has well-managed essential hypertension and hypercholesterolemia, and recent LDL levels have remained favorable. Her treatment regimen includes multiple antihypertensives, and previous laboratory tests show normal blood counts and electrolytes. Ongoing management aims to continue successful control over these conditions while maintaining her current health status. Health Maintenance - Colon cancer screening up-to-date as of 2016. - Mammogram and bone density testing status questioned regarding current [id number]. - LDL goal maintained below 70 mg/dL, last measured at 55 mg/dL. - Continued monitoring and follow-up planned for cardiac and vascular health, as per previous consultations. Social History - Encourage the patient to maintain an active lifestyle and engage in regular exercise. - Discussion on the importance of staying socially engaged and active. Review of Systems - Cardiovascular: Denies recent cardiac complaints. - General/Constitutional: Reports weight loss. Physical Exam Results - Labs: A1c 7.2% in August 2024; creatinine 1.36 mg/dL; LDL 55 mg/dL in September 2023. - Tests: Renal artery doppler: negative findings. - Diagnostics: Normal blood count and electrolytes as of February 2025. Plan 1. 0% is crucial while continuing insulin therapy. The antihypertensive regimen and concurrent management for hyperlipidemia will remain focused on keeping LDL levels under 70 mg/dL. Follow-up with cardiology and nephrology is essential for overall monitoring. Aspirin will be continued for cardiovascular protection. The patient is encouraged to engage in exercise and manage weight proactively. A follow-up is scheduled for three months, preceded by relevant blood work to provide comprehensive monitoring.: Patient was informed and verbally consented to the use of an ambient scribe for clinic note documentation during this visit. Discussion Notes I discussed with the patient the continuation of her current treatment plans, emphasizing the importance of controlling her diabetes, hypertension, and lipid levels. We reviewed her recent lab results and the benefits of adherence to her prescribed medications, specifically the beneficial role each plays in minimizing risks associated with her conditions. We discussed the indicators for further cardiology and nephrology follow-ups and the role of lifestyle choices, like regular physical activity, in maintaining her health. The patient understood the outlined plans and agreed with the proposed management strategy. She will complete required blood work prior to her next follow-up visit in three months to allow for adequate monitoring of her chronic conditions. Patient Instructions - Follow the diabetes management plan focusing on maintaining a hemoglobin A1c goal of less than 7.0%. - Continue taking prescribed medications as advised, including all antihypertensives and aspirin. - Engage in regular exercise and stay active. - Complete necessary blood work before the next visit. - Attend follow-up appointments with cardiology and nephrology as scheduled. - Notify promptly of any significant changes in health or unusual symptoms. Orders: Orders Complete Blood Count Auto Diff 3 Months I25.10 - Atherosclerotic heart disease of [place] coronary artery without angina pectoris Free T4 (Free Thyroxine) 3 Months I25.10 - Atherosclerotic heart disease of [place] coronary artery without angina pectoris Vitamin B12 and Folate 3 Months I25.10 - Atherosclerotic heart disease of [place] coronary artery without angina pectoris Microalbumin, Random (w Creat) 3 Months E11.65 - Type 2 diabetes mellitus with hyperglycemia, I25.10 - Atherosclerotic heart disease of [place] coronary artery without angina pectoris IRON PROFILE 3 Months I25.10 - Atherosclerotic heart disease of [place] coronary artery without angina pectoris Ferritin 3 Months I25.10 - Atherosclerotic heart disease of [place] coronary artery without angina pectoris AMB Hemoglobin A1c Today Z13.9 - Encounter for screening, unspecified Comprehensive Met. Panel 3 Months I25.10 - Atherosclerotic heart disease of [place] coronary artery without angina pectoris Lipid Panel 3 Months E78.00 - Pure hypercholesterolemia, unspecified, I25.10 - Atherosclerotic heart disease of [place] coronary artery without angina pectoris Creatinine Urine 3 Months E11.65 - Type 2 diabetes mellitus with hyperglycemia, I25.10 - Atherosclerotic heart disease of [place] coronary artery without angina pectoris Thyroid Stimulating Hormone 3 Months I25.10 - Atherosclerotic heart disease of [place] coronary artery without angina pectoris Reticulocyte Count 3 Months I25.10 - Atherosclerotic heart disease of [place] coronary artery without angina pectoris Hemoglobin A1c 3 Months I25.10 - Atherosclerotic heart disease of [place] coronary artery without angina pectoris Medications: New blood-glucose sensor (FreeStyle Nestor 3 Plus Sensor device) As directed 6 ea 3RF E11.65 - Type 2 diabetes mellitus with hyperglycemia, Z79.4 - prison (current) use of insulin
[2024-09-06 09:50] VITALS: BP 128/60; PULSE 67; TEMP 36.4; O2SAT 98; BMI 25.9
--- OUTSIDE RECORDS SUMMARY | 2024-09-06 10:43 | XMS_ITS | Encounter Summary ---
Author Organization [facility] Address [address] [place] [address] Phone Care Team Providers Care Transport Company Manager Name Role Phone Renetta Gonzalez MD Primary Care Provider [phone] Encounter Details Date Type Department Care Team ([facility] Contact Info) Description 05/02/2024 Documentation Only [facility] [address] [place] [address] Kavitha Navarro [address] [place] [address] Social History Tobacco Use Types Packs/Day Years Used Date Smoking Tobacco: Never Smokeless Tobacco: Never Alcohol Use Standard Drinks/Week Comments No 0 (1 standard drink = 0.6 oz pur e alcohol) Comments Unknown Sex and Gender Information Value Date Recorded Sex Assigned at Not on file Legal Sex Female 4:36 PM EST Gender Identity Not on file Sexual Orientation Not on file documented as of this encounter Plan of Treatment Upcoming Encounters Date Type Department Care Team ([facility] Contact Info) Description 11/16/2024 2:00 PM EDT Office Visit [facility] [address] [place] [address] Karen Hart MD [address] [place] [address] documented as of this encounter Visit Diagnoses Not on filedocumented in this encounter Care Teams Transport Company Manager Relationship Specialty Start Date End Date Renetta Gonzalez MD [facility] [address] DANIEL PEREZ PCP - General 04/18/19 documented as of this encounter
--- OUTSIDE RECORDS SUMMARY | 2024-09-06 10:43 | XMS_ITS | Encounter Summary ---
Author Organization [facility] Address [address] [place] [address] Phone Care Team Providers Care Vocational Training Teacher Name Role Phone Renetta Gonzalez MD Primary Care Provider [phone] Encounter Details Date Type Department Care Team ([facility] Contact Info) Description 05/26/2024 Documentation Only [facility] [address] [place] [address] Kavitha Navarro [address] [place] [address] Social History Tobacco Use Types [...] Upcoming Encounters Date Type Department Care Team ([facility] Contact Info) Description 11/16/2024 2:00 PM EDT Office Visit [facility] [address] [place] [place] [address] Karen Hart MD [address] [place] [address] documented as of this encounter Visit Diagnoses Not on filedocumented in this encounter Care Teams Vocational Training Teacher Relationship Specialty Start Date End Date Renetta Gonzalez MD [facility] [address] DANIEL PEREZ PCP - General 04/18/19 documented as of this encounter
--- OUTSIDE RECORDS SUMMARY | 2024-09-06 10:43 | XMS_ITS | Encounter Summary ---
Author Organization [facility] Address [address] [place] [address] Phone Care Team Providers Care Cash Applications Associate Name Role Phone Renetta Gonzalez MD Primary Care Provider [phone] Encounter Details Date Type Department Care Team ([facility] Contact Info) Description 04/04/2024 Documentation Only [facility] [address] [place] [address] Kavitha Navarro [address] [place] [address] Social History Tobacco Use Types [...] Upcoming Encounters Date Type Department Care Team ([facility] Contact Info) Description 11/16/2024 2:00 PM EDT Office Visit [facility] [address] [place] [address] Karen Hatr MD [address] [place] [address] documented as of this encounter Visit Diagnoses Not on filedocumented in this encounter Care Teams Cash Applications Associate Relationship Specialty Start Date End Date Renetta Gonzalez MD [facility] [address] DANIEL PEREZ PCP - General 04/18/19 documented as of this encounter
--- OUTSIDE RECORDS SUMMARY | 2024-09-06 10:43 | XMS_ITS | Encounter Summary ---
Author Organization [facility] Address [address] [place] [address] Phone Care Team Providers Care Lacquer Sprayer Name Role Phone Renetta Gonzalez MD Primary Care Provider [phone] Encounter Details Date Type Department Care Team ([facility] Contact Info) Description 05/26/2024 Documentation Only [facility] [address] [place] [address] Kavitha Navarro [address] [place] [address] Social History Tobacco Use Types [...] Upcoming Encounters Date Type Department Care Team ([facility] Contact Info) Description 11/16/2024 2:00 PM EDT Office Visit [facility] [address] [place] [address] Karen Hart MD [address] [place] [address] documented as of this encounter Visit Diagnoses Not on filedocumented in this encounter Care Teams Lacquer Sprayer Relationship Specialty Start Date End Date Renetta Gonzalez MD [facility] [address] DANIEL PEREZ PCP - General 04/18/19 documented as of this encounter
--- OUTSIDE RECORDS SUMMARY | 2024-09-06 10:44 | XMS_ITS | Encounter Summary ---
Author Organization [facility], Address [address] [place] [address] Phone Care Team Providers Care Parts Sales Manager Name Role Phone Renetta Gonzalez MD Primary Care Provider [phone] Encounter Details Date Type Department Care Team (Late Contact Info) Description 10/17/2020 Office Communication [facility] [address] [place] [phone] Luis Thompson MD [address] [place] [address] [place] [address] Social History Tobacco Use Types Packs/Day Years Used Date Smoking Tobacco: Never Alcohol Use Standard Drinks/Week Comments No 0 (1 standard drink = 0.6 oz pur e alcohol) Comments Unknown Sex and Gender Information Value Date Recorded Sex Assigned at Not on file Legal Sex Female 4:36 PM EST Gender Identity Not on file Sexual Orientation Not on file documented as of this encounter Miscellaneous Notes * Telephone Encounter - Kerri Zavala MA - 10/18/2020 11:01 AM EDT All set I faxed to both documented in this encounter Plan of Treatment Upcoming Encounters Date Type Department Care Team (Late Contact Info) Description 11/16/2024 2:00 PM EDT Office Visit [facility], [address] [place] [phone] Karen Hart MD [address] [place] [address] documented as of this encounter Visit Diagnoses Not on filedocumented in this encounter Care Teams Parts Sales Manager Relationship Specialty Start Date End Date Renetta Gonzalez MD [address] [place], [place] PCP - General 04/18/19 documented as of this encounter
--- OUTSIDE RECORDS SUMMARY | 2024-09-06 10:44 | XMS_ITS | Encounter Summary ---
Author Organization [facility] Address [address] [place] [address] Phone Care Team Providers Care Milling General Superintendent Name Role Phone Renetta Gonzalez MD Primary Care Provider [phone] Encounter Details Date Type Department Care Team ([facility] Contact Info) Description 08/16/2024 Documentation Only [facility] [address] [place] [address] Kavitha Navarro [address] [place] [address] Social History Tobacco Use Types [...] Upcoming Encounters Date Type Department Care Team ([facility] Contact Info) Description 11/16/2024 2:00 PM EDT Office Visit [facility] [address] [place] [address] Karen Hart MD [address] [place] [address] documented as of this encounter Visit Diagnoses Not on filedocumented in this encounter Care Teams Milling General Superintendent Relationship Specialty Start Date End Date Renetta Gonzalez MD [facility] [address] [place]ERE[place] PCP - General 04/18/19 documented as of this encounter
--- OUTSIDE RECORDS SUMMARY | 2024-09-06 10:44 | XMS_ITS | Encounter Summary ---
Author Organization [facility] Address [address] [place] [address] Phone Care Team Providers Care Strip Deburrer Name Role Phone Renetta Gonzalez MD Primary Care Provider [phone] Encounter Details Date Type Department Care Team ([facility] Contact Info) Description 01/04/2024 Documentation Only [facility] [address] [place] [address] Kavitha Navarro [address] [place] [address] Social History Tobacco Use Types [...] Upcoming Encounters Date Type Department Care Team ([facility] Contact Info) Description 11/16/2024 2:00 PM EDT Office Visit [facility] [address] [address] Karen Hart MD [address] [place] [address] documented as of this encounter Visit Diagnoses Not on filedocumented in this encounter Care Teams Strip Deburrer Relationship Specialty Start Date End Date Renetta Gonzalez MD [facility] [address] [place] PCP - General 04/18/19 documented as of this encounter
--- OUTSIDE RECORDS SUMMARY | 2024-09-06 10:44 | XMS_ITS | Encounter Summary ---
Author Organization [facility] Address [address] [place] [address] Phone Care Team Providers Care Egg Separator Name Role Phone Renetta Gonzalez MD Primary Care Provider [phone] Encounter Details Date Type Department Care Team ([facility] Contact Info) Description 08/28/2024 Documentation Only [facility] [address] [place] [address] Kavitha Navarro [address] [place] [address] Social History Tobacco Use Types [...] Upcoming Encounters Date Type Department Care Team ([facility] Contact Info) Description 11/16/2024 2:00 PM EDT Office Visit [facility] [address] [place] [address] Karen Hart MD [address] [place] [address] documented as of this encounter Visit Diagnoses Not on filedocumented in this encounter Care Teams Egg Separator Relationship Specialty Start Date End Date Renetta Gonzalez MD [facility] [address] [place]ERE[place] PCP - General 04/18/19 documented as of this encounter
--- OUTSIDE RECORDS SUMMARY | 2024-09-06 10:44 | XMS_ITS | Encounter Summary ---
Author Organization [facility] [place], Address [address] [place] [address] Phone Care Team Providers Care Grading Machine Operator Name Role Phone Renetta Gonzalez MD Primary Care Provider [phone] Encounter Details Date Type Department Care Team (Late st Contact Info) Description 08/17/2024 1:30 PM EST Office Visit [facility], [address] [place] [address] Karen Hart MD [address] [place] [address] [place] [address] Stage 3b chronic kidney disease (HCC) (Primary Dx); Type 2 diabetes mellitus with other specified complication (HCC); Hypertension Social History Tobacco Use Types Packs/Day Years [...] on file documented as of this encounter Progress Notes * Karen Hart MD - 08/17/2024 1:30 PM EST PATIENT: Felicity Tobias : 1945 ENCOUNTER: 08/17/2024 PCP: Renetta Gonzalez MD HPI: Felicity Tobias is a 79 y.o. year old female with a history of CKD stage IIIa (diabetic nephropathy), HFpEF, COPD on home O2, CVA, T2DM. Also with severe atherosclerotic disease including CAD status post CABG, PVD, carotid artery stenosis status post bilateral enterectomy. Presents for follow-up and lab results. Refers feeling well, denies any acute issues. Notes intentional weight loss, and refers feeling well. Accompanied by son. BP at home has been well managed, denies any dizziness or LOC. Has been tolerating the rise in carvedilol well. Patient Active Problem List Diagnosis Date Noted Type 2 diabetes mellitus (HCC) 09/08/2023 Hypertension 09/08/2023 Peripheral vascular disease (HCC) 04/28/2021 Stage 3b chronic kidney disease (HCC) 07/17/2019 Hyperlipidemia 07/17/2019 Ischemic neuropathy 07/17/2019 ROS: Constitutional: No fever. Respiratory: No shortness of breath. Cardiovascular: No chest pain. Gastrointestinal: No abdominal pain, nausea or vomiting. Genitourinary: No hematuria. All other systems reviewed and are negative. PAST MEDICAL HISTORY: Patient Active Problem List Diagnosis Date Noted Type 2 diabetes mellitus (HCC) 09/08/2023 Hypertension 09/08/2023 Peripheral vascular disease (HCC) 04/28/2021 Stage 3b chronic kidney disease (HCC) 07/17/2019 Hyperlipidemia 07/17/2019 Ischemic neuropathy 07/17/2019 PAST SURGICAL HISTORY: Past Surgical History: Procedure Laterality Date CAROTID ENDARTERECTOMY Left with patch angioplasty reconstruction CATARACT SURGERY CHOLECYSTECTOMY CORONARY ARTERY BYPASS GRAFT triple OTHER SURGICAL HISTORY Right femoral-peroneal artery bypass graft, arterial bypass of left lower limb artery, 4th and 5th toe amputee THROMBECTOMY of the right fem-pop portion of the femoroperoneal graft SOCIAL HISTORY: Social History Tobacco Use Smoking status: Never Smokeless tobacco: Never Substance Use Topics Alcohol use: No FAMILY HISTORY: Family History Problem Relation Age of Onset Diabetes Mother Heart disease Mother Hypertension Mother Cancer Mother Diabetes Father Heart disease Father Hypertension Father Hyperlipidemia Child 3 sons Diabetes Child 1 son and 1 daughter Other Child 1 daughter with unspecified cardiac related issues Heart disease Child Breast cancer Mother's Sister Seizures Mother's Sister Diabetes Sibling eight siblings that are diabetic Other Sibling five siblings due to unspecified cardiac related issues MEDICATIONS: Outpatient Encounter Medications as of 08/17/2024 Medication Sig Dispense Refill aspirin (ST SAMANTHA) 81 MG EC tablet Take 81 mg by mouth 1 (one) time each day Beclomethasone Diprop HFA (Qvar RediHaler) 80 MCG/ACT aerosol Inhale 1 puff in the morning and 1 puff in the evening. bumetanide (BUMEX) 1 MG tablet Take 1 mg by mouth 1 (one) time each day carvedilol (Coreg) 12.5 MG tablet Take 1 tablet (12.5 mg total) by mouth in the morning and 1 tablet (12.5 mg total) in the evening. Take with meals. 180 tablet 0 cloNIDine (CATAPRES) 0.3 MG tablet TAKE 1 TABLET(0.3 MG) BY MOUTH IN THE MORNING AND IN THE [id number] tablet 5 ergocalciferol 1.25 MG (65087 UT) capsule Take 50,000 Units by mouth 1 (one) time per week fluticasone HFA (FLOVENT HFA) 220 MCG/ACT inhaler Inhale 1 puff in the morning and 1 puff before bedtime. Rinse mouth with water after use to reduce aftertaste and incidence of candidiasis. Do not swallow.. gabapentin (NEURONTIN) 300 MG capsule Take 300 mg by mouth in the morning and 300 mg in the eveningand 300 mg before bedtime. insulin aspart protamine-insulin aspart (NovoLOG MIX 70/30) (70-30) 100 UNIT/ML injection lisinopril 40 MG tablet Take 1 tablet (40 mg total) by mouth 1 (one) time each day 30 tablet 11 NIFEdipine XL (PROCARDIA XL) 60 MG 24 hr tablet TAKE 1 TABLET BY MOUTH TWICE DAILY IN THE MORNING AND IN THE EVENING. DO NOT BREAK, CRUSH, DISSOLVE OR CHEW 60 tablet 3 rosuvastatin (CRESTOR) 20 MG tablet Take 20 mg by mouth 1 (one) time each day traMADol (ULTRAM) 50 MG tablet Take 50 mg by mouth every 8 (eight) hours No facility-administered encounter medications on file as of 08/17/2024. MEDICATION REVIEW: I have reviewed the patient's current medications. ALLERGIES: is allergic to other, peanut-containing drug products, and latex. PHYSICAL EXAM: 150/90 Constitutional: No apparent distress Cardiovascular: No friction rub. Pulmonary/Chest: No rales, on supplemental o2 Abdominal: Soft and non-tender. Extremities: mild pitting edema LABS: Chemistry Lab Units 08/16/24 1155 05/09/24 1156 12/03/22 1504 CREATININE mg/dL 1.30 1.20 1.3* BUN mg/dL 14 10 19 POTASSIUM mmol/L 3.9 4.1 4.0 SODIUM mmol/L 141 141 141 CO2 mmol/L 34 31 28 CHLORIDE mmol/L 98 99 100 ALBUMIN GM/DL -- -- 4.4 EGFRNAFR ML/MIN/1.73 M2 -- -- 44 WBC AUTO K/MM3 -- -- 9.4 HEMATOCRIT % -- -- 35.2* HEMOGLOBIN GM/DL -- -- 10.8* PLATELETS AUTO K/MM3 -- -- 290 Bone Mineral Lab Units 08/16/24 1155 05/09/24 1156 12/03/22 1504 CALCIUM mg/dL 9.5 9.2 9.7 PHOSPHORUS MG/DL -- -- 4.5 Urine Lab Units 05/09/24 1212 12/03/22 1504 ALB MG/G CREAT UR mg/g Cre 1,572.1* 3,022.6* 13.3 Protein/Creatine Ratio Date Value Ref Range Status 12/03/2022 4.40 (H) (0-0.2) Final LABORATORY REVIEW: I have reviewed the labs noted above as well as in the chart, in CIS and in Care Everywhere. DOCUMENTATION REVIEW: I have reviewed the applicable outside notes located in the chart, in CIS and in Care Everywhere. ASSESSMENT: 1. Stage 3b chronic kidney disease (HCC) 2. Type 2 diabetes mellitus with other specified complication (HCC) 3. Hypertension Ms. Blevins is a pleasant 79-year-old woman who presents for her CKD follow- up. Recent ultrasoundshows signs of medical renal disease. Latest labs show her renal function is at baseline w a sCr of1.3. Electrolytes are wnl. Patient has mild pitting edema, has been using compression stocking and denies any changes in functional capacity. Hypertension seems to be under better control this visit with the last adjustment to carvedilol. BPin office in th 150s, but at home it is in the 130s. She cont to be hypertensive. Renal artery doppler was negative for any significant stenosis. Repeattp/cr ratio improved from 3g to 1g. While patient qualifies for SGLT2i, due to age, pill burden andunclear benefits plus potential side effects while hold on starting at this moment, This decision was made with the patient and her son. Will get mineral bone disease labs for next visit. Plan to have her follow-up in 3 months. Karen Hart MD Orders Placed This Encounter CBC Iron Panel (Fe, TIBC, TSAT) Phosphorus PTH, intact Renal function panel Urine Albumin / Creatinine Ratio Vitamin D 25 hydroxy Cosigned by Luis Thompson MD at 08/22/2024 11:47 AM EDT Associated attestation - Luis Thompson MD - 08/22/2024 11:47 AM EDT RENAL ATTENDING ADDENDUM: I have seen and evaluated this patient. I have discussed the case and itsmanagement with the resident/team as documented in the resident/team note on the day of service. The details of the case including pertinent labs and clinical findings were confirmed by me. The plan was formulated with the student/resident/fellow/PA/REIMBURSEMENT CONSULTANT as outlined below. documented in this encounter Plan of Treatment Upcoming Encounters Date Type Department Care Team (Late st Contact Info) Description 11/16/2024 2:00 PM EDT Office Visit [facility], [address] [address] Karen Hart MD [address] [place] [address] Scheduled Orders Name Type Priority Associated Diagnoses Orde r Schedule CBC Lab Routine Stage 3b chronic kidney disease (HCC) Type 2 diabetes mellitus with other specified complication (HCC) Hypertension Expected: 08/17/2024, Expires: 09/17/2025 Iron Panel (Fe, TIBC, TSAT) Lab Routine Stage 3b chronic kidney disease (HCC) Type 2 diabetes mellitus with other specified complication (HCC) Hypertension Expected: 08/17/2024, Expires: 09/17/2025 Phosphorus Lab Routine Stage 3b chronic kidney disease (HCC) Type 2 diabetes mellitus with other specified complication (HCC) Hypertension Expected: 08/17/2024, Expires: 09/17/2025 PTH, intact Lab Routine Stage 3b chronic kidney disease (HCC) Type 2 diabetes mellitus with other specified complication (HCC) Hypertension Expected: 08/17/2024, Expires: 09/17/2025 Renal function panel Lab Routine Stage 3b chronic kidney disease (HCC) Type 2 diabetes mellitus with other specified complication (HCC) Hypertension Expected: 08/17/2024, Expires: 09/17/2025 Urine Albumin / Creatinine Ratio Lab Routine Stage 3b chronic kidney disease (HCC) Type 2 diabetes mellitus with other specified complication (HCC) Hypertension Expected: 08/17/2024, Expires: 09/17/2025 Vitamin D 25 hydroxy Lab Routine Stage 3b chronic kidney disease (HCC) Type 2 diabetes mellitus with other specified complication (HCC) Hypertension Expected: 08/17/2024, Expires: 09/17/2025 documented as of this encounter Visit Diagnoses Diagnosis Stage 3b chronic kidney disease (HCC)- Primary Type 2 diabetes mellitus with other specified complication (HCC) Hypertension documented in this encounter Care Teams Grading Machine Operator Relationship Specialty Start Date End Date Renetta Gonzalez MD [address] [place], [place] PCP - General 04/18/19 documented as of this encounter
--- OUTSIDE RECORDS SUMMARY | 2024-09-06 10:44 | XMS_ITS | Encounter Summary ---
Author Organization [facility] Address [address] [place] [address] Phone Care Team Providers Care Wharf Laborer Name Role Phone Renetta Gonzalez MD Primary Care Provider [phone] Encounter Details Date Type Department Care Team ([facility] Contact Info) Description 08/16/2024 Documentation Only [facility] [address] [place] [address] Kavitha Navarro [address] [place] [address] Social History Tobacco Use Types [...] Upcoming Encounters Date Type Department Care Team ([facility] Contact Info) Description 11/16/2024 2:00 PM EDT Office Visit [facility] [address] [place] [address] Karen Hart MD [address] [place] [address] documented as of this encounter Visit Diagnoses Not on filedocumented in this encounter Care Teams Wharf Laborer Relationship Specialty Start Date End Date Renetta Gonzalez MD [facility] [address] [place]ERE[place] PCP - General 04/18/19 documented as of this encounter
--- OUTSIDE RECORDS SUMMARY | 2024-09-06 10:44 | XMS_ITS | Encounter Summary ---
Author Organization [facility] Address [address] [place] [address] Phone Care Team Providers Care Sports Physiologist Name Role Phone Renetta Gonzalez MD Primary Care Provider [phone] Encounter Details Date Type Department Care Team ([facility] Contact Info) Description 08/16/2024 Documentation Only [facility] [address] [place] [address] Kavitha Navarro [address] [place] [address] Social History Tobacco Use Types [...] Upcoming Encounters Date Type Department Care Team ([facility] Contact Info) Description 11/16/2024 2:00 PM EDT Office Visit [facility] [address] [place] [address] Karen Hart MD [address] [place] [address] documented as of this encounter Visit Diagnoses Not on filedocumented in this encounter Care Teams Sports Physiologist Relationship Specialty Start Date End Date Renetta Gonzalez MD [facility] [address] [place]ERE[place] PCP - General 04/18/19 documented as of this encounter
--- OUTSIDE RECORDS SUMMARY | 2024-09-06 10:44 | XMS_ITS | Encounter Summary ---
Author Organization [facility], Address [address] [place] [address] Phone Care Team Providers Care Rn Immunology Name Role Phone Renetta Gonzalez MD Primary Care Provider [phone] Encounter Details Date Type Department Care Team (Late Contact Info) Description 10/16/2019 Orders Only [facility] [address] [place] [address] Kirsten Menchaca MD Chronic kidney disease stage 3 (HCC); Essential hypertension; Type 2 diabetes mellitus with diabetic chronic kidney disease (HCC) Social History Tobacco Use Types Packs/Day Years [...] Upcoming Encounters Date Type Department Care Team ([facility] Contact Info) Description 11/16/2024 2:00 PM EDT Office Visit [facility] [place], [address] [place] [address] Karen Hart MD [address] [place] [address] documented as of this encounter Visit Diagnoses Diagnosis Chronic kidney disease stage 3 (HCC) Essential hypertension Type 2 diabetes mellitus with diabetic chronic kidney disease (HCC) documented in this encounter Care Teams Rn Immunology Relationship Specialty Start Date End Date Renetta Gonzalez MD [facility] [address] DANIEL PEREZ PCP - General 04/18/19 documented as of this encounter
--- OUTSIDE RECORDS SUMMARY | 2024-09-06 10:44 | XMS_ITS | Encounter Summary ---
Author Organization [facility] Address [address] [place] [address] Phone Care Team Providers Care Blister Packing Machine Tender Name Role Phone Renetta Gonzalez MD Primary Care Provider [phone] Encounter Details Date Type Department Care Team ([facility] Contact Info) Description 01/04/2024 Documentation Only [facility] [address] [place] [address] Kavitha Navarro [address] [place] [address] Social History Tobacco Use Types [...] Upcoming Encounters Date Type Department Care Team ([facility] Contact Info) Description 11/16/2024 2:00 PM EDT Office Visit [facility] [address] [place] [address] Karen Hart MD [address] [place] [address] documented as of this encounter Visit Diagnoses Not on filedocumented in this encounter Care Teams Blister Packing Machine Tender Relationship Specialty Start Date End Date Renetta Gonzalez MD [facility] [address] DANIEL PEREZ PCP - General 04/18/19 documented as of this encounter
--- OUTSIDE RECORDS SUMMARY | 2024-09-06 10:44 | XMS_ITS | Clinical Summary ---
Author Organization [facility], Address [address] [place] [address] Phone Care Team Providers Care Machine Filler Name Role Phone Renteta Gonzalez MD Primary Care Provider [phone] Allergies Active Allergy Reactions Criticality Noted Date Comments Latex Rash Low 07/17/2019 Other 01/05/2024 SEAFOOD ALLERGY UNKNOWN REACTION Peanut-Containing Drug Products 07/03/2022 Other reaction(s): rash, sore throat Medications bumetanide (BUMEX) 1 MG tablet Take 1 mg by mouth 1 (one) time each day 9 Active gabapentin (NEURONTIN) 300 MG capsule Take 300 mg by mouth in the morning and 300 mg in the evening and 300 mg before bedtime. 6 Active insulin aspart protamine-insul in aspart (NovoLOG MIX 70/30) (70-30) 100 UNIT/ML injection 7 Active rosuvastatin (CRESTOR) 20 MG tablet Take 20 mg by mouth 1 (one) time each day 7 Active traMADol (ULTRAM) 50 MG tablet Take 50 mg by mouth every 8 (eight) hours 7 Active cloNIDine (CATAPRES) 0.3 MG tablet TAKE 1 TABLET(0.3 MG) BY MOUTH IN THE MORNING AND IN THE EVENING 60 tablet 5 3 Active aspirin (ST SAMANTHA) 81 MG EC tablet Take 81 mg by mouth 1 (one) time each day Active ergocalciferol 1.25 MG (96464 UT) capsule Take 50,000 Units by mouth 1 (one) time per week Active fluticasone HFA (FLOVENT HFA) 220 MCG/ACT inhaler Inhale 1 puff in the morning and 1 puff before bedtime. Rinse mouth with water after use to reduce aftertaste and incidence of candidiasis. Do not swallow.. Active Beclomethasone Diprop HFA (Qvar RediHaler) 80 MCG/ACT aerosol Inhale 1 puff in the morning and 1 puff in the evening. Active lisinopril 40 MG tablet Take 1 tablet (40 mg total) by mouth 1 (one) time each day 30 tablet 11 4 09/09/19 25 Active carvedilol (Coreg) 12.5 MG tablet Take 1 tablet (12.5 mg total) by mouth in the morning and 1 tablet (12.5 mg total) in the evening. Take with meals. 180 tablet 4 Active NIFEdipine XL (PROCARDIA XL) 60 MG 24 hr tablet TAKE 1 TABLET BY MOUTH TWICE DAILY IN THE MORNING AND IN THE EVENING. 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 Hypertension 09/08/2023 Peripheral vascular disease 04/28/2021 Stage 3b chronic kidney disease 07/17/2019 Hyperlipidemia 07/17/2019 Ischemic neuropathy 07/17/2019 Encounters Date Type Department Care Team Description 08/28/2024 Documentation Only [facility] [address] [place] [address] Kavitha Navarro 08/17/2024 1:30 PM EST Office Visit [facility] [address] [place] [address] Karen Hart MD Stage 3b chronic kidney disease (HCC) (Primary Dx); Type 2 diabetes mellitus with other specified complication (HCC); Hypertension 08/16/2024 Documentation Only [facility] [address] [place] [address] Kavitha Navarro 08/16/2024 Documentation Only [facility] [address] [place] [address] Kavitha Navarro 08/16/2024 Documentation Only [facility] [address] [place] [address] Kavitha Navarro from Last 3 Months Immunizations Name Administration Dates Next Due Moderna SARS-COV-2 06/29/2021,09/24/2020, 021 Pneumococcal Polysaccharide 04/28/2011 Family History Medical History Relation Comments Diabetes Child 1 son and 1 daug hter Heart disease Child Hyperlipidemia Child 3 sons Other Child 1 daughter with unspecified cardiac related issues Diabetes Father Heart disease Father Hypertension Father Cancer Mother Diabetes Mother Heart disease Mother Hypertension Mother Breast cancer Mother's Sister Seizures Mother's Sister Diabetes Sibling eight siblings t hat are diabetic Other Sibling five siblings de ceased due to unspecified cardiac related issues Relation Status Comments Child Father Mother Mother's Sister Sibling Social History Tobacco Use Types Packs/Day Years Used Date Smoking Tobacco: Never Smokeless Tobacco: Never Alcohol Use Standard Drinks/Week Comments No 0 (1 standard drink = 0.6 oz pur e alcohol) Comments Unknown Sex and Gender Information Value Date Recorded Sex Assigned at Not on file Legal Sex Female 4:36 PM EST Gender Identity Not on file Sexual Orientation Not on file Last Filed Vital Signs Vital Sign Reading Time Taken Comments Blood Pressure 139/71 01/27/2024 3:00 AM EDT Pulse - - Temperature - - Respiratory Rate - - Oxygen Saturation - - Inhaled Oxygen Concentration - - Weight 67.9 kg (149 lb 12.8 oz) 022 11:15 AM EDT Height 149.9 cm (4' 11 ) 05/02/2019 12: 00 PM EST Body Mass Index 30.26 05/02/2019 12:00 PM EST Plan of Treatment Upcoming Encounters Date Type Department Care Team (Late st Contact Info) Description 11/16/2024 2:00 PM EDT Office Visit [facility] [place], [address] [place] [address] Karen Hart MD [address] [place] [address] [place] [address] Health Maintenance Due Date Last Done Comments Pneumococcal Vaccine: 65+ Years (2 of 2 - PCV) 04/28/2012 04/28/2011 Diabetes: Ophthalmology Exam 07/17/2019 Diabetes: Pedal Pulse Checked 07/17/2019 Diabetes: Sensory Foot Exam 07/17/2019 Diabetes: Visual Foot Exam 07/17/2019 Diabetes: Hemoglobin A1C 01/17/2021 021, 08/10/2017 Influenza Vaccine (#1) 2024 Hepatitis B Vaccine Aged Out No longe r eligible based on patient's age to complete this topic Procedures Procedure Name Priority Date/Time Associated Diagnosis Comments HEMOGLOBIN A1C Routine 10/17/2020 3:23 PM EDT Essential hypertension from Last 3 Months or Most Recently Relevant to Health Maintenance Results * (ABNORMAL) Hemoglobin A1c (10/17/2020 3:23 PM EDT) Hemoglobin A1C 10.4(H) (4.0-5.6) % [facility] Comment: MONITORING: In known diabetic patients, hemoglobin A1c targets should be discussed with health care provider. DIAGNOSTIC USE: ??The [place] Diabetes Association (ADA) and the World Health Organization (WHO) recommend the use of HbA1c to diagnose diabetes using a threshold of 6.5%. Patients who have an HbA1c between 5.7% and 6.4% are considered at increased risk for developing diabetes in the future. CAUTION: Falsely low HbA1c results may be observed in patients with hemolytic anemia, homozygous forms of abnormal hemoglobin (e.g. SS, CC, SC), , recent blood loss or hemoglobin F greater than 7%. Fructosamine may be used as an alternate test in these cases. REFERENCE: ADA: Standards of Medical Care in Diabetes 2020, The Journal of Clinical and Applied Research and Education Volume 43, Supplement 1 Testing performed or reported by [facility], a Service of [facility], [address] [place] [id number] Dannie Gonzáles MD, Drivability Technician Blood (Blood, Venous) 10/17/2020 3:23 PM EDT 10/17/2020 3:24 PM EDT us Luis Thompson MD LAB BLOOD ORDERABLES Final Re sult [facility] Organization Address City/State/ZIP Co de Phone Number [facility] from Last 3 Months or Most Recently Relevant to Health Maintenance Insurance [place] Subscriber Plan / Payer (Ef fective 2019-Present) Name:Felicity Tobias Relation to Subscriber:Self Name:Phyllis Tobiasarita Payer ID:Not on file Group ID:Not on file Type:Not on file Address: [address] [place]ARE [place] Member Subscriber Plan / Payer (Ef fective 2020-Present) Name:Micheline Felicity Relation to Subscriber:Self Name:RayMary EllenHart, Felicity Payer ID:Not on file Group ID:Not on file Type:Not on file Address: [address] MED[address]ARE Care Teams Machine Filler Relationship Specialty Start Date End Date Renetta Gonzalez MD [facility] [address] [place] PCP - General 04/18/19
--- OUTSIDE RECORDS SUMMARY | 2024-09-06 10:44 | XMS_ITS | Encounter Summary ---
Author Organization [facility] Address [address] [place] [address] Phone Care Team Providers Care Printed Circuit Boards Pinner Name Role Phone Renetta Gonzalez MD Primary Care Provider [phone] Encounter Details Date Type Department Care Team ([facility] Contact Info) Description 09/22/2023 Documentation Only [facility] [address] [place] [address] Kavitha Navarro [address] [place] [address] Social History Tobacco Use Types [...] Upcoming Encounters Date Type Department Care Team ([facility] Contact Info) Description 11/16/2024 2:00 PM EDT Office Visit [facility] [address] [place] [place] [address] Karen Hart MD [address] [place] [place] [address] documented as of this encounter Visit Diagnoses Not on filedocumented in this encounter Care Teams Printed Circuit Boards Pinner Relationship Specialty Start Date End Date Renetta Gonzalez MD [facility] [address] [place] PCP - General 04/18/19 documented as of this encounter
--- OUTSIDE RECORDS SUMMARY | 2024-09-06 10:44 | XMS_ITS | Encounter Summary ---
Author Organization [facility], Address [address] [place] [address] Phone Care Team Providers Care Trimmer Sawyer Name Role Phone Renetta Gonzalez MD Primary Care Provider [phone] Encounter Details Date Type Department Care Team ([facility] [address] Contact Info) Description 05/02/2020 Orders Only [facility] [address] [place] [address] Kirsten Menchaca MD Chronic kidney disease, stage 3 unspecified; Essential hypertension; Type 2 diabetes mellitus with [...] Upcoming Encounters Date Type Department Care Team ([facility] [address] Contact Info) Description 11/16/2024 2:00 PM EDT Office Visit [facility] [place], [address] [place] [address] Karen Hart MD [address] [place] [address] documented as of this encounter Visit Diagnoses Diagnosis Chronic kidney disease, stage 3 unspecified Essential hypertension Type 2 diabetes mellitus with diabetic chronic kidney disease (HCC) documented in this encounter Care Teams Trimmer Sawyer Relationship Specialty Start Date End Date Renetta Gonzalez MD [facility] [address] [place] PCP - General 04/18/19 documented as of this encounter
== END 2024-09-06 10:37 | disposition home or self-care (01) ==
LOC: HO.HMCH 09:37
PROVIDERS: PCP Internal Medicine; Visit Provider Internal Medicine
DX: E11.65 Type 2 diabetes mellitus with hyperglycemia (principal); Z79.4 Long term (current) use of insulin; I50.9 Heart failure, unspecified; N18.31 Chronic kidney disease, stage 3a; Z86.73 Personal history of transient ischemic attack (TIA), and cerebral infarction without residual deficits; I25.10 Atherosclerotic heart disease of native coronary artery without angina pectoris; E78.00 Pure hypercholesterolemia, unspecified; I65.22 Occlusion and stenosis of left carotid artery; I10 Essential (primary) hypertension; Z13.9 Encounter for screening, unspecified

== ENCOUNTER → 2024-09-06 09:37 | Outpatient (BNVA) | payer MEDICARE, MEDICAID, SELFPAY | PROVIDERS: PCP Internal Medicine; Visit Provider Internal Medicine | DX: E11.65 Type 2 diabetes mellitus with hyperglycemia (principal); I25.10 Atherosclerotic heart disease of native coronary artery without angina pectoris; I65.22 Occlusion and stenosis of left carotid artery; E78.00 Pure hypercholesterolemia, unspecified; I13.0 Hypertensive heart and chronic kidney disease with heart failure and stage 1 through stage 4 chronic kidney disease, or unspecified chronic kidney disease; E11.22 Type 2 diabetes mellitus with diabetic chronic kidney disease; N18.31 Chronic kidney disease, stage 3a; I50.9 Heart failure, unspecified; Z86.73 Personal history of transient ischemic attack (TIA), and cerebral infarction without residual deficits | CPT/HCPCS: 83036; 96127; 99212 ==

== ENCOUNTER 2024-12-28 09:40 | Outpatient (AMB) | payer MEDICARE, MEDICAID, SELFPAY ==
--- NOTE | 2024-12-28 09:53 | A.OFFPC_ITS ---
Vital Signs 12/28/24 09:54 Height 4 ft 9.48 in Weight 124 lb 4 oz BMI 26.4 BP 104/58 L Blood Pressure Location Lt brachial Position Sitting Pulse 63 Pulse Source Pulse Oximeter Temp 97.0 F Temp Source Temporal Artery Scan Pulse Oximetry (%) 88 L Oxygen Delivery Method Nasal Cannula Oxygen Flow Rate 2 Intake Visit Reasons: DM Accompanied by: Son Allergies peanut (PEANUT) Allergy (Unknown, Verified 12/28/24 09:54) RASH seafood Allergy (Unknown, Verified 12/28/24 09:54) Unknown Tobacco use date assessed: 12/28/24 Fall risk assessment: No Falls in past year Last assessed Fall Risk: 09/06/24 Dental Screening Dental Screen Date: 09/06/24 Did you have a dental visit in the last 12 months?: Yes Did you have a dental problem in the last 6 months where you did not have access to dental care?: No Was dental information given to patient?: Patient has dentist [facility] Medical History Screening for colon cancer Obesity (BMI 30-39.9) Pain of left heel Post-menopausal Hypertension, uncontrolled Toe pain, right Cellulitis, leg Screening for breast cancer Chronic kidney disease, stage 3 Diabetic retinopathy Aortic stenosis History of CVA (cerebrovascular accident) Thyroid nodule Congestive heart failure Hypercholesterolemia Diabetic neuropathy Hypertension Dementia Asthma Peripheral vascular disease Coronary artery disease Type 2 diabetes mellitus with hyperglycemia Surgical History History of endarterectomy History of colonoscopy History of cataract surgery Hx of cholecystectomy Amputated toe of left foot Hx of CABG Femoral-popliteal bypass graft occlusion, left Carotid stenosis Family History Father Diabetes Hypertension Mother Hypertension CVD (cardiovascular disease) Cancer Diabetes Maternal Aunt Breast cancer Seizures Sister No problems noted. Son No problems noted. Son No problems noted. Son No problems noted. Daughter No problems noted. Social History Household Members: None Housing: House Do you presently have visiting nurse or other home services: No Alcohol intake: current Alcohol intake frequency: does not drink Patient Tobacco Use Status: Never used Tobacco Tobacco use type: Cigarette e-Cigarette/Vaping Use: Never Used Second Hand Smoke Exposure: No service: No Current occupational status: unemployed and retired Cognitive needs: No Hearing needs: No Vision needs: Yes Questionnaire PHQ-9 Over the last 2 weeks, how often have you been bothered by any of the following problems? 1. Little interest or pleasure in doing things: not at all 2. Feeling down, depressed, or hopeless: not at all 3. Trouble falling or staying asleep, or sleeping too much: not at all 4. Feeling tired or having little energy: several days 5. Poor appetite or overeating: not at all 6. Feeling bad about yourself - or that you are a failure or have let yourself or your family down: not at all 7. Trouble concentrating on things, such as reading the newspaper or watching television: not at all 8. Moving or speaking so slowly that other people could have noticed. Or the opposite - being so fidgety or restless that you have been moving around a lot more than usual: not at all 9. Thoughts that you would be better off or of hurting yourself in some way: not at all Total score: 1 Source: Developed by Drs. Ramos Dove, Vesta Yeh, Maksim Fernandez and colleagues, with an educational breann from [employer]. Thrive Questionnaire Date Thrive assessed: 12/21/24 I am a: Patient What is your living situation today?: I have a steady place to live Within the past 12 months, did the food you bought not last and you didn't have the money to get more?: Never true Within the past 12 months, did you worry whether your food would run out before you got money to buy more?: Never true Do you have trouble paying for medicines?: No Do you have trouble getting transportation to medical appointments?: No Do you have trouble paying your heating and electricity bill?: No Do you have trouble taking care of your child, family member or friend?: No Do you have trouble with day-to-day activities such as bathing, preparing meals, shopping, managing finances, etc.?: Yes Are you currently unemployed and looking for a job?: No Are you interested in more education?: No Please select the resources that you would like help with: None Currently or been in a relationship where the following occur: No concerns reported THRIVE Score: 0 AUDIT C Alcohol Use Questionnaire (AUDIT-C) 1. How often do you have a drink containing alcohol?: Never 3. How often do you have six or more drinks on one occasion?: Never Total Score: 0 SUZAN-7 AMB Questionnaire SUZAN-7 Date SUZAN - 7 assessed: 09/06/24 Feeling nervous, anxious, or on edge: 0 = Not at all Not being able to stop or control worryin = Not at all Worrying too much about different things: 0 = Not at all Trouble relaxin = Not at all Being so restless that it is hard to sit still: 0 = Not at all Becoming easily annoyed or irritable: 0 = Not at all Feeling afraid as if something awful might happen: 0 = Not at all Total SUZAN-7 score (0-4 normal; 5-9 mild; 10-14 moderate; 15-21 severe): 0 Source: Developed by Drs. Ramos Dove, Vesta Yeh, Maksim Fernandez and colleagues, with an educational breann from [employer]. Physical exam (Primary Care) Vital Signs: Last Vital Signs Temp 97.0 F 12/28/24 09:54 Pulse 63 12/28/24 09:54 BP 104/58 L 12/28/24 09:54 Pulse Ox 88 L 12/28/24 09:54 Oxygen Delivery Method Nasal Cannula 12/28/24 09:54 Oxygen Flow Rate 2 12/28/24 09:54 BMI result Body Mass Index 26.4 Tobacco/Smoking Status: Tobacco use Status Tobacco use date assessed 12/28/24 12/28/24 10:01 Patient Tobacco Use Status Never used Tobacco 12/28/24 10:01 Tobacco use type Cigarette 12/28/24 10:01 e-Cigarette/Vaping Use Never Used 12/28/24 10:01 PHQ-9: PHQ-9 Score PHQ-9: Total score 1 12/28/24 10:11 Thrive Assessment: Date of Thrive Assessment Date Thrive assessed 12/21/24 12/28/24 10:01 Currently or been in a relationship where the following occur: No concerns reported Const General: alert; No acute distress Eyes Conjunctivae: conjunctivae normal Resp Auscultation: clear to auscultation bilaterally Cardio Rate: regular rate Rhythm: regular rhythm GI Inspection: Yes normal to inspection Extrem General: Yes normal to inspection and No edema Results AMB Hemoglobin A1c AMB Hemoglobin A1c 6.8 % Last Edit by Dulce Aviles CMA on 12/28/24 10:05 Results Reviewed Results Reviewed: Laboratory Last Values Hgb A1c (Clinic) 6.8 % (4.0-6.0) H 12/28/24 10:01 Coding Level of Care Code Est Pt Level 4 (46845) Complex EM visit Add On G2211 Diagnoses Type 2 diabetes mellitus with hyperglycemia, with long-term current use of insulin E11.65; Z79.4 Diabetes mellitus superintendent radio communications insulin use: with superintendent radio communications use Hypercholesterolemia E78.00 Coronary artery disease involving [place] coronary artery of [place] heart without angina pectoris I25.10 Associated angina: without angina Coronary Disease-Associated Artery/Lesion type: [place] artery [place] vs. transplanted heart: [place] heart Primary hypertension I10 Hypertension type: primary hypertension Stage 3a chronic kidney disease N18.31 Chronic kidney disease stage 3 subtype: stage 3a (GFR 45-59) Vascular dementia without behavioral disturbance F01.50 Dementia behavioral disturbance: without behavioral disturbance Dementia type: vascular dementia Assessment & Plan Assessment & Plan (1) Type 2 diabetes mellitus with hyperglycemia: Code(s): E11.65 - Type 2 diabetes mellitus with hyperglycemia Category: Medical Qualifiers: Diabetes mellitus superintendent radio communications insulin use: with superintendent radio communications use Qualified Code(s): E11.65 - Type 2 diabetes mellitus with hyperglycemia; Z79.4 - sign language interpreter (current) use of insulin Plan: Decrease the amount of carbohydrate intake, pasta, bread, rice and potatoes are all sugar and that is aside from all the sweet stuff, remember that fruits are good but they are Sweet also. Hemoglobin A1c goal of less than 7.0. Patient on insulin lispro 5 units twice a day 75/25. using the Insulin as needed dependent on BS (2) Hypercholesterolemia: Code(s): E78.00 - Pure hypercholesterolemia, unspecified Category: Medical Plan: Avoid fried foods, chicken skin, eggs, butter margarine, pastries and meat. Be it pork or beef they have a lot of cholesterol on rosuvastatin LDL goal of less than 70 and triglyceride of less than 150 (3) Coronary artery disease: Code(s): I25.10 - Atherosclerotic heart disease of [place] coronary artery without angina pectoris Category: Medical Qualifiers: Associated angina: without angina Coronary Disease-Associated Artery/Lesion type: [place] artery [place] vs. transplanted heart: [place] heart Qualified Code(s): I25.10 - Atherosclerotic heart disease of [place] coronary artery without angina pectoris Plan: Control the cholesterol, weight, blood pressure, diabetes on aspirin 81 mg once a day (4) Hypertension: Code(s): I10 - Essential (primary) hypertension Category: Medical Qualifiers: Hypertension type: primary hypertension Qualified Code(s): I10 - Essential (primary) hypertension Plan: Continue with blood pressure medication. Decrease salt intake and exercise patient takes carvedilol 12.5 mg twice a day clonidine 0.2 mg twice a day isosorbide mononitrate 60 mg once a day lisinopril 40 mg once a day nifedipine 60 mg twice a day patient follows up with Nephrology (5) Chronic kidney disease, stage 3: Code(s): N18.30 - Chronic kidney disease, stage 3 unspecified Category: Medical Qualifiers: Chronic kidney disease stage 3 subtype: stage 3a (GFR 45-59) Qualified Code(s): N18.31 - Chronic kidney disease, stage 3a Plan: Patient follows up with Nephrology stable avoid NSAID (6) Dementia: Code(s): F03.90 - Unspecified dementia, unspecified severity, without behavioral disturbance, psychotic disturbance, mood disturbance, and anxiety Category: Medical Qualifiers: Dementia behavioral disturbance: without behavioral disturbance Dementia type: vascular dementia Qualified Code(s): F01.50 - Vascular dementia without behavioral disturbance Plan: Supportive treatment Plan History of Present Illness The patient is an 79-year-old female presenting for a follow-up visit. She has a history of diabetes mellitus, which requires better control of her hemoglobin A1c levels, with a goal of less than 7.0%. Her current regimen includes insulin lispro 5 units twice a day, 75/25. The patient also has chronic kidney disease, stage 3B, which is currently stable. She follows up with nephrology and is advised to avoid NSAIDs. Her cardiovascular history includes a previous cerebrovascular accident, left carotid stenosis, and coronary artery disease. She underwent an endarterectomy in January 2022 and is on aspirin 81 mg once a day. The patient has hypertension managed with multiple medications, including nifedipine, lisinopril, and carvedilol. Her blood pressure regimen also includes clonidine and isosorbide mononitrate. She has a history of hypercholesterolemia, with her last LDL cholesterol recorded at 67 mg/dL in April 2024. She is on rosuvastatin with an LDL goal of less than 70 mg/dL and triglycerides less than 150 mg/dL. The patient also has dementia and anemia, with recent lab results showing hemoglobin at 10.5 and hematocrit at 33.8. Preventative care measures include overdue colon cancer screening since 2016, a mammogram last done in February 2024, and a bone density test last done in July 2023. Health Maintenance - Colon cancer screening overdue since 2016 - Mammogram last done in February 2024 - Bone density test last done in July 2023 Social History Review of Systems Physical Exam Results - Labs: Hemoglobin 10.5, Hematocrit 33.8 - Labs: Creatinine 1.3, eGFR 42 - Labs: Blood glucose 219 - Labs: LDL cholesterol 67 mg/dL (April 2024) Plan The management plan for diabetes mellitus includes maintaining a hemoglobin A1c goal of less than 7.0% with the current regimen of insulin lispro 5 units twice a day, 75/25. For chronic kidney disease, the patient will continue follow-up with nephrology, and NSAIDs should be avoided to prevent further renal impairment. Cardiovascular management includes aspirin 81 mg daily for coronary artery d isease and continuation of antihypertensive therapy with nifedipine, lisinopril, carvedilol, clonidine, and isosorbide mononitrate to manage hypertension. The patient is also on rosuvastatin to maintain LDL cholesterol levels below 70 mg/dL and triglycerides below 150 mg/dL. Preventative care measures include scheduling overdue colon cancer screening and ensuring regular follow-ups for mammograms and bone density tests. Patient was informed and verbally consented to the use of an ambient scribe for clinic note documentation during this visit. Discussion Notes Patient Instructions Orders: Orders AMB Hemoglobin A1c Today Z13.9 - Encounter for screening, unspecified
[2024-12-28 09:54] VITALS: BP 104/58; PULSE 63; TEMP 36.1; O2SAT 88; BMI 26.4
--- OUTSIDE RECORDS SUMMARY | 2024-12-28 10:00 | XMS_ITS | Data Portability ---
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 pt has had cough x 5 days. she felt feverish at onset but family did not check her temp. cough is productive with white and sometimes yellow sputum. cough is worse at night coughing fits at times mag her gag and choke. no sob, wheezing, she has had nasal congestion and sore throat. no abdominal pain, vomiting or diarrhea. pt is on home oxygen 1L via [place]. no known sick contacts. pt's son and granddaughter Wen are present for the visit they are her caretakers. they monitor her bp at home and states diastolic has been low in the 40s-50s. 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 Vital Signs: BP 128/46, HR 68, RR 18, T 98.2, O2 98% on 1L oxygen via [place]. Exam: pleasant 77 y/o female mildly ill appearing, alert, NAD sitting in her recliner. eyes: no injection, icterus, discharge. nose: nares patent no discharge. Ears: TMs and EACs clear. mouth: moist mucous membranes, no erythema, exudates, uvula is midline. no sinus tenderness. no cervical lymphadenopathy. lungs: CTAB. heart: RRR no murmurs rubs or gallops.no peripheral edema. no calf tenderness or edema. negative homans bilaterally. abdomen: soft, normal bowel sounds, non tender. strength is normal and equal bilaterally. pulses normal and equal bilaterally. DDx considered, with rationale: Pneumonia: considered pt afebrile and lungs are clear. Covid: considered PCR pending. CHF: considered lungs are clear, no edema or reported weight gain or wheezing. PE: considered but no tachycardia or hypoxia. Results/ work up: CXR pending. Covid PCR pending. Plan: Asthmatic Bronchitis: rest and push fluids. use of steamed heat/ humidifier in the room. continue current meds and oxygen as directed by pcp. Covid PCR is pending. family will call and schedule appt for CXR with [facility]. Start Rx Doxycycline 100 mg 1 tab PO bid x 10 days. take with food. take tylenol as directed on the package for fever or pain. follow up with pcp in 3-5 days or sooner prn. Go to the ER with worsening symptoms cp, sob, wheezing, weakness, dizziness, fever. [email or web address] Not available 05/28/2022 11:22:44 Plan of Treatment Reminders Order Date Submit Date Provider Last Modified By Organization Details Last Modified Time Details Appointments None recorded. Lab rapid SARS CoV 2 Ag, QL IA, respiratory specimen 2021 [email or web address] 5 [facility] - Home, [address] [place], [address], 10:35:10 unlisted lab - covid-19 (novel coronavirus ) PCR 2021 [place] [facility] (Centralized Electronic Ordering - All Locations), Patient Can Go To The Location Of Their Choice, [id number] 01:53:00 rapid flu (A+B) 2021 [email or web address] 5 [facility] - Home, [address] [place], [address], 10:35:06 Referral None recorded. Procedures None recorded. Surgeries None recorded. Imaging XR, chest, 2 view - cough x 5 days, asthmatic 2021 [facility] ([facility]), [address] [place], [address], 10:52:10 Medication Orders doxycycline hyclate 100 mg tablet 2021 022 [id number], [address], [place], [place], [id number], 10:35:24 Patient TargetsNo targets recorded. Patient InstructionsNo instructions recorded. Reason for Referral None Reported. Results Created Date Observation Date Name Description Value Unit Range Abnormal Flag Note LastModifiedBy Organization Detail LastModifiedTime 05/28/20 22 05/29/2022 COVID -19 (NOVE L CORON AVIRU S) PCR covid-19 PCR specimen source NASAL Not Available [facility] (Centralized Electronic Ordering - All Locations) Patient Can Go To The Location Of Their Choice, [id number] 05/30/2022 01:52:59 05/28/2005/30/2022 COVID -19 (NOVE L CORON AVIRU S) PCR covid-19 PCR result (neg) NEGAT YURY 2018- novel Coron aviru s (2018 -nCoV ) not detec brenda by real- time RT-PC R. Note: If clini roxanna suspi cion for COVID -19 is high, malaika nue to maint ain preca ution s and consi hazel repea t testi ng. Resul t repor brenda to the [facility]. To preve nt error s in diagn osis, test resul ts shoul d be inter prete d in the nabor xt of clini roxanna findi ngs and other labor atory data. Rare polym orphi sms exist that could lead to false -nega tive or false -posi tive resul ts. If resul ts obtai srinivas do not match the clini roxanna findi ngs, addit ional testi ng shoul d be consi dered . This test has been autho rized by the FDA under an Emerg ency Use Autho rizat ion (EUA) for use by autho rized labor atori es. Testi ng perfo rmed by real time PCR utili [facility] [employer] SARS- CoV-2 test. Not Available [facility] (Centralized Electronic Ordering - All Locations) Patient Can Go To The Location Of Their Choice, [id number] 05/30/2022 01:52:59 05/28/20 22 05/28/2022 rapid flu (A+B) Flu A (ref: neg) negati ve Not Available [facility] - Home [address] [place], [address], 05/28/2022 10:30:49 05/28/20 22 05/28/2022 rapid flu (A+B) Flu B (ref: neg) negati ve Not Available [facility] - Home [address] [place], [address], 05/28/2022 10:30:49 05/28/20 22 05/28/2022 rapid flu (A+B) Control Visual ized/V alid Not Available [facility] - Home [address] [place], [address], 05/28/2022 10:30:49 05/28/20 22 05/28/2022 rapid flu (A+B) Location [facility], [facility], [address] [place] [address], [id number] Not Available Spr - Home [address] [place], [address], 05/28/2022 10:30:49 05/28/20 22 05/28/2022 rapid SARS CoV 2 Ag, QL IA, respi rator y speci men Covid-19 (ref: neg) negati ve Not Available [facility] - Home [address] [place], [address], 05/28/2022 10:30:29 05/28/20 22 05/28/2022 rapid SARS CoV 2 Ag, QL IA, respi rator y speci men Control Visual ized/V alid Not Available [facility] - Home [address] [place], [address], 05/28/2022 10:30:29 05/28/20 22 05/28/2022 rapid SARS CoV 2 Ag, QL IA, respi rator y speci men Location [facility], [address], [facility] [place] [address], [id number] Not Available [facility] - Home [address], [place], [address], 05/28/2022 10:30:29 06/02/20 22 06/02/2022 XR, chest , 2 view XRAY CHEST 2 VIEW FINDIN GS: The lungs are withou t infilt rate, atelec tasis or effusi on. There is no pulmon ban vascul ar conges tion or edema. The heart size is mildly enlarg ed. The medias tinal contou rs are within normal limits . Athero sclero tic calcif icatio ns are visibl e in the aorta. There are degene rative change s of the spine. The remain ing osseou s struct ures and soft tissue s are unrema rkable . There are medias tinal clips, with intact sterna l wires. CONCLU KRISTI: Mild cardio megaly , but no acute cardio pulmon ban diseas e. ELECTR ONICAL LY SIGNED BY VICENTE PEREYRA M.D. 2021 10:37: 37 AM EST. XRAY CHEST 2 VIEW Result s: The lungs are withou t infilt rate, atelec tasis or effusi on. There is no pulmon ban vascul ar conges tion or edema. The heart size is mildly enlarg ed. The medias tinal contou rs are within normal limits . Athero sclero tic calcif icatio ns are visibl e in the aorta. There are degene rative change s of the spine. The remain ing osseou s struct ures and soft tissue s are unrema rkable . There are medias tinal clips, with intact sterna l wires. Conclu kristi: Mild cardio megaly , but no acute cardio pulmon ban diseas e. Electr onical ly signed by VICENTE PEREYRA M.D. 2021 10:37: 37 AM EST. [email or web address] [facility] [address], [place], [address], 06/04/2022 08:19:01 Result Notes Documentation Provider Name and Address Organization Details Recorded Time Xr, Chest, 2 View : XRAY CHEST 2 VIEW FINDINGS: The lungs are without infiltrate, atelectasis or effusion. There is no pulmonary vascular congestion or edema. The heart size is mildly enlarged. The mediastinal contours are within normal limits. Atherosclerotic calcifications are visible in the aorta. There are degenerative changes of the spine. The remaining osseous structures and soft tissues are unremarkable. There are mediastinal clips, with intact sternal wires. CONCLUSION: Mild cardiomegaly, but no acute cardiopulmonary disease. ELECTRONICALLY SIGNED BY VICENTE PEREYRA M.D. 06/02/2022 10:37:37 AM EST. XRAY CHEST 2 VIEW Results: The lungs are without infiltrate, atelectasis or effusion. There is no pulmonary vascular congestion or edema. The heart size is mildly enlarged. The mediastinal contours are within normal limits. Atherosclerotic calcifications are visible in the aorta. There are degenerative changes of the spine. The remaining osseous structures and soft tissues are unremarkable. There are mediastinal clips, with intact sternal wires. Conclusion: Mild cardiomegaly, but no acute cardiopulmonary disease. Electronically signed by VICENTE PEREYRA M.D. 06/02/2022 10:37:37 AM EST. NELLY Mann [address] [place], [address], [place] [facility] 06/04/2022 08:19:01 Procedures Surgical History Date Name Laterality Status Provider Name and Address Organization Details Recorded Time carotid endarterectomy completed NELLY Mann [address] [place], [address], [place] [facility] 05/28/2022 10:13:19 open heart surgery completed NELLY Mann [address] [place], [address], [place] [facility] 05/28/2022 10:13:31 Cholecystectomy completed NELLY Mann [address] [place], [address], [place] [facility] 05/28/2022 10:14:03 Imaging Results None recorded. Procedure Notes None recorded. Medical Equipment None Reported. Allergies No known drug allergies Medications Name Sig Start Date Stop Date Status Note LastModified by Organization Details LastModified Time carvedilol 6.25 mg tablet active Not Available Not Available Not Available albuterol sulfate 2.5 mg/3 mL (0.083 %) solution for nebulizatio n USE 3 ML VIA NEBULIZER FOUR TIMES DAILY NEEDED FOR SHORTNESS OF BREATH OR WHEEZING active Not Available Not Available No t Available FreeStyle Lancets 28 gauge TEST THREE TIMES DAILY 05/28 completed Not Available Not Available Not Available clonidine HCl 0.3 mg tablet TAKE 1 TABLET BY MOUTH TWICE DAILY active Not Available Not Available No t Available tramadol 50 mg tablet TAKE 1 TABLET BY MOUTH EVERY 8 HOURS active Not Available Not Available No t Available docusate sodium 100 mg capsule TAKE ONE CAPSULE BY MOUTH THREE TIMES DAILY NEEDED FOR CONSTIPAT ION active Not Available Not Available No t Available gabapentin 300 mg capsule TAKE 1 CAPSULE BY MOUTH THREE TIMES DAILY active Not Available Not Available No t Available bumetanide 1 mg tablet TAKE 1 TABLET BY MOUTH TWICE DAILY active Not Available Not Available No t Available albuterol sulfate HFA 90 mcg/actuati on aerosol inhaler INHALE 2 PUFFS BY MOUTH EVERY 4 TO 6 HOURS NEEDED FOR BRONCHOSP ASM active Not Available Not Available No t Available nifedipine ER 60 mg tablet,exte nded release TAKE 1 TABLET BY MOUTH TWICE DAILY active Not Available Not Available No t Available lisinopril 40 mg tablet TAKE 1 TABLET BY MOUTH DAILY active Not Available Not Available No t Available doxycycline hyclate 100 mg tablet TAKE 1 TABLET BY MOUTH TWICE DAILY FOR 10 DAYS DIRECTED active Not Available Not Available No t Available amoxicillin 875 mg-potassiu m clavulanate 125 mg tablet TAKE 1 TABLET BY MOUTH TWO TIMES A DAY FOR 14 DAYS 05/28 completed Not Available Not Available Not Available Novolog Mix 70-30 FlexPen U-100 Insulin 100 unit/mL subcutaneou s pen INJECT 36 UNITS UNDER THE SKIN EVERY MORNING AND 30 UNITS EVERY EVENING DIRECTED active Not Available Not Available No t Available Novolog Mix 70-30 U-100 Insulin 100 unit/mL subcutaneou s solution active Not Available Not Available N ot Available rosuvastati n 40 mg tablet TAKE 1 TABLET BY MOUTH DAILY active Not Available Not Available No t Available BD Ultra-Fine Mini Pen Needle 31 gauge x 3/16 USE TO INJECT TWICE DAILY 05/28 completed Not Available Not Available Not Available FreeStyle Lite Strips USE DIRECTED TO CHECK BLOOD SUGAR FOUR TIMES DAILY 05/28 completed Not Available Not Available Not Available Vitals Date Recorded Heart rate Respiratory rate Body temperature Oxygen saturation Oxygen saturation in Arterial blood by Pulse oximetry Oxygen saturation Oxygen saturation in Arterial blood by Pulse oximetry Inhaled oxygen flow rate Systolic And Diastolic Systolic And Diastolic Provider Name and Address Organization Details Last Updated DateTime 2 68 /min 18 /min 98.2 [degF] 98 % 98 % 98 % 98 % 1 L/min 128/46 mm[Hg] 132/44 mm[Hg] Not Available [facility] 2 10:32:04 Social History Question Answer Notes LastModified by [employer] Details LastModified Time Tobacco Smoking Status Never Smoker NELLY Mann [address], [place], [address], [place] [facility] 05/28/2022 10:12:04 Do You Have An Advance Directive? No [email or web address] Information not available 05/28/2022 What Is Your Code Status? Full Code [email or web address] Information not available 05/28/2022 Excessive Alcohol Or Drug Use No [email or web address] Information not available 05/28/2022 Does This Patient Have A PCP? Yes [email or web address] Information not available 05/28/2022 Has The Patient Seen Their PCP In The Past 6 Months? Yes Information not available 05/28/2022 Is This Patient In Hospice? No [email or web address] Information not available 05/28/2022 Sex: Unknown Functional Status Question Answer Note LastModified by [employer] Details LastModified Time Do you use any illicit or recreational drugs? No [email or web address] Information not available 05/28/2022 What is your level of alcohol consumption? None [email or web address] Information not available 05/28/2022 Mental Status None recorded. Family History Relationship Description Onset Age of this Age Resolved Age Notes LastModified by Organization Details LastModified Time Mother Diabetes mellitus [email or web address] Not available 05/28 10:11:05 Medical History Condition Response Diabetes Y Coronary Artery Disease Y CHF N Cancer N Stroke Y Dementia Y Asthma Y Hypothyroidism Y COPD N High Cholesterol Y Pulmonary Embolism N Hypertension Y A-fib N Kidney Disease Y Gynecological HistoryNo gynecological history recorded. Obstetrics History GPAL:G 0 P 0 0 0 0 Past Encounters Encounter ID Performer Location Encounter Start Date Encounter Closed Date Diagnosis/Indication Diagnosis SNOMED-CT Code Diagnosis ICD10 Code Diagnosis Note [id number] NELLY Mann [facility] [address] [place] [address] 05/28/2022 10:06:33 05/29/2022 11:56:39 Asthmatic bronchitis 948987020 J45.909 Health Concerns Section Related Observation LastModified by Organization Detai ls LastModified Time None Recorded Concern Status LastModified by Organization Details LastModified Time None Recorded Advance Directives Directive N: Payers Insurance Date Sequence Insurance Name Policy Number Policy Palma Covered Member ID Palma Member ID Guarantor Name 06/19/2022 1 [place] [employer] Felicity Ray [id number] Felicity Ray 06/19/2022 1 *SELF PAY* Felicity Ray [id number] Felicity Ray 06/19/2022 2 [place] [facility] Felicity Ray [id number] Felicity Ray 06/19/2022 1 [place] [employer] Felicity Ray-Hart [id number] Felicity Ray 06/19/2022 1 [place] [employer] Felicity Ray [id number] Felicity Ray 06/19/2022 1 [place] [employer] Felicity Ray [id number] Felicity Ray 06/19/2022 1 [place] [employer] Felicity Ray [id number] Felicity Ray Notes Date Note Type Note Provider Name and Address Organization Details Recorded Time 05/28/2022 text/html 77 y/o female new to with hx of HTN, CAD, DM, hyperlipidemia, kidney disease, asthma, stroke, hypothyroidism. pt has had cough x 5 days. she felt feverish at onset but family did not check her temp. cough is productive with white and sometimes yellow sputum. cough is worse at night coughing fits at times mag her gag and choke. no sob, wheezing, she has had nasal congestion and sore throat. no abdominal pain, vomiting or diarrhea. pt is on home oxygen 1L via [place]. NELLY Mann [address] [place], [address], [place] [facility] 05/28/2022 11:23:29 OBGyn Episode No OBEpisode recorded.
--- OUTSIDE RECORDS SUMMARY | 2024-12-28 10:00 | XMS_ITS | Encounter Summary ---
Author Organization [facility] Address [address] [place] [address] Phone Care Team Providers Care Assisted Living Coordinator Name Role Phone Renetta Gonzalez MD Primary Care Provider [phone] Encounter Details Date Type Department Care Team ([facility] Contact Info) Description 05/26/2024 Documentation Only [facility] [address] [place] [address] Kavitha Navarro [address] [place] [address] Social History Tobacco Use Types [...] Department Care Team (Late Contact Info) Description 05/31/2025 1:30 PM EST Office Visit [facility] [address] [place] [address] Karen Hart MD [address] [place] [address] documented as of this encounter Visit Diagnoses Not on filedocumented in this encounter Care Teams Assisted Living Coordinator Relationship Specialty Start Date End Date Renetta Gonzalez MD [address] DANIEL PEREZ PCP - General 04/18/19 documented as of this encounter
== END 2024-12-28 10:21 | disposition home or self-care (01) ==
LOC: HO.HMCH 09:41
PROVIDERS: PCP Internal Medicine; Visit Provider Internal Medicine
DX: E11.65 Type 2 diabetes mellitus with hyperglycemia (principal); Z79.4 Long term (current) use of insulin; E78.00 Pure hypercholesterolemia, unspecified; I25.10 Atherosclerotic heart disease of native coronary artery without angina pectoris; I10 Essential (primary) hypertension; N18.31 Chronic kidney disease, stage 3a; F01.50 Vascular dementia, unspecified severity, without behavioral disturbance, psychotic disturbance, mood disturbance, and anxiety; Z13.9 Encounter for screening, unspecified

== ENCOUNTER → 2024-12-28 09:40 | Outpatient (BNVA) | payer MEDICARE, MEDICAID, SELFPAY | PROVIDERS: PCP Internal Medicine; Visit Provider Internal Medicine | DX: E11.65 Type 2 diabetes mellitus with hyperglycemia (principal); E78.00 Pure hypercholesterolemia, unspecified; I25.10 Atherosclerotic heart disease of native coronary artery without angina pectoris; I12.9 Hypertensive chronic kidney disease with stage 1 through stage 4 chronic kidney disease, or unspecified chronic kidney disease; E11.22 Type 2 diabetes mellitus with diabetic chronic kidney disease; N18.31 Chronic kidney disease, stage 3a; F01.50 Vascular dementia, unspecified severity, without behavioral disturbance, psychotic disturbance, mood disturbance, and anxiety; Z79.4 Long term (current) use of insulin | CPT/HCPCS: 83036; 99212 ==

== ENCOUNTER 2025-02-05 10:39 | Outpatient (AMB) | payer MEDICARE, MEDICAID, SELFPAY ==
--- NOTE | 2025-02-05 10:48 | A.OFFVIS_ITS ---
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 Tire Shop Mechanic Language: Angolan Accompanied by: Son Allergies peanut (PEANUT) Allergy (Unknown, Verified 02/05/25 11:21) RASH seafood Allergy (Unknown, Verified 02/05/25 11:21) Unknown Medication List - Last Reconciled 02/05/25 by Niki Carter PA-C albuterol sulfate 90 mcg/actuation (Ventolin HFA) 2 puffs inhalation Q4-6H PRN aspirin 81 mg PO DAILY blood sugar diagnostic (FreeStyle Lite Strips) As directed check the BS QID blood-glucose meter ([employer] Ultra2 Meter kit) As directed blood-glucose sensor (FreeStyle Nestor 3 Plus Sensor device) As directed bumetanide 1 mg PO DAILY carvedilol 12.5 mg PO BID cholecalciferol (vitamin D3) 1,250 mcg PO TU clonidine HCl 0.2 mg See Protocol PO BID compress.stocking,knee,reg,med As directed 20-30 mm HG [DEPENDS LARGE As directed] [DIABETIC CUSTOM SHOE As directed] [Diabetic shoes As directed] docusate sodium 100 mg PO BID gabapentin 300 mg PO BID 90 days insulin lispro protamin-lispro 100 unit/mL (75-25) 5 units (0.05 mL) subcut BID isosorbide mononitrate ER 60 mg See Protocol PO DAILY lancets (FreeStyle Lancets) As directed check BS TID lisinopril 40 mg PO DAILY nifedipine ER 60 mg PO BID 90 days [oxygen 2L NC As directed] Oxygen Home Use As directed pen needle, diabetic (BD Ultra-Fine Mini Pen Needle) USE TO INJECT TWICE DAILY [Portable Oxygen Concentrator As directed] rosuvastatin 40 mg PO DAILY 90 days tramadol 50 mg PO Q8H PRN HPI [facility] G0439 HPI Details 79-year-old female with past medical his tory of congestive heart failure, diabetes mellitus, chronic kidney disease, peripheral vascular disease, coronary artery disease, asthma, hypercholesterolemia, hypertension and dementia last seen 12/2024 coming in for annual exam. Patient's son provides translation for the duration of this visit. She declines formal interpretation today. Presenting for an annual wellness visit. The patient reports stable blood pressure readings with no recent elevations. The patient describes inconsistent sleep patterns, including early waking and daytime napping, but notes improvement in nighttime sleep duration. The patient uses compression stockings for leg swelling, which has shown improvement. mammo: 02/2024 eye doctor: yearly colonoscopy: declined DEXA: 2023 vaccines: [facility] Medical History Screening for colon cancer Obesity (BMI 30-39.9) Pain of left heel Post-menopausal Hypertension, uncontrolled Toe pain, right Cellulitis, leg Screening for breast cancer Chronic kidney disease, stage 3 Diabetic retinopathy Aortic stenosis History of CVA (cerebrovascular accident) Thyroid nodule Congestive heart failure Hypercholesterolemia Diabetic neuropathy Hypertension Dementia Asthma Peripheral vascular disease Coronary artery disease Type 2 diabetes mellitus with hyperglycemia Surgical History History of endarterectomy History of colonoscopy History of cataract surgery Hx of cholecystectomy Amputated toe of left foot Hx of CABG Femoral-popliteal bypass graft occlusion, left Carotid stenosis Family History Father Diabetes Hypertension Mother Hypertension CVD (cardiovascular disease) Cancer Diabetes Maternal Aunt Breast cancer Seizures Sister No problems noted. Son No problems noted. Son No problems noted. Son No problems noted. Daughter No problems noted. Social History Household Members: None Housing: House Do you presently have visiting nurse or other home services: No Alcohol intake: current Alcohol intake frequency: does not drink Patient Tobacco Use Status: Never used Tobacco Tobacco use type: Cigarette e-Cigarette/Vaping Use: Never Used Second Hand Smoke Exposure: No service: No Current occupational status: unemployed and retired Cognitive needs: No Hearing needs: No Vision needs: Yes Questionnaire Medicare Wellness Checkup What is your age?: 79 or older What gender do you identify with?: female During the past 4 weeks, how much have you been bothered by emotional problems such as feeling anxious, depressed, irritable, sad or downhearted, and blue?: not at all During the past 4 weeks, has your physical & emotional health limited your social activities with family, friends, neighbors, or groups?: moderately During the past 4 weeks, how much bodily pain have you generally had?: moderate pain During the past 4 weeks, was someone available to help you if you needed & wanted help?: yes, as much as I wanted During the past 4 weeks, what was the hardest physical activity you could do for at least 2 minutes?: very light Can you get to places out of walking distance without help? (For eg., can you travel alone on buses, taxis or drive your car?): No Can you go shopping for groceries or clothes without someone's help?: No Can you prepare your own meals?: No Can you do your housework without help?: No Because of any health problems, do you need the help of another person with your personal care needs such as eating, bathing, dressing or getting around the house?: Yes Can you handle your own money without help?: No During the past 4 weeks, how would you rate your health in general?: very good During the past 4 weeks how have things been going for you?: good & bad parts about equal Are you having difficulties driving your car?: not applicable, I don't use a car Do you always fasten your seat belt when you are in a car?: yes, usually During past 4 weeks, have you been bothered by the following: never: Sexual problems?, Trouble eating well?, Teeth or denture problems?, Problems using the telephone? and Tiredness or fatigue? and always: Falling or dizzy when standing up Have you fallen 2 or more times in the past year?: No Are you afraid of falling?: No Are you a smoker?: no During the past 4 weeks, how many drinks of wine, beer, or other alcoholic beverages did you have?: no alcohol at all Do you exercise for about 20 minutes 3 or more times a week?: no, I usually do not exercise this much Have you been given information to help with the following?: yes: Keeping track of your medications? and no: Hazards in your house that might hurt you? How often do you have trouble taking medicines the way you have been told to take them?: I always take medicine as prescribed How confident are you that you can control & manage most of your health problems?: somewhat confident What is your race?: or origin or descent PHQ-9 Over the last 2 weeks, how often have you been bothered by any of the following problems? 1. Little interest or pleasure in doing things: not at all 2. Feeling down, depressed, or hopeless: several days 3. Trouble falling or staying asleep, or sleeping too much: several days 4. Feeling tired or having little energy: more than half the days 5. Poor appetite or overeating: several days 6. Feeling bad about yourself - or that you are a failure or have let yourself or your family down: several days 7. Trouble concentrating on things, such as reading the newspaper or watching television: not at all 8. Moving or speaking so slowly that other people could have noticed. Or the opposite - being so fidgety or restless that you have been moving around a lot more than usual: not at all 9. Thoughts that you would be better off or of hurting yourself in some way: not at all Total score: 6 92283 - PHQ-9 Billing: Yes Source: Developed by Drs. Ramos Dove, Vesta Yeh, Maksim Fernandez and colleagues, with an educational breann from [employer] & other things you bake. Review of Systems Const Denies body aches, Denies chills, Denies fatigue, Denies fever(s), Denies headache(s) and Denies poor appetite Eyes Reports no additional complaints ENT Denies dysphagia, Denies dizziness, Denies headache(s) and Denies odynophagia Card Denies chest pain, Denies syncope, Denies edema, Denies irregular heart rhythm, Denies lightheadedness and Denies dyspnea Resp Denies cough and Denies dyspnea GI Denies abdominal pain, Denies constipation, Denies dysphagia, Denies diarrhea, Denies nausea, Denies odynophagia and Denies vomiting Reports no additional complaints Musc Reports no additional complaints and Denies abnormal gait Skin/Breast Reports system reviewed and no additional complaints, except as documented Neuro Denies abnormal gait, Denies dizziness, Denies syncope and Denies headache(s) Psych Reports no additional complaints Endo Denies fatigue Physical Exam Vital Signs: Last Vital Signs Pulse 62 08/ 10:50 BP 130/52 L 02/05/25 10:50 Pulse Ox 92 02/05/25 10:50 Oxygen Delivery Method Nasal Cannula 02/05/25 10:50 Oxygen Flow Rate 2 02/05/25 10:50 BMI result Body Mass Index 28.0 Const General: cooperative, healthy appearing, comfortable and no acute distress Orientation/consciousness: patient oriented x3 HEENT Head: Yes normocephalic Ears: hearing grossly normal bilaterally General nose exam: Normal external nose present Face and sinus: Yes normal facial exam and Yes sinuses nontender Mouth: Normal oral and palatal mucosa present and tongue normal Throat: Yes posterior oropharynx normal Eyes General: appearance normal, both eyes and all related structures Conjunctivae: conjunctivae normal Pupils: Equal, round and reactive pupils present EOM: EOMs intact bilaterally and No Nystagmus present Neck Neck: Yes full ROM and Yes no lymphadenopathy Chest Chest palpation & inspection: normal inspection of the chest Resp Effort & Inspection: normal respiratory effort Auscultation: clear to auscultation bilaterally, no crackles, no rales, no rhonchi and no wheezes Cardio Rate: regular rate Rhythm: regular rhythm Peripheral pulses: radial pulses present and dorsalis pedis present GI Inspection: Yes normal to inspection and No Abdominal wall edema Palpation (GI): Soft to palpation, not firm and nontender Auscultation: normal bowel sounds Rectal Exam - Female: deferred General: Yes no CVA tenderness Back/Spine/Pelvis Back: no CVA tenderness Skin General skin exam: no rashes or lesions noted Neuro General: patient oriented x3 Cranial nerves: Yes Equal, round and reactive pupils present, Yes Midline tongue present, Yes Ability to bilaterally elevate shoulders present and No Nystagmus present Gait exam (Neuro): Normal gait present Extrem General: Yes normal to inspection, Yes full ROM and No edema Psych Speech and movement: Normal speech and movement present Affect: normal affect Attitude: cooperative Insight: Good insight present (Psych) Judgement: Good judgement present (Psych) Assessment & Plan Assessment & Plan (1) Medicare annual wellness visit, subsequent: Code(s): Z00.00 - Encounter for general adult medical examination without abnormal findings Plan: Patient is up-to-date on all recommended routine screenings and vaccinations for her age. She was overdue for colonoscopy and is declining additional colonoscopies at this time. She understands the risk and have these procedures done and continues to decline. I did remind her about the blood work to be completed. Healthy diet and regular exercise is encouraged. [place] of care was reviewed with patient patient was provided with a written screening schedule. Healthcare proxy/ MOLST forms were reviewed with patient and these has been completed in the past. She has good cognition in his able to make informed decisions about her own health at this time. (2) Hypertension: Code(s): I10 - Essential (primary) hypertension Qualifiers: Hypertension type: primary hypertension Qualified Code(s): I10 - Essential (primary) hypertension Plan: Continue on current blood pressure medication. Avoid salt intake and encourage healthy diet and regular exercise. (3) Coronary artery disease: Code(s): I25.10 - Atherosclerotic heart disease of [place] coronary artery without angina pectoris Qualifiers: Coronary Disease-Associated Artery/Lesion type: [place] artery [place] vs. transplanted heart: [place] heart Associated angina: without angina Qualified Code(s): I25.10 - Atherosclerotic heart disease of [place] coronary artery without angina pectoris Plan: Patient is currently on aspirin 81 mg, rosuvastatin 40 mg and on blood pressure control with nifedipine, lisinopril, clonidine and carvedilol. 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 Clinically she is euvolemic and no signs of fluid overload at this time. (5) Hypercholesterolemia: Code(s): E78.00 - Pure hypercholesterolemia, unspecified Plan: Avoid foods that are high in cholesterol such as red meat, fried foods, eggs and baked goods. Triglyceride goal of less than 150 and LDL goal of less than 70. Continue on rosuvastatin. Reminded about blood work (6) Type 2 diabetes mellitus with hyperglycemia: Code(s): E11.65 - Type 2 diabetes mellitus with hyperglycemia Qualifiers: Diabetes mellitus senior care insulin use: with senior care use Qualified Code(s): E11.65 - Type 2 diabetes mellitus with hyperglycemia; Z79.4 - [facility] (current) use of insulin Plan: Decrease the amount of carbohydrates such as pasta, bread, rice, and potatoes and limit the amount of sweets. Although fruits are generally healthy they should be eaten in moderation as they are still high in sugar. Hemoglobin A1c goal of less than 7%. She is currently following with [facility] endocrinology every 3 months. Reminded about blood work (7) Osteopenia: Comment: 2021, 09/2023 Code(s): M85.80 - Other specified disorders of bone density and structure, unspecified site Plan: Bone density completed 2023 showing osteopenia recommend increasing dietary intake of calcium and vitamin-D supplementation. We will be due for DEXA next year (8) Chronic kidney disease, stage 3: Code(s): N18.30 - Chronic kidney disease, stage 3 unspecified Qualifiers: Chronic kidney disease stage 3 subtype: stage 3a (GFR 45-59) Qualified Code(s): N18.31 - Chronic kidney disease, stage 3a Plan: Avoid kidney irritants such as NSAIDs and stay well hydrated. Continue to follow up with Nephrology (9) History of CVA (cerebrovascular accident): Comment: Right-sided weakness Code(s): Z86.73 - Personal history of transient ischemic attack (TIA), and cerebral infarction without residual deficits Plan: Patient having history of CVA continue on aspirin at this time and continue with good control of blood pressure, cholesterol and diabetes. (10) Dementia: Code(s): F03.90 - Unspecified dementia, unspecified severity, without behavioral disturbance, psychotic disturbance, mood disturbance, and anxiety Qualifiers: Dementia type: vascular dementia Dementia behavioral disturbance: without behavioral disturbance Qualified Code(s): F01.50 - Vascular dementia without behavioral disturbance Plan: Patient is able to answer questions appropriately today. Son denies any witnessed dangerous behaviors (11) Asthma: Code(s): J45.909 - Unspecified asthma, uncomplicated Qualifiers: Asthma severity: mild Asthma persistence: intermittent Asthma complication type: uncomplicated Qualified Code(s): J45.20 - Mild intermittent asthma, uncomplicated Plan: Patient is currently on portable oxygen for hypoxia. Plan This note was constructed using voice recognition software. While every effort has been made to ensure accuracy and dispensary clerk, still areas may have been included sometimes these areas may affect the content or meeting of the given symptoms. Total time spent caring for the patient today was 30 minutes. This includes time spent before the visit reviewing the chart, time spent during the visit, and time spent after the visit and documentation. Patient was informed and verbally consented to the use of an ambient scribe for clinic note documentation during this visit. Quality Reporting (2019) Depression/Bipolar (159/160/161/177) PHQ-9: Total score: 6 Coding Level of Care Code Medicare Subsequent (G0439) Diagnoses Medicare annual wellness visit, subsequent Z00.00 Primary hypertension I10 Hypertension type: primary hypertension Coronary artery disease involving [place] coronary artery of [place] heart without angina pectoris I25.10 Coronary Disease-Associated Artery/Lesion type: [place] artery [place] vs. transplanted heart: [place] heart Associated angina: without angina Chronic congestive heart failure, unspecified heart failure type I50.9 Heart failure type: unspecified Heart failure chronicity: chronic Hypercholesterolemia E78.00 Type 2 diabetes mellitus with hyperglycemia, with long-term current use of insulin E11.65; Z79.4 Diabetes mellitus terminal press operator insulin use: with terminal press operator use Osteopenia M85.80 Stage 3a chronic kidney disease N18.31 Chronic kidney disease stage 3 subtype: stage 3a (GFR 45-59) History of CVA (cerebrovascular accident) Z86.73 Vascular dementia without behavioral disturbance F01.50 Dementia type: vascular dementia Dementia behavioral disturbance: without behavioral disturbance Mild intermittent asthma without complication J45.20 Asthma severity: mild Asthma persistence: intermittent Asthma complication type: uncomplicated CPT Codes Advance Care Planning - Advance Care Planning discussion: On file, no changes ([id number]) Advance Care Planning - Time spent: 1-15 minutes, on File ([id number]) Additional Codes PHQ-9 - 44416 - PHQ-9 Billing: Yes ([id number]) Advance Care Planning Advance Care Planning discussion: On file, no changes Date of discussion: 02/05/25 Who was present: patient, son, myself Forms completed: Health Care Proxy and MOLST Time spent: 1-15 minutes, on File Actual minutes spent: 5
[2025-02-05 10:50] VITALS: BP 130/52; PULSE 62; O2SAT 92; BMI 28.0
--- OUTSIDE RECORDS SUMMARY | 2025-02-05 11:56 | XMS_ITS | Encounter Summary ---
Author Organization [facility] Address [address] [place] [address] Phone Care Team Providers Care Presales Consultant Name Role Phone Renetta Gonzalez MD Primary Care Provider Encounter Details Date Type Department Care Team ([facility] Contact Info) Description 05/26/2024 Documentation Only [facility] [address] [place] [address] Kavitha Navarro [address] [place] [address] Social History Tobacco Use Types [...] Visit [facility] [address] [address] Karen Hart MD [address] [address] documented as of this encounter Visit Diagnoses Not on filedocumented in this encounter Care Teams Presales Consultant Relationship Specialty Start Date End Date Renetta Gonzalez MD [address] DANIEL PEREZ PCP - General 04/18/19 documented as of this encounter
--- OUTSIDE RECORDS SUMMARY | 2025-02-05 11:56 | XMS_ITS | Clinical Summary ---
Author Organization [facility] Address [address] [facility] [address] [place] [phone] Phone Care Team Providers Care Warehouse Helper Name Role Phone Renetta Gonzalez MD Primary Care Provider [phone] Allergies Active Allergy Reactions Criticality Noted Date Comments Latex Rash Low 07/17/2019 Other reaction(s): Rash to latex gloves Peanut Hives,Rash,Erythema Low 01/13/2023 sore throat Medications traMADoL (ULTRAM) 50 mg tablet Take 50 mg by mouth every 8 (eight) hours. 01/10/20 23 Active rosuvastatin (CRESTOR) 40 MG tablet Take 1 tablet by mouth every morning. 11/14/19 23 Active NIFEdipine (PROCARDIA XL) 60 MG 24 hr tablet Take 60 mg by mouth 2 (two) times a day. 11/18/19 22 Active lisinopril (PRINIVIL,ZESTR IL) 40 MG tablet Take 1 tablet by mouth every morning. 11/14/19 23 Active gabapentin (NEURONTIN) 300 MG capsule Take 300 mg by mouth 3 (three) times a day. 01/01/20 23 Active docusate sodium (COLACE) 100 MG capsule TAKE 1 CAPSULE BY MOUTH THREE TIMES DAILY NEEDED FOR CONSTIPATION 01/07/20 23 Active cloNIDine HCL (CATAPRES) 0.3 MG tablet Take 0.3 mg by mouth 2 (two) times a day. 11/23/19 23 Active carvedilol (COREG) 6.25 MG tablet TAKE 1 TABLET(6.25 MG) BY MOUTH IN THE MORNING AND IN THE EVENING WITH MEALS 11/05/19 22 Active bumetanide (BUMEX) 1 MG tablet Take 1 tablet by mouth 2 (two) times a day. 11/19/19 23 Active VENTOLIN HFA 90 mcg/actuation inhaler INHALE 2 PUFFS BY MOUTH EVERY 4 TO 6 HOURS NEEDED FOR BRONCHOSPASM 01/09/20 23 Active albuterol 2.5 mg /3 mL (0.083 %) nebulizer solution INHALE 3ML FOUR TIMES DAILY NEEDED FOR SHORTNESS OF BREATH OR WHEEZING FOR 90 DAYS 12/24/19 23 Active isosorbide mononitrate (IMDUR) 60 MG 24 hr tablet Take 1 tablet by mouth every morning. 03/24/20 24 Active ergocalciferol (DRISDOL) 50,000 unit capsule Take 50,000 Units by mouth once a week. Active FREESTYLE 28 gauge lancetsIndicati ons:Type 2 diabetes mellitus with peripheral neuropathy 1 each by Miscellaneous route every morning. 100 each 3 08/17/19 25 Active BD ULTRA-FINE MINI PEN NEEDLE 31 gauge x /16 NdleIndications :Type 2 diabetes mellitus with peripheral neuropathy Inject 1 each under the skin 2 (two) times a day. 200 each 3 08/17/19 25 Active FREESTYLE LITE Strp stripsIndicatio ns:Type 2 diabetes mellitus with peripheral neuropathy 1 each by Percutaneous route every morning. 100 strip 3 08/17/19 25 Active NOVOLOG MIX 70/30 100 unit/mL (70-30) injection penIndications: Type 2 diabetes mellitus with peripheral neuropathy 4 units in the am, 10 units in the pm, subcutaneously BID ac meals, plus 2 units to prime the pen with each dose 15 mL 3 09/06/19 25 Active Active Problems Problem Noted Date Diagnosed Date Type 2 diabetes with nephropathy 01/13/2023 Assessment & Plan (05/09/2024 12:54 PM EST): She is up to date with seeing renal. Will order her microalbumin creatinine ratio at the request of the wad blanking press adjuster Assessment & Plan (01/27/2024 5:20 PM EDT): Following w/ renal Type 2 diabetes mellitus with peripheral neuropa thy 01/13/2023 Assessment & Plan (11/22/2024 10:29 AM EDT): Control is good based upon the patient's freestyle roberta 3 sensor download. No frequent or severe hypoglycemia. Will maintain her regimen. Continue to work on eating healthy and being active. To call or message with any issues managing her glucose levels. Up to date with [employer]. Labs ordered Assessment & Plan (08/22/2024 2:20 PM EDT): Control is improving based upon the patient's freestyle roberta 2 sensor download. No frequent or severe hypoglycemia. Her glucose levels were running higher while her son was away as she was having foods higher in carbohydrates she normally doesn't have. Now that he is back home her glucose levels are improving, will maintain her medication regimen. Continue to work on eating healthy and being active. To call or message with any issues managing her glucose levels. Up to date with [employer]. Labs ordered Assessment & Plan (05/09/2024 12:56 PM EST): Control is reasonable/good based upon the patient's freestyle roberta 2 sensor download. No frequent or severe hypoglycemia. She will have an occasional low when she doesn't eat as much at dinner as she planned on eating. She will correct and then is fine. Discussed lowering her insulin by 2-4 units at dinner depending upon what she is going to have to eat to help prevent the lows. Continue to work on eating healthy and being active. To call or message with any issues managing her glucose levels. Up to date with [facility]. Labs ordered Assessment & Plan (01/27/2024 5:23 PM EDT): Control uncertain, no SMBG/CGM or recent labs. Some lows mid-day, not eating much in the morning. Will cut back on insulin in the morning from 5 to 4 units. Will try to get download of roberta from daughter's phone. They should contact company who is supplying the CGM supplies @ getting a new reader that can stay with her. Continue to work on eating healthy & keeping active, as able. To call or send in BG with problems with glycemic control. Due for ophtho. 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 No severe hypoglycemia, but is having more episodes of hypoglycemia later in the morning/early afternoon. Her son thinks the lows are being caused by taking too much insulin in the morning compared to what she is eating. She will correct and then is fine. Discussed with the patient and her son, about lowering her insulin to help prevent the lows. Discussed that in the morning if she is having just coffee and crackers to not take any more than 5 units of insulin, if she is eating a full breakfast to take 10 units. Will lower her night doses of insulin as her fasting levels are running on the lower side, and do not want to cause overnight or fasting hypoglycemia. Continue to work on eating healthy and being active. To call with any issues managing her glucose levels. Needs to schedule ophtho, has to find a new provider. Labs ordered to be done next week when sees PCP. Hyperlipidemia 07/17/2019 01/13/2023 Essential hypertension 07/17/2019 3 Assessment & Plan (01/27/2024 5:20 PM EDT): Sees renal. BP well controlled. Encounters Date Type Department Care Team Description 11/22/2024 10:35 AM EDT - 11/22/2024 11:59 PM EDT Hospital Encounter [facility] [address] [place] [address] Yara Harrington PA-C Discharge Disposition: Home or Self Care 11/22/2024 10:00 AM EDT Office Visit [facility] [address] [place] [address] Yara Harrington, Mauro Forrest Type 2 diabetes mellitus with peripheral neuropathy (Primary Dx) 11/15/2024 9:03 AM EDT - 11/15/2024 11:59 PM EDT Hospital Encounter [facility] [address] [place] [address] Karen Hart MD Discharge Disposition: Home or Self Care 11/15/2024 Transcribe Orders [facility] [address] [place] [address] Karen Hart MD Chronic kidney disease (CKD) stage G3b/A1, moderately decreased glomerular filtration rate (GFR) between 30-44 mL/min/1.73 square meter and albuminuria creatinine ratio less than 30 mg/g (Primary Dx); Diabetes mellitus associated with hormonal etiology; Essential hypertension, malignant from Last 3 Months Social History Tobacco Use Types Packs/Day Years Used Date Smoking Tobacco: Never Smokeless Tobacco: Never Comments:Only tried fir a mo nth Alcohol Use Standard Drinks/Week Comments Never 0 (1 standard drink = 0.6 oz pur e alcohol) Education Answer Date Recorded Are you interested in more education? Not on yvonne e 01/04/2023 Are you concerned about learning? Not on file 01/04/2023 No 01/04/2023 No 01/04/2023 Digital Access Answer Date Recorded No 01/04/2023 No 01/04/2023 Reliable internet access at home? Not on file 01/04/2023 Device with a working camera? Not on file Comments Unknown Sex and Gender Information Value Date Recorded Sex Assigned at Not on file Legal Sex Female 11:54 AM EDT Gender Identity Not on file Sexual Orientation Not on file Last Filed Vital Signs Vital Sign Reading Time Taken Comments Blood Pressure 118/72 11/22/2024 9:48 AM EDT Pulse 60 11/22/2024 9:48 AM EDT Temperature - - Respiratory Rate - - Oxygen Saturation 96% 11/22/2024 9:48 AM EDT Inhaled Oxygen Concentration - - Weight 55.3 kg (122 lb) 11/22/2024 9:48 AM EDT Height 143 cm (4' 8.3 ) 08/16/2024 10:53 AM EST Body Mass Index 27.06 08/16/2024 10:53 AM EST Plan of Treatment Upcoming Encounters Date Type Department Care Team (Late st Contact Info) Description 05/02/2025 11:20 AM EST Office Visit [facility] [address] [place] [address] Sandy Carranza MD [address] [place] [address] 07/31/2025 10:20 AM EST Office Visit [facility] [address] [place] [address] Yara Harrington PA-C [address] [place] [id number] Health Maintenance Due Date Last Done Comments Adult Td,Tdap Booster 1945 DEPRESSION SCREENING 1956 ZOSTER VACCINES (1 of 2) 02/25/1994 OSTEOPOROSIS SCREENING INITIAL (ONE-TIME) 02/25/2009 PNEUMOCOCCAL VACCINES (50+ years) (2 of 2 - PCV) 04/28/2012 04/28/2011 RSV VACCINE (1 - 1-dose 75+ series) 02/25/2019 DIABETIC EYE EXAM 01/13/2023 COVID-19 VACCINE ( season) 2024 06/29/2021, 09/24/2020, 08/27/2020 INFLUENZA VACCINE (#1) 2025 BLOOD PRESSURE 05/24/2025 11/22/2024 HEMOGLOBIN A1C 05/24/2025 11/22/2024, 03/0 10/2024, 05/09/2024, Additional history exists CREATININE LEVEL 11/22/2025 11/22/2024, 09/2024, 08/16/2024, Additional history exists POTASSIUM LEVEL 11/22/2025 11/22/2024, 06/0 09/2024, 08/16/2024, Additional history exists SMOKING STATUS SCREENING (Once After 26 Yrs) Completed 08/16/2024 HEPATITIS A VACCINES Aged Out No long er eligible based on patient's age to complete this topic HIB VACCINES Aged Out No longer eligi ble based on patient's age to complete this topic MENINGOCOCCAL VACCINES (ACWY) Aged Out No longer eligible based on patient's age to complete this topic MENINGOCOCCAL VACCINES (B) Aged Out N o longer eligible based on patient's age to complete this topic Medical Devices Not on file Procedures Procedure Name Priority Date/Time Associated Diagnosis Comments HEMOGLOBIN A1C Routine 11/22/2024 10:44 AM EDT Type 2 diabetes mellitus with peripheral neuropathy ALANINE AMINOTRANSFERASE (ALT) Routine 11/22/2024 10:44 AM EDT Type 2 diabetes mellitus with peripheral neuropathy ASPARTATE AMINOTRANSFERASE (AST) Routine 11/22/2024 10:44 AM EDT Type 2 diabetes mellitus with peripheral neuropathy BASIC METABOLIC PANEL Routine 11/22/2024 10:44 AM EDT Type 2 diabetes mellitus with peripheral neuropathy MICROALBUMIN/CREATININE RATIO, RANDOM URINE Routine 11/15/2024 9:38 AM EDT Chronic kidney disease (CKD) stage G3b/A1, moderately decreased glomerular filtration rate (GFR) between 30-44 mL/min/1.73 square meter and albuminuria creatinine ratio less than 30 mg/g Diabetes mellitus associated with hormonal etiology Essential hypertension, malignant IRON AND IRON BINDING CAPACITY Routine 11/15/2024 9:26 AM EDT Chronic kidney disease (CKD) stage G3b/A1, moderately decreased glomerular filtration rate (GFR) between 30-44 mL/min/1.73 square meter and albuminuria creatinine ratio less than 30 mg/g Diabetes mellitus associated with hormonal etiology Essential hypertension, malignant CBC Routine 11/15/2024 9:26 AM EDT Chronic kidney disease (CKD) stage G3b/A1, moderately decreased glomerular filtration rate (GFR) between 30-44 mL/min/1.73 square meter and albuminuria creatinine ratio less than 30 mg/g Diabetes mellitus associated with hormonal etiology Essential hypertension, malignant FERRITIN Routine 11/15/2024 9:26 AM EDT Chronic kidney disease (CKD) stage G3b/A1, moderately decreased glomerular filtration rate (GFR) between 30-44 mL/min/1.73 square meter and albuminuria creatinine ratio less than 30 mg/g Diabetes mellitus associated with hormonal etiology Essential hypertension, malignant PARATHYROID HORMONE (PTH) Routine 11/15/2024 9:26 AM EDT Chronic kidney disease (CKD) stage G3b/A1, moderately decreased glomerular filtration rate (GFR) between 30-44 mL/min/1.73 square meter and albuminuria creatinine ratio less than 30 mg/g Diabetes mellitus associated with hormonal etiology Essential hypertension, malignant RENAL PANEL Routine 11/15/2024 9:26 AM EDT Chronic kidney disease (CKD) stage G3b/A1, moderately decreased glomerular filtration rate (GFR) between 30-44 mL/min/1.73 square meter and albuminuria creatinine ratio less than 30 mg/g Diabetes mellitus associated with hormonal etiology Essential hypertension, malignant 25-OH VITAMIN D Routine 11/15/2024 9:26 AM EDT Chronic kidney disease (CKD) stage G3b/A1, moderately decreased glomerular filtration rate (GFR) between 30-44 mL/min/1.73 square meter and albuminuria creatinine ratio less than 30 mg/g Diabetes mellitus associated with hormonal etiology Essential hypertension, malignant from Last 3 Months Results * Alanine aminotransferase (ALT) (11/22/2024 10:44 AM EDT) ALT 8 0 - 40 U/L [facility] Blood 11/22/2024 10:4 4 AM EDT 11/22/2024 10:46 AM EDT us Yara Harrington PA-C LAB BLOOD ORDERABL ES Final Result [facility] [address], [place] [id number] * Aspartate aminotransferase (AST) (11/22/2024 10:44 AM EDT) AST 20 0 - 37 U/L [facility] Blood 11/22/2024 10:4 4 AM EDT 11/22/2024 10:46 AM EDT Yara VILLEGAS-Miguelina LAB BLOOD ORDERABL ES Final Result Performing Organization Address City/[facility]/ZIP Co de Phone Number [address] [phone] * (ABNORMAL) Hemoglobin A1c (11/22/2024 10:44 AM EDT) HEMOGLOBIN A1C 6.5(H) 4.3 - 5.8 % [facility] Blood 11/22/2024 10:4 4 AM EDT 11/22/2024 10:47 AM EDT Yara Harrington PA-C LAB BLOOD ORDERABL ES Final Result Performing Organization Address [facility] Co de Phone Number [address] [address] * (ABNORMAL) Basic metabolic panel (11/22/2024 10:44 AM EDT) SODIUM 141 133 - 146 mmol/L [facility] CHLORIDE 98 96 - 108 mmol/L [facility] POTASSIUM 4.0 3.3 - 5.1 mmol/L [facility] CO2 36(H) 21 - 35 mmol/L [facility] BUN 15 6 - 19 mg/dL [facility] CREATININE 1.30 0.5 - 1.5 mg/dL [facility] GLUCOSE 219(H) 70 - 99 mg/dL [facility] CALCIUM 9.1 8.4 - 10.3 mg/dL [facility] EGFR 42(L) >59 mL/min/1.7 3m2 [facility] Comment:Estimated glomerular filtration rate calculated using the CKD-EPI refit equation. ANION GAP 11 10 - 20 mmol/L [facility] Blood 11/22/2024 10:4 4 AM EDT 11/22/2024 10:46 AM EDT us Yara Harrington PA-C LAB BLOOD ORDERABL ES Final Result Performing Organization Address [facility]/ZIP Co de Phone Number [address] [phone] * (ABNORMAL) Microalbumin/creatinine ratio, random urine (11/15/2024 9:38 AM EDT) URINE MICROALBUMIN 9.5(H) 0 - 2.3 mg/dL [facility] URINE CREATININE 21 mg/dL [facility] MICROALB/CRE RATIO 452.4(H) 0 - 20 mg/g Cre [facility] Urine (Urine) 11/15/2024 9:3 8 AM EDT 11/15/2024 9:40 AM EDT us Karen Hart MD URINE ORDERABLES Final Resul t Performing Organization Address [facility]/ZIP Co de Phone Number [address] [address] * (ABNORMAL) Renal panel (11/15/2024 9:26 AM EDT) SODIUM 139 133 - 146 mmol/L [facility] POTASSIUM 3.7 3.3 - 5.1 mmol/L [facility] CHLORIDE 96 96 - 108 mmol/L [facility] CO2 33 21 - 35 mmol/L [facility] GLUCOSE 141(H) 70 - 99 mg/dL [facility] BUN 14 6 - 19 mg/dL [facility] CREATININE 1.40 0.5 - 1.5 mg/dL [facility] CALCIUM 8.5 8.4 - 10.3 mg/dL [facility] PHOSPHORUS 4.0 2.7 - 4.5 mg/dL [facility] ALBUMIN 3.7(L) 3.9 - 4.8 g/dL [facility] EGFR 38(L) >59 mL/min/1.7 3m2 [facility] Comment:Estimated glomerular filtration rate calculated using the CKD-EPI refit equation. ANION GAP 14 10 - 20 mmol/L [facility] Blood 11/15/2024 9:26 AM EDT 11/15/2024 9:28 AM EDT us Karen Hart MD LAB BLOOD ORDERABLES Final R esult Performing Organization Address City/[facility]/ZIP Co de Phone Number [address] [phone] * Iron and iron binding capacity (11/15/2024 9:26 AM EDT) IRON 56 30 - 160 ug/dL [facility] IRON BINDING CAPACITY 336 228 - 428 ug/dL [facility] TRANSFERRIN SATURAT. 17 15 - 50 % [facility] Blood 11/15/2024 9:26 AM EDT 11/15/2024 9:28 AM EDT us Karen Hart MD LAB BLOOD ORDERABLES Final R esult Performing Organization Address City/[facility]/ZIP Co de Phone Number [address] [address] * (ABNORMAL) 25-OH vitamin D (11/15/2024 9:26 AM EDT) 25 OH VIT D (TOTAL) 28(L) 30 - 60 ng/mL [facility] Blood 11/15/2024 9:26 AM EDT 11/15/2024 9:28 AM EDT us Karen Hart MD LAB BLOOD ORDERABLES Final R esult Performing Organization Address City/[facility]/ZIP Co de Phone Number [address] [phone] * (ABNORMAL) CBC (11/15/2024 9:26 AM EDT) WBC 4.44 4.00 - 11.00 K/uL [facility] RBC 3.64(L) 4.00 - 5.20 M/uL [facility] HGB 10.5(L) 12.0 - 16.0 g/dL [facility] HCT 33.8(L) 36.0 - 46.0 % [facility] PLT 129(L) 150 - 450 K/uL [facility] MCV 92.9 80.0 - 100.0 fL [facility] MCH 28.8 27.0 - 31.0 pg [facility] MCHC 31.1(L) 32.0 - 36.0 g/dL [facility] RDW 14.8(H) 11.5 - 14.5 % [facility] MPV 11.3 8.4 - 12.0 fL [facility] NRBC 0.00 0.00 /100 WBCs [facility] ABSOLUTE NRBC 0.00 0.00 K/uL [facility] Blood 11/15/2024 9:26 AM EDT 11/15/2024 9:28 AM EDT us Karen Hart MD LAB BLOOD ORDERABLES Final R esult [address] [address] * (ABNORMAL) Parathyroid hormone (PTH) (11/15/2024 9:26 AM EDT) PARATHYROID HORMONE 153(H) 15 - 65 pg/mL [facility] Blood 11/15/2024 9:26 AM EDT 11/15/2024 9:29 AM EDT us Karen Hart MD LAB BLOOD ORDERABLES Final R esult [address] [address] * Ferritin (11/15/2024 9:26 AM EDT) FERRITIN 62 13 - 150 ug/L [facility] Blood 11/15/2024 9:26 AM EDT 11/15/2024 9:28 AM EDT us Karen Hart MD LAB BLOOD ORDERABLES Final R esult [facility] [address] [place] [address] from Last 3 Months Insurance MEDICARE PART A & B [facility] MEDICARE PART A & B [place] B [facility] Care Teams Warehouse Helper Relationship Specialty Start Date End Date Renetta Gonzalez MD [address] [place] [address] PCP - General Internal Medicine 01/04/23 Additional Source Comments The information contained in this document represents components of the legal health record. It is not the complete legal health record[facility]
== END 2025-02-05 12:07 | disposition home or self-care (01) ==
PROVIDERS: PCP Internal Medicine
DX: Z00.00 Encounter for general adult medical examination without abnormal findings (principal); I13.0 Hypertensive heart and chronic kidney disease with heart failure and stage 1 through stage 4 chronic kidney disease, or unspecified chronic kidney disease; I50.9 Heart failure, unspecified; N18.31 Chronic kidney disease, stage 3a; E11.65 Type 2 diabetes mellitus with hyperglycemia; Z79.4 Long term (current) use of insulin; F01.50 Vascular dementia, unspecified severity, without behavioral disturbance, psychotic disturbance, mood disturbance, and anxiety; I25.10 Atherosclerotic heart disease of native coronary artery without angina pectoris; E78.00 Pure hypercholesterolemia, unspecified; M85.80 Other specified disorders of bone density and structure, unspecified site; Z86.73 Personal history of transient ischemic attack (TIA), and cerebral infarction without residual deficits; J45.20 Mild intermittent asthma, uncomplicated

== ENCOUNTER → 2025-02-05 10:39 | Outpatient (BNVA) | payer MEDICARE, MEDICAID, SELFPAY | PROVIDERS: PCP Internal Medicine | DX: Z00.00 Encounter for general adult medical examination without abnormal findings (principal); I13.0 Hypertensive heart and chronic kidney disease with heart failure and stage 1 through stage 4 chronic kidney disease, or unspecified chronic kidney disease; E11.22 Type 2 diabetes mellitus with diabetic chronic kidney disease; N18.31 Chronic kidney disease, stage 3a; I50.9 Heart failure, unspecified; I25.10 Atherosclerotic heart disease of native coronary artery without angina pectoris; E78.00 Pure hypercholesterolemia, unspecified; E11.65 Type 2 diabetes mellitus with hyperglycemia; M85.80 Other specified disorders of bone density and structure, unspecified site; F01.50 Vascular dementia, unspecified severity, without behavioral disturbance, psychotic disturbance, mood disturbance, and anxiety; J45.20 Mild intermittent asthma, uncomplicated; Z86.73 Personal history of transient ischemic attack (TIA), and cerebral infarction without residual deficits | CPT/HCPCS: 96127 ==